=== PATIENT | male | born 1950 | race Caucasian/White ===

== ENCOUNTER 2018-06-15 02:56 | Outpatient (CLI) | payer OTHER, SELFPAY ==
[2018-06-15 09:11] LABS: Abs Immature Grans 0.03 k/cumm (0.0-0.09); Absolute Basophil Count 0.18 k/cumm (0.0-0.2); Absolute Eosinophil Count 0.06 k/cumm (0.0-0.7); Absolute Lymphocyte Count 1.69 k/cumm (1.2-3.4); Absolute Monocyte Count 0.32 k/cumm (0.11-0.7); Absolute Neutrophil Count 1.44 k/cumm (1.2-6.7); Basophils % 4.8; Eosinophils % 1.6; HCT 32.2 % (40.0-50.0); HGB 10.5 g/dL (13.5-17.5); Immature Grans % 0.8; Lymphocytes % 45.4; Mean Corp. HGB Concentration 32.6 g/dL (32.0-36.0); Mean Corpuscular Hemoglobin 33.3 pg (27.0-33.0); Mean Corpuscular Volume 102.2 fL (80-95); Mean Platelet Volume 10.6 fL (8.0-11.0); Monocytes % 8.6; Neutrophils % 38.8; RBC 3.15 m/cumm (4.50-6.00); RBC Distribution Width 23.1 % (11.8-14.1); White Blood Cell Count 3.72 k/cumm (4.4-10.8)
[2018-06-15 09:34] LABS: Platelet Count 242 x1000/uL (130-400)
[2018-06-15 09:35] LABS: Anisocytosis 3+; Macrocytosis 2+
[2018-06-15 09:36] LABS: Microcytosis 2+; Ovalocytes 2+; Poikilocytes 2+; Polychromasia Present
== END 2018-06-15 02:57 ==
PROVIDERS: PCP Family Medicine; Visit Provider Internal Medicine Hematology & Oncology
DX: D46.9 Myelodysplastic syndrome, unspecified (principal)
CPT/HCPCS: 36415; 85025

== ENCOUNTER 2018-07-13 01:48 | Outpatient (CLI) | payer OTHER, SELFPAY ==
[2018-07-13 10:22] LABS: HCT 30.7 % (40.0-50.0); HGB 10.1 g/dL (13.5-17.5); Mean Corp. HGB Concentration 32.9 g/dL (32.0-36.0); Mean Corpuscular Hemoglobin 33.8 pg (27.0-33.0); Mean Corpuscular Volume 102.7 fL (80-95); Mean Platelet Volume 11.4 fL (8.0-11.0); Platelet Count 233 x1000/uL (130-400); RBC 2.99 m/cumm (4.50-6.00); RBC Distribution Width 22.8 % (11.8-14.1); White Blood Cell Count 3.41 k/cumm (4.4-10.8)
[2018-07-13 10:46] LABS: Absolute Basophil Count 0.14 k/cumm (0.0-0.2); Absolute Monocyte Count 0.24 k/cumm (0.11-0.7); Absolute Neutrophil Count 1.36 k/cumm (1.2-6.7)
[2018-07-13 10:47] LABS: Anisocytosis 2+; Diff Comment Manual Differential
[2018-07-13 10:48] LABS: Basophilic Stippling Present; Macrocytosis 1+; Polychromasia Present
[2018-07-13 10:49] LABS: Poikilocytes 2+
[2018-07-13 10:59] LABS: ALT 39 U/L (12-78); AST 36 U/L (15-37); Albumin 3.6 g/dL (3.4-5.0); Alkaline Phosphatase 82 U/L (46-116); Anion Gap 3.7 mmol/L (3-11); BUN 28 mg/dL (7-18); Bilirubin, Total 0.9 mg/dL (0.2-1.0); CO2 29.3 mmol/L (21.0-32.0); CREATININE 1.79 mg/dL (0.70-1.30); Calcium 8.7 mg/dL (8.5-10.1); Chloride 105 mmol/L (98-107); Estimated GFR 38.18 (mL/min/1.73m2); Ferritin 272 ng/mL (8-388); Glucose 111 mg/dL (70-100); Potassium 4.9 mmol/L (3.5-5.1); Sodium 138 mmol/L (136-145); Total Protein 7.1 g/dL (6.4-8.2)
== END 2018-07-13 02:08 ==
PROVIDERS: PCP Family Medicine; Visit Provider Internal Medicine Hematology & Oncology
DX: D46.9 Myelodysplastic syndrome, unspecified (principal)
CPT/HCPCS: 80053; 82728; 85025

== ENCOUNTER 2018-07-27 09:20 | Outpatient (CLI) | payer OTHER, SELFPAY ==
[2018-07-27 10:31] LABS: Abs Immature Grans 0.04 k/cumm (0.0-0.09); Absolute Basophil Count 0.17 k/cumm (0.0-0.2); Absolute Eosinophil Count 0.06 k/cumm (0.0-0.7); Absolute Lymphocyte Count 1.56 k/cumm (1.2-3.4); Absolute Monocyte Count 0.34 k/cumm (0.11-0.7); Basophils % 4.5; Eosinophils % 1.6; HCT 30.8 % (40.0-50.0); HGB 9.9 g/dL (13.5-17.5); Immature Grans % 1.1; Lymphocytes % 41.2; Mean Corp. HGB Concentration 32.1 g/dL (32.0-36.0); Mean Corpuscular Volume 102.7 fL (80-95); Neutrophils % 42.6; RBC Distribution Width 22.8 % (11.8-14.1); White Blood Cell Count 3.79 k/cumm (4.4-10.8)
[2018-07-27 10:32] LABS: Absolute Neutrophil Count 1.61 k/cumm (1.2-6.7)
[2018-07-27 10:35] LABS: ALT 36 U/L (12-78); AST 30 U/L (15-37); Albumin 3.5 g/dL (3.4-5.0); Alkaline Phosphatase 79 U/L (46-116); Anion Gap 7.4 mmol/L (3-11); BUN 29 mg/dL (7-18); Bilirubin, Total 0.9 mg/dL (0.2-1.0); CO2 25.6 mmol/L (21.0-32.0); CREATININE 1.65 mg/dL (0.70-1.30); Calcium 9.1 mg/dL (8.5-10.1); Chloride 105 mmol/L (98-107); Estimated GFR 41.95 (mL/min/1.73m2); Glucose 107 mg/dL (70-100); Potassium 4.5 mmol/L (3.5-5.1); Sodium 138 mmol/L (136-145); Total Protein 6.9 g/dL (6.4-8.2)
[2018-07-27 10:46] LABS: Platelet Count 273 x1000/uL (130-400)
[2018-07-27 10:47] LABS: Anisocytosis 3+; Diff Comment RBC Morph Reviewed; Microcytosis 2+
[2018-07-27 10:48] LABS: Ovalocytes 2+; Poikilocytes 2+; Polychromasia Present
[2018-07-27 11:45] LABS: Ferritin 276 ng/mL (8-388)
== END 2018-07-27 09:40 ==
PROVIDERS: Internal Medicine Hematology & Oncology; PCP Family Medicine; Visit Provider Family Medicine
DX: D46.9 Myelodysplastic syndrome, unspecified (principal)
CPT/HCPCS: 36415; 80053; 82728; 85025

== ENCOUNTER 2018-08-24 02:06 | Outpatient (CLI) | payer OTHER, SELFPAY ==
[2018-08-24 09:20] LABS: Abs Immature Grans 0.04 k/cumm (0.0-0.09); Absolute Basophil Count 0.17 k/cumm (0.0-0.2); Absolute Eosinophil Count 0.06 k/cumm (0.0-0.7); Absolute Lymphocyte Count 1.41 k/cumm (1.2-3.4); Absolute Monocyte Count 0.31 k/cumm (0.11-0.7); Absolute Neutrophil Count 2.05 k/cumm (1.2-6.7); Basophils % 4.2; Eosinophils % 1.5; HCT 33.2 % (40.0-50.0); HGB 10.8 g/dL (13.5-17.5); Lymphocytes % 34.9; Mean Corp. HGB Concentration 32.5 g/dL (32.0-36.0); Mean Corpuscular Hemoglobin 32.8 pg (27.0-33.0); Mean Corpuscular Volume 100.9 fL (80-95); Monocytes % 7.7; Neutrophils % 50.7; RBC 3.29 m/cumm (4.50-6.00); RBC Distribution Width 22.3 % (11.8-14.1); White Blood Cell Count 4.04 k/cumm (4.4-10.8)
[2018-08-24 09:41] LABS: Anisocytosis 3+; Basophilic Stippling Present; Diff Comment Diff Reviewed; Platelet Count 230 x1000/uL (130-400)
[2018-08-24 09:42] LABS: Polychromasia Present
[2018-08-24 09:43] LABS: Poikilocytes 2+
[2018-08-24 09:44] LABS: ALT 38 U/L (12-78); AST 30 U/L (15-37); Albumin 3.8 g/dL (3.4-5.0); Alkaline Phosphatase 80 U/L (46-116); Anion Gap 6.9 mmol/L (3-11); BUN 35 mg/dL (7-18); Bilirubin, Total 1.2 mg/dL (0.2-1.0); CO2 28.1 mmol/L (21.0-32.0); Calcium 9.1 mg/dL (8.5-10.1); Chloride 102 mmol/L (98-107); Estimated GFR 46.82 (mL/min/1.73m2); Ferritin 263 ng/mL (8-388); Glucose 108 mg/dL (70-100); Potassium 4.7 mmol/L (3.5-5.1); Sodium 137 mmol/L (136-145); Total Protein 7.3 g/dL (6.4-8.2)
== END 2018-08-24 02:26 ==
PROVIDERS: PCP Family Medicine; Visit Provider Internal Medicine Hematology & Oncology
DX: D46.9 Myelodysplastic syndrome, unspecified (principal)
CPT/HCPCS: 80053; 82728; 85025

== ENCOUNTER 2018-09-21 01:39 | Outpatient (CLI) | payer OTHER, SELFPAY ==
[2018-09-21 10:21] LABS: Abs Immature Grans 0.04 k/cumm (0.0-0.09); Absolute Basophil Count 0.13 k/cumm (0.0-0.2); Absolute Eosinophil Count 0.04 k/cumm (0.0-0.7); Absolute Lymphocyte Count 1.57 k/cumm (1.2-3.4); Absolute Neutrophil Count 1.64 k/cumm (1.2-6.7); Basophils % 3.5; Eosinophils % 1.1; HCT 32.5 % (40.0-50.0); HGB 10.3 g/dL (13.5-17.5); Immature Grans % 1.1; Lymphocytes % 42.2; Mean Corp. HGB Concentration 31.7 g/dL (32.0-36.0); Mean Corpuscular Hemoglobin 32.4 pg (27.0-33.0); Mean Corpuscular Volume 102.2 fL (80-95); Mean Platelet Volume 11.8 fL (8.0-11.0); Monocytes % 8.1; Platelet Count 293 x1000/uL (130-400); RBC 3.18 m/cumm (4.50-6.00); RBC Distribution Width 22.2 % (11.8-14.1); White Blood Cell Count 3.72 k/cumm (4.4-10.8)
[2018-09-21 10:48] LABS: ALT 41 U/L (12-78); AST 32 U/L (15-37); Albumin 3.8 g/dL (3.4-5.0); Alkaline Phosphatase 77 U/L (46-116); Anion Gap 5.5 mmol/L (3-11); BUN 29 mg/dL (7-18); Bilirubin, Total 1.2 mg/dL (0.2-1.0); CO2 28.5 mmol/L (21.0-32.0); CREATININE 1.44 mg/dL (0.70-1.30); Calcium 9.2 mg/dL (8.5-10.1); Chloride 102 mmol/L (98-107); Estimated GFR 49.08 (mL/min/1.73m2); Ferritin 288 ng/mL (8-388); Glucose 109 mg/dL (70-100); Potassium 4.3 mmol/L (3.5-5.1); Sodium 136 mmol/L (136-145); Total Protein 7.1 g/dL (6.4-8.2)
== END 2018-09-21 01:59 ==
PROVIDERS: PCP Family Medicine; Visit Provider Internal Medicine Hematology & Oncology
DX: D46.9 Myelodysplastic syndrome, unspecified (principal)
CPT/HCPCS: 36415; 80053; 82728; 85025

== ENCOUNTER 2018-10-19 01:47 | Outpatient (CLI) | payer OTHER, SELFPAY ==
[2018-10-19 10:32] LABS: Abs Immature Grans 0.04 k/cumm (0.0-0.09); Absolute Eosinophil Count 0.07 k/cumm (0.0-0.7); HCT 34.1 % (40.0-50.0); HGB 10.9 g/dL (13.5-17.5); Mean Corpuscular Hemoglobin 32.5 pg (27.0-33.0); Mean Corpuscular Volume 101.8 fL (80-95); RBC 3.35 m/cumm (4.50-6.00); RBC Distribution Width 22.8 % (11.8-14.1); White Blood Cell Count 3.65 k/cumm (4.4-10.8)
[2018-10-19 11:03] LABS: ALT 35 U/L (12-78); AST 27 U/L (15-37); Albumin 3.6 g/dL (3.4-5.0); Alkaline Phosphatase 81 U/L (46-116); Anion Gap 6.1 mmol/L (3-11); BUN 32 mg/dL (7-18); CO2 27.9 mmol/L (21.0-32.0); CREATININE 1.53 mg/dL (0.70-1.30); Calcium 9.3 mg/dL (8.5-10.1); Chloride 103 mmol/L (98-107); Estimated GFR 45.77 (mL/min/1.73m2); Ferritin 243 ng/mL (8-388); Glucose 107 mg/dL (70-100); Potassium 4.8 mmol/L (3.5-5.1); Sodium 137 mmol/L (136-145); Total Protein 7.1 g/dL (6.4-8.2)
[2018-10-19 11:04] LABS: Absolute Basophil Count 0.15 k/cumm (0.0-0.2); Absolute Monocyte Count 0.33 k/cumm (0.11-0.7); Absolute Neutrophil Count 1.61 k/cumm (1.2-6.7); Atypical Lymphocytes % 4; Diff Comment Manual Differential; Platelet Count 244 x1000/uL (130-400)
[2018-10-19 11:05] LABS: Anisocytosis 3+; Poikilocytes 2+; Polychromasia Present
== END 2018-10-19 02:07 ==
PROVIDERS: PCP Family Medicine; Visit Provider Internal Medicine Hematology & Oncology
DX: D46.9 Myelodysplastic syndrome, unspecified (principal)
CPT/HCPCS: 36415; 80053; 82728; 85025

== ENCOUNTER 2018-11-23 02:22 | Outpatient (CLI) | payer OTHER, SELFPAY ==
[2018-11-23 10:06] LABS: Abs Immature Grans 0.05 k/cumm (0.0-0.09); Absolute Basophil Count 0.14 k/cumm (0.0-0.2); Absolute Eosinophil Count 0.04 k/cumm (0.0-0.7); Absolute Monocyte Count 0.38 k/cumm (0.11-0.7); Absolute Neutrophil Count 1.52 k/cumm (1.2-6.7); Basophils % 3.8; Eosinophils % 1.1; HCT 27.3 % (40.0-50.0); HGB 9.5 g/dL (13.5-17.5); Immature Grans % 1.3; Lymphocytes % 42.9; Mean Corp. HGB Concentration 34.8 g/dL (32.0-36.0); Mean Corpuscular Hemoglobin 33.5 pg (27.0-33.0); Mean Corpuscular Volume 96.1 fL (80-95); Mean Platelet Volume 10.1 fL (8.0-11.0); Monocytes % 10.2; Neutrophils % 40.7; Platelet Count 303 x1000/uL (130-400); RBC 2.84 m/cumm (4.50-6.00); RBC Distribution Width 19.6 % (11.8-14.1); White Blood Cell Count 3.73 k/cumm (4.4-10.8)
[2018-11-23 10:48] LABS: ALT 40 U/L (12-78); AST 31 U/L (15-37); Albumin 3.7 g/dL (3.4-5.0); Alkaline Phosphatase 105 U/L (46-116); Anion Gap 5.9 mmol/L (3-11); BUN 32 mg/dL (7-18); Bilirubin, Total 0.9 mg/dL (0.2-1.0); CO2 28.1 mmol/L (21.0-32.0); CREATININE 1.51 mg/dL (0.70-1.30); Calcium 9.5 mg/dL (8.5-10.1); Chloride 97 mmol/L (98-107); Estimated GFR 46.47 (mL/min/1.73m2); Ferritin 764 ng/mL (8-388); Glucose 97 mg/dL (70-100); Potassium 4.7 mmol/L (3.5-5.1); Sodium 131 mmol/L (136-145); Total Protein 7.5 g/dL (6.4-8.2)
== END 2018-11-23 02:42 ==
PROVIDERS: PCP Family Medicine; Visit Provider Internal Medicine Hematology & Oncology
DX: D46.9 Myelodysplastic syndrome, unspecified (principal)
CPT/HCPCS: 36415; 80053; 82728; 85025

== ENCOUNTER 2018-12-07 01:55 | Outpatient (CLI) | payer OTHER, SELFPAY ==
[2018-12-07 08:48] LABS: Abs Immature Grans 0.05 k/cumm (0.0-0.09); HCT 30.4 % (40.0-50.0); HGB 9.6 g/dL (13.5-17.5); Mean Corp. HGB Concentration 31.6 g/dL (32.0-36.0); Mean Corpuscular Hemoglobin 32.2 pg (27.0-33.0); Mean Platelet Volume 11.9 fL (8.0-11.0); Platelet Count 342 x1000/uL (130-400); RBC 2.98 m/cumm (4.50-6.00); RBC Distribution Width 22.7 % (11.8-14.1); White Blood Cell Count 3.47 k/cumm (4.4-10.8)
[2018-12-07 09:05] LABS: ALT 34 U/L (12-78); AST 28 U/L (15-37); Albumin 3.6 g/dL (3.4-5.0); Alkaline Phosphatase 79 U/L (46-116); Anion Gap 8.4 mmol/L (3-11); BUN 33 mg/dL (7-18); Bilirubin, Total 1.1 mg/dL (0.2-1.0); CO2 27.6 mmol/L (21.0-32.0); CREATININE 1.73 mg/dL (0.70-1.30); Calcium 9.2 mg/dL (8.5-10.1); Chloride 104 mmol/L (98-107); Estimated GFR 39.72 (mL/min/1.73m2); Ferritin 427 ng/mL (8-388); Glucose 83 mg/dL (70-100); Potassium 4.4 mmol/L (3.5-5.1); Sodium 140 mmol/L (136-145); Total Protein 7.5 g/dL (6.4-8.2)
[2018-12-07 09:34] LABS: Absolute Basophil Count 0.03 k/cumm (0.0-0.2); Absolute Eosinophil Count 0.03 k/cumm (0.0-0.7); Absolute Lymphocyte Count 1.39 k/cumm (1.2-3.4); Absolute Monocyte Count 0.28 k/cumm (0.11-0.7); Absolute Neutrophil Count 1.67 k/cumm (1.2-6.7); Diff Comment Manual Differential
[2018-12-07 09:35] LABS: Anisocytosis 2+; Hypochromasia 2+
== END 2018-12-07 02:15 ==
PROVIDERS: PCP Family Medicine; Visit Provider Internal Medicine Hematology & Oncology
DX: D46.9 Myelodysplastic syndrome, unspecified (principal)
CPT/HCPCS: 36415; 80053; 82728; 85025

== ENCOUNTER 2019-01-11 02:45 | Outpatient (CLI) | payer OTHER, SELFPAY ==
[2019-01-11 11:16] LABS: Abs Immature Grans 0.14 k/cumm (0.0-0.09); HCT 21.7 % (40.0-50.0); HGB 7.3 g/dL (13.5-17.5); Mean Corp. HGB Concentration 33.6 g/dL (32.0-36.0); Mean Corpuscular Hemoglobin 33.3 pg (27.0-33.0); Mean Corpuscular Volume 99.1 fL (80-95); Mean Platelet Volume 9.5 fL (8.0-11.0); Platelet Count 475 x1000/uL (130-400); RBC 2.19 m/cumm (4.50-6.00); RBC Distribution Width 23.4 % (11.8-14.1); White Blood Cell Count 4.74 k/cumm (4.4-10.8)
[2019-01-11 11:34] LABS: ALT 37 U/L (12-78); AST 31 U/L (15-37); Albumin 3.8 g/dL (3.4-5.0); Alkaline Phosphatase 88 U/L (46-116); Anion Gap 9.6 mmol/L (3-11); BUN 47 mg/dL (7-18); Bilirubin, Total 0.7 mg/dL (0.2-1.0); CO2 22.4 mmol/L (21.0-32.0); CREATININE 1.95 mg/dL (0.70-1.30); Calcium 8.8 mg/dL (8.5-10.1); Chloride 101 mmol/L (98-107); Estimated GFR 34.49 (mL/min/1.73m2); Ferritin 851 ng/mL (8-388); Glucose 92 mg/dL (70-100); Potassium 5.8 mmol/L (3.5-5.1); Sodium 133 mmol/L (136-145); Total Protein 7.6 g/dL (6.4-8.2)
[2019-01-11 11:51] LABS: Absolute Eosinophil Count 0.05 k/cumm (0.0-0.7); Absolute Lymphocyte Count 2.04 k/cumm (1.2-3.4); Absolute Monocyte Count 0.19 k/cumm (0.11-0.7); Absolute Neutrophil Count 2.37 k/cumm (1.2-6.7)
[2019-01-11 11:52] LABS: Diff Comment Manual Differential; Hypochromasia 3+; Macrocytosis 3+; Microcytosis 2+; Nucleated RBC 1 /100WBC
[2019-01-11 11:53] LABS: Ovalocytes 2+; Poikilocytes 2+; Polychromasia Present; Schistocytes 2+
[2019-01-12 13:33] LABS: Albumin 57.2 % (55.8-66.1)
== END 2019-01-11 03:05 ==
PROVIDERS: PCP Family Medicine; Visit Provider Internal Medicine Hematology & Oncology
DX: D46.9 Myelodysplastic syndrome, unspecified (principal); N28.9 Disorder of kidney and ureter, unspecified
CPT/HCPCS: 36415; 80053; 82728; 84165; 85025

== ENCOUNTER 2019-02-08 01:02 | Outpatient (CLI) | payer OTHER, MEDICARE, SELFPAY ==
[2019-02-08 10:26] LABS: Abs Immature Grans 0.04 k/cumm (0.0-0.09); HCT 28.6 % (40.0-50.0); HGB 9.3 g/dL (13.5-17.5); Mean Corp. HGB Concentration 32.5 g/dL (32.0-36.0); Mean Corpuscular Hemoglobin 31.7 pg (27.0-33.0); Mean Corpuscular Volume 97.6 fL (80-95); Mean Platelet Volume 11.3 fL (8.0-11.0); RBC 2.93 m/cumm (4.50-6.00); RBC Distribution Width 29.2 % (11.8-14.1); White Blood Cell Count 3.11 k/cumm (4.4-10.8)
[2019-02-08 10:33] LABS: ALT 30 U/L (12-78); AST 30 U/L (15-37); Albumin 3.6 g/dL (3.4-5.0); Alkaline Phosphatase 86 U/L (46-116); Anion Gap 8.3 mmol/L (3-11); BUN 32 mg/dL (7-18); Bilirubin, Total 1.2 mg/dL (0.2-1.0); CO2 26.7 mmol/L (21.0-32.0); CREATININE 1.84 mg/dL (0.70-1.30); Calcium 8.7 mg/dL (8.5-10.1); Chloride 99 mmol/L (98-107); Estimated GFR 36.88 (mL/min/1.73m2); Ferritin 303 ng/mL (8-388); Glucose 98 mg/dL (70-100); Potassium 4.7 mmol/L (3.5-5.1); Sodium 134 mmol/L (136-145); Total Protein 7.2 g/dL (6.4-8.2)
[2019-02-08 10:48] LABS: Absolute Basophil Count 0.12 k/cumm (0.0-0.2); Absolute Eosinophil Count 0.03 k/cumm (0.0-0.7); Absolute Lymphocyte Count 1.83 k/cumm (1.2-3.4); Absolute Monocyte Count 0.28 k/cumm (0.11-0.7); Absolute Neutrophil Count 0.81 k/cumm (1.2-6.7); Atypical Lymphocytes % 4; Platelet Count 419 x1000/uL (130-400)
[2019-02-08 10:49] LABS: Anisocytosis 3+; Diff Comment Manual Differential; Hypochromasia 2+; Macrocytosis 2+; Microcytosis 3+; Poikilocytes 3+; Polychromasia Present
== END 2019-02-08 01:22 ==
PROVIDERS: PCP Family Medicine; Visit Provider Internal Medicine Hematology & Oncology
DX: D46.9 Myelodysplastic syndrome, unspecified (principal)
CPT/HCPCS: 36415; 80053; 82728; 85025

== ENCOUNTER 2019-03-08 01:37 | Outpatient (CLI) | payer OTHER, SELFPAY ==
[2019-03-08 09:23] LABS: Abs Immature Grans 0.02 k/cumm (0.0-0.09); Absolute Basophil Count 0.09 k/cumm (0.0-0.2); Absolute Eosinophil Count 0.03 k/cumm (0.0-0.7); Absolute Monocyte Count 0.28 k/cumm (0.11-0.7); Absolute Neutrophil Count 1.22 k/cumm (1.2-6.7); Basophils % 3.1; HCT 30.4 % (40.0-50.0); HGB 10.1 g/dL (13.5-17.5); Immature Grans % 0.7; Lymphocytes % 44.2; Mean Corp. HGB Concentration 33.2 g/dL (32.0-36.0); Mean Corpuscular Hemoglobin 31.8 pg (27.0-33.0); Mean Corpuscular Volume 95.6 fL (80-95); Monocytes % 9.5; Neutrophils % 41.5; RBC 3.18 m/cumm (4.50-6.00); RBC Distribution Width 24.1 % (11.8-14.1); White Blood Cell Count 2.94 k/cumm (4.4-10.8)
[2019-03-08 09:46] LABS: Anisocytosis 3+; Basophilic Stippling Present; Macrocytosis 2+; Microcytosis 2+; Platelet Count 265 x1000/uL (130-400)
[2019-03-08 09:47] LABS: ALT 34 U/L (12-78); AST 31 U/L (15-37); Albumin 3.7 g/dL (3.4-5.0); Alkaline Phosphatase 85 U/L (46-116); BUN 28 mg/dL (7-18); Bilirubin, Total 1.3 mg/dL (0.2-1.0); CREATININE 1.53 mg/dL (0.70-1.30); Chloride 95 mmol/L (98-107); Estimated GFR 45.63 (mL/min/1.73m2); Ferritin 402 ng/mL (8-388); Glucose 109 mg/dL (70-100); Poikilocytes 2+; Potassium 4.3 mmol/L (3.5-5.1); Sodium 130 mmol/L (136-145); Total Protein 7.4 g/dL (6.4-8.2)
[2019-03-08 10:45] LABS: Iron 120 ug/dL (50-175); Total Iron Binding Capacity 357 ug/dL (250-450); Transferrin Sat 34 % (20-55)
== END 2019-03-08 01:57 ==
PROVIDERS: PCP Family Medicine; Visit Provider Internal Medicine Hematology & Oncology
DX: D46.9 Myelodysplastic syndrome, unspecified (principal)
CPT/HCPCS: 36415; 80053; 82728; 83540; 83550; 85025

== ENCOUNTER 2019-04-05 09:33 | Outpatient (CLI) | payer OTHER, SELFPAY ==
[2019-04-05 09:59] LABS: Abs Immature Grans 0.04 k/cumm (0.0-0.09); HCT 29.9 % (40.0-50.0); HGB 9.4 g/dL (13.5-17.5); Mean Corp. HGB Concentration 31.4 g/dL (32.0-36.0); Mean Corpuscular Hemoglobin 32.1 pg (27.0-33.0); Mean Platelet Volume 10.7 fL (8.0-11.0); RBC 2.93 m/cumm (4.50-6.00); RBC Distribution Width 24.5 % (11.8-14.1); White Blood Cell Count 2.74 k/cumm (4.4-10.8)
[2019-04-05 10:33] LABS: ALT 41 U/L (12-78); AST 35 U/L (15-37); Albumin 3.5 g/dL (3.4-5.0); Alkaline Phosphatase 85 U/L (46-116); Anion Gap 6.2 mmol/L (3-11); BUN 30 mg/dL (7-18); Bilirubin, Total 1.3 mg/dL (0.2-1.0); CO2 27.8 mmol/L (21.0-32.0); CREATININE 1.66 mg/dL (0.70-1.30); Calcium 8.8 mg/dL (8.5-10.1); Chloride 105 mmol/L (98-107); Estimated GFR 41.53 (mL/min/1.73m2); Ferritin 369 ng/mL (8-388); Glucose 111 mg/dL (70-100); Potassium 5.2 mmol/L (3.5-5.1); Sodium 139 mmol/L (136-145); Total Protein 7.1 g/dL (6.4-8.2)
[2019-04-05 10:34] LABS: Platelet Count 295 x1000/uL (130-400)
[2019-04-05 10:35] LABS: Absolute Eosinophil Count 0.11 k/cumm (0.0-0.7); Absolute Lymphocyte Count 1.64 k/cumm (1.2-3.4); Absolute Monocyte Count 0.25 k/cumm (0.11-0.7); Absolute Neutrophil Count 0.71 k/cumm (1.2-6.7)
[2019-04-05 10:36] LABS: Atypical Lymphocytes % 3; Diff Comment Manual Differential
[2019-04-05 10:37] LABS: Anisocytosis 3+; Macrocytosis 1+; Microcytosis 1+; Poikilocytes 1+; Polychromasia Present
== END 2019-04-05 09:53 ==
PROVIDERS: PCP Family Medicine; Visit Provider Internal Medicine Hematology & Oncology
DX: D46.9 Myelodysplastic syndrome, unspecified (principal)
CPT/HCPCS: 36415; 80053; 82728; 85025

== ENCOUNTER 2019-05-03 09:30 | Outpatient (CLI) | payer OTHER, SELFPAY ==
[2019-05-03 09:51] LABS: Abs Immature Grans 0.02 k/cumm (0.0-0.09); Absolute Basophil Count 0.15 k/cumm (0.0-0.2); Absolute Eosinophil Count 0.08 k/cumm (0.0-0.7); Absolute Lymphocyte Count 1.43 k/cumm (1.2-3.4); Absolute Monocyte Count 0.35 k/cumm (0.11-0.7); Absolute Neutrophil Count 1.23 k/cumm (1.2-6.7); Basophils % 4.6; Eosinophils % 2.5; HCT 29.9 % (40.0-50.0); HGB 9.7 g/dL (13.5-17.5); Immature Grans % 0.6; Lymphocytes % 43.9; Mean Corp. HGB Concentration 32.4 g/dL (32.0-36.0); Mean Corpuscular Hemoglobin 32.9 pg (27.0-33.0); Mean Corpuscular Volume 101.4 fL (80-95); Mean Platelet Volume 11.8 fL (8.0-11.0); Monocytes % 10.7; Neutrophils % 37.7; Platelet Count 334 x1000/uL (130-400); RBC 2.95 m/cumm (4.50-6.00); White Blood Cell Count 3.26 k/cumm (4.4-10.8)
[2019-05-03 10:09] LABS: Anisocytosis 3+; Basophilic Stippling Present; Diff Comment Diff Reviewed
[2019-05-03 10:10] LABS: Macrocytosis 2+; Microcytosis 3+; Polychromasia Present
[2019-05-03 10:11] LABS: Poikilocytes 3+
[2019-05-03 10:28] LABS: ALT 53 U/L (12-78); AST 36 U/L (15-37); Albumin 3.6 g/dL (3.4-5.0); Alkaline Phosphatase 107 U/L (46-116); Anion Gap 11.2 mmol/L (3-11); BUN 36 mg/dL (7-18); CO2 23.8 mmol/L (21.0-32.0); CREATININE 1.65 mg/dL (0.70-1.30); Calcium 8.6 mg/dL (8.5-10.1); Chloride 105 mmol/L (98-107); Estimated GFR 41.82 (mL/min/1.73m2); Ferritin 455 ng/mL (8-388); Glucose 110 mg/dL (70-100); Potassium 4.9 mmol/L (3.5-5.1); Sodium 140 mmol/L (136-145); Total Protein 7.5 g/dL (6.4-8.2)
== END 2019-05-03 09:50 ==
PROVIDERS: PCP Family Medicine; Visit Provider Internal Medicine Hematology & Oncology
DX: D46.9 Myelodysplastic syndrome, unspecified (principal)
CPT/HCPCS: 36415; 80053; 82728; 85025

== ENCOUNTER 2019-05-31 01:54 | Outpatient (CLI) | payer OTHER, SELFPAY ==
[2019-05-31 10:00] LABS: Abs Immature Grans 0.02 k/cumm (0.0-0.09); Absolute Basophil Count 0.13 k/cumm (0.0-0.2); Absolute Eosinophil Count 0.07 k/cumm (0.0-0.7); Absolute Lymphocyte Count 1.22 k/cumm (1.2-3.4); Absolute Neutrophil Count 0.92 k/cumm (1.2-6.7); Basophils % 4.9; Eosinophils % 2.6; HCT 29.7 % (40.0-50.0); HGB 9.7 g/dL (13.5-17.5); Immature Grans % 0.8; Lymphocytes % 45.9; Mean Corp. HGB Concentration 32.7 g/dL (32.0-36.0); Mean Corpuscular Hemoglobin 32.3 pg (27.0-33.0); Mean Platelet Volume 10.1 fL (8.0-11.0); Monocytes % 11.3; Neutrophils % 34.5; Platelet Count 315 x1000/uL (130-400); RBC Distribution Width 22.8 % (11.8-14.1); White Blood Cell Count 2.66 k/cumm (4.4-10.8)
[2019-05-31 10:26] LABS: Iron 195 ug/dL (50-175); Total Iron Binding Capacity 346 ug/dL (250-450); Transferrin Sat 56 % (20-55)
[2019-05-31 10:36] LABS: ALT 41 U/L (12-78); AST 35 U/L (15-37); Albumin 3.8 g/dL (3.4-5.0); Alkaline Phosphatase 89 U/L (46-116); Anion Gap 8.1 mmol/L (3-11); BUN 34 mg/dL (7-18); Bilirubin, Total 1.4 mg/dL (0.2-1.0); CO2 26.9 mmol/L (21.0-32.0); CREATININE 1.88 mg/dL (0.70-1.30); Calcium 9.8 mg/dL (8.5-10.1); Chloride 98 mmol/L (98-107); Estimated GFR 35.97 (mL/min/1.73m2); Ferritin 569 ng/mL (8-388); Glucose 115 mg/dL (70-100); Sodium 133 mmol/L (136-145); Total Protein 7.6 g/dL (6.4-8.2)
[2019-06-06 11:28] LABS: Specimen WB Whole Blood
== END 2019-05-31 02:14 ==
PROVIDERS: PCP Family Medicine; Visit Provider Internal Medicine Hematology & Oncology
DX: D63.0 Anemia in neoplastic disease (principal); D46.9 Myelodysplastic syndrome, unspecified
CPT/HCPCS: 36415; 80053; 81256; 82728; 83540; 83550; 85025

== ENCOUNTER 2019-06-21 01:42 | Outpatient (CLI) | payer OTHER, SELFPAY ==
[2019-06-21 10:07] LABS: Abs Immature Grans 0.04 k/cumm (0.0-0.09); HCT 28.2 % (40.0-50.0); HGB 9.1 g/dL (13.5-17.5); Mean Corp. HGB Concentration 32.3 g/dL (32.0-36.0); Mean Corpuscular Hemoglobin 33.1 pg (27.0-33.0); Mean Corpuscular Volume 102.5 fL (80-95); Mean Platelet Volume 9.7 fL (8.0-11.0); Platelet Count 324 x1000/uL (130-400); RBC 2.75 m/cumm (4.50-6.00); RBC Distribution Width 24.2 % (11.8-14.1); White Blood Cell Count 2.59 k/cumm (4.4-10.8)
[2019-06-21 10:32] LABS: ALT 46 U/L (12-78); AST 36 U/L (15-37); Albumin 3.7 g/dL (3.4-5.0); Alkaline Phosphatase 100 U/L (46-116); Anion Gap 9.5 mmol/L (3-11); BUN 31 mg/dL (7-18); CO2 24.5 mmol/L (21.0-32.0); Calcium 8.7 mg/dL (8.5-10.1); Chloride 100 mmol/L (98-107); Estimated GFR 43.33 (mL/min/1.73m2); Ferritin 479 ng/mL (8-388); Glucose 106 mg/dL (70-100); Potassium 5.1 mmol/L (3.5-5.1); Sodium 134 mmol/L (136-145); Total Protein 7.6 g/dL (6.4-8.2)
[2019-06-21 10:45] LABS: Iron 215 ug/dL (50-175); Total Iron Binding Capacity 323 ug/dL (250-450); Transferrin Sat 67 % (20-55)
[2019-06-21 11:12] LABS: Absolute Eosinophil Count 0.08 k/cumm (0.0-0.7); Absolute Monocyte Count 0.26 k/cumm (0.11-0.7); Anisocytosis 3+; Atypical Lymphocytes % 4; Diff Comment Manual Differential; Hypochromasia 2+; Polychromasia Present
[2019-06-21 11:13] LABS: Poikilocytes 3+
[2019-07-14 12:48] LABS: Absolute Basophil Count 0.05 k/cumm (0.0-0.2)
== END 2019-06-21 02:02 ==
PROVIDERS: PCP Family Medicine; Visit Provider Internal Medicine Hematology & Oncology
DX: D63.0 Anemia in neoplastic disease (principal); D46.9 Myelodysplastic syndrome, unspecified
CPT/HCPCS: 36415; 80053; 82728; 83540; 83550; 85025

== ENCOUNTER 2019-07-05 09:43 | Outpatient (CLI) | payer OTHER, SELFPAY ==
[2019-07-05 10:05] LABS: Abs Immature Grans 0.05 k/cumm (0.0-0.09); Absolute Basophil Count 0.09 k/cumm (0.0-0.2); Absolute Eosinophil Count 0.06 k/cumm (0.0-0.7); Absolute Lymphocyte Count 1.33 k/cumm (1.2-3.4); Absolute Monocyte Count 0.23 k/cumm (0.11-0.7); Basophils % 2.7; Eosinophils % 1.8; HCT 28.2 % (40.0-50.0); HGB 9.2 g/dL (13.5-17.5); Immature Grans % 1.5; Lymphocytes % 40.5; Mean Corp. HGB Concentration 32.6 g/dL (32.0-36.0); Mean Corpuscular Hemoglobin 32.7 pg (27.0-33.0); Mean Corpuscular Volume 100.4 fL (80-95); Mean Platelet Volume 9.1 fL (8.0-11.0); Neutrophils % 46.5; RBC 2.81 m/cumm (4.50-6.00); RBC Distribution Width 25.3 % (11.8-14.1); White Blood Cell Count 3.28 k/cumm (4.4-10.8)
[2019-07-05 10:07] LABS: Absolute Neutrophil Count 1.53 k/cumm (1.2-6.7)
[2019-07-05 10:22] LABS: Anisocytosis 3+; Basophilic Stippling Present; Diff Comment RBC Morph Reviewed; Howell-Jolly Bodies Present; Macrocytosis 2+; Microcytosis 2+; Polychromasia Present
[2019-07-05 10:24] LABS: Platelet Count 277 x1000/uL (130-400); Poikilocytes 3+
[2019-07-05 10:36] LABS: ALT 50 U/L (16-63); AST 41 U/L (15-37); Albumin 3.5 g/dL (3.4-5.0); Alkaline Phosphatase 98 U/L (46-116); Anion Gap 7.5 mmol/L (3-11); BUN 22 mg/dL (7-18); Bilirubin, Total 1.3 mg/dL (0.2-1.0); CO2 26.5 mmol/L (21.0-32.0); CREATININE 1.43 mg/dL (0.70-1.30); Calcium 8.5 mg/dL (8.5-10.1); Chloride 99 mmol/L (98-107); Estimated GFR 49.33 (mL/min/1.73m2); Ferritin 445 ng/mL (8-388); Glucose 110 mg/dL (70-100); Potassium 4.6 mmol/L (3.5-5.1); Sodium 133 mmol/L (136-145); Total Protein 7.3 g/dL (6.4-8.2)
[2019-07-05 11:05] LABS: Iron 143 ug/dL (50-175); Total Iron Binding Capacity 361 ug/dL (250-450); Transferrin Sat 40 % (20-55)
== END 2019-07-05 10:03 ==
PROVIDERS: PCP Family Medicine; Visit Provider Internal Medicine Hematology & Oncology
DX: D46.9 Myelodysplastic syndrome, unspecified (principal)
CPT/HCPCS: 36415; 80053; 82728; 83540; 83550; 85025

== ENCOUNTER 2019-08-23 14:11 | Outpatient (CLI) | payer OTHER, SELFPAY | END 2019-08-23 14:31 | PROVIDERS: PCP Family Medicine; Visit Provider Nurse Practitioner Family | DX: D46.9 Myelodysplastic syndrome, unspecified (principal) | CPT/HCPCS: 36415; 80053; 86850; 86900; 86901; 86920; 85025 ==

== ENCOUNTER 2019-08-31 01:53 | Outpatient (RCR) | payer OTHER, SELFPAY ==
[2019-08-23 14:56] LABS: Abs Immature Grans 0.02 k/cumm (0.0-0.09); HCT 23.7 % (40.0-50.0); HGB 7.3 g/dL (13.5-17.5); Mean Corp. HGB Concentration 30.8 g/dL (32.0-36.0); Mean Corpuscular Hemoglobin 31.1 pg (27.0-33.0); Mean Corpuscular Volume 100.9 fL (80-95); Mean Platelet Volume 10.2 fL (8.0-11.0); Platelet Count 358 x1000/uL (130-400); RBC 2.35 m/cumm (4.50-6.00); White Blood Cell Count 2.33 k/cumm (4.4-10.8)
[2019-08-23 16:13] LABS: ALT 47 U/L (16-63); AST 39 U/L (15-37); Absolute Lymphocyte Count 1.23 k/cumm (1.2-3.4); Absolute Monocyte Count 0.09 k/cumm (0.11-0.7); Absolute Neutrophil Count 0.98 k/cumm (1.2-6.7); Albumin 3.9 g/dL (3.4-5.0); Alkaline Phosphatase 107 U/L (46-116); Anion Gap 10.1 mmol/L (3-11); Atypical Lymphocytes % 0; BUN 33 mg/dL (7-18); Bilirubin, Total 1.1 mg/dL (0.2-1.0); CO2 25.9 mmol/L (21.0-32.0); CREATININE 2.02 mg/dL (0.70-1.30); Calcium 9.2 mg/dL (8.5-10.1); Chloride 104 mmol/L (98-107); Estimated GFR 33.11 (mL/min/1.73m2); Glucose 98 mg/dL (70-100); Potassium 4.9 mmol/L (3.5-5.1); Sodium 140 mmol/L (136-145); Total Protein 7.5 g/dL (6.4-8.2)
[2019-08-23 16:14] LABS: Anisocytosis 2+; Basophilic Stippling Present; Diff Comment Manual Differential; Hypochromasia 2+; Nucleated RBC 1 /100WBC
[2019-08-23 16:15] LABS: Macrocytosis 1+; Microcytosis 1+; Polychromasia Present; Schistocytes 1+
[2019-08-25] VITALS (8 sets, daily range): BP systolic 139–165; BP diastolic 61–72; PULSE 67–92; RESP 18; TEMP 36–36.7; O2SAT 18–100
[2019-08-25] MEDS: Normal Saline Flush 10 ML SYR IVP (10:00)
[2019-08-25] MEDS: Heparin 500 UNITS/5 ML SYRINGE IV (10:00)
[2019-08-25] MEDS: Acetaminophen 325 MG TAB 650 MG PO (10:11)
[2019-08-25] MEDS: diphenhydrAMINE 25 MG CAP PO (10:11)
[2019-08-30] MEDS: Normal Saline Flush 10 ML SYR IVP (10:30)
[2019-08-30 10:52] LABS: Abs Immature Grans 0.01 k/cumm (0.0-0.09); Absolute Basophil Count 0.09 k/cumm (0.0-0.2); Absolute Eosinophil Count 0.05 k/cumm (0.0-0.7); Absolute Lymphocyte Count 0.88 k/cumm (1.2-3.4); Absolute Monocyte Count 0.09 k/cumm (0.11-0.7); Absolute Neutrophil Count 0.59 k/cumm (1.2-6.7); Basophils % 5.3; Eosinophils % 2.9; HCT 23.4 % (40.0-50.0); HGB 7.5 g/dL (13.5-17.5); Immature Grans % 0.6; Lymphocytes % 51.5; Mean Corp. HGB Concentration 32.1 g/dL (32.0-36.0); Mean Corpuscular Hemoglobin 31.3 pg (27.0-33.0); Mean Corpuscular Volume 97.5 fL (80-95); Mean Platelet Volume 9.5 fL (8.0-11.0); Monocytes % 5.3; Neutrophils % 34.4; RBC Distribution Width 24.8 % (11.8-14.1)
[2019-08-30 11:01] LABS: ALT 55 U/L (16-63); AST 44 U/L (15-37); Albumin 3.6 g/dL (3.4-5.0); Alkaline Phosphatase 107 U/L (46-116); Anion Gap 7.9 mmol/L (3-11); BUN 33 mg/dL (7-18); Bilirubin, Total 1.3 mg/dL (0.2-1.0); CO2 26.1 mmol/L (21.0-32.0); CREATININE 1.69 mg/dL (0.70-1.30); Chloride 103 mmol/L (98-107); Estimated GFR 40.68 (mL/min/1.73m2); Glucose 114 mg/dL (70-100); Potassium 4.6 mmol/L (3.5-5.1); Sodium 137 mmol/L (136-145); Total Protein 7.5 g/dL (6.4-8.2)
[2019-08-30 11:09] LABS: Platelet Count 241 x1000/uL (130-400); White Blood Cell Count 1.71 k/cumm (4.4-10.8)
[2019-08-30 11:10] LABS: Anisocytosis 3+; Basophilic Stippling Present; Diff Comment Diff Reviewed
[2019-08-30 11:11] LABS: Macrocytosis 2+; Microcytosis 3+; Polychromasia Present
[2019-08-30 11:12] LABS: Poikilocytes 2+
[2019-08-31] VITALS (13 sets, daily range): BP systolic 128–160; BP diastolic 67–78; PULSE 67–101; RESP 18–19; TEMP 36.2–36.7; O2SAT 92–100
== END 2019-08-31 23:59 | disposition home or self-care (01) ==
LOC: INF 01:53
PROVIDERS: PCP Family Medicine; Visit Provider Nurse Practitioner Family
DX: D46.9 Myelodysplastic syndrome, unspecified (principal); D63.0 Anemia in neoplastic disease
CPT/HCPCS: 36430; 36591; 80053; 86850; 86900; 86901; 86920; 86945; 85025; 86644; P9016

== ENCOUNTER 2019-09-25 03:28 | Outpatient (CLI) | payer OTHER, SELFPAY ==
[2019-09-25] MEDS: Inhaler, Assist Device 1 EACH MC (10:54)
[2019-09-25] MEDS: Albuterol HFA 18 GM 200 PUFF INH IH (10:55)
--- NOTE | 2019-09-25 13:19 | PFT_ITS ---
PULMONARY FUNCTION TEST REPORT DATE OF SERVICE: September 25, 2019 REQUESTING PROVIDER: Dr. Yarbrough Spirometry shows no evidence of obstructive airways disease; no bronchodilator response. Lung volumes show mild restriction. Diffusion capacity moderately reduced, which is normal when corrected to alveolar volume. Airways resistance normal. IMPRESSION: Mild restrictive lung disease associated with moderate diffusion defect. Clinical correlation recommended. SLOANE/luis antonio D/
== END 2019-09-25 03:48 ==
PROVIDERS: PCP Family Medicine; Visit Provider Internal Medicine Hematology & Oncology
DX: D46.9 Myelodysplastic syndrome, unspecified (principal); Z94.84 Stem cells transplant status; Z87.891 Personal history of nicotine dependence
CPT/HCPCS: 94060; 94150; 94726; 94729

== ENCOUNTER 2019-09-29 09:00 | Outpatient (RCR) | payer OTHER, SELFPAY ==
[2019-09-13] MEDS: Normal Saline Flush 10 ML SYR IVP (09:57)
[2019-09-13 10:00] LABS: Abs Immature Grans 0.01 k/cumm (0.0-0.09); HCT 21.2 % (40.0-50.0); HGB 7.1 g/dL (13.5-17.5); Mean Corp. HGB Concentration 33.5 g/dL (32.0-36.0); Mean Corpuscular Hemoglobin 31.6 pg (27.0-33.0); Mean Corpuscular Volume 94.2 fL (80-95); Mean Platelet Volume 12.1 fL (8.0-11.0); Platelet Count 172 x1000/uL (130-400); RBC 2.25 m/cumm (4.50-6.00); RBC Distribution Width 19.3 % (11.8-14.1)
[2019-09-13 10:03] LABS: White Blood Cell Count 1.73 k/cumm (4.4-10.8)
[2019-09-13 10:05] LABS: ALT 53 U/L (16-63); AST 37 U/L (15-37); Albumin 3.6 g/dL (3.4-5.0); Alkaline Phosphatase 138 U/L (46-116); Anion Gap 8.7 mmol/L (3-11); BUN 40 mg/dL (7-18); Bilirubin, Total 0.9 mg/dL (0.2-1.0); CO2 23.3 mmol/L (21.0-32.0); CREATININE 1.66 mg/dL (0.70-1.30); Calcium 8.8 mg/dL (8.5-10.1); Chloride 100 mmol/L (98-107); Estimated GFR 41.53 (mL/min/1.73m2); Glucose 113 mg/dL (70-100); Potassium 4.6 mmol/L (3.5-5.1); Sodium 132 mmol/L (136-145); Total Protein 7.4 g/dL (6.4-8.2)
[2019-09-13 11:04] LABS: Absolute Lymphocyte Count 1.16 k/cumm (1.2-3.4)
[2019-09-13 11:05] LABS: Absolute Eosinophil Count 0.02 k/cumm (0.0-0.7); Absolute Monocyte Count 0.09 k/cumm (0.11-0.7)
[2019-09-13 11:06] LABS: Anisocytosis 3+; Diff Comment Manual Differential; Hypochromasia 2+; Polychromasia Present
[2019-09-13 11:07] LABS: Poikilocytes 2+
[2019-09-13 11:12] LABS: Absolute Neutrophil Count 0.47 k/cumm (1.2-6.7)
[2019-09-14] VITALS (16 sets, daily range): BP systolic 110–179; BP diastolic 49–78; PULSE 57–80; RESP 17–19; TEMP 36.4–37.4; O2SAT 93–100
[2019-09-14] MEDS: Heparin 500 UNITS/5 ML SYRINGE IV (09:36)
[2019-09-14] MEDS: Normal Saline Flush 10 ML SYR IVP (09:36)
[2019-09-19 08:25] LABS: HGB 9.3 g/dL (13.5-17.5); Mean Corp. HGB Concentration 33.2 g/dL (32.0-36.0); Mean Corpuscular Hemoglobin 30.7 pg (27.0-33.0); Mean Corpuscular Volume 92.4 fL (80-95); Mean Platelet Volume 9.6 fL (8.0-11.0); Platelet Count 237 x1000/uL (130-400); RBC 3.03 m/cumm (4.50-6.00)
[2019-09-19 09:02] LABS: Absolute Basophil Count 0.03 k/cumm (0.0-0.2); Absolute Eosinophil Count 0.03 k/cumm (0.0-0.7); Absolute Lymphocyte Count 0.97 k/cumm (1.2-3.4); Absolute Monocyte Count 0.05 k/cumm (0.11-0.7); White Blood Cell Count 1.62 k/cumm (4.4-10.8)
[2019-09-19 09:03] LABS: Absolute Neutrophil Count 0.51 k/cumm (1.2-6.7); Anisocytosis 2+; Diff Comment Manual Differential
[2019-09-19 09:04] LABS: Microcytosis 1+; Poikilocytes 1+
[2019-09-26 13:19] LABS: Absolute Basophil Count 0.15 k/cumm (0.0-0.2); Absolute Eosinophil Count 0.02 k/cumm (0.0-0.7); Absolute Lymphocyte Count 0.98 k/cumm (1.2-3.4); Absolute Monocyte Count 0.02 k/cumm (0.11-0.7); Basophils % 9.6; Eosinophils % 1.3; HCT 26.7 % (40.0-50.0); HGB 8.7 g/dL (13.5-17.5); Lymphocytes % 62.4; Mean Corp. HGB Concentration 32.6 g/dL (32.0-36.0); Mean Corpuscular Hemoglobin 30.5 pg (27.0-33.0); Mean Corpuscular Volume 93.7 fL (80-95); Mean Platelet Volume 10.3 fL (8.0-11.0); Monocytes % 1.3; Neutrophils % 25.4; RBC 2.85 m/cumm (4.50-6.00)
[2019-09-26 13:27] LABS: ALT 46 U/L (16-63); AST 32 U/L (15-37); Albumin 3.8 g/dL (3.4-5.0); Alkaline Phosphatase 113 U/L (46-116); BUN 32 mg/dL (7-18); Bilirubin, Total 0.9 mg/dL (0.2-1.0); CREATININE 1.71 mg/dL (0.70-1.30); Calcium 8.7 mg/dL (8.5-10.1); Chloride 100 mmol/L (98-107); Estimated GFR 40.13 (mL/min/1.73m2); Glucose 111 mg/dL (74-106); Potassium 4.9 mmol/L (3.5-5.1); Sodium 135 mmol/L (136-145); Total Protein 7.6 g/dL (6.4-8.2)
[2019-09-26 14:00] LABS: White Blood Cell Count 1.57 k/cumm (4.4-10.8)
[2019-09-26 14:01] LABS: Diff Comment RBC Morph Reviewed
[2019-09-26 14:03] LABS: Anisocytosis 2+; Hypochromasia 1+; Microcytosis 2+; Platelet Count 191 x1000/uL (130-400); Schistocytes 1+
[2019-09-26 14:04] LABS: Poikilocytes 2+
[2019-09-29 09:31] LABS: Abs Immature Grans 0.06 k/cumm (0.0-0.09); HGB 8.8 g/dL (13.5-17.5); Mean Corp. HGB Concentration 32.6 g/dL (32.0-36.0); Mean Corpuscular Hemoglobin 30.7 pg (27.0-33.0); Mean Corpuscular Volume 94.1 fL (80-95); Mean Platelet Volume 9.8 fL (8.0-11.0); RBC 2.87 m/cumm (4.50-6.00)
[2019-09-29 09:59] LABS: White Blood Cell Count 1.42 k/cumm (4.4-10.8)
[2019-09-29 10:03] LABS: Absolute Basophil Count 0.03 k/cumm (0.0-0.2); Absolute Eosinophil Count 0.06 k/cumm (0.0-0.7); Absolute Lymphocyte Count 0.95 k/cumm (1.2-3.4)
[2019-09-29 10:04] LABS: Absolute Neutrophil Count 0.36 k/cumm (1.2-6.7)
[2019-09-29 10:05] LABS: Anisocytosis 2+; Diff Comment Manual Differential; Microcytosis 2+
[2019-09-29 10:06] LABS: Poikilocytes 2+; Schistocytes 2+
[2019-09-29 10:07] LABS: Platelet Count 218 x1000/uL (130-400)
== END 2019-09-30 23:59 | disposition home or self-care (01) ==
LOC: INF 09:00
PROVIDERS: Internal Medicine Hematology & Oncology; PCP Family Medicine; Visit Provider Nurse Practitioner Family
DX: D46.9 Myelodysplastic syndrome, unspecified (principal); D63.0 Anemia in neoplastic disease
CPT/HCPCS: 36415; 36430; 36591; 80053; 85027; 86850; 86900; 86901; 86920; 86945; 85007; 85025; 86644; P9016

== ENCOUNTER 2019-10-31 11:00 | Outpatient (RCR) | payer OTHER, SELFPAY ==
[2019-10-05 09:52] LABS: Absolute Monocyte Count 0.11 k/cumm (0.11-0.7); HCT 25.1 % (40.0-50.0); HGB 8.3 g/dL (13.5-17.5); Mean Corp. HGB Concentration 33.1 g/dL (32.0-36.0); Mean Corpuscular Hemoglobin 31.1 pg (27.0-33.0); Mean Platelet Volume 9.8 fL (8.0-11.0); RBC 2.67 m/cumm (4.50-6.00); RBC Distribution Width 19.9 % (11.8-14.1)
[2019-10-05 10:05] LABS: ALT 48 U/L (16-63); AST 39 U/L (15-37); Albumin 3.5 g/dL (3.4-5.0); Alkaline Phosphatase 109 U/L (46-116); Anion Gap 7.1 mmol/L (3-11); BUN 26 mg/dL (7-18); CO2 25.9 mmol/L (21.0-32.0); CREATININE 1.51 mg/dL (0.70-1.30); Calcium 8.9 mg/dL (8.5-10.1); Chloride 99 mmol/L (98-107); Estimated GFR 46.32 (mL/min/1.73m2); Glucose 107 mg/dL (74-106); Potassium 4.6 mmol/L (3.5-5.1); Sodium 132 mmol/L (136-145); Total Protein 7.4 g/dL (6.4-8.2)
[2019-10-05 10:13] LABS: White Blood Cell Count 1.54 k/cumm (4.4-10.8)
[2019-10-05 10:14] LABS: Platelet Count 184 x1000/uL (130-400)
[2019-10-05 10:15] LABS: Absolute Basophil Count 0.12 k/cumm (0.0-0.2); Absolute Eosinophil Count 0.02 k/cumm (0.0-0.7); Absolute Lymphocyte Count 1.02 k/cumm (1.2-3.4); Atypical Lymphocytes % 5
[2019-10-05 10:16] LABS: Absolute Neutrophil Count 0.28 k/cumm (1.2-6.7)
[2019-10-05 10:17] LABS: Anisocytosis 2+; Diff Comment Manual Differential; Microcytosis 1+; Ovalocytes 2+; Polychromasia Present
[2019-10-05] MEDS: Normal Saline Flush 10 ML SYR IVP (11:30)
[2019-10-05] MEDS: Heparin 500 UNITS/5 ML SYRINGE IV (11:30)
[2019-10-05 11:49] VITALS: BP 112/71; PULSE 84; RESP 18; TEMP 36.3; O2SAT 95
[2019-10-05 12:15] VITALS: BP 118/72; PULSE 80; RESP 18; TEMP 36.6; O2SAT 100
[2019-10-05 12:30] VITALS: BP 135/65; PULSE 79; RESP 19; TEMP 36.6; O2SAT 96
[2019-10-05 13:00] VITALS: BP 147/79; PULSE 85; RESP 19; TEMP 36.5; O2SAT 97
[2019-10-05 14:00] VITALS: BP 155/73; PULSE 70; RESP 19; TEMP 36.6; O2SAT 94
[2019-10-10] MEDS: Normal Saline Flush 10 ML SYR IVP (10:45)
[2019-10-10 11:02] LABS: Abs Immature Grans 0.01 k/cumm (0.0-0.09); Absolute Eosinophil Count 0.02 k/cumm (0.0-0.7); Absolute Lymphocyte Count 0.78 k/cumm (1.2-3.4); Absolute Monocyte Count 0.12 k/cumm (0.11-0.7); Eosinophils % 1.6; HCT 25.4 % (40.0-50.0); HGB 8.4 g/dL (13.5-17.5); Immature Grans % 0.8; Lymphocytes % 62.4; Mean Corp. HGB Concentration 33.1 g/dL (32.0-36.0); Mean Corpuscular Hemoglobin 30.9 pg (27.0-33.0); Mean Corpuscular Volume 93.4 fL (80-95); Mean Platelet Volume 10.7 fL (8.0-11.0); Monocytes % 9.6; Neutrophils % 17.6; Platelet Count 234 x1000/uL (130-400); RBC 2.72 m/cumm (4.50-6.00); RBC Distribution Width 19.2 % (11.8-14.1)
[2019-10-10 11:13] LABS: ALT 40 U/L (16-63); AST 34 U/L (15-37); Albumin 3.5 g/dL (3.4-5.0); Alkaline Phosphatase 104 U/L (46-116); Anion Gap 8.2 mmol/L (3-11); BUN 29 mg/dL (7-18); CO2 26.8 mmol/L (21.0-32.0); CREATININE 1.82 mg/dL (0.70-1.30); Calcium 8.9 mg/dL (8.5-10.1); Chloride 100 mmol/L (98-107); Estimated GFR 37.34 (mL/min/1.73m2); Glucose 105 mg/dL (74-106); Potassium 4.9 mmol/L (3.5-5.1); Sodium 135 mmol/L (136-145); Total Protein 7.3 g/dL (6.4-8.2)
[2019-10-10 11:22] LABS: White Blood Cell Count 1.25 k/cumm (4.4-10.8)
[2019-10-10 11:23] LABS: Absolute Neutrophil Count 0.22 k/cumm (1.2-6.7); Anisocytosis 2+; Diff Comment Agrees w/ Instrument
[2019-10-12] VITALS (7 sets, daily range): BP systolic 127–182; BP diastolic 70–75; PULSE 65–86; RESP 18–19; TEMP 36.3–37; O2SAT 93–100
[2019-10-12] MEDS: Heparin 500 UNITS/5 ML SYRINGE IV (15:42)
[2019-10-12] MEDS: Normal Saline Flush 10 ML SYR IVP (15:42)
[2019-10-17 09:50] LABS: Absolute Basophil Count 0.08 k/cumm (0.0-0.2); Absolute Eosinophil Count 0.05 k/cumm (0.0-0.7); Absolute Lymphocyte Count 0.78 k/cumm (1.2-3.4); Absolute Monocyte Count 0.03 k/cumm (0.11-0.7); Basophils % 6.5; Eosinophils % 4.1; HGB 9.2 g/dL (13.5-17.5); Lymphocytes % 63.4; Mean Corp. HGB Concentration 32.9 g/dL (32.0-36.0); Mean Corpuscular Hemoglobin 30.4 pg (27.0-33.0); Mean Corpuscular Volume 92.4 fL (80-95); Mean Platelet Volume 10.6 fL (8.0-11.0); Monocytes % 2.4; Neutrophils % 23.6; Platelet Count 170 x1000/uL (130-400); RBC 3.03 m/cumm (4.50-6.00); RBC Distribution Width 17.2 % (11.8-14.1)
[2019-10-17 10:16] LABS: Absolute Neutrophil Count 0.29 k/cumm (1.2-6.7); White Blood Cell Count 1.23 k/cumm (4.4-10.8)
[2019-10-17 10:17] LABS: Anisocytosis 2+; Diff Comment Diff Reviewed
[2019-10-17 10:18] LABS: Poikilocytes 2+; Schistocytes 1+; Spherocytes 1+
[2019-10-24] VITALS (11 sets, daily range): BP systolic 98–148; BP diastolic 51–88; PULSE 61–74; RESP 12–16; TEMP 35.7–36.8; O2SAT 98–100
[2019-10-24] MEDS: Normal Saline Flush 10 ML SYR IVP ×2 (10:25→15:01)
[2019-10-24 10:42] LABS: Absolute Eosinophil Count 0.04 k/cumm (0.0-0.7); HCT 22.1 % (40.0-50.0); HGB 7.4 g/dL (13.5-17.5); Mean Corp. HGB Concentration 33.5 g/dL (32.0-36.0); Mean Corpuscular Hemoglobin 30.6 pg (27.0-33.0); Mean Corpuscular Volume 91.3 fL (80-95); Mean Platelet Volume 10.5 fL (8.0-11.0); RBC 2.42 m/cumm (4.50-6.00); RBC Distribution Width 16.6 % (11.8-14.1)
[2019-10-24 11:10] LABS: White Blood Cell Count 0.94 k/cumm (4.4-10.8)
[2019-10-24 11:11] LABS: Platelet Count 60 x1000/uL (130-400)
[2019-10-24 11:12] LABS: Absolute Lymphocyte Count 0.75 k/cumm (1.2-3.4); Absolute Neutrophil Count 0.15 k/cumm (1.2-6.7)
[2019-10-24 11:13] LABS: Diff Comment Manual Differential
[2019-10-24 11:18] LABS: Anisocytosis 1+
[2019-10-24 11:19] LABS: Poikilocytes 1+
[2019-10-24] MEDS: Heparin 500 UNITS/5 ML SYRINGE IV (15:02)
[2019-10-31] VITALS (7 sets, daily range): BP systolic 97–123; BP diastolic 47–64; PULSE 62–68; RESP 18–19; TEMP 36–36.8; O2SAT 94–100
[2019-10-31] MEDS: Heparin 500 UNITS/5 ML SYRINGE IV (09:42)
[2019-10-31] MEDS: Normal Saline Flush 10 ML SYR IVP (09:42)
[2019-10-31 09:45] LABS: Absolute Eosinophil Count 0.02 k/cumm (0.0-0.7); HCT 24.2 % (40.0-50.0); HGB 8.1 g/dL (13.5-17.5); Mean Corp. HGB Concentration 33.5 g/dL (32.0-36.0); Mean Corpuscular Hemoglobin 29.2 pg (27.0-33.0); Mean Corpuscular Volume 87.4 fL (80-95); Mean Platelet Volume 10.3 fL (8.0-11.0); RBC 2.77 m/cumm (4.50-6.00); RBC Distribution Width 16.7 % (11.8-14.1)
[2019-10-31 10:08] LABS: Absolute Basophil Count 0.03 k/cumm (0.0-0.2); Absolute Lymphocyte Count 0.78 k/cumm (1.2-3.4); Absolute Monocyte Count 0.05 k/cumm (0.11-0.7); Platelet Count 66 x1000/uL (130-400)
[2019-10-31 10:11] LABS: Absolute Neutrophil Count 0.08 k/cumm (1.2-6.7); Anisocytosis 1+; Diff Comment Manual Differential; Hypochromasia 1+; Microcytosis 2+; White Blood Cell Count 0.95 k/cumm (4.4-10.8)
== END 2019-10-31 23:59 | disposition home or self-care (01) ==
LOC: INF 11:00
PROVIDERS: PCP Family Medicine; Visit Provider Nurse Practitioner Family
DX: D46.9 Myelodysplastic syndrome, unspecified (principal); D63.0 Anemia in neoplastic disease
CPT/HCPCS: 36415; 36430; 36591; 80053; 86850; 86900; 86901; 86920; 86945; 96365; 96366; 85025; 86644; P9016

== ENCOUNTER 2019-11-29 02:03 | Outpatient (RCR) | payer OTHER, SELFPAY ==
[2019-11-07 10:15] LABS: Abs Immature Grans 0.01 k/cumm (0.0-0.09); Absolute Basophil Count 0.11 k/cumm (0.0-0.2); Absolute Eosinophil Count 0.02 k/cumm (0.0-0.7); Absolute Lymphocyte Count 0.73 k/cumm (1.2-3.4); Absolute Monocyte Count 0.06 k/cumm (0.11-0.7); Basophils % 10.5; Eosinophils % 1.9; HCT 26.4 % (40.0-50.0); HGB 8.8 g/dL (13.5-17.5); Lymphocytes % 69.5; Mean Corp. HGB Concentration 33.3 g/dL (32.0-36.0); Mean Corpuscular Volume 87.1 fL (80-95); Mean Platelet Volume 10.2 fL (8.0-11.0); Monocytes % 5.7; Neutrophils % 11.4; RBC 3.03 m/cumm (4.50-6.00); RBC Distribution Width 16.5 % (11.8-14.1)
[2019-11-07] MEDS: Normal Saline Flush 10 ML SYR IVP (10:30)
[2019-11-07] MEDS: Heparin 500 UNITS/5 ML SYRINGE IV (10:30)
[2019-11-07 10:39] LABS: White Blood Cell Count 1.05 k/cumm (4.4-10.8)
[2019-11-07 10:40] LABS: Absolute Neutrophil Count 0.12 k/cumm (1.2-6.7); Anisocytosis 2+; Diff Comment Agrees w/ Instrument; Hypochromasia 1+; Microcytosis 1+; Platelet Count 100 x1000/uL (130-400)
[2019-11-07 10:41] LABS: Nucleated RBC 1 /100WBC
[2019-11-10] VITALS (7 sets, daily range): BP systolic 110–135; BP diastolic 52–69; PULSE 66–75; RESP 18–19; TEMP 36–36.7; O2SAT 98–100
[2019-11-10 09:12] LABS: Abs Immature Grans 0.01 k/cumm (0.0-0.09); Absolute Monocyte Count 0.08 k/cumm (0.11-0.7); HCT 25.1 % (40.0-50.0); HGB 8.1 g/dL (13.5-17.5); Mean Corp. HGB Concentration 32.3 g/dL (32.0-36.0); Mean Corpuscular Hemoglobin 28.3 pg (27.0-33.0); Mean Corpuscular Volume 87.8 fL (80-95); Mean Platelet Volume 10.2 fL (8.0-11.0); RBC 2.86 m/cumm (4.50-6.00)
[2019-11-10 09:33] LABS: ALT 21 U/L (16-63); AST 20 U/L (15-37); Albumin 3.2 g/dL (3.4-5.0); Alkaline Phosphatase 101 U/L (46-116); Anion Gap 10.8 mmol/L (3-11); BUN 31 mg/dL (7-18); Bilirubin, Total 0.8 mg/dL (0.2-1.0); CO2 24.2 mmol/L (21.0-32.0); CREATININE 2.32 mg/dL (0.70-1.30); Calcium 8.9 mg/dL (8.5-10.1); Chloride 105 mmol/L (98-107); Estimated GFR 28.22 (mL/min/1.73m2); Glucose 153 mg/dL (74-106); Potassium 3.8 mmol/L (3.5-5.1); Sodium 140 mmol/L (136-145); Total Protein 6.9 g/dL (6.4-8.2)
[2019-11-10 10:05] LABS: White Blood Cell Count 1.59 k/cumm (4.4-10.8)
[2019-11-10 10:06] LABS: Platelet Count 84 x1000/uL (130-400)
[2019-11-10 10:08] LABS: Absolute Basophil Count 0.03 k/cumm (0.0-0.2); Absolute Eosinophil Count 0.05 k/cumm (0.0-0.7); Absolute Lymphocyte Count 0.94 k/cumm (1.2-3.4); Absolute Neutrophil Count 0.48 k/cumm (1.2-6.7); Atypical Lymphocytes % 1
[2019-11-10 10:09] LABS: Anisocytosis 2+; Microcytosis 1+; Polychromasia Present
[2019-11-10 10:10] LABS: Diff Comment Manual Differential; Poikilocytes 1+
[2019-11-10] MEDS: Heparin 500 UNITS/5 ML SYRINGE IV (13:56)
[2019-11-10] MEDS: Normal Saline Flush 10 ML SYR IVP (13:56)
[2019-11-14] MEDS: Heparin 500 UNITS/5 ML SYRINGE IV (09:40)
[2019-11-14] MEDS: Normal Saline Flush 10 ML SYR IVP (09:40)
[2019-11-14 09:58] LABS: Abs Immature Grans 0.01 k/cumm (0.0-0.09); HCT 26.5 % (40.0-50.0); HGB 8.7 g/dL (13.5-17.5); Mean Corp. HGB Concentration 32.8 g/dL (32.0-36.0); Mean Corpuscular Hemoglobin 28.7 pg (27.0-33.0); Mean Corpuscular Volume 87.5 fL (80-95); Mean Platelet Volume 9.6 fL (8.0-11.0); Platelet Count 112 x1000/uL (130-400); RBC 3.03 m/cumm (4.50-6.00); RBC Distribution Width 16.7 % (11.8-14.1)
[2019-11-14 10:12] LABS: ALT 19 U/L (16-63); AST 23 U/L (15-37); Albumin 3.1 g/dL (3.4-5.0); Alkaline Phosphatase 104 U/L (46-116); Anion Gap 8.8 mmol/L (3-11); BUN 26 mg/dL (7-18); Bilirubin, Total 0.6 mg/dL (0.2-1.0); CO2 26.2 mmol/L (21.0-32.0); Calcium 8.9 mg/dL (8.5-10.1); Chloride 107 mmol/L (98-107); Glucose 112 mg/dL (74-106); Potassium 4.1 mmol/L (3.5-5.1); Sodium 142 mmol/L (136-145); Total Protein 6.7 g/dL (6.4-8.2)
[2019-11-14 10:26] LABS: White Blood Cell Count 1.32 k/cumm (4.4-10.8)
[2019-11-14 10:35] LABS: Absolute Basophil Count 0.04 k/cumm (0.0-0.2); Absolute Eosinophil Count 0.01 k/cumm (0.0-0.7); Absolute Lymphocyte Count 0.71 k/cumm (1.2-3.4); Absolute Monocyte Count 0.34 k/cumm (0.11-0.7); Diff Comment Manual Differential
[2019-11-14 10:37] LABS: Anisocytosis 1+
[2019-11-14 10:38] LABS: Hypochromasia 2+
[2019-11-14 10:39] LABS: Poikilocytes 2+
[2019-11-14 14:13] VITALS: BP 119/63; PULSE 69; RESP 19; TEMP 36.5; O2SAT 98
[2019-11-22] VITALS (8 sets, daily range): BP systolic 104–173; BP diastolic 55–74; PULSE 56–87; RESP 18–19; TEMP 36.5–36.7; O2SAT 95–100
[2019-11-22 09:25] LABS: Abs Immature Grans 0.02 k/cumm (0.0-0.09); HCT 23.1 % (40.0-50.0); HGB 7.5 g/dL (13.5-17.5); Mean Corp. HGB Concentration 32.5 g/dL (32.0-36.0); Mean Corpuscular Hemoglobin 28.4 pg (27.0-33.0); Mean Corpuscular Volume 87.5 fL (80-95); Mean Platelet Volume 9.7 fL (8.0-11.0); Platelet Count 168 x1000/uL (130-400); RBC 2.64 m/cumm (4.50-6.00); RBC Distribution Width 16.9 % (11.8-14.1)
[2019-11-22 09:37] LABS: ALT 17 U/L (16-63); AST 23 U/L (15-37); Albumin 3.2 g/dL (3.4-5.0); Alkaline Phosphatase 99 U/L (46-116); Anion Gap 8.1 mmol/L (3-11); BUN 25 mg/dL (7-18); Bilirubin, Total 0.9 mg/dL (0.2-1.0); CO2 27.9 mmol/L (21.0-32.0); CREATININE 1.88 mg/dL (0.70-1.30); Calcium 8.6 mg/dL (8.5-10.1); Chloride 105 mmol/L (98-107); Estimated GFR 35.97 (mL/min/1.73m2); Glucose 114 mg/dL (74-106); Potassium 3.7 mmol/L (3.5-5.1); Sodium 141 mmol/L (136-145); Total Protein 6.7 g/dL (6.4-8.2)
[2019-11-22 10:01] LABS: White Blood Cell Count 1.55 k/cumm (4.4-10.8)
[2019-11-22 10:04] LABS: Absolute Basophil Count 0.06 k/cumm (0.0-0.2); Absolute Lymphocyte Count 0.87 k/cumm (1.2-3.4); Absolute Monocyte Count 0.19 k/cumm (0.11-0.7)
[2019-11-22 10:05] LABS: Anisocytosis 1+; Diff Comment Manual Differential; Hypochromasia 1+; Polychromasia Present
[2019-11-22 10:06] LABS: Poikilocytes 2+
[2019-11-22] MEDS: Normal Saline Flush 10 ML SYR IVP (13:05)
[2019-11-23] VITALS (7 sets, daily range): BP systolic 133–170; BP diastolic 67–84; PULSE 64–81; RESP 18–19; TEMP 36.4–37; O2SAT 97–100
[2019-11-23] MEDS: Normal Saline Flush 10 ML SYR IVP (10:02)
[2019-11-23] MEDS: Heparin 500 UNITS/5 ML SYRINGE IV (10:02)
[2019-11-29] MEDS: Heparin 500 UNITS/5 ML SYRINGE IV (09:00)
[2019-11-29] MEDS: Normal Saline Flush 10 ML SYR IVP (09:00)
[2019-11-29 09:18] LABS: Abs Immature Grans 0.01 k/cumm (0.0-0.09); Absolute Basophil Count 0.05 k/cumm (0.0-0.2); Absolute Eosinophil Count 0.01 k/cumm (0.0-0.7); Absolute Lymphocyte Count 0.74 k/cumm (1.2-3.4); Absolute Monocyte Count 0.25 k/cumm (0.11-0.7); Basophils % 3.8; Eosinophils % 0.8; HCT 28.6 % (40.0-50.0); HGB 9.4 g/dL (13.5-17.5); Immature Grans % 0.8 %; Lymphocytes % 55.6; Mean Corp. HGB Concentration 32.9 g/dL (32.0-36.0); Mean Corpuscular Hemoglobin 28.7 pg (27.0-33.0); Mean Corpuscular Volume 87.2 fL (80-95); Mean Platelet Volume 9.6 fL (8.0-11.0); Monocytes % 18.8; Neutrophils % 20.2; Platelet Count 145 x1000/uL (130-400); RBC 3.28 m/cumm (4.50-6.00); RBC Distribution Width 16.6 % (11.8-14.1)
[2019-11-29 09:24] LABS: ALT 19 U/L (16-63); AST 23 U/L (15-37); Albumin 3.3 g/dL (3.4-5.0); Alkaline Phosphatase 106 U/L (46-116); Anion Gap 8.8 mmol/L (3-11); BUN 24 mg/dL (7-18); Bilirubin, Total 0.9 mg/dL (0.2-1.0); CO2 27.2 mmol/L (21.0-32.0); CREATININE 1.68 mg/dL (0.70-1.30); Calcium 8.8 mg/dL (8.5-10.1); Chloride 104 mmol/L (98-107); Estimated GFR 40.96 (mL/min/1.73m2); Glucose 119 mg/dL (74-106); Potassium 3.6 mmol/L (3.5-5.1); Sodium 140 mmol/L (136-145); Total Protein 6.9 g/dL (6.4-8.2)
[2019-11-29 09:43] LABS: White Blood Cell Count 1.33 k/cumm (4.4-10.8)
[2019-11-29 09:44] LABS: Absolute Neutrophil Count 0.27 k/cumm (1.2-6.7)
[2019-11-29 09:46] LABS: Anisocytosis 2+; Diff Comment Diff Reviewed
[2019-11-29 09:47] LABS: Poikilocytes 1+; Spherocytes 1+
== END 2019-12-01 23:59 | disposition home or self-care (01) ==
LOC: INF 02:03
PROVIDERS: PCP Family Medicine; Visit Provider Nurse Practitioner Family
DX: D46.9 Myelodysplastic syndrome, unspecified (principal); D63.0 Anemia in neoplastic disease; Z45.2 Encounter for adjustment and management of vascular access device
CPT/HCPCS: 36430; 36591; 80053; 86850; 86900; 86901; 86920; 86945; 85025; 86644; P9016

== ENCOUNTER 2019-12-04 21:37 | Outpatient (REF) | payer OTHER, SELFPAY | END 2019-12-04 21:57 | LOC: LBN 21:37 | PROVIDERS: PCP Family Medicine; Visit Provider Internal Medicine | DX: J06.9 Acute upper respiratory infection, unspecified (principal) | CPT/HCPCS: 87449 ==

== ENCOUNTER 2019-12-27 01:54 | Outpatient (RCR) | payer OTHER, SELFPAY ==
[2019-12-04 09:53] LABS: Absolute Basophil Count 0.02 k/cumm (0.0-0.2); Absolute Eosinophil Count 0.01 k/cumm (0.0-0.7); Absolute Lymphocyte Count 0.77 k/cumm (1.2-3.4); Absolute Monocyte Count 0.16 k/cumm (0.11-0.7); Basophils % 1.5; Eosinophils % 0.8; HCT 25.3 % (40.0-50.0); HGB 8.4 g/dL (13.5-17.5); Lymphocytes % 59.2; Mean Corp. HGB Concentration 33.2 g/dL (32.0-36.0); Mean Corpuscular Volume 87.2 fL (80-95); Mean Platelet Volume 9.8 fL (8.0-11.0); Monocytes % 12.3; Neutrophils % 26.2; Platelet Count 134 x1000/uL (130-400); RBC Distribution Width 16.7 % (11.8-14.1)
[2019-12-04 10:01] LABS: ALT 16 U/L (16-63); AST 21 U/L (15-37); Albumin 3.3 g/dL (3.4-5.0); Alkaline Phosphatase 95 U/L (46-116); Anion Gap 9.9 mmol/L (3-11); BUN 27 mg/dL (7-18); Bilirubin, Total 0.8 mg/dL (0.2-1.0); CO2 26.1 mmol/L (21.0-32.0); Calcium 8.8 mg/dL (8.5-10.1); Chloride 104 mmol/L (98-107); Estimated GFR 35.54 (mL/min/1.73m2); Glucose 128 mg/dL (74-106); Potassium 3.7 mmol/L (3.5-5.1); Sodium 140 mmol/L (136-145); Total Protein 6.8 g/dL (6.4-8.2)
[2019-12-04 10:02] LABS: Absolute Neutrophil Count 0.34 k/cumm (1.2-6.7)
[2019-12-04 10:43] LABS: Anisocytosis 1+; Diff Comment Diff Reviewed; Microcytosis 1+; Polychromasia Present
[2019-12-04 10:44] LABS: Poikilocytes 1+
[2019-12-05] VITALS (8 sets, daily range): BP systolic 125–164; BP diastolic 59–79; PULSE 63–81; RESP 16–19; TEMP 36.2–36.7; O2SAT 98–100
[2019-12-05] MEDS: Heparin 500 UNITS/5 ML SYRINGE IV (11:54)
[2019-12-05] MEDS: Normal Saline Flush 10 ML SYR IVP (11:54)
[2019-12-13] VITALS (7 sets, daily range): BP systolic 110–161; BP diastolic 53–78; PULSE 56–89; RESP 18–19; TEMP 36.5–36.6; O2SAT 94–100
[2019-12-13 09:01] LABS: HGB 8.1 g/dL (13.5-17.5); Mean Corp. HGB Concentration 33.8 g/dL (32.0-36.0); Mean Corpuscular Hemoglobin 29.6 pg (27.0-33.0); Mean Corpuscular Volume 87.6 fL (80-95); Mean Platelet Volume 9.9 fL (8.0-11.0); Platelet Count 163 x1000/uL (130-400); RBC 2.74 m/cumm (4.50-6.00); RBC Distribution Width 16.4 % (11.8-14.1)
[2019-12-13 09:18] LABS: ALT 19 U/L (16-63); AST 27 U/L (15-37); Albumin 3.4 g/dL (3.4-5.0); Alkaline Phosphatase 77 U/L (46-116); Anion Gap 8.7 mmol/L (3-11); BUN 19 mg/dL (7-18); Bilirubin, Total 0.6 mg/dL (0.2-1.0); CO2 27.3 mmol/L (21.0-32.0); CREATININE 1.59 mg/dL (0.70-1.30); Calcium 8.4 mg/dL (8.5-10.1); Chloride 106 mmol/L (98-107); Estimated GFR 43.64 (mL/min/1.73m2); Glucose 120 mg/dL (74-106); Potassium 3.5 mmol/L (3.5-5.1); Sodium 142 mmol/L (136-145); Total Protein 6.6 g/dL (6.4-8.2)
[2019-12-13 09:34] LABS: Absolute Basophil Count 0.03 k/cumm (0.0-0.2); Absolute Lymphocyte Count 0.89 k/cumm (1.2-3.4); Absolute Monocyte Count 0.22 k/cumm (0.11-0.7); Atypical Lymphocytes % 2
[2019-12-13 09:36] LABS: Absolute Neutrophil Count 0.42 k/cumm (1.2-6.7); Anisocytosis 1+; Hypochromasia 1+; Microcytosis 1+; Polychromasia Present; White Blood Cell Count 1.57 k/cumm (4.4-10.8)
[2019-12-13 09:37] LABS: Diff Comment Manual Differential
[2019-12-13] MEDS: Heparin 500 UNITS/5 ML SYRINGE IV (10:58)
[2019-12-13] MEDS: Normal Saline Flush 10 ML SYR IVP (10:58)
[2019-12-20] VITALS (8 sets, daily range): BP systolic 156–189; BP diastolic 71–92; PULSE 59–84; RESP 18–19; TEMP 36–36.6; O2SAT 92–100
[2019-12-20] MEDS: Normal Saline Flush 10 ML SYR IVP (09:11)
[2019-12-20 09:25] LABS: Abs Immature Grans 0.03 k/cumm (0.0-0.09); HCT 24.1 % (40.0-50.0); HGB 8.2 g/dL (13.5-17.5); Mean Corpuscular Volume 88.3 fL (80-95); Mean Platelet Volume 10.2 fL (8.0-11.0); RBC 2.73 m/cumm (4.50-6.00); White Blood Cell Count 2.25 k/cumm (4.4-10.8)
[2019-12-20 09:37] LABS: ALT 17 U/L (16-63); AST 18 U/L (15-37); Albumin 3.4 g/dL (3.4-5.0); Alkaline Phosphatase 98 U/L (46-116); Anion Gap 9.3 mmol/L (3-11); BUN 19 mg/dL (7-18); Bilirubin, Total 0.4 mg/dL (0.2-1.0); CO2 25.7 mmol/L (21.0-32.0); CREATININE 1.59 mg/dL (0.70-1.30); Calcium 8.5 mg/dL (8.5-10.1); Chloride 106 mmol/L (98-107); Estimated GFR 43.64 (mL/min/1.73m2); Glucose 118 mg/dL (74-106); Potassium 3.8 mmol/L (3.5-5.1); Sodium 141 mmol/L (136-145); Total Protein 6.7 g/dL (6.4-8.2)
[2019-12-20 09:58] LABS: Absolute Basophil Count 0.02 k/cumm (0.0-0.2); Absolute Eosinophil Count 0.05 k/cumm (0.0-0.7); Absolute Lymphocyte Count 0.99 k/cumm (1.2-3.4); Absolute Monocyte Count 0.23 k/cumm (0.11-0.7); Absolute Neutrophil Count 0.97 k/cumm (1.2-6.7); Anisocytosis 1+; Atypical Lymphocytes % 1; Diff Comment Manual Differential; Platelet Count 80 x1000/uL (130-400)
[2019-12-20] MEDS: Heparin 500 UNITS/5 ML SYRINGE IV (13:30)
[2019-12-27] MEDS: Normal Saline Flush 10 ML SYR IVP (08:00)
[2019-12-27] MEDS: Heparin 500 UNITS/5 ML SYRINGE IV (08:00)
[2019-12-27 08:25] LABS: Abs Immature Grans 0.01 k/cumm (0.0-0.09); HCT 26.2 % (40.0-50.0); HGB 8.8 g/dL (13.5-17.5); Mean Corp. HGB Concentration 33.6 g/dL (32.0-36.0); Mean Corpuscular Volume 89.4 fL (80-95); Mean Platelet Volume 10.4 fL (8.0-11.0); RBC 2.93 m/cumm (4.50-6.00); RBC Distribution Width 15.4 % (11.8-14.1)
[2019-12-27 08:47] LABS: Absolute Basophil Count 0.07 k/cumm (0.0-0.2); Absolute Lymphocyte Count 0.94 k/cumm (1.2-3.4); Absolute Monocyte Count 0.24 k/cumm (0.11-0.7); Atypical Lymphocytes % 2; Platelet Count 184 x1000/uL (130-400); White Blood Cell Count 1.87 k/cumm (4.4-10.8)
[2019-12-27 08:48] LABS: Diff Comment Manual Differential; Polychromasia Present
== END 2019-12-30 23:59 | disposition home or self-care (01) ==
LOC: INF 01:54
PROVIDERS: PCP Family Medicine; Visit Provider Nurse Practitioner Family
DX: D46.9 Myelodysplastic syndrome, unspecified (principal); D63.0 Anemia in neoplastic disease; Z45.2 Encounter for adjustment and management of vascular access device
CPT/HCPCS: 36430; 36591; 80053; 86850; 86900; 86901; 86920; 86945; 85025; 86644; P9016

== ENCOUNTER 2020-01-22 03:05 | Outpatient (CLI) | payer OTHER, SELFPAY | END 2020-01-22 03:25 | PROVIDERS: PCP Family Medicine; Visit Provider Internal Medicine Hematology & Oncology | DX: D46.9 Myelodysplastic syndrome, unspecified (principal); C85.99 Non-Hodgkin lymphoma, unspecified, extranodal and solid organ sites; Z94.84 Stem cells transplant status | CPT/HCPCS: 93005; 93010 ==

== ENCOUNTER 2020-01-24 01:30 | Outpatient (CLI) | payer OTHER, SELFPAY ==
--- NOTE | 2020-01-24 | DI.CT_ITS ---
EXAM: CT CHEST WO CLINICAL HISTORY: HYPOXEMIA, R09.02. TECHNIQUE: Imaging protocol: Axial computed tomography images were obtained and coronal and sagittal reformatted images were created and reviewed. COMPARISON: No exams were available for comparison FINDINGS: Tracheobronchial tree: Patent where visualized. Mediastinum and Brandy: No dominant adenopathy or fluid collection. There are calcified lymph nodes in the mediastinum consistent with prior granulomatous disease. Pulmonary parenchyma: No consolidation is present. There is biapical scarring. There is a 0.6 cm no ncalcified pulmonary nodule in the superior segment of the right lower lobe. Pleura: No effusion or pneumothorax. Heart: The heart is not dilated. Moderate coronary artery calcification is present. No pericardial e ffusion. Aorta: Thoracic aorta non-dilated. Atherosclerosis. Upper abdomen: The spleen appears enlarged. Lymph nodes: Please see above. Bones:Degenerative changes are present. Tubes, Catheters, and Lines: There is an indwelling central venous catheter. The tip lies at the gasper ction of the superior vena cava and right atrium. IMPRESSION: 1. 0.6 cm noncalcified pulmonary nodule in the right lower lobe. Please correlate with patient's pas t medical history specifically the smoking history. A follow-up CT scan of the chest is recommended in 6-12 months. 2. Findings of prior granulomatous disease with calcified lymph nodes in the mediastinum. 3. Splenomegaly. DATA REPOSITORY: All CT scans at this facility are submitted to the National Radiology Data Registry (NRDR) Dose Index Registry (DIR) with the [employer] (ACR). RADIATION OPTIMIZATION: All CT scans at this facility use at least one of these dose optimization te chniques: automated exposure control; mA and/or kV adjustment per patient size (includes targeted exa ms where dose is matched to clinical indication); or iterative reconstruction.
== END 2020-01-24 01:50 ==
PROVIDERS: PCP Family Medicine; Visit Provider Internal Medicine
DX: R91.1 Solitary pulmonary nodule (principal); R09.02 Hypoxemia; J98.4 Other disorders of lung; R16.1 Splenomegaly, not elsewhere classified
CPT/HCPCS: 71250

== ENCOUNTER 2020-01-24 01:48 | Outpatient (RCR) | payer OTHER, SELFPAY ==
[2020-01-01] MEDS: Normal Saline Flush 10 ML SYR IVP (08:14)
[2020-01-01 08:40] LABS: ALT 29 U/L (16-63); AST 26 U/L (15-37); Albumin 3.8 g/dL (3.4-5.0); Alkaline Phosphatase 88 U/L (46-116); Anion Gap 9.9 mmol/L (3-11); BUN 29 mg/dL (7-18); Bilirubin, Total 0.7 mg/dL (0.2-1.0); CO2 24.1 mmol/L (21.0-32.0); CREATININE 1.98 mg/dL (0.70-1.30); Calcium 8.9 mg/dL (8.5-10.1); Chloride 103 mmol/L (98-107); Estimated GFR 33.88 (mL/min/1.73m2); Glucose 109 mg/dL (74-106); Potassium 4.6 mmol/L (3.5-5.1); Sodium 137 mmol/L (136-145); Total Protein 7.2 g/dL (6.4-8.2)
[2020-01-01 09:08] LABS: Abs Immature Grans 0.03 k/cumm (0.0-0.09); Absolute Basophil Count 0.07 k/cumm (0.0-0.2); Absolute Eosinophil Count 0.02 k/cumm (0.0-0.7); Absolute Lymphocyte Count 1.06 k/cumm (1.2-3.4); Absolute Monocyte Count 0.29 k/cumm (0.11-0.7); Absolute Neutrophil Count 0.64 k/cumm (1.2-6.7); Basophils % 3.3; Eosinophils % 0.9; HCT 24.7 % (40.0-50.0); HGB 8.4 g/dL (13.5-17.5); Immature Grans % 1.4 %; Lymphocytes % 50.2; Mean Corpuscular Hemoglobin 30.8 pg (27.0-33.0); Mean Corpuscular Volume 90.5 fL (80-95); Monocytes % 13.7; Neutrophils % 30.5; RBC 2.73 m/cumm (4.50-6.00); RBC Distribution Width 16.3 % (11.8-14.1); White Blood Cell Count 2.11 k/cumm (4.4-10.8)
[2020-01-01 09:52] LABS: Anisocytosis 2+; Diff Comment Diff Reviewed; Microcytosis 1+; Platelet Count 233 x1000/uL (130-400); Polychromasia Present
[2020-01-01 09:53] LABS: Poikilocytes 1+
[2020-01-02] VITALS (7 sets, daily range): BP systolic 131–172; BP diastolic 61–78; PULSE 70–82; RESP 16–19; TEMP 36–36.7; O2SAT 94–100
[2020-01-02] MEDS: Heparin 500 UNITS/5 ML SYRINGE IV (15:45)
[2020-01-02] MEDS: Normal Saline Flush 10 ML SYR IVP (15:45)
[2020-01-10] MEDS: Normal Saline Flush 10 ML SYR IVP (09:30)
[2020-01-10 09:37] LABS: Abs Immature Grans 0.02 k/cumm (0.0-0.09); Absolute Eosinophil Count 0.01 k/cumm (0.0-0.7); Absolute Lymphocyte Count 1.01 k/cumm (1.2-3.4); Absolute Monocyte Count 0.09 k/cumm (0.11-0.7); Absolute Neutrophil Count 0.55 k/cumm (1.2-6.7); Basophils % 5.6; Eosinophils % 0.6; HCT 25.4 % (40.0-50.0); HGB 8.5 g/dL (13.5-17.5); Immature Grans % 1.1 %; Lymphocytes % 56.7; Mean Corp. HGB Concentration 33.5 g/dL (32.0-36.0); Mean Corpuscular Hemoglobin 30.2 pg (27.0-33.0); Mean Corpuscular Volume 90.4 fL (80-95); Mean Platelet Volume 10.7 fL (8.0-11.0); Monocytes % 5.1; Neutrophils % 30.9; RBC 2.81 m/cumm (4.50-6.00); RBC Distribution Width 16.5 % (11.8-14.1)
[2020-01-10 09:43] LABS: White Blood Cell Count 1.78 k/cumm (4.4-10.8)
[2020-01-10 09:53] LABS: ALT 72 U/L (16-63); AST 55 U/L (15-37); Albumin 3.8 g/dL (3.4-5.0); Alkaline Phosphatase 102 U/L (46-116); Anion Gap 7.9 mmol/L (3-11); BUN 27 mg/dL (7-18); Bilirubin, Total 1.1 mg/dL (0.2-1.0); CO2 26.1 mmol/L (21.0-32.0); CREATININE 1.91 mg/dL (0.70-1.30); Calcium 8.8 mg/dL (8.5-10.1); Chloride 103 mmol/L (98-107); Estimated GFR 35.21 (mL/min/1.73m2); Glucose 114 mg/dL (74-106); Potassium 4.6 mmol/L (3.5-5.1); Sodium 137 mmol/L (136-145); Total Protein 7.4 g/dL (6.4-8.2)
[2020-01-10 10:06] LABS: Diff Comment Agrees w/ Instrument; Hypochromasia 2+; Platelet Count 145 x1000/uL (130-400); Schistocytes 1+
[2020-01-10 10:07] LABS: Poikilocytes 3+
[2020-01-11 14:10] VITALS: BP 135/72; PULSE 86; RESP 20; TEMP 36.8; O2SAT 100
[2020-01-11 14:25] VITALS: BP 125/74; PULSE 86; RESP 20; TEMP 37; O2SAT 100
[2020-01-11 14:55] VITALS: BP 151/81; PULSE 74; RESP 20; TEMP 37; O2SAT 100
[2020-01-11 15:25] VITALS: BP 152/72; PULSE 71; RESP 20; TEMP 37; O2SAT 100
[2020-01-11 15:42] VITALS: BP 152/75; PULSE 70; RESP 20; TEMP 37.6; O2SAT 100
[2020-01-11] MEDS: Heparin 500 UNITS/5 ML SYRINGE IV (15:45)
[2020-01-11] MEDS: Normal Saline Flush 10 ML SYR IVP (15:45)
[2020-01-17] VITALS (7 sets, daily range): BP systolic 137–166; BP diastolic 67–76; PULSE 64–71; RESP 18–19; TEMP 36–36.6; O2SAT 100
[2020-01-17] MEDS: Normal Saline Flush 10 ML SYR IVP (08:58)
[2020-01-17] MEDS: Heparin 500 UNITS/5 ML SYRINGE IV (08:59)
[2020-01-17 09:03] LABS: Absolute Basophil Count 0.07 k/cumm (0.0-0.2); HCT 24.9 % (40.0-50.0); HGB 8.1 g/dL (13.5-17.5); Mean Corp. HGB Concentration 32.5 g/dL (32.0-36.0); Mean Corpuscular Hemoglobin 29.9 pg (27.0-33.0); Mean Corpuscular Volume 91.9 fL (80-95); Mean Platelet Volume 10.8 fL (8.0-11.0); RBC 2.71 m/cumm (4.50-6.00); RBC Distribution Width 16.2 % (11.8-14.1)
[2020-01-17 09:27] LABS: ALT 48 U/L (16-63); AST 31 U/L (15-37); Albumin 3.7 g/dL (3.4-5.0); Alkaline Phosphatase 92 U/L (46-116); Anion Gap 7.9 mmol/L (3-11); BUN 35 mg/dL (7-18); Bilirubin, Total 0.8 mg/dL (0.2-1.0); CO2 26.1 mmol/L (21.0-32.0); CREATININE 1.75 mg/dL (0.70-1.30); Calcium 8.8 mg/dL (8.5-10.1); Chloride 107 mmol/L (98-107); Estimated GFR 38.96 (mL/min/1.73m2); Glucose 96 mg/dL (74-106); Potassium 4.2 mmol/L (3.5-5.1); Sodium 141 mmol/L (136-145)
[2020-01-17 09:34] LABS: White Blood Cell Count 1.69 k/cumm (4.4-10.8)
[2020-01-17 09:36] LABS: Absolute Eosinophil Count 0.02 k/cumm (0.0-0.7); Absolute Lymphocyte Count 1.28 k/cumm (1.2-3.4); Absolute Monocyte Count 0.07 k/cumm (0.11-0.7); Platelet Count 112 x1000/uL (130-400)
[2020-01-17 09:37] LABS: Absolute Neutrophil Count 0.25 k/cumm (1.2-6.7)
[2020-01-17 09:38] LABS: Anisocytosis 2+; Diff Comment Manual Differential; Polychromasia Present
[2020-01-17 09:39] LABS: Poikilocytes 1+
[2020-01-24 09:39] LABS: HCT 27.7 % (40.0-50.0); HGB 9.4 g/dL (13.5-17.5); Mean Corp. HGB Concentration 33.9 g/dL (32.0-36.0); Mean Corpuscular Hemoglobin 31.3 pg (27.0-33.0); Mean Corpuscular Volume 92.3 fL (80-95); Mean Platelet Volume 10.3 fL (8.0-11.0); RBC Distribution Width 17.2 % (11.8-14.1); White Blood Cell Count 2.23 k/cumm (4.4-10.8)
[2020-01-24 10:08] LABS: Absolute Basophil Count 0.04 k/cumm (0.0-0.2); Absolute Lymphocyte Count 1.03 k/cumm (1.2-3.4); Absolute Monocyte Count 0.09 k/cumm (0.11-0.7); Absolute Neutrophil Count 1.05 k/cumm (1.2-6.7); Anisocytosis 2+; Diff Comment Manual Differential
[2020-01-24 10:09] LABS: Microcytosis 1+; Platelet Count 139 x1000/uL (130-400); Poikilocytes 1+; Polychromasia Present
[2020-01-24] MEDS: Heparin 500 UNITS/5 ML SYRINGE IV (10:22)
[2020-01-24] MEDS: Normal Saline Flush 10 ML SYR IVP (10:22)
== END 2020-01-30 23:59 | disposition home or self-care (01) ==
LOC: INF 01:48
PROVIDERS: PCP Family Medicine; Visit Provider Nurse Practitioner Family
DX: D46.9 Myelodysplastic syndrome, unspecified (principal); D63.0 Anemia in neoplastic disease
CPT/HCPCS: 36430; 36591; 80053; 86850; 86900; 86901; 86920; 86945; 85025; 86644; P9016

== ENCOUNTER 2020-01-31 12:19 | Emergency (ER) | payer OTHER, SELFPAY ==
[2020-01-31 12:22] VITALS: BP 136/63; PULSE 62; TEMP 36.2; O2SAT 99
--- NOTE | 2020-01-31 12:37 | W.ED.GENAD ---
Discharge Plan Disposition Patient Disposition: AGAINST MEDICAL ADVICE Condition: Stable Discharge Details Chief Complaint: Abd Prob Clinical Impression: Epigastric abdominal pain, Acute kidney injury, Hypercalcemia, Hyperkalemia Primary Care Provider: Kevin Jose ED Provider: Gloria Winslow Home Meds and New Rx's Prescriptions: Continued acyclovir 400 mg tablet 400 mg PO BID RF: 0 sulfamethoxazole-trimethoprim 800-160 mg tablet 1 tab PO BID RF: 0 ondansetron HCl [Zofran] 4 mg tablet 4 mg PO Q6H PRN RF: 0 hydroxyzine HCl 25 mg tablet 25 mg PO BID PRNRF: 0 (DME) Insulin Syringe MicroFine 1 EACH syringe 1 ea Miscellaneous twice/month Qty: 12 RF: 1 amoxicillin 500 mg tablet 2,000 mg PO ONCE PRN (Reason: endocarditis prophylaxis) Qty: 12 RF: 0 allopurinol 300 mg tablet 300 mg PO DAILY Qty: 90 RF: 3 testosterone cypionate 200 mg/mL oil 100 mg IM q 2 weeks Qty: 1 RF: 5 Aranesp (in polysorbate) 300 mcg/0.6 mL syringe 300 mcg IJ monthly Qty: 3 RF: 3 folic acid 1 mg tablet 1 mg PO HS Qty: 90 RF: 3 Discharge Instructions Instructions: Epigastric Pain (ED) Additional Instructions: Stop taking your fluconazole. Be sure to take your Prilosec daily. Call your doctor tomorrow to discuss whether okay to proceed with your blood transfusion in the setting of high potassium and high creatinine consistent with acute kidney injury. Follow-up with the [facility] for reevaluation. Return to the emergency department with any worsening or new concerning symptoms. Discharge Data Discharge Physician: Gloria Winslow Medical Decision Making 1230 -- 70-year-old male with a history of non-Hodgkin's lymphoma treated in 1998 and myelodysplastic syndrome diagnosed in 2015 who is currently undergoing chemotherapy presents for sharp upper abdominal pain worse after taking fluconazole for the past 2 weeks as well as acute kidney injury with Cr of 3 and hypercalcemia with Ca of 10.5 noted on labs drawn routinely today for scheduled blood transfusion at the infusion center. Patient's abdominal pain appears consistent likely with gastritis as this is worse when he is taking a pill, specifically fluconazole. Review of fluconazole notes that it can cause dyspepsia. His acute kidney injury could be due to dehydration in addition to medications. His vitals are within normal limits and he appears nontoxic and in no acute distress. Lungs are clear. He has epigastric tenderness. Review of labs from today noted a white blood cell count of 2 which appears at his baseline. Hemoglobin 8.2 which is at baseline as well although slightly decreased compared to previous. Will add lipase and troponin. EKG done which noted a rate of 61, sinus, no acute ST ischemic changes. We will give IV fluids and recheck CMP to evaluate creatinine and calcium. 1500 --repeat CMP notes improvement of creatinine to 2.81, now with potassium of 5.6. Calcium has normalized. Patient reassessed -his pain is completely resolved. Patient is requesting to go home. Case discussed with Dr. Merritt, patient's oncologist. She is agreeable with plan for stopping fluconazole. Recommended to also discuss with Ermelinda Lopez at [facility] with whom I also discussed pt case. Plan is for blood transfusion tomorrow. Another CMP was obtained which notes improvement of creatinine to 2.79 but slight increase in potassium to 5.7. Discussed with patient that I would recommend admission overnight for telemetry monitoring and recheck of electrolytes but he is refusing at this time. The risks of and disability due to inaccurate or missed diagnoses explained and patient understands and would still like to leave. AMA form signed. Patient was advised to call his oncology office tomorrow to see if okay to proceed with blood transfusion due to his DEBRA and hyperkalemia. A repeat call was placed to Ermelinda Lopez at [facility] but no response. Pt advised to return here immediately with any concerns. Medical Records Medical records reviewed: Yes I reviewed the patient's medical records. Lab Data Lab results reviewed: Yes I reviewed the patient's lab results. Labs: Laboratory Tests Range/Units 01/31/20 01/31/20 01/31/20 10:05 10:05 14:45 Sodium (136-145) mmol/L 139 Potassium (3.5-5.1) mmol/L 5.6 H Chloride (98-107) mmol/L 108 H Carbon Dioxide (21.0-32.0) mmol/L 21.0 Anion Gap (3-11) mmol/L 10.0 BUN (7-18) mg/dL 59 H Creatinine (0.70-1.30) mg/dL 2.81 H Estimated GFR/1.73 m2 (mL/min/1.73m2) 22.55 Glucose (74-106) mg/dL 102 Calcium (8.5-10.1) mg/dL 8.9 Total Bilirubin (0.2-1.0) mg/dL 0.3 AST (15-37) U/L 18 ALT (16-63) U/L 23 Alkaline Phosphatase (46-116) U/L 83 Troponin I (<0.06) ng/Ml < 0.05 Total Protein (6.4-8.2) g/dL 6.7 Albumin (3.4-5.0) g/dL 3.6 Lipase (73-393) U/L 157 Range/Units 01/31/20 16:20 Sodium (136-145) mmol/L 139 Potassium (3.5-5.1) mmol/L 5.7 H Chloride (98-107) mmol/L 107 Carbon Dioxide (21.0-32.0) mmol/L 22.1 Anion Gap (3-11) mmol/L 9.9 BUN (7-18) mg/dL 57 H Creatinine (0.70-1.30) mg/dL 2.79 H Estimated GFR/1.73 m2 (mL/min/1.73m2) 22.74 Glucose (74-106) mg/dL 107 H Calcium (8.5-10.1) mg/dL 9.0 Total Bilirubin (0.2-1.0) mg/dL 0.3 AST (15-37) U/L 20 ALT (16-63) U/L 7 L Alkaline Phosphatase (46-116) U/L 83 Troponin I (<0.06) ng/Ml Total Protein (6.4-8.2) g/dL 6.9 Albumin (3.4-5.0) g/dL 3.7 Lipase (73-393) U/L ECG Data Attestation: I personally reviewed and interpreted this ECG (s) as follows: Interpretation: Rate of 61, sinus, no acute ST elevation or depression. DC 182. QTc 407. QRS 92. HPI General Mode of arrival: ambulatory. Date/Time Provider Initiated Documentation: 01/31/20 12:22. Limitations to Documentation: no limitations. Information obtained by: patient. HPI Narrative: Patient is a 70-year-old male with a previous history of non-Hodgkin's lymphoma treated in 1998 and myelodysplastic syndrome in 2014 who presents after sent by [facility] for upper abdominal pain and multiple lab abnormalities on labs drawn today prior to scheduled blood transfusion here at the infusion center. Pt was noted to have acute kidney injury with Cr of 3 compared to 1.75 on 01/16 and a calcium of 10.3. Pt states he has had constant sharp epigastric pain for the past 2 weeks since restarting fluconazole. Patient states he had been on fluconazole in the fall and had similar symptoms which stopped 4 days after stopping fluconazole. Patient is also taking Bactrim and Levaquin, he was unsure why he was taking this, but an oncology note from [facility] notes that he is taking these for a perirectal abscess. Patient admits to some nausea but denies any vomiting or diarrhea. He denies any fever, cough, chest pain, shortness of breath or urinary symptoms. Related Data Home Medications Medication Instructions Recorded Confirmed Insulin Syringe MicroFine #12 ndl 07/09/17 12/19/19 amoxicillin 500 mg tablet 2,000 mg PO ONCE PRN #12 tab 11/08/18 12/19/19 allopurinol 300 mg tablet 300 mg PO DAILY #90 tab 02/01/19 12/19/19 testosterone cypionate 200 mg/mL 100 mg IM q 2 weeks #1 ml 06/30/19 12/19/19 intramuscular oil darbepoetin carmen in polysorbat 300 300 mcg IJ monthly #3 ml 07/12/19 12/19/19 mcg/0.6 mL in polysorbate injection syringe folic acid 1 mg tablet 1 mg PO HS #90 tab-cap 11/13/19 12/19/19 acyclovir 400 mg tablet 400 mg PO BID 12/19/19 12/19/19 hydroxyzine HCl 25 mg tablet 25 mg PO BID PRN 12/19/19 12/19/19 ondansetron HCl 4 mg tablet 4 mg PO Q6H PRN tab 12/19/19 12/19/19 sulfamethoxazole 800 1 tab PO BID 12/19/19 12/19/19 mg-trimethoprim 160 mg tablet Previous Rx's Medication Instructions Recorded amoxicillin 500 mg tablet 2,000 mg PO ONCE PRN #12 tab 11/08/18 allopurinol 300 mg tablet 300 mg PO DAILY #90 tab 02/01/19 testosterone cypionate 200 mg/mL 100 mg IM q 2 weeks #1 ml 06/30/19 intramuscular oil folic acid 1 mg tablet 1 mg PO HS #90 tab-cap 11/13/19 Allergies Allergy/AdvReac Type Severity Reaction Status Date / Time aspirin AdvReac gi upset Unverified 01/31/20 12:27 gluten AdvReac Diarrhea, Unverified 01/31/20 12:27 bloat lactose AdvReac Diarrhea Unverified 01/31/20 12:27 oxycodone HCl AdvReac per pt may Unverified 01/31/20 12:27 [From OxyContin] have caused hallucinations shellfish/seafood AdvReac Unknown vomit all Uncoded 01/31/20 12:27 night long sugar AdvReac Unknown causes Uncoded 01/31/20 12:27 itching if eaten after 5pm General Stated Complaint: Abd Prob ALEXA: 3 Review of Systems All systems reviewed & are unremarkable except as noted in HPI and below Constitutional Constitutional: Reports as per HPI, Denies chills and Denies fever(s) Eyes Eyes: Denies blurry vision ENT Ears, Nose, Mouth, and Throat: Denies dizziness, Denies sore throat and Denies throat swelling Cardiovascular Cardiovascular: Denies chest pain and Denies dyspnea Respiratory Respiratory: Denies cough and Denies dyspnea Gastrointestinal Gastrointestinal: Reports abdominal pain, Denies diarrhea and Denies vomiting Genitourinary Genitourinary: Denies hematuria and Denies dysuria Musculoskeletal Musculoskeletal: Denies back pain and Denies numbness Integumentary/Breasts Skin/Breast: Denies lesions and Denies rash Neurologic Neurologic: Denies dizziness, Denies localized weakness and Denies numbness Allergic/Immunologic Allergic/Immunologic: Denies throat swelling [facility] Medical History (Updated 01/31/20 @ 17:25 by Gloria Wisnlow DO) Anemia (Chronic) 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 (Acute 11/20/16) haem to follow Disorder of lung (Inactive) MILD/MOD,DLCO LOW BUT CORRECTED TO NORMAL Essential hypertension (Acute) Hypertension (Chronic) 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 Peripheral venous insufficiency (Acute) Prostatitis (Inactive) Renal insufficiency (Chronic) Rheumatoid arthritis (Acute) Testicular hypofunction following chemotherapy (Inactive) Surgical History (Updated 05/26/19 @ 07:55 by Saturnino York MD) Appendectomy Arthroplasty (02/23/17) [facility]-RIGHT HIP REVISION HAND SURGERIES History of appendectomy (Inactive) History of hand surgery (Inactive) History of total replacement of both hip joints (Inactive 06/15/18) S/P total hip arthroplasty (Chronic) Family History (Updated 12/20/19 @ 09:57 by Neil Cloud) Father , age 83 Diabetes Lung cancer Mother Stroke Sister , age 32 Cancer Sister No problems noted. Brother No problems noted. Maternal Grandfather , age 83 Testicular cancer Paternal Grandfather , in his 50s - Mustard gas Diabetes Maternal Grandmother , OLD AGE at age 99. No problems noted. Paternal Grandmother , age 50 MVA No problems noted. Daughter No problems noted. Daughter No problems noted. Daughter No problems noted. Brother No problems noted. Social History (Updated 12/20/19 @ 09:50 by Neil Cloud) Smoking/Tobacco Use Status: Former Tobacco Use Quit Date: 11/01/84 Second Hand Exposure: Yes Alcohol Intake: current Alcohol Intake frequency: 0-2 drinks per day Alcohol type: beer Drug use: Occasionally Substance use type: marijuana Caregiver/Support person: Yes Household members: spouse Housing: house Communication Needs: None Do you need help understanding health information?: Never Pets and animals: Yes Pets and animals: cat(s) and farm animals Sexually active: No Do you think of yourself as: straight/heterosexual Current gender identity: decline to answer What is your relationship status?: How often do you talk on the phone with friends or family?: never How often do you get together with friends or relatives?: never How often do you attend zoroastrian or denominational services?: decline to answer Do you belong to any clubs or organized social groups?: no Panel score (0-1 are the most socially isolated patients): 1 Duration: < 15 minutes/day Frequency: 1-2 times per week Amanda/Anabaptist: None Special amanda needs: No Seatbelt use: always Helmet use: No Drive intox or ride w/intox 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 Do you feel safe at home: Yes Do you feel safe in your relationship?: Yes Exam Const General: healthy appearing, no acute distress and ill appearing chronically Orientation: alert, awake and oriented x3 HENMT Head: normal to inspection Face and sinus: normal facial exam Eyes General: appearance normal, both eyes and all related structures EOM: EOM intact bilaterally Neck Neck: normal visual inspection and No submandibular swelling Lymphatic: no lymphadenopathy noted Chest Chest: normal inspection of the chest and no tenderness Resp Effort & Inspection: normal respiratory effort and able to speak in complete sentences Auscultation: clear to auscultation bilaterally Cardio Rate: regular rate Rhythm: regular rhythm GI Inspection: normal to inspection Palpation: soft, not firm, not rigid and tender in the epigastrum Auscultation: hypoactive bowel sounds Skin General skin exam: no rashes or lesions noted Neuro General: patient alert, patient awake and patient oriented x3 Cognition: normal cognition Speech: speech normal Motor: muscle tone normal throughout Sensory Exam: no sensory deficits noted Extrem General: normal to inspection, full ROM, capillary refill normal, no calf tenderness bilaterally and no edema Psych Appearance: grossly normal Mental Status: mental status grossly normal Speech and Movement: speech and movement normal Affect: normal affect Course Vital Signs Vital signs: Vital Signs Temperature 97.2 F L 01/31/20 12:22 Pulse 62 01/31/20 12:22 Blood Pressure 136/63 01/31/20 12:22 Pulse Oximetry 99 01/31/20 12:22 Temperature 97.2 F L 01/31/20 12:22 Temperature Source Skin 01/31/20 12:22 Pulse 62 01/31/20 12:22 Blood Pressure 136/63 01/31/20 12:22 Blood Pressure Position Sitting 01/31/20 12:22 Pulse Oximetry 99 01/31/20 12:22 Oxygen Delivery Method Room Air 01/31/20 12:22 Oxygen Flow Rate 0 01/31/20 12:22
[2020-01-31] MEDS: FAMOTIDINE 20 MG/50 ML BAG 200 MG IVPB (12:48)
[2020-01-31] MEDS: Normal Saline Flush 10 ML SYR IVP ×2 (12:48→17:21)
[2020-01-31] MEDS: Normal Saline 1,000 ML 1000 ML IV ×2 (12:48→14:00)
[2020-01-31 13:11] LABS: Lipase 157 U/L (73-393)
[2020-01-31 13:20] LABS: Troponin I < 0.05 ng/Ml (<0.06)
[2020-01-31 15:07] LABS: ALT 23 U/L (16-63); AST 18 U/L (15-37); Albumin 3.6 g/dL (3.4-5.0); Alkaline Phosphatase 83 U/L (46-116); BUN 59 mg/dL (7-18); Bilirubin, Total 0.3 mg/dL (0.2-1.0); CREATININE 2.81 mg/dL (0.70-1.30); Calcium 8.9 mg/dL (8.5-10.1); Chloride 108 mmol/L (98-107); Estimated GFR 22.55 (mL/min/1.73m2); Glucose 102 mg/dL (74-106); Potassium 5.6 mmol/L (3.5-5.1); Sodium 139 mmol/L (136-145); Total Protein 6.7 g/dL (6.4-8.2)
[2020-01-31 16:46] LABS: ALT 7 U/L (16-63); AST 20 U/L (15-37); Albumin 3.7 g/dL (3.4-5.0); Alkaline Phosphatase 83 U/L (46-116); Anion Gap 9.9 mmol/L (3-11); BUN 57 mg/dL (7-18); Bilirubin, Total 0.3 mg/dL (0.2-1.0); CO2 22.1 mmol/L (21.0-32.0); CREATININE 2.79 mg/dL (0.70-1.30); Chloride 107 mmol/L (98-107); Estimated GFR 22.74 (mL/min/1.73m2); Glucose 107 mg/dL (74-106); Potassium 5.7 mmol/L (3.5-5.1); Sodium 139 mmol/L (136-145); Total Protein 6.9 g/dL (6.4-8.2)
[2020-01-31 17:18] VITALS: PULSE 62; RESP 16; TEMP 36.5; O2SAT 100
[2020-01-31] MEDS: Heparin 500 UNITS/5 ML SYRINGE (17:20)
== END 2020-01-31 17:30 | disposition left against medical advice (07) ==
PROVIDERS: Emergency Provider Physician Assistant; PCP Family Medicine
DX: R10.13 Epigastric pain (principal); Z53.29 Procedure and treatment not carried out because of patient's decision for other reasons; N17.9 Acute kidney failure, unspecified; E87.5 Hyperkalemia; E83.52 Hypercalcemia; D46.9 Myelodysplastic syndrome, unspecified; Z79.899 Other long term (current) drug therapy
CPT/HCPCS: 36415; 80053; 83690; 93005; 96361; 96374; 99284; 84484; 93010

== ENCOUNTER 2020-02-29 00:57 | Outpatient (RCR) | payer OTHER, SELFPAY ==
[2020-01-31] MEDS: Normal Saline Flush 10 ML SYR IVP (10:10)
[2020-01-31 10:23] LABS: Abs Immature Grans 0.02 k/cumm (0.0-0.09); HCT 24.3 % (40.0-50.0); HGB 8.2 g/dL (13.5-17.5); Mean Corp. HGB Concentration 33.7 g/dL (32.0-36.0); Mean Corpuscular Hemoglobin 31.2 pg (27.0-33.0); Mean Corpuscular Volume 92.4 fL (80-95); Mean Platelet Volume 10.4 fL (8.0-11.0); Platelet Count 157 x1000/uL (130-400); RBC 2.63 m/cumm (4.50-6.00); RBC Distribution Width 17.5 % (11.8-14.1); White Blood Cell Count 2.02 k/cumm (4.4-10.8)
[2020-01-31 10:45] LABS: ALT 27 U/L (16-63); AST 20 U/L (15-37); Albumin 3.9 g/dL (3.4-5.0); Alkaline Phosphatase 86 U/L (46-116); Anion Gap 10.8 mmol/L (3-11); BUN 61 mg/dL (7-18); Bilirubin, Total 0.5 mg/dL (0.2-1.0); CO2 23.2 mmol/L (21.0-32.0); CREATININE 3.01 mg/dL (0.70-1.30); Calcium 10.3 mg/dL (8.5-10.1); Chloride 105 mmol/L (98-107); Estimated GFR 20.83 (mL/min/1.73m2); Glucose 129 mg/dL (74-106); Sodium 139 mmol/L (136-145); Total Protein 7.3 g/dL (6.4-8.2)
[2020-01-31 10:49] LABS: Absolute Lymphocyte Count 1.01 k/cumm (1.2-3.4); Absolute Neutrophil Count 0.93 k/cumm (1.2-6.7)
[2020-01-31 10:50] LABS: Absolute Basophil Count 0.04 k/cumm (0.0-0.2); Absolute Monocyte Count 0.04 k/cumm (0.11-0.7); Anisocytosis 2+; Diff Comment Manual Differential
[2020-01-31 10:51] LABS: Schistocytes 1+
[2020-02-01] VITALS (7 sets, daily range): BP systolic 111–142; BP diastolic 53–71; PULSE 52–74; RESP 18–19; TEMP 36.4–36.5; O2SAT 100
[2020-02-01] MEDS: Heparin 500 UNITS/5 ML SYRINGE (12:03)
[2020-02-01] MEDS: Normal Saline Flush 10 ML SYR IVP (12:03)
[2020-02-07] MEDS: Heparin 500 UNITS/5 ML SYRINGE (09:15)
[2020-02-07] MEDS: Normal Saline Flush 10 ML SYR IVP (09:15)
[2020-02-07 09:32] LABS: Absolute Basophil Count 0.15 k/cumm (0.0-0.2); Absolute Eosinophil Count 0.01 k/cumm (0.0-0.7); Absolute Lymphocyte Count 0.94 k/cumm (1.2-3.4); Absolute Monocyte Count 0.15 k/cumm (0.11-0.7); Basophils % 8.7; Eosinophils % 0.6; HCT 23.5 % (40.0-50.0); Lymphocytes % 54.3; Mean Corpuscular Volume 91.1 fL (80-95); Mean Platelet Volume 11.6 fL (8.0-11.0); Monocytes % 8.7; Neutrophils % 27.7; RBC 2.58 m/cumm (4.50-6.00); RBC Distribution Width 15.6 % (11.8-14.1)
[2020-02-07 09:47] LABS: ALT 30 U/L (16-63); AST 21 U/L (15-37); Albumin 3.6 g/dL (3.4-5.0); Alkaline Phosphatase 91 U/L (46-116); Anion Gap 10.1 mmol/L (3-11); BUN 43 mg/dL (7-18); Bilirubin, Total 0.5 mg/dL (0.2-1.0); CO2 23.9 mmol/L (21.0-32.0); CREATININE 1.89 mg/dL (0.70-1.30); Calcium 8.7 mg/dL (8.5-10.1); Chloride 104 mmol/L (98-107); Estimated GFR 35.65 (mL/min/1.73m2); Glucose 100 mg/dL (74-106); Potassium 4.6 mmol/L (3.5-5.1); Sodium 138 mmol/L (136-145); Total Protein 6.8 g/dL (6.4-8.2)
[2020-02-07 10:20] LABS: Absolute Neutrophil Count 0.48 k/cumm (1.2-6.7)
[2020-02-07 10:21] LABS: Platelet Count 152 x1000/uL (130-400); White Blood Cell Count 1.73 k/cumm (4.4-10.8)
[2020-02-07 10:22] LABS: Anisocytosis 1+; Diff Comment Agrees w/ Instrument; Poikilocytes 1+
[2020-02-07 12:29] VITALS: BP 142/53; PULSE 74; RESP 18; TEMP 36.4; O2SAT 100
[2020-02-08] VITALS (7 sets, daily range): BP systolic 96–166; BP diastolic 54–78; PULSE 57–66; RESP 18–19; TEMP 36.2–36.5; O2SAT 97–100
[2020-02-08] MEDS: Heparin 500 UNITS/5 ML SYRINGE IV (11:25)
[2020-02-14] MEDS: Normal Saline Flush 10 ML SYR IVP (11:09)
[2020-02-14 11:17] LABS: Absolute Basophil Count 0.16 k/cumm (0.0-0.2); Absolute Eosinophil Count 0.02 k/cumm (0.0-0.7); Absolute Lymphocyte Count 0.96 k/cumm (1.2-3.4); Absolute Monocyte Count 0.17 k/cumm (0.11-0.7); Absolute Neutrophil Count 0.76 k/cumm (1.2-6.7); Basophils % 7.7; HCT 26.5 % (40.0-50.0); HGB 8.7 g/dL (13.5-17.5); Lymphocytes % 46.4; Mean Corp. HGB Concentration 32.8 g/dL (32.0-36.0); Mean Corpuscular Hemoglobin 30.3 pg (27.0-33.0); Mean Corpuscular Volume 92.3 fL (80-95); Mean Platelet Volume 11.1 fL (8.0-11.0); Monocytes % 8.2; Neutrophils % 36.7; RBC 2.87 m/cumm (4.50-6.00); RBC Distribution Width 15.6 % (11.8-14.1); White Blood Cell Count 2.07 k/cumm (4.4-10.8)
[2020-02-14 11:32] LABS: Anisocytosis 1+; Basophilic Stippling Present; Diff Comment Diff Reviewed; Microcytosis 1+; Platelet Count 146 x1000/uL (130-400); Poikilocytes 1+; Polychromasia Present
[2020-02-14 11:33] LABS: ALT 71 U/L (16-63); AST 45 U/L (15-37); Albumin 3.3 g/dL (3.4-5.0); Alkaline Phosphatase 96 U/L (46-116); Anion Gap 5.3 mmol/L (3-11); BUN 19 mg/dL (7-18); Bilirubin, Total 0.6 mg/dL (0.2-1.0); CO2 29.7 mmol/L (21.0-32.0); CREATININE 1.32 mg/dL (0.70-1.30); Calcium 8.8 mg/dL (8.5-10.1); Chloride 106 mmol/L (98-107); Estimated GFR 53.94 (mL/min/1.73m2); Glucose 98 mg/dL (74-106); Potassium 4.4 mmol/L (3.5-5.1); Sodium 141 mmol/L (136-145); Total Protein 6.6 g/dL (6.4-8.2)
[2020-02-21] VITALS (7 sets, daily range): BP systolic 148–177; BP diastolic 54–78; PULSE 58–79; RESP 18–19; TEMP 36.2–36.3; O2SAT 97–100
[2020-02-21 09:32] LABS: Abs Immature Grans 0.01 k/cumm (0.0-0.09); Absolute Eosinophil Count 0.03 k/cumm (0.0-0.7); HCT 21.6 % (40.0-50.0); HGB 7.2 g/dL (13.5-17.5); Mean Corp. HGB Concentration 33.3 g/dL (32.0-36.0); Mean Corpuscular Hemoglobin 30.5 pg (27.0-33.0); Mean Corpuscular Volume 91.5 fL (80-95); Mean Platelet Volume 9.7 fL (8.0-11.0); RBC 2.36 m/cumm (4.50-6.00); RBC Distribution Width 14.4 % (11.8-14.1)
[2020-02-21] MEDS: Normal Saline Flush 10 ML SYR IVP (09:40)
[2020-02-21 10:17] LABS: White Blood Cell Count 1.69 k/cumm (4.4-10.8)
[2020-02-21 10:18] LABS: Absolute Neutrophil Count 0.51 k/cumm (1.2-6.7)
[2020-02-21 10:27] LABS: Platelet Count 135 x1000/uL (130-400)
[2020-02-21 10:28] LABS: Absolute Lymphocyte Count 1.01 k/cumm (1.2-3.4); Absolute Monocyte Count 0.14 k/cumm (0.11-0.7)
[2020-02-21 10:33] LABS: Diff Comment Manual Differential; Hypochromasia 1+; Microcytosis 1+
[2020-02-22] VITALS (7 sets, daily range): BP systolic 148–182; BP diastolic 65–76; PULSE 69–84; RESP 18–19; TEMP 36.1–36.4; O2SAT 99–100
[2020-02-22] MEDS: Normal Saline Flush 10 ML SYR IVP (09:30)
[2020-02-22] MEDS: Heparin 500 UNITS/5 ML SYRINGE IV (09:30)
[2020-02-29 09:37] LABS: Abs Immature Grans 0.01 k/cumm (0.0-0.09); Absolute Basophil Count 0.05 k/cumm (0.0-0.2); Absolute Eosinophil Count 0.02 k/cumm (0.0-0.7); Absolute Lymphocyte Count 0.96 k/cumm (1.2-3.4); Absolute Monocyte Count 0.05 k/cumm (0.11-0.7); Absolute Neutrophil Count 0.59 k/cumm (1.2-6.7); Eosinophils % 1.2; HCT 23.3 % (40.0-50.0); HGB 7.8 g/dL (13.5-17.5); Immature Grans % 0.6 %; Lymphocytes % 57.1; Mean Corp. HGB Concentration 33.5 g/dL (32.0-36.0); Mean Corpuscular Hemoglobin 30.4 pg (27.0-33.0); Mean Corpuscular Volume 90.7 fL (80-95); Mean Platelet Volume 9.9 fL (8.0-11.0); Neutrophils % 35.1; Platelet Count 131 x1000/uL (130-400); RBC 2.57 m/cumm (4.50-6.00); RBC Distribution Width 14.1 % (11.8-14.1)
[2020-02-29 09:59] LABS: Diff Comment Agrees w/ Instrument; White Blood Cell Count 1.68 k/cumm (4.4-10.8)
[2020-02-29 10:00] LABS: Anisocytosis 1+; Poikilocytes 1+; Polychromasia Present
[2020-02-29 11:09] VITALS: BP 124/62; PULSE 73; RESP 18; TEMP 36.6; O2SAT 97
[2020-02-29 11:51] VITALS: BP 137/66; PULSE 71; RESP 18; TEMP 36.7; O2SAT 100
[2020-02-29 12:01] VITALS: BP 168/79; PULSE 75; RESP 18; TEMP 36.9; O2SAT 100
[2020-02-29 12:06] VITALS: BP 173/71; PULSE 74; RESP 19; TEMP 37; O2SAT 100
[2020-02-29 12:36] VITALS: BP 116/82; PULSE 77; RESP 18; TEMP 36.4; O2SAT 97
[2020-02-29 12:51] VITALS: BP 165/71; PULSE 75; RESP 18; TEMP 36.4; O2SAT 100
== END 2020-02-29 23:59 | disposition home or self-care (01) ==
LOC: INF 00:57
PROVIDERS: PCP Family Medicine; Visit Provider Nurse Practitioner Family
DX: D46.9 Myelodysplastic syndrome, unspecified (principal)
CPT/HCPCS: 36430; 36591; 80053; 86850; 86900; 86901; 86920; 86945; 85025; 86644; P9016

== ENCOUNTER 2020-03-28 03:04 | Outpatient (RCR) | payer OTHER, SELFPAY ==
[2020-03-06] VITALS (8 sets, daily range): BP systolic 126–174; BP diastolic 68–78; PULSE 60–102; RESP 18–19; TEMP 36–36.5; O2SAT 96–100
[2020-03-06] MEDS: Normal Saline Flush 10 ML SYR IVP ×2 (09:35→14:02)
[2020-03-06 10:14] LABS: Abs Immature Grans 0.01 k/cumm (0.0-0.09); Absolute Basophil Count 0.07 k/cumm (0.0-0.2); Absolute Eosinophil Count 0.02 k/cumm (0.0-0.7); Absolute Lymphocyte Count 1.08 k/cumm (1.2-3.4); Absolute Monocyte Count 0.04 k/cumm (0.11-0.7); Basophils % 4.2; Eosinophils % 1.2; HCT 25.6 % (40.0-50.0); HGB 8.6 g/dL (13.5-17.5); Immature Grans % 0.6 %; Lymphocytes % 64.7; Mean Corp. HGB Concentration 33.6 g/dL (32.0-36.0); Mean Corpuscular Hemoglobin 30.4 pg (27.0-33.0); Mean Corpuscular Volume 90.5 fL (80-95); Mean Platelet Volume 9.5 fL (8.0-11.0); Monocytes % 2.4; Neutrophils % 26.9; RBC 2.83 m/cumm (4.50-6.00); RBC Distribution Width 14.4 % (11.8-14.1)
[2020-03-06 10:43] LABS: Absolute Neutrophil Count 0.45 k/cumm (1.2-6.7); White Blood Cell Count 1.67 k/cumm (4.4-10.8)
[2020-03-06 10:44] LABS: Anisocytosis 1+; Diff Comment Diff Reviewed; Platelet Count 234 x1000/uL (130-400); Polychromasia Present
[2020-03-06] MEDS: Heparin 500 UNITS/5 ML SYRINGE IV (14:02)
[2020-03-13 10:17] LABS: Abs Immature Grans 0.02 k/cumm (0.0-0.09); HCT 27.4 % (40.0-50.0); HGB 9.1 g/dL (13.5-17.5); Mean Corp. HGB Concentration 33.2 g/dL (32.0-36.0); Mean Corpuscular Hemoglobin 29.8 pg (27.0-33.0); Mean Corpuscular Volume 89.8 fL (80-95); Mean Platelet Volume 9.9 fL (8.0-11.0); RBC 3.05 m/cumm (4.50-6.00); RBC Distribution Width 14.7 % (11.8-14.1)
[2020-03-13] MEDS: Normal Saline Flush 10 ML SYR IVP (10:21)
[2020-03-13] MEDS: Heparin 500 UNITS/5 ML SYRINGE IV (10:21)
[2020-03-13 10:35] LABS: Platelet Count 219 x1000/uL (130-400)
[2020-03-13 10:37] LABS: Absolute Eosinophil Count 0.02 k/cumm (0.0-0.7); Absolute Lymphocyte Count 1.15 k/cumm (1.2-3.4); Absolute Monocyte Count 0.27 k/cumm (0.11-0.7); Atypical Lymphocytes % 2; White Blood Cell Count 2.06 k/cumm (4.4-10.8)
[2020-03-13 10:38] LABS: Absolute Neutrophil Count 0.49 k/cumm (1.2-6.7); Anisocytosis 1+; Diff Comment Manual Differential; Microcytosis 1+; Nucleated RBC 1 /100WBC; Polychromasia Present
[2020-03-20] MEDS: Normal Saline Flush 10 ML SYR IVP (10:40)
[2020-03-20 10:57] LABS: HCT 25.2 % (40.0-50.0); HGB 8.4 g/dL (13.5-17.5); Mean Corp. HGB Concentration 33.3 g/dL (32.0-36.0); Mean Corpuscular Hemoglobin 30.5 pg (27.0-33.0); Mean Corpuscular Volume 91.6 fL (80-95); Mean Platelet Volume 10.1 fL (8.0-11.0); RBC 2.75 m/cumm (4.50-6.00); RBC Distribution Width 15.4 % (11.8-14.1); White Blood Cell Count 2.41 k/cumm (4.4-10.8)
[2020-03-20 11:17] LABS: Platelet Count 246 x1000/uL (130-400)
[2020-03-20 11:18] LABS: Absolute Lymphocyte Count 1.25 k/cumm (1.2-3.4); Absolute Monocyte Count 0.39 k/cumm (0.11-0.7)
[2020-03-20 11:22] LABS: Absolute Neutrophil Count 0.67 k/cumm (1.2-6.7); Anisocytosis 1+; Diff Comment Manual Differential; Polychromasia Present
[2020-03-21] VITALS (7 sets, daily range): BP systolic 122–160; BP diastolic 62–82; PULSE 60–77; RESP 18–19; TEMP 36–36.5; O2SAT 99–100
[2020-03-21] MEDS: Normal Saline Flush 10 ML SYR IVP (11:12)
[2020-03-27 09:14] LABS: Abs Immature Grans 0.01 k/cumm (0.0-0.09); Absolute Basophil Count 0.14 k/cumm (0.0-0.2); Absolute Eosinophil Count 0.01 k/cumm (0.0-0.7); Absolute Lymphocyte Count 1.14 k/cumm (1.2-3.4); Eosinophils % 0.6; HCT 23.2 % (40.0-50.0); HGB 7.7 g/dL (13.5-17.5); Immature Grans % 0.6 %; Lymphocytes % 65.1; Mean Corp. HGB Concentration 33.2 g/dL (32.0-36.0); Mean Corpuscular Hemoglobin 29.6 pg (27.0-33.0); Mean Corpuscular Volume 89.2 fL (80-95); Mean Platelet Volume 10.2 fL (8.0-11.0); Monocytes % 5.7; Platelet Count 180 x1000/uL (130-400); RBC Distribution Width 14.4 % (11.8-14.1)
[2020-03-27 09:31] LABS: White Blood Cell Count 1.75 k/cumm (4.4-10.8)
[2020-03-27 09:32] LABS: Absolute Neutrophil Count 0.35 k/cumm (1.2-6.7)
[2020-03-27 09:33] LABS: Anisocytosis 1+; Diff Comment Agrees w/ Instrument; Hypochromasia 2+; Microcytosis 2+; Polychromasia Present
[2020-03-27 09:34] LABS: Poikilocytes 1+
[2020-03-27 09:39] VITALS: BP 160/68; PULSE 64; RESP 19; TEMP 36.3; O2SAT 100
[2020-03-27] MEDS: Heparin 500 UNITS/5 ML SYRINGE IV (09:40)
[2020-03-27] MEDS: Normal Saline Flush 10 ML SYR IVP (09:40)
[2020-03-28] VITALS (7 sets, daily range): BP systolic 146–185; BP diastolic 53–74; PULSE 57–65; RESP 18–19; TEMP 35.9–36.2; O2SAT 99–100
[2020-03-28] MEDS: Normal Saline Flush 10 ML SYR IVP (07:23)
[2020-03-28] MEDS: Heparin 500 UNITS/5 ML SYRINGE IV (07:23)
== END 2020-03-31 23:59 | disposition home or self-care (01) ==
LOC: INF 03:04
PROVIDERS: PCP Family Medicine; Visit Provider Nurse Practitioner Family
DX: D46.9 Myelodysplastic syndrome, unspecified (principal); Z45.2 Encounter for adjustment and management of vascular access device
CPT/HCPCS: 36430; 36591; 86850; 86900; 86901; 86920; 86945; 85025; 86644; P9016

== ENCOUNTER 2020-04-24 01:53 | Outpatient (RCR) | payer OTHER, SELFPAY ==
[2020-04-02] MEDS: Heparin 500 UNITS/5 ML SYRINGE IV (11:03)
[2020-04-02] MEDS: Normal Saline Flush 10 ML SYR IVP (13:28)
[2020-04-02 13:29] LABS: Absolute Basophil Count 0.09 k/cumm (0.0-0.2); Absolute Eosinophil Count 0.02 k/cumm (0.0-0.7); Absolute Lymphocyte Count 1.25 k/cumm (1.2-3.4); Absolute Monocyte Count 0.07 k/cumm (0.11-0.7); Basophils % 5.3; Eosinophils % 1.2; HCT 24.1 % (40.0-50.0); HGB 8.2 g/dL (13.5-17.5); Lymphocytes % 73.5; Mean Corpuscular Hemoglobin 29.8 pg (27.0-33.0); Mean Corpuscular Volume 87.6 fL (80-95); Mean Platelet Volume 10.2 fL (8.0-11.0); Monocytes % 4.1; Neutrophils % 15.9; Platelet Count 149 x1000/uL (130-400); RBC 2.75 m/cumm (4.50-6.00)
[2020-04-02] MEDS: Heparin 500 UNITS/5 ML SYRINGE IVP (13:29)
[2020-04-02 14:13] LABS: Absolute Neutrophil Count 0.27 k/cumm (1.2-6.7)
[2020-04-02 14:14] LABS: Diff Comment Agrees w/ Instrument; Hypochromasia 1+; Poikilocytes 1+
[2020-04-03] VITALS (8 sets, daily range): BP systolic 158–168; BP diastolic 66–76; PULSE 65–74; RESP 18–19; TEMP 36–36.3; O2SAT 100
[2020-04-03] MEDS: Normal Saline Flush 10 ML SYR IVP (10:46)
[2020-04-03] MEDS: Heparin 500 UNITS/5 ML SYRINGE IV (10:46)
[2020-04-10 09:25] LABS: Abs Immature Grans 0.01 k/cumm (0.0-0.09); HCT 24.1 % (40.0-50.0); Mean Corp. HGB Concentration 33.2 g/dL (32.0-36.0); Mean Corpuscular Hemoglobin 29.7 pg (27.0-33.0); Mean Corpuscular Volume 89.6 fL (80-95); Mean Platelet Volume 10.6 fL (8.0-11.0); Platelet Count 116 x1000/uL (130-400); RBC 2.69 m/cumm (4.50-6.00); RBC Distribution Width 14.6 % (11.8-14.1); White Blood Cell Count 2.15 k/cumm (4.4-10.8)
[2020-04-10] MEDS: Normal Saline Flush 10 ML SYR IVP (09:43)
[2020-04-10] MEDS: Heparin 500 UNITS/5 ML SYRINGE IV (09:43)
[2020-04-10 09:50] LABS: Absolute Basophil Count 0.04 k/cumm (0.0-0.2); Absolute Lymphocyte Count 1.18 k/cumm (1.2-3.4); Absolute Monocyte Count 0.17 k/cumm (0.11-0.7)
[2020-04-10 09:51] LABS: Anisocytosis 1+; Diff Comment Manual Differential; Poikilocytes 1+; Polychromasia Present
[2020-04-10 09:56] LABS: Absolute Neutrophil Count 0.69 k/cumm (1.2-6.7)
[2020-04-11 10:30] VITALS: BP 164/70; PULSE 71; RESP 18; TEMP 36.2; O2SAT 100
[2020-04-11 11:04] VITALS: BP 157/73; PULSE 68; RESP 19; TEMP 36.1; O2SAT 100
[2020-04-11 11:19] VITALS: BP 151/69; PULSE 63; RESP 18; TEMP 36; O2SAT 100
[2020-04-11 11:34] VITALS: BP 151/65; PULSE 65; RESP 19; TEMP 36.2; O2SAT 95
[2020-04-11 11:49] VITALS: BP 172/63; PULSE 67; RESP 18; TEMP 36.2; O2SAT 100
[2020-04-11 12:19] VITALS: BP 162/59; PULSE 78; RESP 19; TEMP 35.9; O2SAT 100
[2020-04-11] MEDS: Normal Saline Flush 10 ML SYR IVP (12:49)
[2020-04-11] MEDS: Heparin 500 UNITS/5 ML SYRINGE IV (12:49)
[2020-04-17] MEDS: Heparin 500 UNITS/5 ML SYRINGE IV (09:00)
[2020-04-17] MEDS: Normal Saline Flush 10 ML SYR IVP (09:00)
[2020-04-17 09:16] LABS: Abs Immature Grans 0.03 k/cumm (0.0-0.09); HCT 25.5 % (40.0-50.0); HGB 8.2 g/dL (13.5-17.5); Mean Corp. HGB Concentration 32.2 g/dL (32.0-36.0); Mean Corpuscular Hemoglobin 28.8 pg (27.0-33.0); Mean Corpuscular Volume 89.5 fL (80-95); Mean Platelet Volume 10.2 fL (8.0-11.0); Platelet Count 216 x1000/uL (130-400); RBC 2.85 m/cumm (4.50-6.00); RBC Distribution Width 15.3 % (11.8-14.1); White Blood Cell Count 2.62 k/cumm (4.4-10.8)
[2020-04-17 09:31] LABS: ALT 51 U/L (16-63); AST 31 U/L (15-37); Albumin 3.6 g/dL (3.4-5.0); Alkaline Phosphatase 105 U/L (46-116); Anion Gap 6.5 mmol/L (3-11); BUN 32 mg/dL (7-18); Bilirubin, Total 0.8 mg/dL (0.2-1.0); CO2 27.5 mmol/L (21.0-32.0); CREATININE 1.66 mg/dL (0.70-1.30); Calcium 8.8 mg/dL (8.5-10.1); Chloride 103 mmol/L (98-107); Glucose 101 mg/dL (74-106); Potassium 4.4 mmol/L (3.5-5.1); Sodium 137 mmol/L (136-145)
[2020-04-17 09:44] LABS: Absolute Basophil Count 0.05 k/cumm (0.0-0.2); Absolute Eosinophil Count 0.03 k/cumm (0.0-0.7); Absolute Lymphocyte Count 1.31 k/cumm (1.2-3.4); Absolute Monocyte Count 0.26 k/cumm (0.11-0.7); Absolute Neutrophil Count 0.92 k/cumm (1.2-6.7); Anisocytosis 1+; Atypical Lymphocytes % 1; Diff Comment Manual Differential
[2020-04-17 09:45] LABS: Hypochromasia 1+; Poikilocytes 1+
[2020-04-18] VITALS (7 sets, daily range): BP systolic 147–183; BP diastolic 67–93; PULSE 62–74; RESP 18–19; TEMP 36.2–36.6; O2SAT 95–100
[2020-04-18] MEDS: Normal Saline Flush 10 ML SYR IVP (11:44)
[2020-04-18] MEDS: Heparin 500 UNITS/5 ML SYRINGE IV (11:44)
[2020-04-24] MEDS: Heparin 500 UNITS/5 ML SYRINGE IV (09:17)
[2020-04-24] MEDS: Normal Saline Flush 10 ML SYR IVP (09:17)
[2020-04-24 09:27] LABS: Abs Immature Grans 0.02 k/cumm (0.0-0.09); Absolute Eosinophil Count 0.02 k/cumm (0.0-0.7); Absolute Lymphocyte Count 1.07 k/cumm (1.2-3.4); Absolute Neutrophil Count 0.67 k/cumm (1.2-6.7); Basophils % 8.1; Eosinophils % 0.8; HCT 28.2 % (40.0-50.0); HGB 9.2 g/dL (13.5-17.5); Immature Grans % 0.8 %; Lymphocytes % 43.1; Mean Corp. HGB Concentration 32.6 g/dL (32.0-36.0); Mean Corpuscular Hemoglobin 29.3 pg (27.0-33.0); Mean Corpuscular Volume 89.8 fL (80-95); Mean Platelet Volume 10.5 fL (8.0-11.0); Monocytes % 20.2; RBC 3.14 m/cumm (4.50-6.00); RBC Distribution Width 15.6 % (11.8-14.1); White Blood Cell Count 2.48 k/cumm (4.4-10.8)
[2020-04-24 09:38] LABS: Diff Comment Agrees w/ Instrument; Hypochromasia 1+; Platelet Count 263 x1000/uL (130-400)
[2020-04-24 09:39] LABS: Polychromasia Present
== END 2020-04-30 23:59 | disposition home or self-care (01) ==
LOC: INF 01:53
PROVIDERS: PCP Family Medicine; Visit Provider Nurse Practitioner Family
DX: D46.9 Myelodysplastic syndrome, unspecified (principal); Z45.2 Encounter for adjustment and management of vascular access device
CPT/HCPCS: 36430; 36591; 80053; 86850; 86900; 86901; 86920; 86945; 85025; 86644; P9016

== ENCOUNTER 2020-05-30 02:03 | Outpatient (RCR) | payer OTHER, SELFPAY ==
[2020-05-01] MEDS: Normal Saline Flush 10 ML SYR IVP (12:55)
[2020-05-01 13:15] LABS: Abs Immature Grans 0.01 k/cumm (0.0-0.09); HCT 23.7 % (40.0-50.0); HGB 7.7 g/dL (13.5-17.5); Mean Corp. HGB Concentration 32.5 g/dL (32.0-36.0); Mean Corpuscular Hemoglobin 29.7 pg (27.0-33.0); Mean Corpuscular Volume 91.5 fL (80-95); RBC 2.59 m/cumm (4.50-6.00); RBC Distribution Width 16.1 % (11.8-14.1)
[2020-05-01 13:42] LABS: Absolute Basophil Count 0.07 k/cumm (0.0-0.2); Absolute Eosinophil Count 0.02 k/cumm (0.0-0.7); Absolute Lymphocyte Count 0.63 k/cumm (1.2-3.4); Absolute Monocyte Count 0.25 k/cumm (0.11-0.7); Absolute Neutrophil Count 0.83 k/cumm (1.2-6.7); Anisocytosis 1+; Diff Comment Manual Differential; Hypochromasia 1+; Poikilocytes 1+
[2020-05-01 13:43] LABS: Platelet Count 204 x1000/uL (130-400)
[2020-05-02] VITALS (7 sets, daily range): BP systolic 100–131; BP diastolic 59–67; PULSE 68–79; RESP 16–20; TEMP 35.9–36.5; O2SAT 94–100
[2020-05-02] MEDS: Normal Saline Flush 10 ML SYR IVP (11:15)
[2020-05-08] VITALS (9 sets, daily range): BP systolic 108–137; BP diastolic 60–92; PULSE 65–75; RESP 18–19; TEMP 36–36.3; O2SAT 94–100
[2020-05-08 09:36] LABS: Absolute Basophil Count 0.04 k/cumm (0.0-0.2); Absolute Eosinophil Count 0.01 k/cumm (0.0-0.7); Absolute Lymphocyte Count 0.81 k/cumm (1.2-3.4); Basophils % 2.6; Eosinophils % 0.6; HCT 24.3 % (40.0-50.0); Lymphocytes % 51.9; Mean Corp. HGB Concentration 32.9 g/dL (32.0-36.0); Mean Corpuscular Hemoglobin 29.1 pg (27.0-33.0); Mean Corpuscular Volume 88.4 fL (80-95); Mean Platelet Volume 10.4 fL (8.0-11.0); Monocytes % 6.4; Neutrophils % 38.5; RBC 2.75 m/cumm (4.50-6.00)
[2020-05-08 09:49] LABS: White Blood Cell Count 1.56 k/cumm (4.4-10.8)
[2020-05-08 10:06] LABS: Diff Comment Agrees w/ Instrument; Hypochromasia 2+; Platelet Count 180 x1000/uL (130-400)
[2020-05-08 10:07] LABS: Poikilocytes 2+
[2020-05-08] MEDS: Heparin 500 UNITS/5 ML SYRINGE IV (10:23)
[2020-05-08] MEDS: Normal Saline Flush 10 ML SYR IVP (10:23)
[2020-05-15 09:46] LABS: Abs Immature Grans 0.01 k/cumm (0.0-0.09); Absolute Basophil Count 0.04 k/cumm (0.0-0.2); Absolute Eosinophil Count 0.01 k/cumm (0.0-0.7); Absolute Lymphocyte Count 0.49 k/cumm (1.2-3.4); Absolute Monocyte Count 0.13 k/cumm (0.11-0.7); Absolute Neutrophil Count 0.52 k/cumm (1.2-6.7); Basophils % 3.3; Eosinophils % 0.8; HCT 23.7 % (40.0-50.0); HGB 7.7 g/dL (13.5-17.5); Immature Grans % 0.8 %; Lymphocytes % 40.8; Mean Corp. HGB Concentration 32.5 g/dL (32.0-36.0); Mean Corpuscular Hemoglobin 29.3 pg (27.0-33.0); Mean Corpuscular Volume 90.1 fL (80-95); Mean Platelet Volume 9.5 fL (8.0-11.0); Monocytes % 10.8; Neutrophils % 43.5; RBC 2.63 m/cumm (4.50-6.00); RBC Distribution Width 15.4 % (11.8-14.1)
[2020-05-15 10:12] LABS: Platelet Count 232 x1000/uL (130-400)
[2020-05-15 10:14] LABS: Anisocytosis 1+; Basophilic Stippling Present; Diff Comment Diff Reviewed
[2020-05-15 10:15] LABS: Poikilocytes 1+; Polychromasia Present
[2020-05-15 10:34] VITALS: BP 129/63; PULSE 68; RESP 18; TEMP 36.3; O2SAT 100
[2020-05-15 11:27] VITALS: BP 140/61; PULSE 67; RESP 18; TEMP 36.2; O2SAT 100
[2020-05-15 11:37] VITALS: BP 141/73; PULSE 65; RESP 19; TEMP 36.1; O2SAT 99
[2020-05-15 11:52] VITALS: BP 181/74; PULSE 64; RESP 18; TEMP 36; O2SAT 98
[2020-05-15 12:22] VITALS: BP 163/71; PULSE 75; RESP 18; TEMP 36.2; O2SAT 98
[2020-05-15] MEDS: Normal Saline Flush 10 ML SYR IVP (12:30)
[2020-05-15] MEDS: Heparin 500 UNITS/5 ML SYRINGE IV (12:30)
[2020-05-22 13:22] LABS: Absolute Basophil Count 0.03 k/cumm (0.0-0.2); Absolute Eosinophil Count 0.01 k/cumm (0.0-0.7); Absolute Lymphocyte Count 0.61 k/cumm (1.2-3.4); Absolute Monocyte Count 0.07 k/cumm (0.11-0.7); Basophils % 2.7; Eosinophils % 0.9; HCT 23.9 % (40.0-50.0); Mean Corp. HGB Concentration 33.5 g/dL (32.0-36.0); Mean Corpuscular Hemoglobin 29.5 pg (27.0-33.0); Mean Corpuscular Volume 88.2 fL (80-95); Mean Platelet Volume 9.6 fL (8.0-11.0); Monocytes % 6.2; Neutrophils % 36.2; RBC 2.71 m/cumm (4.50-6.00)
[2020-05-22 13:39] LABS: ALT 51 U/L (16-63); AST 37 U/L (15-37); Albumin 3.2 g/dL (3.4-5.0); Alkaline Phosphatase 149 U/L (46-116); Anion Gap 8.2 mmol/L (3-11); BUN 25 mg/dL (7-18); Bilirubin, Total 1.2 mg/dL (0.2-1.0); CO2 27.8 mmol/L (21.0-32.0); CREATININE 1.63 mg/dL (0.70-1.30); Calcium 8.7 mg/dL (8.5-10.1); Chloride 98 mmol/L (98-107); Estimated GFR 42.28 (mL/min/1.73m2); Glucose 113 mg/dL (74-106); Potassium 3.8 mmol/L (3.5-5.1); Sodium 134 mmol/L (136-145); Total Protein 7.3 g/dL (6.4-8.2)
[2020-05-22 13:43] LABS: Anisocytosis 1+; Diff Comment Agrees w/ Instrument; Poikilocytes 1+; Polychromasia Present
[2020-05-22 13:45] LABS: Platelet Count 239 x1000/uL (130-400)
[2020-05-22 13:49] LABS: Absolute Neutrophil Count 0.41 k/cumm (1.2-6.7); White Blood Cell Count 1.13 k/cumm (4.4-10.8)
[2020-05-22] MEDS: Normal Saline Flush 10 ML SYR IVP (14:51)
[2020-05-22] MEDS: Heparin 500 UNITS/5 ML SYRINGE IV (14:52)
[2020-05-23] VITALS (7 sets, daily range): BP systolic 108–145; BP diastolic 54–73; PULSE 69–85; RESP 18–19; TEMP 36.2–36.4; O2SAT 94–99
[2020-05-23] MEDS: Heparin 500 UNITS/5 ML SYRINGE IV (13:34)
[2020-05-23] MEDS: Normal Saline Flush 10 ML SYR IVP (13:35)
[2020-05-29] MEDS: Normal Saline Flush 10 ML SYR IVP (09:10)
[2020-05-29] MEDS: Heparin 500 UNITS/5 ML SYRINGE IV (09:15)
[2020-05-29 09:40] LABS: Abs Immature Grans 0.05 10^3/uL (0.0-0.06); HCT 23.6 % (40.0-50.0); HGB 8.1 g/dL (13.5-17.5); MCH 30.1 pg (27.0-33.0); MCHC 34.3 % (32.0-36.0); MCV 87.7 fL (80-95); MPV 10.3 fL (8.0-11.0); Platelet Count 229 10^3/uL (130-400); RBC 2.69 10^6/uL (4.36-5.78); RDW 14.4 % (11.8-14.1); RDW-SD 45.1 fL
[2020-05-29 10:23] LABS: Absolute Basophil Count 0.07 10^3/uL (0.0-0.2); Absolute Lymphocyte Count 0.67 10^3/uL (1.2-3.4); Absolute Monocyte Count 0.07 10^3/uL (0.1-0.8); Anisocytosis 1+; Bands % 4; Diff Comment Manual Differential; Poikilocytes 1+; Polychromasia Present
[2020-05-29 10:24] LABS: Metamyelocytes % 1
[2020-05-29 10:28] LABS: WBC 1.32 10^3/uL (4.4-10.8)
[2020-05-30] VITALS (7 sets, daily range): BP systolic 119–165; BP diastolic 59–83; PULSE 58–77; RESP 18–19; TEMP 36–36.8; O2SAT 98–99
[2020-05-30] MEDS: Heparin 500 UNITS/5 ML SYRINGE IV (09:00)
[2020-05-30] MEDS: Normal Saline Flush 10 ML SYR IVP (09:00)
== END 2020-05-31 23:59 | disposition home or self-care (01) ==
LOC: INF 02:03
PROVIDERS: Internal Medicine Hematology & Oncology; PCP Family Medicine; Visit Provider Nurse Practitioner Family
DX: D46.9 Myelodysplastic syndrome, unspecified (principal); Z45.2 Encounter for adjustment and management of vascular access device
CPT/HCPCS: 36430; 36591; 80053; 86850; 86900; 86901; 86920; 86945; 85025; 86644; P9016

== ENCOUNTER 2020-06-05 13:19 | Outpatient (REF) | payer OTHER, SELFPAY | END 2020-06-05 13:39 | LOC: LBN 13:19 | PROVIDERS: PCP Family Medicine; Visit Provider Internal Medicine Hematology & Oncology | DX: R19.7 Diarrhea, unspecified (principal); D46.9 Myelodysplastic syndrome, unspecified | CPT/HCPCS: 87324 ==

== ENCOUNTER 2020-06-26 01:28 | Outpatient (RCR) | payer OTHER, SELFPAY ==
[2020-06-04 12:53] LABS: Abs Immature Grans 0.01 10^3/uL (0.0-0.06); HCT 25.4 % (40.0-50.0); HGB 8.9 g/dL (13.5-17.5); MCH 30.1 pg (27.0-33.0); MCV 85.8 fL (80-95); MPV 9.9 fL (8.0-11.0); Nucleated RBC 0 %; Platelet Count 240 10^3/uL (130-400); RBC 2.96 10^6/uL (4.36-5.78); RDW 14.6 % (11.8-14.1); RDW-SD 45.8 fL
[2020-06-04] MEDS: Normal Saline Flush 10 ML SYR IVP (13:01)
[2020-06-04 13:17] LABS: WBC 1.42 10^3/uL (4.4-10.8)
[2020-06-04 13:18] LABS: Absolute Basophil Count 0.07 10^3/uL (0.0-0.2); Absolute Monocyte Count 0.13 10^3/uL (0.1-0.8); Absolute Neutrophil Count 0.43 10^3/uL (1.2-6.7); Atypical Lymphocytes % 3; Bands % 4
[2020-06-04 13:19] LABS: Diff Comment Manual Differential
[2020-06-04 13:20] LABS: Anisocytosis 1+; Microcytosis 2+; Polychromasia Present
[2020-06-12] VITALS (7 sets, daily range): BP systolic 137–171; BP diastolic 56–73; PULSE 69–75; RESP 18–19; TEMP 36.2–36.6; O2SAT 96–100
[2020-06-12] MEDS: Normal Saline Flush 10 ML SYR IVP ×2 (09:15→12:40)
[2020-06-12 09:27] LABS: HGB 7.3 g/dL (13.5-17.5); MCH 29.3 pg (27.0-33.0); MCHC 33.2 % (32.0-36.0); MCV 88.4 fL (80-95); Nucleated RBC 0 %; Platelet Count 195 10^3/uL (130-400); RBC 2.49 10^6/uL (4.36-5.78); RDW 14.5 % (11.8-14.1)
[2020-06-12 09:58] LABS: Absolute Lymphocyte Count 0.94 10^3/uL (1.2-3.4); Absolute Neutrophil Count 0.65 10^3/uL (1.2-6.7)
[2020-06-12 09:59] LABS: Absolute Basophil Count 0.04 10^3/uL (0.0-0.2); Absolute Monocyte Count 0.18 10^3/uL (0.1-0.8); Metamyelocytes % 0; Myelocytes % 0; Promyelocytes % 0
[2020-06-12 10:00] LABS: Anisocytosis 2+; Diff Comment Manual Differential; Hypochromasia 2+
[2020-06-12 10:01] LABS: Poikilocytes 1+; Polychromasia Present
[2020-06-12 10:02] LABS: Microcytosis 1+
[2020-06-12] MEDS: Heparin 500 UNITS/5 ML SYRINGE IV (12:40)
[2020-06-13] VITALS (7 sets, daily range): BP systolic 119–154; BP diastolic 64–83; PULSE 72–87; RESP 18–19; TEMP 36.7; O2SAT 97–100
[2020-06-13] MEDS: Normal Saline Flush 10 ML SYR IVP (09:36)
[2020-06-13] MEDS: Heparin 500 UNITS/5 ML SYRINGE IV (09:36)
[2020-06-19 09:52] LABS: Abs Immature Grans 0.02 10^3/uL (0.0-0.06); Absolute Basophil Count 0.06 10^3/uL (0.0-0.2); Absolute Eosinophil Count 0.01 10^3/uL (0.0-0.7); Absolute Lymphocyte Count 0.96 10^3/uL (1.2-3.4); Absolute Monocyte Count 0.17 10^3/uL (0.1-0.8); Absolute Neutrophil Count 0.65 10^3/uL (1.2-6.7); Basophils % 3.2; Eosinophils % 0.5; HCT 25.5 % (40.0-50.0); HGB 8.7 g/dL (13.5-17.5); Immature Grans % 1.1; Lymphocytes % 51.3; MCH 30.4 pg (27.0-33.0); MCHC 34.1 % (32.0-36.0); MCV 89.2 fL (80-95); MPV 9.8 fL (8.0-11.0); Monocytes % 9.1; Neutrophils % 34.8; Nucleated RBC 0 %; RBC 2.86 10^6/uL (4.36-5.78); RDW 14.7 % (11.8-14.1); RDW-SD 46.5 fL
[2020-06-19 10:19] LABS: ALT 31 U/L (16-63); AST 25 U/L (15-37); Albumin 3.3 g/dL (3.4-5.0); Alkaline Phosphatase 90 U/L (46-116); Anion Gap 6.3 mmol/L (3-11); BUN 34 mg/dL (7-18); Bilirubin, Total 0.6 mg/dL (0.2-1.0); CO2 28.7 mmol/L (21.0-32.0); CREATININE 1.56 mg/dL (0.70-1.30); Calcium 8.8 mg/dL (8.5-10.1); Chloride 102 mmol/L (98-107); Estimated GFR 44.48 (mL/min/1.73m2); Glucose 124 mg/dL (74-106); Potassium 4.7 mmol/L (3.5-5.1); Sodium 137 mmol/L (136-145)
[2020-06-19 10:22] VITALS: BP 148/83; PULSE 77; RESP 19; TEMP 36.7; O2SAT 100
[2020-06-19 10:29] LABS: Diff Comment Agrees w/ Instrument; Platelet Count 200 10^3/uL (130-400)
[2020-06-19 10:30] LABS: Basophilic Stippling Present; Hypochromasia 2+; Polychromasia Present
[2020-06-19 10:31] LABS: Poikilocytes 2+
[2020-06-19 10:36] LABS: WBC 1.87 10^3/uL (4.4-10.8)
[2020-06-19] MEDS: Normal Saline Flush 10 ML SYR IVP (10:38)
[2020-06-19] MEDS: Heparin 500 UNITS/5 ML SYRINGE IV (10:38)
[2020-06-26 09:55] LABS: Abs Immature Grans 0.01 10^3/uL (0.0-0.06); HCT 25.8 % (40.0-50.0); HGB 8.5 g/dL (13.5-17.5); MCH 29.9 pg (27.0-33.0); MCHC 32.9 % (32.0-36.0); MCV 90.8 fL (80-95); Nucleated RBC 0 %; Platelet Count 216 10^3/uL (130-400); RBC 2.84 10^6/uL (4.36-5.78); RDW 15.2 % (11.8-14.1); RDW-SD 47.9 fL
[2020-06-26 10:17] VITALS: BP 148/83; PULSE 77; RESP 19; TEMP 36.7; O2SAT 100
[2020-06-26] MEDS: Heparin 500 UNITS/5 ML SYRINGE IV (10:19)
[2020-06-26] MEDS: Normal Saline Flush 10 ML SYR IVP (10:19)
[2020-06-26 10:29] LABS: WBC 1.98 10^3/uL (4.4-10.8)
[2020-06-26 10:30] LABS: Absolute Basophil Count 0.04 10^3/uL (0.0-0.2); Absolute Lymphocyte Count 1.03 10^3/uL (1.2-3.4); Absolute Monocyte Count 0.16 10^3/uL (0.1-0.8); Absolute Neutrophil Count 0.75 10^3/uL (1.2-6.7)
[2020-06-26 10:31] LABS: Anisocytosis 1+; Diff Comment Manual Differential; Hypochromasia 2+
[2020-06-26 10:32] LABS: Poikilocytes 1+
== END 2020-07-01 23:59 | disposition home or self-care (01) ==
LOC: INF 01:28
PROVIDERS: PCP Family Medicine; Visit Provider Nurse Practitioner Family
DX: D46.9 Myelodysplastic syndrome, unspecified (principal); Z45.2 Encounter for adjustment and management of vascular access device
CPT/HCPCS: 36430; 36591; 80053; 86850; 86900; 86901; 86920; 86945; 96365; 96366; 85025; 86644; P9016

== ENCOUNTER 2020-07-31 03:42 | Outpatient (RCR) | payer OTHER, SELFPAY ==
[2020-07-03] VITALS (7 sets, daily range): BP systolic 138–173; BP diastolic 50–79; PULSE 58–69; RESP 18–19; TEMP 36–36.4; O2SAT 94–100
[2020-07-03 09:14] LABS: Abs Immature Grans 0.02 10^3/uL (0.0-0.06); Absolute Basophil Count 0.05 10^3/uL (0.0-0.2); Absolute Lymphocyte Count 1.12 10^3/uL (1.2-3.4); Absolute Monocyte Count 0.23 10^3/uL (0.1-0.8); Absolute Neutrophil Count 0.61 10^3/uL (1.2-6.7); Basophils % 2.5; HCT 22.4 % (40.0-50.0); HGB 7.7 g/dL (13.5-17.5); Lymphocytes % 55.2; MCH 30.8 pg (27.0-33.0); MCHC 34.4 % (32.0-36.0); MCV 89.6 fL (80-95); Monocytes % 11.3; Nucleated RBC 0 %; Platelet Count 220 10^3/uL (130-400); RDW 16.1 % (11.8-14.1); RDW-SD 50.1 fL; WBC 2.03 10^3/uL (4.4-10.8)
[2020-07-03] MEDS: Heparin 500 UNITS/5 ML SYRINGE IV (09:19)
[2020-07-03] MEDS: Normal Saline Flush 10 ML SYR IVP (09:19)
[2020-07-03 09:25] LABS: Diff Comment Diff Reviewed
[2020-07-03 09:26] LABS: Anisocytosis 1+; Microcytosis 1+; Polychromasia Present
[2020-07-10 09:31] LABS: Abs Immature Grans 0.01 10^3/uL (0.0-0.06); Absolute Basophil Count 0.05 10^3/uL (0.0-0.2); Absolute Eosinophil Count 0.01 10^3/uL (0.0-0.7); Absolute Monocyte Count 0.22 10^3/uL (0.1-0.8); Absolute Neutrophil Count 0.91 10^3/uL (1.2-6.7); Basophils % 2.5; Eosinophils % 0.5; HCT 25.4 % (40.0-50.0); HGB 8.5 g/dL (13.5-17.5); Immature Grans % 0.5; MCH 30.2 pg (27.0-33.0); MCHC 33.5 % (32.0-36.0); MCV 90.4 fL (80-95); MPV 10.5 fL (8.0-11.0); Neutrophils % 45.5; Nucleated RBC 0 %; Platelet Count 198 10^3/uL (130-400); RBC 2.81 10^6/uL (4.36-5.78); RDW 16.3 % (11.8-14.1); RDW-SD 51.4 fL
[2020-07-10] MEDS: Heparin 500 UNITS/5 ML SYRINGE IV (09:42)
[2020-07-10] MEDS: Normal Saline Flush 10 ML SYR IVP (09:42)
[2020-07-10 09:47] LABS: Anisocytosis 1+; Diff Comment Diff Reviewed; Microcytosis 1+; Poikilocytes 1+; Polychromasia Present
[2020-07-10 10:28] VITALS: BP 124/65; PULSE 61; RESP 18; TEMP 36.4; O2SAT 100
[2020-07-10 10:34] VITALS: BP 127/66; PULSE 67; RESP 19; TEMP 36.4; O2SAT 100
[2020-07-10 10:49] VITALS: BP 126/67; PULSE 63; RESP 18; TEMP 36.4; O2SAT 100
[2020-07-10 11:04] VITALS: BP 138/67; PULSE 58; RESP 18; TEMP 36.4; O2SAT 98
[2020-07-10 11:19] VITALS: BP 152/72; PULSE 61; RESP 19; TEMP 36; O2SAT 100
[2020-07-10 11:34] VITALS: BP 145/69; PULSE 62; RESP 18; TEMP 36; O2SAT 99
[2020-07-17] MEDS: Normal Saline Flush 10 ML SYR IVP (09:15)
[2020-07-17] MEDS: Heparin 500 UNITS/5 ML SYRINGE IV (09:15)
[2020-07-17 09:30] LABS: HGB 8.3 g/dL (13.5-17.5); MCH 30.3 pg (27.0-33.0); MCHC 34.6 % (32.0-36.0); MCV 87.6 fL (80-95); MPV 11.4 fL (8.0-11.0); Nucleated RBC 0 %; Platelet Count 180 10^3/uL (130-400); RBC 2.74 10^6/uL (4.36-5.78); RDW 15.4 % (11.8-14.1); RDW-SD 48.1 fL
[2020-07-17 09:58] LABS: Absolute Basophil Count 0.02 10^3/uL (0.0-0.2); Absolute Lymphocyte Count 0.96 10^3/uL (1.2-3.4); Absolute Neutrophil Count 0.67 10^3/uL (1.2-6.7); Bands % 3; WBC 1.68 10^3/uL (4.4-10.8)
[2020-07-17 09:59] LABS: Diff Comment Manual Differential; Polychromasia Present
[2020-07-18] VITALS (7 sets, daily range): BP systolic 118–161; BP diastolic 68–81; PULSE 64–75; RESP 18; TEMP 36.1–36.3; O2SAT 100
[2020-07-18] MEDS: Heparin 500 UNITS/5 ML SYRINGE IV (09:31)
[2020-07-18] MEDS: Normal Saline Flush 10 ML SYR IVP (09:31)
[2020-07-24] MEDS: Normal Saline Flush 10 ML SYR IVP (09:35)
[2020-07-24] MEDS: Heparin 500 UNITS/5 ML SYRINGE IV (09:35)
[2020-07-24 09:53] LABS: Abs Immature Grans 0.02 10^3/uL (0.0-0.06); Absolute Basophil Count 0.04 10^3/uL (0.0-0.2); Absolute Lymphocyte Count 0.95 10^3/uL (1.2-3.4); Basophils % 2.4; HCT 24.9 % (40.0-50.0); HGB 8.4 g/dL (13.5-17.5); Immature Grans % 1.2; Lymphocytes % 56.5; MCH 30.3 pg (27.0-33.0); MCHC 33.7 % (32.0-36.0); MCV 89.9 fL (80-95); MPV 10.9 fL (8.0-11.0); Monocytes % 11.9; Nucleated RBC 0 %; Platelet Count 165 10^3/uL (130-400); RBC 2.77 10^6/uL (4.36-5.78); RDW 15.7 % (11.8-14.1); RDW-SD 48.7 fL
[2020-07-24 10:08] LABS: WBC 1.68 10^3/uL (4.4-10.8)
[2020-07-24 10:09] LABS: Absolute Neutrophil Count 0.47 10^3/uL (1.2-6.7); Anisocytosis 1+; Diff Comment Diff Reviewed; Microcytosis 1+
[2020-07-24 10:45] VITALS: BP 139/69; PULSE 73; RESP 18; TEMP 36; O2SAT 98
[2020-07-24 10:52] VITALS: BP 151/69; PULSE 71; RESP 18; TEMP 36; O2SAT 99
[2020-07-24 11:07] VITALS: BP 174/73; PULSE 67; RESP 18; TEMP 36.2; O2SAT 98
[2020-07-24 11:22] VITALS: BP 157/74; PULSE 69; RESP 18; TEMP 36; O2SAT 100
[2020-07-24 11:52] VITALS: BP 171/80; PULSE 69; RESP 18; TEMP 36; O2SAT 96
[2020-07-24 12:22] VITALS: BP 169/64; PULSE 69; RESP 18; TEMP 36; O2SAT 99
[2020-07-31] MEDS: Normal Saline Flush 10 ML SYR IVP (11:18)
== END 2020-07-31 23:59 | disposition home or self-care (01) ==
LOC: INF 03:42
PROVIDERS: PCP Family Medicine; Visit Provider Nurse Practitioner Family
DX: D46.9 Myelodysplastic syndrome, unspecified (principal); Z45.2 Encounter for adjustment and management of vascular access device
CPT/HCPCS: 36430; 36591; 80053; 86850; 86900; 86901; 86920; 86945; 85025; 86644; P9016

== ENCOUNTER 2020-08-28 02:57 | Outpatient (RCR) | payer OTHER, SELFPAY ==
[2020-07-31 09:32] LABS: Abs Immature Grans 0.01 10^3/uL (0.0-0.06); Absolute Basophil Count 0.02 10^3/uL (0.0-0.2); Absolute Monocyte Count 0.06 10^3/uL (0.1-0.8); Basophils % 1.4; HCT 23.4 % (40.0-50.0); HGB 7.9 g/dL (13.5-17.5); Immature Grans % 0.7; MCH 30.7 pg (27.0-33.0); MCV 91.1 fL (80-95); MPV 10.7 fL (8.0-11.0); Monocytes % 4.3; Neutrophils % 35.6; Nucleated RBC 0 %; Platelet Count 163 10^3/uL (130-400); RBC 2.57 10^6/uL (4.36-5.78); RDW 15.8 % (11.8-14.1); RDW-SD 50.5 fL
[2020-07-31 09:57] LABS: Absolute Neutrophil Count 0.49 10^3/uL (1.2-6.7)
[2020-07-31 10:00] LABS: WBC 1.38 10^3/uL (4.4-10.8)
[2020-07-31 10:01] LABS: MCHC 33.8 % (32.0-36.0)
[2020-07-31 10:03] LABS: Diff Comment Diff Reviewed
[2020-07-31 10:04] LABS: Anisocytosis 2+
[2020-07-31 10:05] LABS: Poikilocytes 2+
[2020-07-31 10:07] LABS: ALT 31 U/L (16-63); AST 22 U/L (15-37); Albumin 3.4 g/dL (3.4-5.0); Alkaline Phosphatase 107 U/L (46-116); Anion Gap 7.6 mmol/L (3-11); BUN 31 mg/dL (7-18); Bilirubin, Total 0.5 mg/dL (0.2-1.0); CO2 26.4 mmol/L (21.0-32.0); CREATININE 1.87 mg/dL (0.70-1.30); Chloride 103 mmol/L (98-107); Estimated GFR 36.09 (mL/min/1.73m2); Glucose 105 mg/dL (74-106); Potassium 4.5 mmol/L (3.5-5.1); Sodium 137 mmol/L (136-145); Total Protein 6.8 g/dL (6.4-8.2)
[2020-08-01 09:20] VITALS: BP 139/90; PULSE 64; RESP 19; TEMP 36.2; O2SAT 100
[2020-08-01 09:23] VITALS: BP 127/61; PULSE 64; RESP 18; TEMP 36.2; O2SAT 96
[2020-08-01 09:38] VITALS: BP 151/63; PULSE 63; RESP 18; TEMP 36.2; O2SAT 98
[2020-08-01 09:53] VITALS: BP 165/76; PULSE 62; RESP 19; TEMP 36; O2SAT 98
[2020-08-01 10:23] VITALS: BP 159/63; PULSE 58; RESP 19; TEMP 36.2; O2SAT 99
[2020-08-01] MEDS: Heparin 500 UNITS/5 ML SYRINGE IV (11:23)
[2020-08-01] MEDS: Normal Saline Flush 10 ML SYR IVP (11:23)
[2020-08-07] MEDS: Normal Saline Flush 10 ML SYR IVP (09:28)
[2020-08-07 09:31] LABS: Absolute Basophil Count 0.04 10^3/uL (0.0-0.2); Basophils % 3.6; HCT 27.5 % (40.0-50.0); HGB 9.1 g/dL (13.5-17.5); Lymphocytes % 63.6; MCH 29.8 pg (27.0-33.0); MCHC 33.1 % (32.0-36.0); MCV 90.2 fL (80-95); MPV 11.3 fL (8.0-11.0); Monocytes % 9.1; Neutrophils % 23.7; Nucleated RBC 0 %; RBC 3.05 10^6/uL (4.36-5.78); RDW 15.9 % (11.8-14.1); RDW-SD 50.9 fL
[2020-08-07] MEDS: Heparin 500 UNITS/5 ML SYRINGE IV (09:40)
[2020-08-07 09:55] LABS: Absolute Neutrophil Count 0.26 10^3/uL (1.2-6.7)
[2020-08-07 09:56] LABS: Platelet Count 178 10^3/uL (130-400)
[2020-08-07 09:57] LABS: Diff Comment Agrees w/ Instrument; Microcytosis 1+; Poikilocytes 1+
[2020-08-14 13:37] LABS: Absolute Basophil Count 0.03 10^3/uL (0.0-0.2); MCH 29.4 pg (27.0-33.0); MCHC 33.8 % (32.0-36.0); MPV 10.5 fL (8.0-11.0); Nucleated RBC 0 %; RBC 2.69 10^6/uL (4.36-5.78); RDW 16.2 % (11.8-14.1); RDW-SD 49.7 fL
[2020-08-14] MEDS: Normal Saline Flush 10 ML SYR IVP (13:41)
[2020-08-14 14:02] LABS: WBC 1.16 10^3/uL (4.4-10.8)
[2020-08-14 14:03] LABS: Absolute Neutrophil Count 0.22 10^3/uL (1.2-6.7); Bands % 8; HCT 23.3 % (40.0-50.0)
[2020-08-14 14:04] LABS: Platelet Count 161 10^3/uL (130-400)
[2020-08-14 14:05] LABS: Abs Immature Grans 0.01 10^3/uL (0.0-0.06); Absolute Lymphocyte Count 0.68 10^3/uL (1.2-3.4); Absolute Monocyte Count 0.21 10^3/uL (0.1-0.8); Atypical Lymphocytes % 1; Metamyelocytes % 1
[2020-08-14 14:06] LABS: Anisocytosis 2+; Basophilic Stippling Present; Diff Comment Manual Differential; Hypochromasia 1+; Microcytosis 1+
[2020-08-15 10:40] VITALS: BP 132/70; PULSE 63; RESP 16; TEMP 36.6; O2SAT 100
[2020-08-15 10:55] VITALS: BP 121/64; PULSE 69; RESP 16; TEMP 36.4; O2SAT 98
[2020-08-15 11:10] VITALS: BP 138/71; PULSE 64; RESP 18; TEMP 36.1; O2SAT 100
[2020-08-15 11:35] VITALS: BP 144/63; PULSE 63; RESP 16; TEMP 36.4; O2SAT 95
[2020-08-15 12:26] VITALS: BP 157/73; PULSE 64; RESP 18; TEMP 36.1; O2SAT 100
[2020-08-15] MEDS: Ondansetron O.D.T. 4 MG TABEF PO (12:27)
[2020-08-21 09:27] LABS: Absolute Basophil Count 0.03 10^3/uL (0.0-0.2); Absolute Lymphocyte Count 0.97 10^3/uL (1.2-3.4); Absolute Monocyte Count 0.12 10^3/uL (0.1-0.8); Basophils % 2.1; HCT 24.6 % (40.0-50.0); HGB 8.3 g/dL (13.5-17.5); Lymphocytes % 68.8; MCH 28.8 pg (27.0-33.0); MCHC 33.7 % (32.0-36.0); MCV 85.4 fL (80-95); MPV 10.5 fL (8.0-11.0); Monocytes % 8.5; Neutrophils % 20.6; Nucleated RBC 0 %; RBC 2.88 10^6/uL (4.36-5.78); RDW 14.9 % (11.8-14.1); RDW-SD 45.9 fL
[2020-08-21 09:56] LABS: Absolute Neutrophil Count 0.29 10^3/uL (1.2-6.7); WBC 1.41 10^3/uL (4.4-10.8)
[2020-08-21 09:57] LABS: Diff Comment Agrees w/ Instrument; Hypochromasia 2+; Platelet Count 158 10^3/uL (130-400)
[2020-08-21 09:58] LABS: Poikilocytes 2+
[2020-08-21 10:40] VITALS: BP 159/60; PULSE 61; RESP 17; TEMP 36.9; O2SAT 100
[2020-08-21 10:49] VITALS: BP 153/48; PULSE 65; RESP 18; TEMP 36.5; O2SAT 99
[2020-08-21 11:09] VITALS: BP 143/61; PULSE 60; RESP 18; TEMP 36.5; O2SAT 100
[2020-08-21 11:19] VITALS: BP 144/65; PULSE 68; RESP 16; TEMP 36.7; O2SAT 100
[2020-08-21 11:49] VITALS: BP 160/67; PULSE 58; RESP 16; TEMP 36.6; O2SAT 100
[2020-08-21] MEDS: Heparin 500 UNITS/5 ML SYRINGE IV (12:00)
[2020-08-21] MEDS: Normal Saline Flush 10 ML SYR IVP (12:00)
[2020-08-21 12:29] VITALS: BP 169/89; PULSE 72; RESP 18; TEMP 36.5; O2SAT 99
[2020-08-28 09:49] LABS: Absolute Basophil Count 0.04 10^3/uL (0.0-0.2); Absolute Lymphocyte Count 0.94 10^3/uL (1.2-3.4); Absolute Monocyte Count 0.18 10^3/uL (0.1-0.8); Basophils % 2.6; HCT 25.9 % (40.0-50.0); HGB 8.8 g/dL (13.5-17.5); Lymphocytes % 60.3; MCH 29.4 pg (27.0-33.0); MCV 86.6 fL (80-95); MPV 10.8 fL (8.0-11.0); Monocytes % 11.5; Neutrophils % 25.6; Nucleated RBC 0 %; RBC 2.99 10^6/uL (4.36-5.78); RDW-SD 44.6 fL
[2020-08-28 10:19] LABS: Platelet Count 169 10^3/uL (130-400)
[2020-08-28 10:20] LABS: Diff Comment Agrees w/ Instrument; Hypochromasia 1+
[2020-08-28 10:21] LABS: Poikilocytes 2+
[2020-08-28 10:22] LABS: WBC 1.56 10^3/uL (4.4-10.8)
[2020-08-28] MEDS: Normal Saline Flush 10 ML SYR IVP (10:34)
[2020-08-28] MEDS: Heparin 500 UNITS/5 ML SYRINGE IV (10:34)
== END 2020-08-31 23:59 | disposition home or self-care (01) ==
LOC: INF 02:57
PROVIDERS: Internal Medicine Hematology & Oncology; PCP Family Medicine; Visit Provider Nurse Practitioner Family
DX: D46.9 Myelodysplastic syndrome, unspecified (principal); Z45.2 Encounter for adjustment and management of vascular access device
CPT/HCPCS: 36430; 36591; 80053; 86850; 86900; 86901; 86920; 86945; 96523; 85025; 86644; P9016

== ENCOUNTER 2020-09-25 01:22 | Outpatient (RCR) | payer OTHER, SELFPAY ==
[2020-09-04 08:46] LABS: Absolute Basophil Count 0.05 10^3/uL (0.0-0.2); HCT 22.9 % (40.0-50.0); HGB 7.6 g/dL (13.5-17.5); MCH 28.9 pg (27.0-33.0); MCHC 33.2 % (32.0-36.0); MCV 87.1 fL (80-95); MPV 11.2 fL (8.0-11.0); Nucleated RBC 0 %; RBC 2.63 10^6/uL (4.36-5.78); RDW 15.9 % (11.8-14.1); RDW-SD 47.1 fL
[2020-09-04 09:31] LABS: Platelet Count 192 10^3/uL (130-400); WBC 1.21 10^3/uL (4.4-10.8)
[2020-09-04 09:32] LABS: Absolute Lymphocyte Count 0.77 10^3/uL (1.2-3.4); Atypical Lymphocytes % 2; Bands % 8
[2020-09-04 09:33] LABS: Absolute Monocyte Count 0.05 10^3/uL (0.1-0.8)
[2020-09-04 09:34] LABS: Absolute Neutrophil Count 0.34 10^3/uL (1.2-6.7); Diff Comment Manual Differential
[2020-09-04 09:35] LABS: Anisocytosis 1+; Microcytosis 1+; Poikilocytes 1+; Polychromasia Present
[2020-09-04 09:42] VITALS: BP 149/64; PULSE 66; RESP 18; TEMP 36.5; O2SAT 95
[2020-09-04 09:54] VITALS: BP 168/77; PULSE 68; RESP 18; TEMP 36.5; O2SAT 100
[2020-09-04] MEDS: Heparin 500 UNITS/5 ML SYRINGE IV (09:56)
[2020-09-04] MEDS: Normal Saline Flush 10 ML SYR IVP (09:56)
[2020-09-04 10:07] VITALS: BP 172/67; PULSE 66; RESP 16; TEMP 36.8; O2SAT 100
[2020-09-04 10:24] VITALS: BP 159/69; PULSE 68; RESP 18; TEMP 36.5; O2SAT 99
[2020-09-04 10:54] VITALS: BP 158/69; PULSE 68; RESP 18; TEMP 36.5; O2SAT 100
[2020-09-04 11:24] VITALS: BP 150/70; PULSE 71; RESP 18; TEMP 36.7; O2SAT 100
[2020-09-11 09:33] VITALS: BP 150/70; PULSE 71; RESP 18; TEMP 36.7; O2SAT 100
[2020-09-11 09:33] LABS: HCT 26.7 % (40.0-50.0); HGB 9.2 g/dL (13.5-17.5); MCH 29.5 pg (27.0-33.0); MCHC 34.5 % (32.0-36.0); MCV 85.6 fL (80-95); MPV 11.9 fL (8.0-11.0); Nucleated RBC 0 %; Platelet Count 193 10^3/uL (130-400); RBC 3.12 10^6/uL (4.36-5.78); RDW 15.5 % (11.8-14.1); RDW-SD 46.7 fL
[2020-09-11] MEDS: Normal Saline Flush 10 ML SYR IVP (09:34)
[2020-09-11 09:45] LABS: ALT 46 U/L (16-63); AST 26 U/L (15-37); Albumin 3.9 g/dL (3.4-5.0); Alkaline Phosphatase 98 U/L (46-116); Anion Gap 8.4 mmol/L (3-11); BUN 31 mg/dL (7-18); CO2 25.6 mmol/L (21.0-32.0); CREATININE 1.84 mg/dL (0.70-1.30); Chloride 103 mmol/L (98-107); Estimated GFR 36.77 (mL/min/1.73m2); Glucose 101 mg/dL (74-106); Potassium 4.1 mmol/L (3.5-5.1); Sodium 137 mmol/L (136-145); Total Protein 7.6 g/dL (6.4-8.2)
[2020-09-11 10:04] LABS: Absolute Basophil Count 0.09 10^3/uL (0.0-0.2); Absolute Eosinophil Count 0.04 10^3/uL (0.0-0.7); Absolute Monocyte Count 0.12 10^3/uL (0.1-0.8); Bands % 2
[2020-09-11 10:05] LABS: Diff Comment Manual Differential; RBC Morphology Normal
[2020-09-11 10:10] LABS: Absolute Neutrophil Count 0.12 10^3/uL (1.2-6.7); WBC 1.47 10^3/uL (4.4-10.8)
[2020-09-19] MEDS: Normal Saline Flush 10 ML SYR IVP (13:15)
[2020-09-19 13:51] LABS: Abs Immature Grans 0.01 10^3/uL (0.0-0.06); HCT 22.7 % (40.0-50.0); MCH 29.6 pg (27.0-33.0); MCHC 33.9 % (32.0-36.0); MCV 87.3 fL (80-95); MPV 11.3 fL (8.0-11.0); Nucleated RBC 0 %; Platelet Count 215 10^3/uL (130-400); RDW 16.1 % (11.8-14.1); RDW-SD 49.6 fL
[2020-09-19 14:33] LABS: WBC 1.97 10^3/uL (4.4-10.8)
[2020-09-19 14:35] LABS: Absolute Monocyte Count 0.45 10^3/uL (0.1-0.8); Absolute Neutrophil Count 0.39 10^3/uL (1.2-6.7); Atypical Lymphocytes % 2; Bands % 5; HGB 7.7 g/dL (13.5-17.5)
[2020-09-19 14:37] LABS: Anisocytosis 1+; Diff Comment Manual Differential; Microcytosis 1+; Other Cells % 1; Polychromasia Present
[2020-09-20 10:52] VITALS: BP 144/62; PULSE 62; RESP 18; TEMP 36.3; O2SAT 100
[2020-09-20] MEDS: Normal Saline Flush 10 ML SYR IVP (10:53)
[2020-09-20 11:07] VITALS: BP 166/73; PULSE 68; RESP 18; TEMP 36.6; O2SAT 100
[2020-09-20 11:22] VITALS: BP 148/71; PULSE 69; RESP 18; TEMP 36; O2SAT 100
[2020-09-20 11:53] VITALS: BP 165/70; PULSE 68; RESP 18; TEMP 36; O2SAT 100
[2020-09-20 12:22] VITALS: BP 156/78; PULSE 60; RESP 18; TEMP 36.3; O2SAT 100
[2020-09-20] MEDS: Heparin 500 UNITS/5 ML SYRINGE IV (13:01)
[2020-09-25] MEDS: Normal Saline Flush 10 ML SYR IVP (09:10)
[2020-09-25 09:23] LABS: Abs Immature Grans 0.02 10^3/uL (0.0-0.06); Absolute Basophil Count 0.06 10^3/uL (0.0-0.2); Absolute Lymphocyte Count 1.07 10^3/uL (1.2-3.4); Absolute Monocyte Count 0.26 10^3/uL (0.1-0.8); Basophils % 3.2; HCT 26.5 % (40.0-50.0); HGB 8.8 g/dL (13.5-17.5); Immature Grans % 1.1; Lymphocytes % 56.3; MCH 28.6 pg (27.0-33.0); MCHC 33.2 % (32.0-36.0); MPV 9.8 fL (8.0-11.0); Monocytes % 13.7; Neutrophils % 25.7; Nucleated RBC 0 %; RBC 3.08 10^6/uL (4.36-5.78); RDW 15.3 % (11.8-14.1); RDW-SD 47.3 fL
[2020-09-25 10:05] LABS: Absolute Neutrophil Count 0.49 10^3/uL (1.2-6.7)
[2020-09-25 10:07] LABS: Basophilic Stippling Present; Diff Comment Agrees w/ Instrument; Microcytosis 1+; Platelet Count 175 10^3/uL (130-400)
[2020-09-25 10:08] LABS: Polychromasia Present
[2020-09-25 10:09] LABS: Poikilocytes 1+
== END 2020-09-30 23:59 | disposition home or self-care (01) ==
LOC: INF 01:22
PROVIDERS: Internal Medicine Hematology & Oncology; PCP Family Medicine; Visit Provider Nurse Practitioner Family
DX: D46.9 Myelodysplastic syndrome, unspecified (principal); Z45.2 Encounter for adjustment and management of vascular access device
CPT/HCPCS: 36430; 36591; 80053; 86850; 86900; 86901; 86920; 86945; 85025; 86644; P9016

== ENCOUNTER 2020-10-30 11:00 | Outpatient (RCR) | payer OTHER, SELFPAY ==
[2020-10-02] MEDS: Normal Saline Flush 10 ML SYR IVP (08:27)
[2020-10-02 08:39] LABS: Abs Immature Grans 0.01 10^3/uL (0.0-0.06); Absolute Basophil Count 0.04 10^3/uL (0.0-0.2); Absolute Monocyte Count 0.43 10^3/uL (0.1-0.8); Basophils % 1.8; HCT 24.1 % (40.0-50.0); HGB 8.1 g/dL (13.5-17.5); Immature Grans % 0.4; Lymphocytes % 48.2; MCH 28.8 pg (27.0-33.0); MCHC 33.6 % (32.0-36.0); MCV 85.8 fL (80-95); MPV 10.9 fL (8.0-11.0); Monocytes % 18.9; Neutrophils % 30.7; Nucleated RBC 0 %; RBC 2.81 10^6/uL (4.36-5.78); WBC 2.28 10^3/uL (4.4-10.8)
[2020-10-02 09:14] LABS: Basophilic Stippling Present; Diff Comment Agrees w/ Instrument; Hypochromasia 2+; Platelet Count 181 10^3/uL (130-400); Polychromasia Present
[2020-10-02 09:15] LABS: Poikilocytes 2+
[2020-10-04 08:24] VITALS: BP 144/56; PULSE 77; RESP 100; TEMP 36.2
[2020-10-04 08:32] VITALS: BP 154/64; PULSE 75; RESP 20; TEMP 36.6; O2SAT 98
[2020-10-04 08:47] VITALS: BP 157/56; PULSE 65; RESP 20; TEMP 36.4; O2SAT 100
[2020-10-04 09:17] VITALS: BP 163/69; PULSE 62; RESP 18; TEMP 36.4; O2SAT 100
[2020-10-04 10:30] VITALS: BP 164/62; PULSE 63; RESP 18; TEMP 36.4; O2SAT 100
[2020-10-09 08:58] LABS: Absolute Basophil Count 0.09 10^3/uL (0.0-0.2); Absolute Lymphocyte Count 1.11 10^3/uL (1.2-3.4); Absolute Monocyte Count 0.27 10^3/uL (0.1-0.8); Absolute Neutrophil Count 0.71 10^3/uL (1.2-6.7); Basophils % 4.1; HCT 27.1 % (40.0-50.0); HGB 9.3 g/dL (13.5-17.5); Lymphocytes % 50.9; MCH 29.3 pg (27.0-33.0); MCHC 34.3 % (32.0-36.0); MCV 85.5 fL (80-95); MPV 11.6 fL (8.0-11.0); Monocytes % 12.4; Neutrophils % 32.6; Nucleated RBC 0 %; Platelet Count 199 10^3/uL (130-400); RBC 3.17 10^6/uL (4.36-5.78); RDW 15.5 % (11.8-14.1); RDW-SD 47.1 fL; WBC 2.18 10^3/uL (4.4-10.8)
[2020-10-09] MEDS: Heparin 500 UNITS/5 ML SYRINGE IV (09:16)
[2020-10-09] MEDS: Normal Saline Flush 10 ML SYR IVP (09:16)
[2020-10-09 10:13] LABS: Anisocytosis 1+; Diff Comment Diff Reviewed
[2020-10-09 10:14] LABS: Poikilocytes 1+
[2020-10-16 10:31] LABS: Abs Immature Grans 0.01 10^3/uL (0.0-0.06); HCT 24.6 % (40.0-50.0); MCH 28.6 pg (27.0-33.0); MCHC 32.5 % (32.0-36.0); MCV 87.9 fL (80-95); MPV 11.8 fL (8.0-11.0); Nucleated RBC 0 %; RDW 16.4 % (11.8-14.1); RDW-SD 49.5 fL
[2020-10-16 10:43] LABS: ALT 30 U/L (16-63); AST 27 U/L (15-37); Albumin 3.7 g/dL (3.4-5.0); Alkaline Phosphatase 86 U/L (46-116); Anion Gap 6.4 mmol/L (3-11); BUN 19 mg/dL (7-18); Bilirubin, Total 1.1 mg/dL (0.2-1.0); CO2 26.6 mmol/L (21.0-32.0); CREATININE 1.57 mg/dL (0.70-1.30); Calcium 8.7 mg/dL (8.5-10.1); Chloride 103 mmol/L (98-107); Estimated GFR 44.15 (mL/min/1.73m2); Glucose 105 mg/dL (74-106); Sodium 136 mmol/L (136-145); Total Protein 7.1 g/dL (6.4-8.2)
[2020-10-16 11:01] LABS: Platelet Count 215 10^3/uL (130-400)
[2020-10-16 11:02] LABS: Absolute Basophil Count 0.04 10^3/uL (0.0-0.2); Absolute Lymphocyte Count 1.24 10^3/uL (1.2-3.4); Atypical Lymphocytes % 2
[2020-10-16 11:07] LABS: Absolute Neutrophil Count 0.42 10^3/uL (1.2-6.7)
[2020-10-16 11:08] LABS: Diff Comment Manual Differential; Hypochromasia 2+; Polychromasia Present
[2020-10-16 11:09] LABS: Poikilocytes 2+
[2020-10-16 12:02] VITALS: BP 146/58; PULSE 84; RESP 18; TEMP 35.6; O2SAT 97
[2020-10-16 12:15] VITALS: BP 157/74; PULSE 65; RESP 18; TEMP 36.3; O2SAT 1
[2020-10-16 12:30] VITALS: BP 152/78; PULSE 60; RESP 16; TEMP 36.6; O2SAT 100
[2020-10-16] MEDS: Normal Saline Flush 10 ML SYR IVP (12:35)
[2020-10-16 13:00] VITALS: BP 151/83; PULSE 64; RESP 17; TEMP 36.3; O2SAT 90
[2020-10-16 14:00] VITALS: BP 138/79; PULSE 78; RESP 18; TEMP 36.2; O2SAT 99
[2020-10-23] MEDS: Normal Saline Flush 10 ML SYR IVP (10:45)
[2020-10-23 10:55] VITALS: BP 138/79; PULSE 78; RESP 18; TEMP 36.2; O2SAT 99
[2020-10-23 10:56] LABS: Absolute Basophil Count 0.07 10^3/uL (0.0-0.2); Absolute Lymphocyte Count 0.88 10^3/uL (1.2-3.4); Absolute Neutrophil Count 0.56 10^3/uL (1.2-6.7); Basophils % 3.5; HCT 25.8 % (40.0-50.0); HGB 8.6 g/dL (13.5-17.5); Lymphocytes % 43.8; MCH 29.7 pg (27.0-33.0); MCHC 33.3 % (32.0-36.0); MPV 11.1 fL (8.0-11.0); Monocytes % 24.9; Neutrophils % 27.8; Nucleated RBC 0 %; Platelet Count 203 10^3/uL (130-400); RDW 16.6 % (11.8-14.1); RDW-SD 52.8 fL; WBC 2.01 10^3/uL (4.4-10.8)
[2020-10-30] VITALS (7 sets, daily range): BP systolic 126–170; BP diastolic 58–92; PULSE 60–79; RESP 18–19; TEMP 36.4–36.8; O2SAT 100
[2020-10-30] MEDS: Heparin 500 UNITS/5 ML SYRINGE IV (09:29)
[2020-10-30] MEDS: Normal Saline Flush 10 ML SYR IVP (09:29)
[2020-10-30 09:38] LABS: Abs Immature Grans 0.01 10^3/uL (0.0-0.06); Absolute Basophil Count 0.05 10^3/uL (0.0-0.2); Absolute Lymphocyte Count 1.19 10^3/uL (1.2-3.4); Absolute Neutrophil Count 0.79 10^3/uL (1.2-6.7); Basophils % 2.1; HCT 22.1 % (40.0-50.0); HGB 7.6 g/dL (13.5-17.5); Immature Grans % 0.4; Lymphocytes % 50.9; MCH 29.5 pg (27.0-33.0); MCHC 34.4 % (32.0-36.0); MCV 85.7 fL (80-95); MPV 10.5 fL (8.0-11.0); Monocytes % 12.8; Neutrophils % 33.8; Nucleated RBC 0 %; Platelet Count 194 10^3/uL (130-400); RBC 2.58 10^6/uL (4.36-5.78); RDW 15.8 % (11.8-14.1); RDW-SD 48.9 fL; WBC 2.34 10^3/uL (4.4-10.8)
[2020-10-30 09:53] LABS: ALT 29 U/L (16-63); AST 24 U/L (15-37); Albumin 3.9 g/dL (3.4-5.0); Alkaline Phosphatase 91 U/L (46-116); Anion Gap 8.4 mmol/L (3-11); BUN 24 mg/dL (7-18); Bilirubin, Total 1.3 mg/dL (0.2-1.0); CO2 25.6 mmol/L (21.0-32.0); CREATININE 1.78 mg/dL (0.70-1.30); Calcium 9.2 mg/dL (8.5-10.1); Chloride 103 mmol/L (98-107); Glucose 121 mg/dL (74-106); Potassium 3.8 mmol/L (3.5-5.1); Sodium 137 mmol/L (136-145); Total Protein 7.4 g/dL (6.4-8.2)
== END 2020-10-31 23:59 | disposition home or self-care (01) ==
LOC: INF 11:00
PROVIDERS: Internal Medicine Hematology & Oncology; PCP Family Medicine; Visit Provider Nurse Practitioner Family
DX: D46.9 Myelodysplastic syndrome, unspecified (principal); Z45.2 Encounter for adjustment and management of vascular access device
CPT/HCPCS: 36430; 36591; 80053; 86850; 86900; 86901; 86920; 86945; 85025; 86644; P9016

== ENCOUNTER 2020-11-27 02:03 | Outpatient (RCR) | payer OTHER, SELFPAY ==
[2020-11-01 00:02] VITALS: BP 126/87; PULSE 60; RESP 18; TEMP 36.8
[2020-11-06 09:25] LABS: Abs Immature Grans 0.01 10^3/uL (0.0-0.06); Absolute Basophil Count 0.05 10^3/uL (0.0-0.2); Absolute Lymphocyte Count 1.13 10^3/uL (1.2-3.4); Absolute Monocyte Count 0.26 10^3/uL (0.1-0.8); Basophils % 2.8; HCT 23.9 % (40.0-50.0); HGB 8.1 g/dL (13.5-17.5); Immature Grans % 0.6; Lymphocytes % 62.8; MCH 29.6 pg (27.0-33.0); MCHC 33.9 % (32.0-36.0); MCV 87.2 fL (80-95); MPV 11.8 fL (8.0-11.0); Monocytes % 14.4; Neutrophils % 19.4; Nucleated RBC 0 %; RBC 2.74 10^6/uL (4.36-5.78); RDW 16.1 % (11.8-14.1); RDW-SD 48.9 fL
[2020-11-06 09:55] LABS: Platelet Count 189 10^3/uL (130-400)
[2020-11-06 09:56] LABS: Anisocytosis 2+; Diff Comment Agrees w/ Instrument; Poikilocytes 1+; Polychromasia Present
[2020-11-06 10:02] LABS: Absolute Neutrophil Count 0.35 10^3/uL (1.2-6.7)
[2020-11-06] MEDS: Normal Saline Flush 10 ML SYR IVP (10:07)
[2020-11-06] MEDS: Heparin 500 UNITS/5 ML SYRINGE IV (10:08)
[2020-11-06 10:30] VITALS: BP 179/79; PULSE 72; RESP 18; TEMP 36.5; O2SAT 100
[2020-11-06 10:35] VITALS: BP 179/79; PULSE 71; RESP 18; TEMP 36.5; O2SAT 100
[2020-11-06 10:50] VITALS: BP 163/74; PULSE 70; RESP 18; TEMP 36.6; O2SAT 100
[2020-11-06 11:05] VITALS: BP 168/65; PULSE 67; RESP 18; TEMP 36.6; O2SAT 100
[2020-11-06 11:35] VITALS: BP 121/89; PULSE 69; RESP 19; TEMP 36.6; O2SAT 100
[2020-11-06 11:50] VITALS: BP 129/82; PULSE 60; RESP 19; TEMP 36.5; O2SAT 100
[2020-11-13 08:47] LABS: Abs Immature Grans 0.01 10^3/uL (0.0-0.06); Absolute Basophil Count 0.12 10^3/uL (0.0-0.2); Absolute Lymphocyte Count 1.25 10^3/uL (1.2-3.4); Absolute Monocyte Count 0.12 10^3/uL (0.1-0.8); Absolute Neutrophil Count 0.73 10^3/uL (1.2-6.7); Basophils % 5.4; HCT 28.6 % (40.0-50.0); HGB 9.7 g/dL (13.5-17.5); Immature Grans % 0.4; MCH 29.6 pg (27.0-33.0); MCHC 33.9 % (32.0-36.0); MCV 87.2 fL (80-95); MPV 11.6 fL (8.0-11.0); Monocytes % 5.4; Nucleated RBC 0 %; RBC 3.28 10^6/uL (4.36-5.78); RDW 15.7 % (11.8-14.1); RDW-SD 48.5 fL; WBC 2.23 10^3/uL (4.4-10.8)
[2020-11-13 08:51] VITALS: BP 129/82; PULSE 60; RESP 19; TEMP 36.5; O2SAT 100
[2020-11-13] MEDS: Normal Saline Flush 10 ML SYR IVP (08:53)
[2020-11-13 09:25] LABS: Diff Comment Manual Differential; Platelet Count 252 10^3/uL (130-400)
[2020-11-13 09:26] LABS: Anisocytosis 2+; Macrocytosis 1+; Microcytosis 1+; Polychromasia Present
[2020-11-13 09:27] LABS: Poikilocytes 1+
[2020-11-13 09:31] LABS: Neutrophils % 32.7
[2020-11-13 09:44] LABS: Lymphocytes % 56.1
[2020-11-13] MEDS: Heparin 500 UNITS/5 ML SYRINGE IV (10:03)
[2020-11-20] VITALS (7 sets, daily range): BP systolic 151–209; BP diastolic 64–80; PULSE 57–88; RESP 18–19; TEMP 36.5; O2SAT 98–100
[2020-11-20] MEDS: Normal Saline Flush 10 ML SYR IVP (09:44)
[2020-11-20 09:50] LABS: Absolute Basophil Count 0.08 10^3/uL (0.0-0.2); Absolute Lymphocyte Count 1.04 10^3/uL (1.2-3.4); Absolute Monocyte Count 0.27 10^3/uL (0.1-0.8); Basophils % 4.5; HCT 23.5 % (40.0-50.0); Lymphocytes % 58.4; MCH 29.7 pg (27.0-33.0); MCV 87.4 fL (80-95); MPV 11.2 fL (8.0-11.0); Monocytes % 15.2; Neutrophils % 21.9; Nucleated RBC 0 %; RBC 2.69 10^6/uL (4.36-5.78); RDW 16.4 % (11.8-14.1); RDW-SD 50.3 fL
[2020-11-20 10:05] LABS: ALT 28 U/L (16-63); AST 21 U/L (15-37); Albumin 3.6 g/dL (3.4-5.0); Alkaline Phosphatase 76 U/L (46-116); Anion Gap 6.7 mmol/L (3-11); BUN 24 mg/dL (7-18); Bilirubin, Total 1.1 mg/dL (0.2-1.0); CO2 26.3 mmol/L (21.0-32.0); CREATININE 1.62 mg/dL (0.70-1.30); Calcium 8.6 mg/dL (8.5-10.1); Chloride 103 mmol/L (98-107); Estimated GFR 42.59 (mL/min/1.73m2); Glucose 106 mg/dL (74-106); Potassium 4.6 mmol/L (3.5-5.1); Sodium 136 mmol/L (136-145); Total Protein 7.2 g/dL (6.4-8.2)
[2020-11-20 10:16] LABS: Basophilic Stippling Present; Diff Comment Agrees w/ Instrument; Hypochromasia 2+; Platelet Count 219 10^3/uL (130-400)
[2020-11-20 10:17] LABS: Macrocytosis 1+; Microcytosis 1+; Poikilocytes 2+; Polychromasia Present
[2020-11-20 10:20] LABS: Absolute Neutrophil Count 0.39 10^3/uL (1.2-6.7)
[2020-11-20 10:21] LABS: WBC 1.78 10^3/uL (4.4-10.8)
[2020-11-20] MEDS: Heparin 500 UNITS/5 ML SYRINGE IV (15:04)
[2020-11-27] MEDS: Normal Saline Flush 10 ML SYR IVP (08:45)
[2020-11-27 08:59] LABS: Abs Immature Grans 0.01 10^3/uL (0.0-0.06); Absolute Basophil Count 0.07 10^3/uL (0.0-0.2); Absolute Lymphocyte Count 0.93 10^3/uL (1.2-3.4); Absolute Monocyte Count 0.62 10^3/uL (0.1-0.8); Basophils % 3.6; HCT 26.4 % (40.0-50.0); HGB 8.8 g/dL (13.5-17.5); Immature Grans % 0.5; Lymphocytes % 47.2; MCHC 33.3 % (32.0-36.0); MCV 90.1 fL (80-95); MPV 10.6 fL (8.0-11.0); Monocytes % 31.5; Neutrophils % 17.2; Nucleated RBC 0 %; Platelet Count 225 10^3/uL (130-400); RBC 2.93 10^6/uL (4.36-5.78); RDW 16.5 % (11.8-14.1); RDW-SD 54.1 fL
[2020-11-27 09:16] LABS: ALT 28 U/L (16-63); AST 20 U/L (15-37); Albumin 3.5 g/dL (3.4-5.0); Alkaline Phosphatase 90 U/L (46-116); Anion Gap 5.2 mmol/L (3-11); BUN 23 mg/dL (7-18); CO2 28.8 mmol/L (21.0-32.0); CREATININE 1.64 mg/dL (0.70-1.30); Calcium 9.2 mg/dL (8.5-10.1); Chloride 102 mmol/L (98-107); Estimated GFR 41.99 (mL/min/1.73m2); Glucose 106 mg/dL (74-106); Sodium 136 mmol/L (136-145); Total Protein 7.2 g/dL (6.4-8.2)
[2020-11-27 09:19] LABS: Absolute Neutrophil Count 0.34 10^3/uL (1.2-6.7); WBC 1.97 10^3/uL (4.4-10.8)
[2020-11-27 09:20] LABS: Anisocytosis 2+; Diff Comment Diff Reviewed; Polychromasia Present
== END 2020-12-01 23:59 | disposition home or self-care (01) ==
LOC: INF 02:03
PROVIDERS: Nurse Practitioner Family; PCP Family Medicine; Visit Provider Internal Medicine Hematology & Oncology
DX: D46.9 Myelodysplastic syndrome, unspecified (principal)
CPT/HCPCS: 36430; 36591; 80053; 86850; 86900; 86901; 86920; 86945; 85025; 86644; P9016

== ENCOUNTER 2020-12-25 02:11 | Outpatient (RCR) | payer OTHER, SELFPAY ==
[2020-12-02 00:11] VITALS: BP 172/67; PULSE 88; RESP 19; TEMP 36.5
[2020-12-04 09:16] LABS: Abs Immature Grans 0.01 10^3/uL (0.0-0.06); Absolute Basophil Count 0.06 10^3/uL (0.0-0.2); Absolute Lymphocyte Count 1.08 10^3/uL (1.2-3.4); Absolute Monocyte Count 0.28 10^3/uL (0.1-0.8); Basophils % 2.8; HCT 22.6 % (40.0-50.0); HGB 7.8 g/dL (13.5-17.5); Immature Grans % 0.5; Lymphocytes % 50.7; MCH 29.9 pg (27.0-33.0); MCHC 34.5 % (32.0-36.0); MCV 86.6 fL (80-95); MPV 11.1 fL (8.0-11.0); Monocytes % 13.1; Neutrophils % 32.9; Nucleated RBC 0 %; Platelet Count 218 10^3/uL (130-400); RBC 2.61 10^6/uL (4.36-5.78); RDW 15.4 % (11.8-14.1); RDW-SD 48.4 fL; WBC 2.13 10^3/uL (4.4-10.8)
[2020-12-04] MEDS: Normal Saline Flush 10 ML SYR IVP (09:16)
[2020-12-04 09:45] LABS: Diff Comment Diff Reviewed
[2020-12-04 09:46] LABS: RBC Morphology Normal
[2020-12-04 10:31] VITALS: BP 125/67; PULSE 69; RESP 18; TEMP 36.6; O2SAT 100
[2020-12-04 10:33] VITALS: BP 155/73; PULSE 69; RESP 18; TEMP 36.6; O2SAT 100
[2020-12-04 10:46] VITALS: BP 144/66; PULSE 74; RESP 19; TEMP 36.6; O2SAT 100
[2020-12-04 11:02] VITALS: BP 143/63; PULSE 70; RESP 18; TEMP 36.6; O2SAT 100
[2020-12-04 11:30] VITALS: BP 160/84; PULSE 67; RESP 18; TEMP 36.6; O2SAT 100
[2020-12-04 12:08] VITALS: BP 179/77; PULSE 63; RESP 18; TEMP 36.5; O2SAT 100
[2020-12-11] MEDS: Normal Saline Flush 10 ML SYR IVP (09:14)
[2020-12-11] MEDS: Heparin 500 UNITS/5 ML SYRINGE IV (09:14)
[2020-12-11 09:24] LABS: Abs Immature Grans 0.01 10^3/uL (0.0-0.06); Absolute Basophil Count 0.06 10^3/uL (0.0-0.2); Absolute Eosinophil Count 0.01 10^3/uL (0.0-0.7); Absolute Lymphocyte Count 1.11 10^3/uL (1.2-3.4); Absolute Monocyte Count 0.37 10^3/uL (0.1-0.8); Absolute Neutrophil Count 0.66 10^3/uL (1.2-6.7); Basophils % 2.7; Eosinophils % 0.5; HCT 23.8 % (40.0-50.0); HGB 8.3 g/dL (13.5-17.5); Immature Grans % 0.5; MCH 30.9 pg (27.0-33.0); MCHC 34.9 % (32.0-36.0); MCV 88.5 fL (80-95); MPV 11.4 fL (8.0-11.0); Monocytes % 16.7; Neutrophils % 29.6; Nucleated RBC 0 %; RBC 2.69 10^6/uL (4.36-5.78); RDW 16.1 % (11.8-14.1); WBC 2.22 10^3/uL (4.4-10.8)
[2020-12-11 09:43] LABS: Diff Comment Agrees w/ Instrument; Platelet Count 217 10^3/uL (130-400)
[2020-12-11 09:44] LABS: Anisocytosis 2+; Microcytosis 1+; Poikilocytes 1+; Polychromasia Present
[2020-12-11 10:26] VITALS: BP 121/86; PULSE 71; RESP 19; TEMP 36.4; O2SAT 100
[2020-12-11 10:32] VITALS: BP 149/77; PULSE 75; RESP 18; TEMP 36.4; O2SAT 98
[2020-12-11 10:47] VITALS: BP 153/72; PULSE 69; RESP 19; TEMP 36.5; O2SAT 100
[2020-12-11 11:02] VITALS: BP 154/74; PULSE 71; RESP 18; TEMP 36.4; O2SAT 100
[2020-12-11 11:32] VITALS: BP 165/90; PULSE 62; RESP 18; TEMP 37.3; O2SAT 100
[2020-12-11 12:02] VITALS: BP 171/74; PULSE 62; RESP 18; TEMP 36.8; O2SAT 99
[2020-12-18] VITALS (7 sets, daily range): BP systolic 154–184; BP diastolic 74–79; PULSE 62–71; RESP 17–19; TEMP 36.6–36.8; O2SAT 94–100
[2020-12-18] MEDS: Normal Saline Flush 10 ML SYR IVP (09:20)
[2020-12-18 09:27] LABS: Abs Immature Grans 0.02 10^3/uL (0.0-0.06); Absolute Basophil Count 0.08 10^3/uL (0.0-0.2); Absolute Monocyte Count 0.05 10^3/uL (0.1-0.8); Basophils % 5.1; HCT 24.9 % (40.0-50.0); HGB 8.5 g/dL (13.5-17.5); Immature Grans % 1.3; MCH 30.6 pg (27.0-33.0); MCHC 34.1 % (32.0-36.0); MCV 89.6 fL (80-95); MPV 11.8 fL (8.0-11.0); Monocytes % 3.2; Neutrophils % 39.4; Nucleated RBC 0 %; Platelet Count 230 10^3/uL (130-400); RBC 2.78 10^6/uL (4.36-5.78); RDW 16.7 % (11.8-14.1); RDW-SD 52.6 fL
[2020-12-18 09:53] LABS: Absolute Neutrophil Count 0.62 10^3/uL (1.2-6.7); WBC 1.57 10^3/uL (4.4-10.8)
[2020-12-18 09:54] LABS: Anisocytosis 2+; Diff Comment Agrees w/ Instrument; Poikilocytes 2+; Polychromasia Present
[2020-12-18] MEDS: Heparin 500 UNITS/5 ML SYRINGE IV (12:30)
[2020-12-25] MEDS: Heparin 500 UNITS/5 ML SYRINGE IV (12:34)
[2020-12-25] MEDS: Normal Saline Flush 10 ML SYR IVP (12:34)
[2020-12-25 12:41] LABS: Absolute Basophil Count 0.12 10^3/uL (0.0-0.2); Absolute Lymphocyte Count 1.18 10^3/uL (1.2-3.4); Absolute Monocyte Count 0.18 10^3/uL (0.1-0.8); Basophils % 7.4; HCT 26.1 % (40.0-50.0); HGB 8.9 g/dL (13.5-17.5); Lymphocytes % 72.8; MCH 30.3 pg (27.0-33.0); MCHC 34.1 % (32.0-36.0); MCV 88.8 fL (80-95); Monocytes % 11.1; Neutrophils % 8.7; Nucleated RBC 0 %; Platelet Count 221 10^3/uL (130-400); RBC 2.94 10^6/uL (4.36-5.78)
[2020-12-25 12:57] LABS: ALT 44 U/L (16-63); AST 34 U/L (15-37); Albumin 3.6 g/dL (3.4-5.0); Alkaline Phosphatase 111 U/L (46-116); BUN 30 mg/dL (7-18); Bilirubin, Total 0.8 mg/dL (0.2-1.0); CREATININE 1.5 mg/dL (0.70-1.30); Calcium 8.7 mg/dL (8.5-10.1); Chloride 101 mmol/L (98-107); Estimated GFR 46.54 (mL/min/1.73m2); Glucose 116 mg/dL (74-106); Potassium 4.2 mmol/L (3.5-5.1); Sodium 134 mmol/L (136-145); Total Protein 7.3 g/dL (6.4-8.2)
[2020-12-25 13:12] LABS: WBC 1.62 10^3/uL (4.4-10.8)
[2020-12-25 13:13] LABS: Absolute Neutrophil Count 0.14 10^3/uL (1.2-6.7); Anisocytosis 2+; Diff Comment Agrees w/ Instrument; Microcytosis 2+
== END 2020-12-29 23:59 | disposition home or self-care (01) ==
LOC: INF 02:11
PROVIDERS: PCP Family Medicine; Visit Provider Internal Medicine Hematology & Oncology
DX: D46.9 Myelodysplastic syndrome, unspecified (principal); Z45.2 Encounter for adjustment and management of vascular access device
CPT/HCPCS: 36430; 36591; 80053; 86850; 86900; 86901; 86920; 86945; 85025; 86644; P9016

== ENCOUNTER 2021-01-29 02:28 | Outpatient (RCR) | payer OTHER, SELFPAY ==
[2020-12-30 00:15] VITALS: BP 183/74; PULSE 67; RESP 19; TEMP 36.6
[2020-12-30] MEDS: Normal Saline Flush 10 ML SYR IVP (12:41)
[2020-12-30 12:44] LABS: Abs Immature Grans 0.01 10^3/uL (0.0-0.06); HCT 25.3 % (40.0-50.0); HGB 8.7 g/dL (13.5-17.5); MCH 30.4 pg (27.0-33.0); MCHC 34.4 % (32.0-36.0); MCV 88.5 fL (80-95); Nucleated RBC 0 %; Platelet Count 306 10^3/uL (130-400); RBC 2.86 10^6/uL (4.36-5.78); RDW 16.4 % (11.8-14.1); RDW-SD 51.2 fL; WBC 2.95 10^3/uL (4.4-10.8)
[2020-12-30 13:12] LABS: Bands % 2
[2020-12-30 13:13] LABS: Absolute Basophil Count 0.18 10^3/uL (0.0-0.2); Absolute Lymphocyte Count 1.65 10^3/uL (1.2-3.4); Absolute Monocyte Count 0.71 10^3/uL (0.1-0.8); Diff Comment Manual Differential; RBC Morphology Normal
[2020-12-30 13:18] LABS: Absolute Neutrophil Count 0.41 10^3/uL (1.2-6.7)
[2020-12-30 13:21] LABS: Iron 235 ug/dL (65-175); Total Iron Binding Capacity 320 ug/dL (250-450); Transferrin Sat 73 % (20-55)
[2020-12-30 13:29] LABS: ALT 42 U/L (16-63); AST 30 U/L (15-37); Albumin 3.9 g/dL (3.4-5.0); Alkaline Phosphatase 117 U/L (46-116); BUN 33 mg/dL (7-18); Bilirubin, Total 0.9 mg/dL (0.2-1.0); CREATININE 1.8 mg/dL (0.70-1.30); Chloride 101 mmol/L (98-107); Estimated GFR 37.71 (mL/min/1.73m2); Glucose 102 mg/dL (74-106); Potassium 4.7 mmol/L (3.5-5.1); Sodium 132 mmol/L (136-145); Total Protein 7.7 g/dL (6.4-8.2)
[2020-12-30 13:30] LABS: Ferritin > 2000 ng/mL (26-388)
[2021-01-06] MEDS: Normal Saline Flush 10 ML SYR IVP (13:29)
[2021-01-06 13:33] LABS: Abs Immature Grans 0.06 10^3/uL (0.0-0.06); Absolute Basophil Count 0.18 10^3/uL (0.0-0.2); Absolute Eosinophil Count 0.01 10^3/uL (0.0-0.7); Absolute Monocyte Count 0.74 10^3/uL (0.1-0.8); Absolute Neutrophil Count 0.79 10^3/uL (1.2-6.7); Basophils % 5.5; Eosinophils % 0.3; HCT 22.9 % (40.0-50.0); HGB 7.9 g/dL (13.5-17.5); Immature Grans % 1.8; Lymphocytes % 45.7; MCH 30.9 pg (27.0-33.0); MCHC 34.5 % (32.0-36.0); MCV 89.5 fL (80-95); MPV 10.5 fL (8.0-11.0); Monocytes % 22.6; Neutrophils % 24.1; Nucleated RBC 0 %; Platelet Count 283 10^3/uL (130-400); RBC 2.56 10^6/uL (4.36-5.78); RDW 16.8 % (11.8-14.1); RDW-SD 53.1 fL; WBC 3.28 10^3/uL (4.4-10.8)
[2021-01-06 13:52] LABS: Anisocytosis 2+; Diff Comment Agrees w/ Instrument; Hypochromasia 2+; Poikilocytes 1+
[2021-01-07 12:59] VITALS: BP 126/68; PULSE 63; RESP 18; TEMP 36.9; O2SAT 98
[2021-01-07 14:09] VITALS: BP 119/73; PULSE 88; RESP 18; TEMP 36.3; O2SAT 98
[2021-01-07 14:24] VITALS: BP 96/57; PULSE 83; RESP 18; TEMP 36.3; O2SAT 98
[2021-01-07 14:39] VITALS: BP 120/64; PULSE 80; RESP 17; TEMP 36.6; O2SAT 100
[2021-01-07 15:09] VITALS: BP 132/70; PULSE 84; RESP 18; TEMP 36.6; O2SAT 100
[2021-01-07 15:49] VITALS: BP 153/62; PULSE 68; RESP 18; TEMP 36.3; O2SAT 100
[2021-01-15] MEDS: Normal Saline Flush 10 ML SYR IVP (09:17)
[2021-01-15 09:28] LABS: Abs Immature Grans 0.02 10^3/uL (0.0-0.06); Absolute Basophil Count 0.07 10^3/uL (0.0-0.2); Absolute Eosinophil Count 0.01 10^3/uL (0.0-0.7); Absolute Lymphocyte Count 1.23 10^3/uL (1.2-3.4); Basophils % 2.8; Eosinophils % 0.4; HCT 25.3 % (40.0-50.0); HGB 8.6 g/dL (13.5-17.5); Immature Grans % 0.8; Lymphocytes % 48.6; MCH 30.7 pg (27.0-33.0); MCV 90.4 fL (80-95); MPV 11.2 fL (8.0-11.0); Monocytes % 19.8; Neutrophils % 27.6; Nucleated RBC 0 %; Platelet Count 196 10^3/uL (130-400); RDW 15.7 % (11.8-14.1); WBC 2.53 10^3/uL (4.4-10.8)
[2021-01-15] MEDS: Heparin 500 UNITS/5 ML SYRINGE IV (09:50)
[2021-01-15 10:04] LABS: Anisocytosis 1+; Diff Comment Agrees w/ Instrument; Hypochromasia 2+; Poikilocytes 1+; Polychromasia Present
[2021-01-22] VITALS (9 sets, daily range): BP systolic 146–194; BP diastolic 61–82; PULSE 64–72; RESP 12; TEMP 36.5–36.9; O2SAT 99–100
[2021-01-22] MEDS: Normal Saline Flush 10 ML SYR IVP (09:05)
[2021-01-22 09:21] LABS: Abs Immature Grans 0.02 10^3/uL (0.0-0.06); HCT 21.8 % (40.0-50.0); HGB 7.5 g/dL (13.5-17.5); MCH 30.6 pg (27.0-33.0); MCHC 34.4 % (32.0-36.0); MPV 11.4 fL (8.0-11.0); Nucleated RBC 0 %; Platelet Count 205 10^3/uL (130-400); RBC 2.45 10^6/uL (4.36-5.78); RDW 16.5 % (11.8-14.1); RDW-SD 50.7 fL
[2021-01-22 09:46] LABS: Absolute Basophil Count 0.07 10^3/uL (0.0-0.2); Absolute Lymphocyte Count 1.44 10^3/uL (1.2-3.4); Absolute Monocyte Count 0.27 10^3/uL (0.1-0.8); Atypical Lymphocytes % 3
[2021-01-22 09:47] LABS: Myelocytes % 1; Other Cells % 1
[2021-01-22 09:49] LABS: Anisocytosis 1+; Diff Comment Manual Differential
[2021-01-22 09:50] LABS: Basophilic Stippling Present; Microcytosis 1+
[2021-01-22 09:51] LABS: Poikilocytes 1+
[2021-01-22 09:57] LABS: Absolute Neutrophil Count 0.46 10^3/uL (1.2-6.7)
[2021-01-22 09:58] LABS: WBC 2.28 10^3/uL (4.4-10.8)
--- NOTE | 2021-01-22 12:03 | NUR.NOTE ---
PT SITTING UPRIGHT AND EATING UPON FINISHING 1ST UNIT PRBC'S. NS FLUSHING COMPLETED. NO ADVERSE REACTION NOTED TO BLOOD ADMINISTRATIONNursing Note:
[2021-01-22] MEDS: Heparin 500 UNITS/5 ML SYRINGE IV (14:03)
[2021-01-29] MEDS: Normal Saline Flush 10 ML SYR IVP (08:45)
[2021-01-29 08:56] LABS: Abs Immature Grans 0.01 10^3/uL (0.0-0.06); Absolute Monocyte Count 0.19 10^3/uL (0.1-0.8); HCT 26.7 % (40.0-50.0); HGB 9.3 g/dL (13.5-17.5); MCHC 34.8 % (32.0-36.0); MPV 10.5 fL (8.0-11.0); Nucleated RBC 0 %; RDW-SD 46.6 fL; WBC 2.38 10^3/uL (4.4-10.8)
[2021-01-29 09:19] LABS: Absolute Lymphocyte Count 1.36 10^3/uL (1.2-3.4); Absolute Neutrophil Count 0.74 10^3/uL (1.2-6.7); Atypical Lymphocytes % 4; Bands % 1; Platelet Count 198 10^3/uL (130-400)
[2021-01-29 09:20] LABS: Anisocytosis 1+; Diff Comment Manual Differential; Microcytosis 1+
[2021-01-29] MEDS: Heparin 500 UNITS/5 ML SYRINGE IV (09:20)
== END 2021-01-29 23:59 | disposition home or self-care (01) ==
LOC: INF 02:28
PROVIDERS: PCP Family Medicine; Visit Provider Internal Medicine Hematology & Oncology
DX: D46.9 Myelodysplastic syndrome, unspecified (principal)
CPT/HCPCS: 36430; 36591; 80053; 86850; 86900; 86901; 86920; 86945; 82728; 83540; 83550; 85025; 86644; P9016

== ENCOUNTER 2021-01-31 09:18 | Outpatient (CLI) | payer OTHER, SELFPAY ==
--- NOTE | 2021-01-31 09:00 | DI.RAD_ITS ---
EXAM: XR FINGER RT INDEX CLINICAL HISTORY: right index finger PIP joint limited motion TECHNIQUE: COMPARISON: No exams were available for comparison FINDINGS: Three views were obtained. Cartilaginous joint spaces appear well maintained. No bony or soft tissu e abnormality seen. IMPRESSION: RADIATION DOSE DELIVERED: Total DLP
--- NOTE | 2021-01-31 09:10 | DI.RAD_ITS ---
EXAM: XR SHOULDER RT COMPLETE 2+V CLINICAL HISTORY: right shoulder pain TECHNIQUE: COMPARISON: CR LEFT SHOULDER COMPLETE from 04/04/2013 FINDINGS: Three views were obtained. There is in indwelling central venous catheter in position. The bones ap pear demineralized in a patchy fashion. Cartilaginous joint space of the glenohumeral joint appears fairly well maintained as visualized. There are mild hypertrophic degenerative changes of the acromi oclavicular joint. No other significant bony or soft tissue abnormality seen. IMPRESSION: RADIATION DOSE DELIVERED: Total DLP
== END 2021-01-31 09:19 | disposition home or self-care (01) ==
LOC: DIORS 09:18
PROVIDERS: PCP Family Medicine; Referring Provider Family Medicine; Visit Provider Physician Assistant
DX: M25.511 Pain in right shoulder (principal); M19.011 Primary osteoarthritis, right shoulder; M25.641 Stiffness of right hand, not elsewhere classified
CPT/HCPCS: 73030; 73140

== ENCOUNTER 2021-02-27 01:44 | Outpatient (RCR) | payer OTHER, SELFPAY ==
[2021-01-30 00:07] VITALS: BP 181/77; PULSE 64; RESP 12; TEMP 36.9
[2021-02-05 08:59] LABS: Abs Immature Grans 0.01 10^3/uL (0.0-0.06); HCT 23.3 % (40.0-50.0); HGB 8.2 g/dL (13.5-17.5); MCH 31.5 pg (27.0-33.0); MCHC 35.2 % (32.0-36.0); MCV 89.6 fL (80-95); MPV 11.2 fL (8.0-11.0); Nucleated RBC 0 %; Platelet Count 239 10^3/uL (130-400); RDW 15.1 % (11.8-14.1); RDW-SD 47.4 fL; WBC 2.26 10^3/uL (4.4-10.8)
[2021-02-05 09:28] LABS: Absolute Lymphocyte Count 1.18 10^3/uL (1.2-3.4); Absolute Monocyte Count 0.27 10^3/uL (0.1-0.8); Absolute Neutrophil Count 0.66 10^3/uL (1.2-6.7); Atypical Lymphocytes % 5
[2021-02-05 09:29] LABS: Absolute Basophil Count 0.14 10^3/uL (0.0-0.2); Anisocytosis 1+; Diff Comment Manual Differential; Metamyelocytes % 1; Microcytosis 1+; Polychromasia Present
[2021-02-05 11:23] VITALS: BP 126/58; PULSE 72; RESP 20; TEMP 36.1; O2SAT 98
[2021-02-05 11:28] VITALS: BP 131/70; PULSE 74; RESP 16; TEMP 35.9; O2SAT 98
[2021-02-05] MEDS: Normal Saline Flush 10 ML SYR IVP (11:34)
[2021-02-05] MEDS: Heparin 500 UNITS/5 ML SYRINGE IV (11:34)
[2021-02-05 11:43] VITALS: BP 126/58; PULSE 72; RESP 16; TEMP 36.1; O2SAT 98
[2021-02-05 12:13] VITALS: BP 159/68; PULSE 67; RESP 20; TEMP 36.2; O2SAT 100
[2021-02-05 12:47] VITALS: BP 132/64; PULSE 66; RESP 16; TEMP 36.1; O2SAT 100
[2021-02-05 13:10] VITALS: BP 160/71; PULSE 66; RESP 20; TEMP 36.1; O2SAT 100
[2021-02-12] MEDS: Normal Saline Flush 10 ML SYR IVP (12:35)
[2021-02-12 12:40] LABS: Abs Immature Grans 0.02 10^3/uL (0.0-0.06); Absolute Basophil Count 0.08 10^3/uL (0.0-0.2); Absolute Eosinophil Count 0.01 10^3/uL (0.0-0.7); Absolute Lymphocyte Count 0.87 10^3/uL (1.2-3.4); Absolute Monocyte Count 0.89 10^3/uL (0.1-0.8); Absolute Neutrophil Count 0.51 10^3/uL (1.2-6.7); Basophils % 3.4; Eosinophils % 0.4; HCT 23.8 % (40.0-50.0); HGB 8.1 g/dL (13.5-17.5); Immature Grans % 0.8; Lymphocytes % 36.6; MCH 30.8 pg (27.0-33.0); MCV 90.5 fL (80-95); MPV 11.3 fL (8.0-11.0); Monocytes % 37.4; Neutrophils % 21.4; Nucleated RBC 0 %; Platelet Count 213 10^3/uL (130-400); RBC 2.63 10^6/uL (4.36-5.78); RDW 15.5 % (11.8-14.1); RDW-SD 49.8 fL; WBC 2.38 10^3/uL (4.4-10.8)
[2021-02-12 12:52] LABS: ALT 49 U/L (16-63); AST 36 U/L (15-37); Albumin 3.8 g/dL (3.4-5.0); Alkaline Phosphatase 112 U/L (46-116); Anion Gap 9.9 mmol/L (3-11); BUN 42 mg/dL (7-18); Bilirubin, Total 0.8 mg/dL (0.2-1.0); CO2 24.1 mmol/L (21.0-32.0); CREATININE 2.2 mg/dL (0.70-1.30); Calcium 9.2 mg/dL (8.5-10.1); Chloride 103 mmol/L (98-107); Estimated GFR 29.83 (mL/min/1.73m2); Glucose 112 mg/dL (74-106); Potassium 4.9 mmol/L (3.5-5.1); Sodium 137 mmol/L (136-145); Total Protein 7.4 g/dL (6.4-8.2)
[2021-02-12 12:55] LABS: Anisocytosis 1+; Diff Comment Diff Reviewed
[2021-02-12 12:56] LABS: Basophilic Stippling Present; Microcytosis 1+; Poikilocytes 1+; Polychromasia Present
[2021-02-13 10:00] VITALS: BP 171/68; PULSE 70; RESP 16; TEMP 36.4; O2SAT 97
[2021-02-13 10:10] VITALS: BP 148/60; PULSE 72; RESP 17; TEMP 36.9; O2SAT 100
[2021-02-13 10:25] VITALS: BP 138/65; PULSE 70; RESP 16; TEMP 37; O2SAT 99
[2021-02-13 10:47] VITALS: BP 156/65; PULSE 71; RESP 16; TEMP 36.7; O2SAT 99
[2021-02-13 10:55] VITALS: BP 175/74; PULSE 66; RESP 16; TEMP 37; O2SAT 100
[2021-02-13 11:51] VITALS: BP 189/76; PULSE 74; RESP 16; TEMP 36.9; O2SAT 100
[2021-02-13] MEDS: Normal Saline Flush 10 ML SYR IVP (12:13)
[2021-02-19] MEDS: Normal Saline Flush 10 ML SYR IVP (08:26)
[2021-02-19] MEDS: Heparin 500 UNITS/5 ML SYRINGE IV (08:26)
[2021-02-19 08:41] LABS: Abs Immature Grans 0.04 10^3/uL (0.0-0.06); HCT 26.1 % (40.0-50.0); HGB 9.1 g/dL (13.5-17.5); Immature Grans % 1.4; MCHC 34.9 % (32.0-36.0); MCV 88.8 fL (80-95); MPV 10.7 fL (8.0-11.0); Platelet Count 191 10^3/uL (130-400); RBC 2.94 10^6/uL (4.36-5.78); RDW 14.6 % (11.8-14.1); RDW-SD 46.3 fL
[2021-02-19 09:10] LABS: Absolute Lymphocyte Count 1.34 10^3/uL (1.2-3.4); Absolute Monocyte Count 0.39 10^3/uL (0.1-0.8); Absolute Neutrophil Count 1.01 10^3/uL (1.2-6.7); Atypical Lymphocytes % 9
[2021-02-19 09:11] LABS: Anisocytosis 1+; Basophilic Stippling Present; Diff Comment Manual Differential; Metamyelocytes % 1; Microcytosis 1+; Myelocytes % 1; Nucleated RBC 1 %; Polychromasia Present
[2021-02-26] MEDS: Normal Saline Flush 10 ML SYR IVP (08:16)
[2021-02-26 08:30] LABS: Abs Immature Grans 0.03 10^3/uL (0.0-0.06); Absolute Basophil Count 0.07 10^3/uL (0.0-0.2); Absolute Lymphocyte Count 1.18 10^3/uL (1.2-3.4); Absolute Monocyte Count 0.67 10^3/uL (0.1-0.8); Absolute Neutrophil Count 1.08 10^3/uL (1.2-6.7); Basophils % 2.3; HCT 24.6 % (40.0-50.0); HGB 8.5 g/dL (13.5-17.5); Lymphocytes % 38.9; MCH 31.6 pg (27.0-33.0); MCHC 34.6 % (32.0-36.0); MCV 91.4 fL (80-95); MPV 11.6 fL (8.0-11.0); Monocytes % 22.1; Neutrophils % 35.7; Nucleated RBC 0 %; Platelet Count 222 10^3/uL (130-400); RBC 2.69 10^6/uL (4.36-5.78); RDW 15.8 % (11.8-14.1); RDW-SD 49.5 fL; WBC 3.03 10^3/uL (4.4-10.8)
[2021-02-26 08:45] VITALS: BP 154/64; PULSE 74; RESP 16; TEMP 36.8; O2SAT 99
[2021-02-27] VITALS (7 sets, daily range): BP systolic 152–190; BP diastolic 71–75; PULSE 59–74; RESP 12–14; TEMP 36.1–36.4; O2SAT 95–100
[2021-02-27] MEDS: Heparin 500 UNITS/5 ML SYRINGE IV (08:33)
[2021-02-27] MEDS: Normal Saline Flush 10 ML SYR IVP (08:33)
== END 2021-02-28 23:59 | disposition home or self-care (01) ==
LOC: INF 01:44
PROVIDERS: PCP Family Medicine; Visit Provider Internal Medicine Hematology & Oncology
DX: D46.9 Myelodysplastic syndrome, unspecified
CPT/HCPCS: 36430; 36591; 80053; 86850; 86900; 86901; 86920; 86945; 85025; 86644; P9016

== ENCOUNTER 2021-03-26 02:55 | Outpatient (RCR) | payer OTHER, SELFPAY ==
[2021-03-01 00:19] VITALS: BP 186/75; PULSE 63; RESP 12; TEMP 36.1
[2021-03-05] MEDS: Normal Saline Flush 10 ML SYR IVP (08:03)
[2021-03-05] MEDS: Heparin 500 UNITS/5 ML SYRINGE IV (08:04)
[2021-03-05 08:15] LABS: HCT 26.2 % (40.0-50.0); MCH 31.4 pg (27.0-33.0); MCHC 34.4 % (32.0-36.0); MCV 91.3 fL (80-95); MPV 11.4 fL (8.0-11.0); Nucleated RBC 0 %; Platelet Count 212 10^3/uL (130-400); RBC 2.87 10^6/uL (4.36-5.78); RDW 15.8 % (11.8-14.1); WBC 2.54 10^3/uL (4.4-10.8)
[2021-03-05 08:30] LABS: Absolute Basophil Count 0.13 10^3/uL (0.0-0.2); Absolute Lymphocyte Count 1.09 10^3/uL (1.2-3.4); Absolute Monocyte Count 0.15 10^3/uL (0.1-0.8); Absolute Neutrophil Count 1.17 10^3/uL (1.2-6.7); Atypical Lymphocytes % 6; Diff Comment Manual Differential
[2021-03-05 08:31] LABS: Anisocytosis 1+; Microcytosis 1+
[2021-03-12] MEDS: Normal Saline Flush 10 ML SYR IVP ×2 (08:57→11:15)
[2021-03-12 09:11] LABS: Abs Immature Grans 0.01 10^3/uL (0.0-0.06); HGB 8.1 g/dL (13.5-17.5); MCH 31.2 pg (27.0-33.0); MCHC 33.8 % (32.0-36.0); MCV 92.3 fL (80-95); MPV 10.5 fL (8.0-11.0); Nucleated RBC 0 %; RDW 16.2 % (11.8-14.1); RDW-SD 52.2 fL
[2021-03-12 09:53] LABS: Absolute Lymphocyte Count 1.08 10^3/uL (1.2-3.4); Absolute Neutrophil Count 0.82 10^3/uL (1.2-6.7); Atypical Lymphocytes % 6; Bands % 7; Platelet Count 218 10^3/uL (130-400)
[2021-03-12 09:54] LABS: Absolute Basophil Count 0.14 10^3/uL (0.0-0.2); Absolute Eosinophil Count 0.02 10^3/uL (0.0-0.7); Absolute Monocyte Count 0.26 10^3/uL (0.1-0.8); Anisocytosis 1+; Diff Comment Manual Differential; Hypochromasia 2+; Metamyelocytes % 3
[2021-03-12 09:56] LABS: Poikilocytes 1+
[2021-03-12 10:34] VITALS: BP 179/77; PULSE 71; RESP 20; TEMP 36.6; O2SAT 100
[2021-03-12 10:45] LABS: ALT 61 U/L (16-63); AST 40 U/L (15-37); Albumin 3.7 g/dL (3.4-5.0); Alkaline Phosphatase 96 U/L (46-116); Anion Gap 7.1 mmol/L (3-11); BUN 24 mg/dL (7-18); Bilirubin, Total 0.6 mg/dL (0.2-1.0); CO2 25.9 mmol/L (21.0-32.0); CREATININE 1.6 mg/dL (0.70-1.30); Calcium 8.6 mg/dL (8.5-10.1); Chloride 103 mmol/L (98-107); Estimated GFR 43.07 (mL/min/1.73m2); Glucose 109 mg/dL (74-106); Potassium 4.9 mmol/L (3.5-5.1); Sodium 136 mmol/L (136-145)
[2021-03-12 10:48] VITALS: BP 177/79; PULSE 65; RESP 20; TEMP 36.6; O2SAT 100
[2021-03-12 10:49] VITALS: BP 177/79; PULSE 65; RESP 20; TEMP 36.6; O2SAT 100
[2021-03-12] MEDS: Heparin 500 UNITS/5 ML SYRINGE IV (11:16)
[2021-03-12 11:19] VITALS: BP 165/74; PULSE 64; RESP 20; TEMP 36.6; O2SAT 100
[2021-03-12 12:19] VITALS: BP 193/80; PULSE 64; RESP 20; TEMP 36.5; O2SAT 100
[2021-03-12 12:44] VITALS: BP 177/80; PULSE 68; RESP 20; TEMP 36.6; O2SAT 99
[2021-03-19 13:06] VITALS: BP 177/80; PULSE 68; RESP 20; TEMP 36.6; O2SAT 99
[2021-03-19] MEDS: Normal Saline Flush 10 ML SYR IVP (13:07)
[2021-03-19 13:14] LABS: Abs Immature Grans 0.01 10^3/uL (0.0-0.06); Absolute Basophil Count 0.06 10^3/uL (0.0-0.2); HCT 24.5 % (40.0-50.0); HGB 8.3 g/dL (13.5-17.5); MCHC 33.9 % (32.0-36.0); MCV 91.4 fL (80-95); MPV 11.7 fL (8.0-11.0); Nucleated RBC 0 %; Platelet Count 194 10^3/uL (130-400); RBC 2.68 10^6/uL (4.36-5.78); RDW 15.7 % (11.8-14.1); RDW-SD 51.2 fL
[2021-03-19 13:36] LABS: Absolute Lymphocyte Count 0.69 10^3/uL (1.2-3.4); Absolute Monocyte Count 0.65 10^3/uL (0.1-0.8); Myelocytes % 1
[2021-03-19 13:37] LABS: Diff Comment Manual Differential; RBC Morphology Normal
[2021-03-19 13:41] LABS: WBC 1.96 10^3/uL (4.4-10.8)
[2021-03-19 13:42] LABS: Absolute Neutrophil Count 0.55 10^3/uL (1.2-6.7)
[2021-03-20 10:25] VITALS: BP 114/59; PULSE 77; RESP 16; TEMP 36.4; O2SAT 100
[2021-03-20 10:40] VITALS: BP 135/73; PULSE 74; RESP 16; TEMP 36.5; O2SAT 100
[2021-03-20 11:10] VITALS: BP 132/69; PULSE 78; RESP 16; TEMP 36.6; O2SAT 100
[2021-03-20 11:29] VITALS: BP 137/79; PULSE 77; RESP 16; TEMP 36.5; O2SAT 100
[2021-03-20 12:30] VITALS: BP 155/76; PULSE 69; RESP 16; TEMP 36.4; O2SAT 95
[2021-03-20] MEDS: Normal Saline Flush 10 ML SYR IVP (12:47)
[2021-03-26 08:26] LABS: Abs Immature Grans 0.03 10^3/uL (0.0-0.06); Absolute Basophil Count 0.06 10^3/uL (0.0-0.2); Absolute Eosinophil Count 0.01 10^3/uL (0.0-0.7); Absolute Lymphocyte Count 1.05 10^3/uL (1.2-3.4); Absolute Monocyte Count 0.56 10^3/uL (0.1-0.8); Absolute Neutrophil Count 1.02 10^3/uL (1.2-6.7); Basophils % 2.2; Eosinophils % 0.4; HCT 27.7 % (40.0-50.0); HGB 9.5 g/dL (13.5-17.5); Immature Grans % 1.1; Lymphocytes % 38.5; MCHC 34.3 % (32.0-36.0); MCV 90.5 fL (80-95); MPV 11.4 fL (8.0-11.0); Monocytes % 20.5; Neutrophils % 37.3; Nucleated RBC 0 %; Platelet Count 180 10^3/uL (130-400); RBC 3.06 10^6/uL (4.36-5.78); RDW 14.4 % (11.8-14.1); RDW-SD 46.7 fL; WBC 2.73 10^3/uL (4.4-10.8)
[2021-03-26] MEDS: Heparin 500 UNITS/5 ML SYRINGE IV (08:39)
[2021-03-26] MEDS: Normal Saline Flush 10 ML SYR IVP (08:39)
== END 2021-03-31 23:59 | disposition home or self-care (01) ==
LOC: INF 02:55
PROVIDERS: PCP Family Medicine; Visit Provider Internal Medicine Hematology & Oncology
DX: D46.9 Myelodysplastic syndrome, unspecified (principal)
CPT/HCPCS: 36430; 36591; 80053; 86850; 86900; 86901; 86920; 86945; 85025; 86644; P9016

== ENCOUNTER 2021-04-30 02:28 | Outpatient (RCR) | payer OTHER, SELFPAY ==
[2021-04-01 00:07] VITALS: BP 155/76; PULSE 69; RESP 16; TEMP 36.4
[2021-04-02 08:44] LABS: Abs Immature Grans 0.01 10^3/uL (0.0-0.06); Absolute Basophil Count 0.07 10^3/uL (0.0-0.2); Absolute Lymphocyte Count 0.89 10^3/uL (1.2-3.4); Absolute Neutrophil Count 0.83 10^3/uL (1.2-6.7); Basophils % 3.2; HCT 25.1 % (40.0-50.0); HGB 8.6 g/dL (13.5-17.5); Immature Grans % 0.5; Lymphocytes % 40.5; MCH 31.2 pg (27.0-33.0); MCHC 34.3 % (32.0-36.0); MCV 90.9 fL (80-95); MPV 11.5 fL (8.0-11.0); Monocytes % 18.2; Neutrophils % 37.6; Nucleated RBC 0 %; Platelet Count 197 10^3/uL (130-400); RBC 2.76 10^6/uL (4.36-5.78); RDW 14.8 % (11.8-14.1); RDW-SD 46.5 fL
[2021-04-02] MEDS: Heparin 500 UNITS/5 ML SYRINGE IV (08:59)
[2021-04-02] MEDS: Normal Saline Flush 10 ML SYR IVP (08:59)
[2021-04-02 09:11] LABS: Diff Comment Agrees w/ Instrument; Hypochromasia 2+
[2021-04-02 09:12] LABS: Poikilocytes 1+
[2021-04-09] VITALS (11 sets, daily range): BP systolic 158–195; BP diastolic 74–80; PULSE 60–68; RESP 16–17; TEMP 36.4–36.7; O2SAT 96–100
[2021-04-09] MEDS: Normal Saline Flush 10 ML SYR IVP (08:15)
[2021-04-09] MEDS: Heparin 500 UNITS/5 ML SYRINGE IV (08:16)
[2021-04-09 08:22] LABS: HCT 22.4 % (40.0-50.0); HGB 7.5 g/dL (13.5-17.5); MCH 31.1 pg (27.0-33.0); MCHC 33.5 % (32.0-36.0); MCV 92.9 fL (80-95); MPV 10.8 fL (8.0-11.0); Nucleated RBC 0 %; Platelet Count 190 10^3/uL (130-400); RBC 2.41 10^6/uL (4.36-5.78); RDW 15.9 % (11.8-14.1); RDW-SD 51.2 fL; WBC 2.44 10^3/uL (4.4-10.8)
[2021-04-09 08:45] LABS: Absolute Neutrophil Count 1.34 10^3/uL (1.2-6.7); Atypical Lymphocytes % 1; Bands % 4
[2021-04-09 08:46] LABS: Absolute Monocyte Count 0.12 10^3/uL (0.1-0.8); Diff Comment Manual Differential; RBC Morphology Normal
[2021-04-09 10:47] LABS: Metamyelocytes % 2
[2021-04-16] MEDS: Normal Saline Flush 10 ML SYR IVP (08:14)
[2021-04-16 08:24] LABS: Absolute Basophil Count 0.11 10^3/uL (0.0-0.2); Absolute Lymphocyte Count 0.87 10^3/uL (1.2-3.4); Absolute Monocyte Count 0.38 10^3/uL (0.1-0.8); Absolute Neutrophil Count 0.65 10^3/uL (1.2-6.7); Basophils % 5.5; HCT 29.2 % (40.0-50.0); HGB 9.7 g/dL (13.5-17.5); Lymphocytes % 43.3; MCH 29.9 pg (27.0-33.0); MCHC 33.2 % (32.0-36.0); MCV 90.1 fL (80-95); Monocytes % 18.9; Neutrophils % 32.3; Nucleated RBC 0 %; Platelet Count 190 10^3/uL (130-400); RBC 3.24 10^6/uL (4.36-5.78); RDW 14.9 % (11.8-14.1); RDW-SD 48.5 fL; WBC 2.01 10^3/uL (4.4-10.8)
[2021-04-16] MEDS: Heparin 500 UNITS/5 ML SYRINGE IV (08:35)
[2021-04-16 08:53] LABS: Diff Comment Diff Reviewed; Microcytosis 1+
[2021-04-23] MEDS: Normal Saline Flush 10 ML SYR IVP (08:58)
[2021-04-23 09:07] LABS: Abs Immature Grans 0.09 10^3/uL (0.0-0.06); Absolute Eosinophil Count 0.01 10^3/uL (0.0-0.7); Absolute Lymphocyte Count 1.24 10^3/uL (1.2-3.4); Absolute Monocyte Count 1.35 10^3/uL (0.1-0.8); Absolute Neutrophil Count 0.61 10^3/uL (1.2-6.7); Basophils % 2.9; Eosinophils % 0.3; HCT 28.7 % (40.0-50.0); HGB 9.6 g/dL (13.5-17.5); Immature Grans % 2.6; Lymphocytes % 36.5; MCH 30.2 pg (27.0-33.0); MCHC 33.4 % (32.0-36.0); MCV 90.3 fL (80-95); MPV 10.5 fL (8.0-11.0); Monocytes % 39.7; Nucleated RBC 0 %; RBC 3.18 10^6/uL (4.36-5.78); RDW 15.2 % (11.8-14.1); RDW-SD 49.2 fL
[2021-04-23 09:20] LABS: ALT 90 U/L (16-63); AST 53 U/L (15-37); Albumin 3.8 g/dL (3.4-5.0); Alkaline Phosphatase 100 U/L (46-116); Anion Gap 9.6 mmol/L (3-11); BUN 31 mg/dL (7-18); Bilirubin, Total 0.7 mg/dL (0.2-1.0); CO2 25.4 mmol/L (21.0-32.0); CREATININE 1.6 mg/dL (0.70-1.30); Calcium 9.2 mg/dL (8.5-10.1); Chloride 103 mmol/L (98-107); Estimated GFR 43.07 (mL/min/1.73m2); Glucose 111 mg/dL (74-106); Potassium 4.4 mmol/L (3.5-5.1); Sodium 138 mmol/L (136-145); Total Protein 7.5 g/dL (6.4-8.2)
[2021-04-23 09:26] LABS: Diff Comment Agrees w/ Instrument
[2021-04-23 09:27] LABS: Platelet Count 200 10^3/uL (130-400)
[2021-04-23 09:28] LABS: Microcytosis 1+
[2021-04-30] MEDS: Normal Saline Flush 10 ML SYR IVP (12:46)
== END 2021-04-30 23:59 | disposition home or self-care (01) ==
LOC: INF 02:28
PROVIDERS: PCP Family Medicine; Visit Provider Internal Medicine Hematology & Oncology
DX: D46.9 Myelodysplastic syndrome, unspecified (principal)
CPT/HCPCS: 36430; 36591; 80053; 86850; 86900; 86901; 86920; 86945; 85025; 86644; P9016

== ENCOUNTER 2021-05-28 02:57 | Outpatient (RCR) | payer OTHER, SELFPAY ==
[2021-04-30 12:54] LABS: Abs Immature Grans 0.06 10^3/uL (0.0-0.06); Absolute Basophil Count 0.06 10^3/uL (0.0-0.2); Absolute Lymphocyte Count 0.88 10^3/uL (1.2-3.4); Absolute Monocyte Count 1.43 10^3/uL (0.1-0.8); Absolute Neutrophil Count 1.42 10^3/uL (1.2-6.7); Basophils % 1.6; HCT 23.4 % (40.0-50.0); Immature Grans % 1.6; Lymphocytes % 22.9; MCH 31.4 pg (27.0-33.0); MCHC 34.2 % (32.0-36.0); MCV 91.8 fL (80-95); MPV 11.1 fL (8.0-11.0); Monocytes % 37.1; Neutrophils % 36.8; Nucleated RBC 0 %; Platelet Count 181 10^3/uL (130-400); RBC 2.55 10^6/uL (4.36-5.78); RDW 15.6 % (11.8-14.1); RDW-SD 50.4 fL; WBC 3.85 10^3/uL (4.4-10.8)
[2021-05-01] VITALS (7 sets, daily range): BP systolic 135–195; BP diastolic 58–80; PULSE 66–76; RESP 16; TEMP 36.5; O2SAT 100
[2021-05-01] MEDS: Normal Saline Flush 10 ML SYR IVP ×2 (10:25→12:28)
[2021-05-07] MEDS: Normal Saline Flush 10 ML SYR IVP (08:15)
[2021-05-07] MEDS: Heparin 500 UNITS/5 ML SYRINGE IV (08:15)
[2021-05-07 08:22] LABS: Abs Immature Grans 0.08 10^3/uL (0.0-0.06); Absolute Lymphocyte Count 1.03 10^3/uL (1.2-3.4); Absolute Monocyte Count 0.65 10^3/uL (0.1-0.8); Absolute Neutrophil Count 1.21 10^3/uL (1.2-6.7); Basophils % 3.3; HCT 27.5 % (40.0-50.0); HGB 9.1 g/dL (13.5-17.5); Immature Grans % 2.6; Lymphocytes % 33.6; MCH 29.6 pg (27.0-33.0); MCHC 33.1 % (32.0-36.0); MCV 89.6 fL (80-95); MPV 11.3 fL (8.0-11.0); Monocytes % 21.2; Neutrophils % 39.3; Nucleated RBC 0 %; Platelet Count 174 10^3/uL (130-400); RBC 3.07 10^6/uL (4.36-5.78); RDW 15.3 % (11.8-14.1); RDW-SD 48.7 fL; WBC 3.07 10^3/uL (4.4-10.8)
[2021-05-14 10:58] LABS: Abs Immature Grans 0.02 10^3/uL (0.0-0.06); Absolute Basophil Count 0.06 10^3/uL (0.0-0.2); Absolute Lymphocyte Count 1.22 10^3/uL (1.2-3.4); Absolute Monocyte Count 1.01 10^3/uL (0.1-0.8); Absolute Neutrophil Count 1.25 10^3/uL (1.2-6.7); Basophils % 1.7; HCT 25.4 % (40.0-50.0); HGB 8.7 g/dL (13.5-17.5); Immature Grans % 0.6; Lymphocytes % 34.3; MCH 30.3 pg (27.0-33.0); MCHC 34.3 % (32.0-36.0); MCV 88.5 fL (80-95); MPV 12.1 fL (8.0-11.0); Monocytes % 28.4; Nucleated RBC 0 %; Platelet Count 210 10^3/uL (130-400); RBC 2.87 10^6/uL (4.36-5.78); RDW 16.4 % (11.8-14.1); RDW-SD 48.9 fL; WBC 3.56 10^3/uL (4.4-10.8)
[2021-05-14] MEDS: Normal Saline Flush 10 ML SYR IVP (11:05)
[2021-05-14] MEDS: Heparin 500 UNITS/5 ML SYRINGE IV (11:05)
[2021-05-21 09:05] LABS: Abs Immature Grans 0.04 10^3/uL (0.0-0.06); Absolute Basophil Count 0.07 10^3/uL (0.0-0.2); Absolute Lymphocyte Count 1.17 10^3/uL (1.2-3.4); Absolute Monocyte Count 0.44 10^3/uL (0.1-0.8); Absolute Neutrophil Count 1.09 10^3/uL (1.2-6.7); Basophils % 2.5; HCT 22.9 % (40.0-50.0); HGB 7.6 g/dL (13.5-17.5); Immature Grans % 1.4; Lymphocytes % 41.6; MCHC 33.2 % (32.0-36.0); MCV 90.5 fL (80-95); MPV 10.8 fL (8.0-11.0); Monocytes % 15.7; Neutrophils % 38.8; Nucleated RBC 0 %; Platelet Count 177 10^3/uL (130-400); RBC 2.53 10^6/uL (4.36-5.78); RDW 17.5 % (11.8-14.1); RDW-SD 55.4 fL; WBC 2.81 10^3/uL (4.4-10.8)
[2021-05-21 09:23] LABS: Diff Comment Diff Reviewed; Microcytosis 1+
[2021-05-21] MEDS: Normal Saline Flush 10 ML SYR IVP (09:31)
[2021-05-22 08:24] VITALS: BP 138/78; PULSE 79; RESP 16; TEMP 36.5; O2SAT 100
[2021-05-22 08:39] VITALS: BP 139/65; PULSE 79; RESP 16; TEMP 36.5; O2SAT 99
[2021-05-22 08:57] VITALS: BP 150/79; PULSE 71; RESP 16; TEMP 36.5; O2SAT 100
[2021-05-22 09:25] VITALS: BP 154/64; PULSE 63; RESP 16; TEMP 36.5; O2SAT 100
[2021-05-22] MEDS: Normal Saline Flush 10 ML SYR IVP (10:14)
[2021-05-22 10:15] VITALS: BP 178/79; PULSE 60; RESP 16; TEMP 36.5; O2SAT 100
[2021-05-22] MEDS: Heparin 500 UNITS/5 ML SYRINGE IV (10:15)
[2021-05-28] MEDS: Normal Saline Flush 10 ML SYR IVP (08:40)
[2021-05-28 08:49] LABS: Abs Immature Grans 0.01 10^3/uL (0.0-0.06); Absolute Basophil Count 0.12 10^3/uL (0.0-0.2); Absolute Lymphocyte Count 0.94 10^3/uL (1.2-3.4); Absolute Monocyte Count 0.41 10^3/uL (0.1-0.8); Absolute Neutrophil Count 0.82 10^3/uL (1.2-6.7); Basophils % 5.2; HCT 25.6 % (40.0-50.0); HGB 8.7 g/dL (13.5-17.5); Immature Grans % 0.4; Lymphocytes % 40.9; MCH 29.8 pg (27.0-33.0); MCV 87.7 fL (80-95); MPV 11.8 fL (8.0-11.0); Monocytes % 17.8; Neutrophils % 35.7; Nucleated RBC 0 %; Platelet Count 203 10^3/uL (130-400); RBC 2.92 10^6/uL (4.36-5.78); RDW 18.8 % (11.8-14.1); RDW-SD 57.9 fL
[2021-05-28 08:59] LABS: Anisocytosis 1+; Diff Comment Diff Reviewed
== END 2021-05-31 23:59 | disposition home or self-care (01) ==
LOC: INF 02:57
PROVIDERS: PCP Family Medicine; Visit Provider Internal Medicine Hematology & Oncology
DX: D46.9 Myelodysplastic syndrome, unspecified (principal); Z45.2 Encounter for adjustment and management of vascular access device
CPT/HCPCS: 36430; 36591; 86850; 86900; 86901; 86920; 86945; 96523; 85025; 86644; P9016

== ENCOUNTER 2021-06-25 02:11 | Outpatient (RCR) | payer OTHER, SELFPAY ==
[2021-06-01 00:05] VITALS: BP 178/79; PULSE 60; RESP 16; TEMP 36.5
[2021-06-04] MEDS: Heparin 500 UNITS/5 ML SYRINGE IV (11:55)
[2021-06-04] MEDS: Normal Saline Flush 10 ML SYR IVP (11:55)
[2021-06-04 12:09] LABS: Absolute Basophil Count 0.06 10^3/uL (0.0-0.2); HCT 23.6 % (40.0-50.0); HGB 7.7 g/dL (13.5-17.5); MCH 29.1 pg (27.0-33.0); MCHC 32.6 % (32.0-36.0); MCV 89.1 fL (80-95); Platelet Count 211 10^3/uL (130-400); RBC 2.65 10^6/uL (4.36-5.78); RDW 19.9 % (11.8-14.1); RDW-SD 61.1 fL; WBC 3.09 10^3/uL (4.4-10.8)
[2021-06-04 12:29] LABS: ALT 82 U/L (16-63); AST 47 U/L (15-37); Albumin 3.8 g/dL (3.4-5.0); Alkaline Phosphatase 81 U/L (46-116); Anion Gap 5.7 mmol/L (3-11); BUN 31 mg/dL (7-18); Bilirubin, Total 0.7 mg/dL (0.2-1.0); CO2 27.3 mmol/L (21.0-32.0); CREATININE 1.9 mg/dL (0.70-1.30); Calcium 9.1 mg/dL (8.5-10.1); Chloride 105 mmol/L (98-107); Estimated GFR 35.32 (mL/min/1.73m2); Glucose 98 mg/dL (74-106); Potassium 5.3 mmol/L (3.5-5.1); Sodium 138 mmol/L (136-145); Total Protein 7.1 g/dL (6.4-8.2)
[2021-06-04 12:37] LABS: Absolute Lymphocyte Count 1.48 10^3/uL (1.2-3.4); Absolute Monocyte Count 0.74 10^3/uL (0.1-0.8); Absolute Neutrophil Count 0.77 10^3/uL (1.2-6.7); Atypical Lymphocytes % 2; Bands % 2; Metamyelocytes % 1; Nucleated RBC 0 %
[2021-06-04 12:39] LABS: Anisocytosis 1+; Diff Comment Manual Differential; Microcytosis 1+; Poikilocytes 1+; Polychromasia Present
[2021-06-04 13:28] VITALS: BP 154/69; PULSE 76; RESP 16; TEMP 36.6; O2SAT 100
[2021-06-04 13:43] VITALS: BP 135/66; PULSE 77; RESP 16; TEMP 36.6; O2SAT 99
[2021-06-04 14:13] VITALS: BP 135/88; PULSE 75; RESP 16; TEMP 36.6; O2SAT 100
[2021-06-04 15:10] VITALS: BP 161/73; PULSE 66; RESP 16; TEMP 36; O2SAT 100
[2021-06-11] MEDS: Normal Saline Flush 10 ML SYR IVP (14:13)
[2021-06-11 14:22] LABS: Abs Immature Grans 0.04 10^3/uL (0.0-0.06); Absolute Basophil Count 0.06 10^3/uL (0.0-0.2); Absolute Lymphocyte Count 0.73 10^3/uL (1.2-3.4); Absolute Monocyte Count 0.99 10^3/uL (0.1-0.8); Absolute Neutrophil Count 1.07 10^3/uL (1.2-6.7); Basophils % 2.1; HGB 8.8 g/dL (13.5-17.5); Immature Grans % 1.4; Lymphocytes % 25.3; MCH 29.7 pg (27.0-33.0); MCHC 33.8 % (32.0-36.0); MCV 87.8 fL (80-95); MPV 10.3 fL (8.0-11.0); Monocytes % 34.3; Neutrophils % 36.9; Nucleated RBC 0 %; Platelet Count 166 10^3/uL (130-400); RBC 2.96 10^6/uL (4.36-5.78); RDW 18.8 % (11.8-14.1); RDW-SD 58.4 fL; WBC 2.89 10^3/uL (4.4-10.8)
[2021-06-18] MEDS: Normal Saline Flush 10 ML SYR IVP (08:41)
[2021-06-18 09:04] LABS: Abs Immature Grans 0.05 10^3/uL (0.0-0.06); Absolute Lymphocyte Count 1.11 10^3/uL (1.2-3.4); HCT 23.6 % (40.0-50.0); HGB 7.8 g/dL (13.5-17.5); MCH 28.8 pg (27.0-33.0); MCHC 33.1 % (32.0-36.0); MCV 87.1 fL (80-95); MPV 11.3 fL (8.0-11.0); Platelet Count 175 10^3/uL (130-400); RBC 2.71 10^6/uL (4.36-5.78); RDW 17.8 % (11.8-14.1); RDW-SD 54.4 fL; WBC 3.07 10^3/uL (4.4-10.8)
[2021-06-18 09:29] LABS: Absolute Basophil Count 0.03 10^3/uL (0.0-0.2); Absolute Eosinophil Count 0.06 10^3/uL (0.0-0.7); Absolute Monocyte Count 0.49 10^3/uL (0.1-0.8); Absolute Neutrophil Count 1.38 10^3/uL (1.2-6.7); Bands % 3; Nucleated RBC 0 %
[2021-06-18 09:30] LABS: Anisocytosis 1+; Basophilic Stippling Present; Diff Comment Manual Differential; Hypochromasia 2+; Metamyelocytes % 1; Microcytosis 1+; Polychromasia Present
[2021-06-18 09:31] LABS: Poikilocytes 2+
[2021-06-18 10:09] VITALS: BP 125/64; PULSE 64; RESP 18; TEMP 36.5; O2SAT 100
[2021-06-18 10:24] VITALS: BP 132/68; PULSE 68; RESP 18; TEMP 36.5; O2SAT 100
[2021-06-18 10:55] VITALS: BP 139/61; PULSE 67; RESP 17; TEMP 36.3; O2SAT 100
[2021-06-18 11:25] VITALS: BP 146/78; PULSE 67; RESP 17; TEMP 36.4; O2SAT 99
[2021-06-18 11:54] VITALS: BP 154/78; PULSE 60; RESP 16; O2SAT 94
[2021-06-25 08:44] LABS: Abs Immature Grans 0.02 10^3/uL (0.0-0.06); Absolute Basophil Count 0.07 10^3/uL (0.0-0.2); Absolute Lymphocyte Count 1.03 10^3/uL (1.2-3.4); Absolute Monocyte Count 0.78 10^3/uL (0.1-0.8); Absolute Neutrophil Count 1.06 10^3/uL (1.2-6.7); Basophils % 2.4; HCT 27.1 % (40.0-50.0); Immature Grans % 0.7; Lymphocytes % 34.8; MCH 29.2 pg (27.0-33.0); MCHC 33.2 % (32.0-36.0); MPV 11.2 fL (8.0-11.0); Monocytes % 26.4; Neutrophils % 35.7; Nucleated RBC 0 %; Platelet Count 183 10^3/uL (130-400); RBC 3.08 10^6/uL (4.36-5.78); RDW 18.2 % (11.8-14.1); RDW-SD 53.7 fL; WBC 2.96 10^3/uL (4.4-10.8)
[2021-06-25] MEDS: Heparin 500 UNITS/5 ML SYRINGE IV (08:54)
[2021-06-25] MEDS: Normal Saline Flush 10 ML SYR IVP (08:55)
== END 2021-07-01 23:59 | disposition home or self-care (01) ==
LOC: INF 02:11
PROVIDERS: PCP Family Medicine; Visit Provider Internal Medicine Hematology & Oncology
DX: D46.9 Myelodysplastic syndrome, unspecified (principal)
CPT/HCPCS: 36430; 36591; 80053; 86850; 86900; 86901; 86920; 86945; 85025; 86644; P9016

== ENCOUNTER 2021-07-29 02:46 | Outpatient (RCR) | payer OTHER, SELFPAY ==
[2021-07-02 00:04] VITALS: BP 154/78; PULSE 60; RESP 16; TEMP 36.4
[2021-07-02 08:38] LABS: Abs Immature Grans 0.03 10^3/uL (0.0-0.06); Absolute Basophil Count 0.06 10^3/uL (0.0-0.2); Absolute Lymphocyte Count 0.94 10^3/uL (1.2-3.4); Absolute Monocyte Count 0.35 10^3/uL (0.1-0.8); Absolute Neutrophil Count 1.84 10^3/uL (1.2-6.7); Basophils % 1.9; HCT 24.4 % (40.0-50.0); Immature Grans % 0.9; Lymphocytes % 29.2; MCH 28.6 pg (27.0-33.0); MCHC 32.8 % (32.0-36.0); MCV 87.1 fL (80-95); MPV 11.5 fL (8.0-11.0); Monocytes % 10.9; Neutrophils % 57.1; Nucleated RBC 0 %; Platelet Count 202 10^3/uL (130-400); RDW 18.6 % (11.8-14.1); RDW-SD 56.6 fL; WBC 3.22 10^3/uL (4.4-10.8)
[2021-07-02 08:54] LABS: Anisocytosis 2+; Diff Comment Diff Reviewed; Microcytosis 1+
[2021-07-02 08:55] LABS: Poikilocytes 1+
[2021-07-02] MEDS: Normal Saline Flush 10 ML SYR IVP (12:43)
[2021-07-03] MEDS: Heparin 500 UNITS/5 ML SYRINGE IV (08:25)
[2021-07-03] MEDS: Normal Saline Flush 10 ML SYR IVP (08:25)
[2021-07-03 08:30] VITALS: BP 134/78; PULSE 91; RESP 16; TEMP 36.5; O2SAT 100
[2021-07-03 08:45] VITALS: BP 148/76; PULSE 77; RESP 16; TEMP 36.6; O2SAT 100
[2021-07-03 09:07] VITALS: BP 130/61; PULSE 71; RESP 16; TEMP 36.6; O2SAT 99
[2021-07-03 09:42] VITALS: BP 151/75; PULSE 68; RESP 16; TEMP 36.6; O2SAT 100
[2021-07-03 10:14] VITALS: BP 149/83; PULSE 67; RESP 16; TEMP 36.6; O2SAT 100
[2021-07-09] MEDS: Heparin 500 UNITS/5 ML SYRINGE IV (08:06)
[2021-07-09] MEDS: Normal Saline Flush 10 ML SYR IVP (08:06)
[2021-07-09 08:12] LABS: Abs Immature Grans 0.01 10^3/uL (0.0-0.06); Absolute Basophil Count 0.09 10^3/uL (0.0-0.2); Absolute Lymphocyte Count 0.85 10^3/uL (1.2-3.4); Absolute Monocyte Count 0.23 10^3/uL (0.1-0.8); Absolute Neutrophil Count 0.68 10^3/uL (1.2-6.7); Basophils % 4.8; HCT 26.8 % (40.0-50.0); HGB 8.8 g/dL (13.5-17.5); Immature Grans % 0.5; Lymphocytes % 45.7; MCH 28.8 pg (27.0-33.0); MCHC 32.8 % (32.0-36.0); MCV 87.6 fL (80-95); MPV 10.8 fL (8.0-11.0); Monocytes % 12.4; Neutrophils % 36.6; Nucleated RBC 0 %; Platelet Count 205 10^3/uL (130-400); RBC 3.06 10^6/uL (4.36-5.78); RDW 17.8 % (11.8-14.1)
[2021-07-09 08:25] LABS: WBC 1.86 10^3/uL (4.4-10.8)
[2021-07-09 08:45] LABS: Diff Comment Diff Reviewed; RBC Morphology Normal
[2021-07-16] MEDS: Normal Saline Flush 10 ML SYR IVP (08:39)
[2021-07-16 09:01] LABS: Abs Immature Grans 0.06 10^3/uL (0.0-0.06); Absolute Basophil Count 0.07 10^3/uL (0.0-0.2); Absolute Lymphocyte Count 1.12 10^3/uL (1.2-3.4); Absolute Monocyte Count 0.88 10^3/uL (0.1-0.8); Basophils % 2.7; HCT 25.7 % (40.0-50.0); HGB 8.6 g/dL (13.5-17.5); Immature Grans % 2.3; Lymphocytes % 42.7; MCH 29.6 pg (27.0-33.0); MCHC 33.5 % (32.0-36.0); MCV 88.3 fL (80-95); MPV 12.6 fL (8.0-11.0); Monocytes % 33.6; Neutrophils % 18.7; Nucleated RBC 0 %; Platelet Count 212 10^3/uL (130-400); RBC 2.91 10^6/uL (4.36-5.78); RDW 18.6 % (11.8-14.1); RDW-SD 59.5 fL; WBC 2.62 10^3/uL (4.4-10.8)
[2021-07-16 09:13] LABS: ALT 96 U/L (16-63); AST 49 U/L (15-37); Albumin 3.9 g/dL (3.4-5.0); Alkaline Phosphatase 99 U/L (46-116); Anion Gap 8.5 mmol/L (3-11); BUN 32 mg/dL (7-18); Bilirubin, Total 0.6 mg/dL (0.2-1.0); CO2 26.5 mmol/L (21.0-32.0); CREATININE 1.9 mg/dL (0.70-1.30); Chloride 106 mmol/L (98-107); Estimated GFR 35.32 (mL/min/1.73m2); Glucose 102 mg/dL (74-106); Potassium 4.8 mmol/L (3.5-5.1); Sodium 141 mmol/L (136-145); Total Protein 7.4 g/dL (6.4-8.2)
[2021-07-16 09:28] LABS: Absolute Neutrophil Count 0.49 10^3/uL (1.2-6.7); Anisocytosis 2+; Diff Comment Diff Reviewed; Microcytosis 1+
[2021-07-16 09:29] LABS: Poikilocytes 1+
[2021-07-23] MEDS: Normal Saline Flush 10 ML SYR IVP (08:35)
[2021-07-23 08:42] LABS: Abs Immature Grans 0.21 10^3/uL (0.0-0.06); Absolute Basophil Count 0.09 10^3/uL (0.0-0.2); Absolute Lymphocyte Count 1.24 10^3/uL (1.2-3.4); Absolute Neutrophil Count 1.31 10^3/uL (1.2-6.7); Basophils % 2.1; HCT 24.3 % (40.0-50.0); HGB 8.2 g/dL (13.5-17.5); Immature Grans % 4.9; Lymphocytes % 29.2; MCH 29.5 pg (27.0-33.0); MCHC 33.7 % (32.0-36.0); MCV 87.4 fL (80-95); MPV 11.1 fL (8.0-11.0); Monocytes % 32.9; Neutrophils % 30.9; Nucleated RBC 0 %; Platelet Count 192 10^3/uL (130-400); RBC 2.78 10^6/uL (4.36-5.78); RDW 19.1 % (11.8-14.1); RDW-SD 59.1 fL; WBC 4.25 10^3/uL (4.4-10.8)
[2021-07-23 10:46] VITALS: BP 165/72; PULSE 72; RESP 18; TEMP 36.3; O2SAT 96
[2021-07-23 11:00] VITALS: BP 145/61; PULSE 68; RESP 18; TEMP 36.4; O2SAT 100
[2021-07-23 11:31] VITALS: BP 152/70; PULSE 69; RESP 17; TEMP 36.4; O2SAT 100
[2021-07-23] MEDS: Heparin 500 UNITS/5 ML SYRINGE IV (12:34)
[2021-07-29] MEDS: Normal Saline Flush 10 ML SYR IVP (12:38)
[2021-07-29 13:18] LABS: Abs Immature Grans 0.37 10^3/uL (0.0-0.06); HCT 30.8 % (40.0-50.0); HGB 10.9 g/dL (13.5-17.5); MCH 30.6 pg (27.0-33.0); MCHC 35.4 % (32.0-36.0); MCV 86.5 fL (80-95); MPV 11.6 fL (8.0-11.0); RBC 3.56 10^6/uL (4.36-5.78); RDW 19.4 % (11.8-14.1); RDW-SD 59.2 fL; WBC 5.99 10^3/uL (4.4-10.8)
[2021-07-29 13:45] LABS: Absolute Basophil Count 0.18 10^3/uL (0.0-0.2); Absolute Monocyte Count 1.32 10^3/uL (0.1-0.8); Absolute Neutrophil Count 2.34 10^3/uL (1.2-6.7); Nucleated RBC 1 %; Platelet Count 246 10^3/uL (130-400)
[2021-07-29 13:46] LABS: Anisocytosis 2+; Diff Comment Manual Differential; Metamyelocytes % 3; Myelocytes % 3; Polychromasia Present
[2021-07-29 15:16] LABS: ALT 159 U/L (16-63); Albumin 3.9 g/dL (3.4-5.0); Alkaline Phosphatase 118 U/L (46-116); Anion Gap 7.1 mmol/L (3-11); BUN 25 mg/dL (7-18); Bilirubin, Total 0.7 mg/dL (0.2-1.0); CO2 27.9 mmol/L (21.0-32.0); CREATININE 1.4 mg/dL (0.70-1.30); Calcium 8.8 mg/dL (8.5-10.1); Chloride 100 mmol/L (98-107); Estimated GFR 50.25 (mL/min/1.73m2); Glucose 124 mg/dL (74-106); Potassium 4.4 mmol/L (3.5-5.1); Sodium 135 mmol/L (136-145); Total Protein 7.5 g/dL (6.4-8.2)
[2021-07-29 15:40] LABS: AST 104 U/L (15-37)
== END 2021-07-31 23:59 | disposition home or self-care (01) ==
LOC: INF 02:46
PROVIDERS: PCP Family Medicine; Visit Provider Internal Medicine Hematology & Oncology
DX: D46.9 Myelodysplastic syndrome, unspecified (principal)
CPT/HCPCS: 36430; 36591; 80053; 86850; 86900; 86901; 86920; 86945; 85025; 86644; P9016

== ENCOUNTER 2021-08-27 03:42 | Outpatient (RCR) | payer OTHER, SELFPAY ==
[2021-08-01 00:18] VITALS: BP 152/70; PULSE 69; RESP 17; TEMP 36.4
[2021-08-06 09:04] LABS: Abs Immature Grans 0.13 10^3/uL (0.0-0.06); Absolute Basophil Count 0.12 10^3/uL (0.0-0.2); Absolute Lymphocyte Count 1.25 10^3/uL (1.2-3.4); Absolute Monocyte Count 0.81 10^3/uL (0.1-0.8); Absolute Neutrophil Count 1.75 10^3/uL (1.2-6.7); HCT 26.1 % (40.0-50.0); Immature Grans % 3.2; Lymphocytes % 30.8; MCH 30.2 pg (27.0-33.0); MCHC 34.5 % (32.0-36.0); MCV 87.6 fL (80-95); MPV 13.1 fL (8.0-11.0); Nucleated RBC 1 %; Platelet Count 253 10^3/uL (130-400); RBC 2.98 10^6/uL (4.36-5.78); RDW 19.3 % (11.8-14.1); RDW-SD 59.8 fL; WBC 4.06 10^3/uL (4.4-10.8)
[2021-08-06] MEDS: Normal Saline Flush 10 ML SYR IVP (09:09)
[2021-08-06] MEDS: Heparin 500 UNITS/5 ML SYRINGE IV (09:09)
[2021-08-06 09:17] LABS: ALT 143 U/L (16-63); AST 88 U/L (15-37); Albumin 3.6 g/dL (3.4-5.0); Alkaline Phosphatase 112 U/L (46-116); Anion Gap 5.1 mmol/L (3-11); BUN 30 mg/dL (7-18); Bilirubin, Total 0.8 mg/dL (0.2-1.0); CO2 28.9 mmol/L (21.0-32.0); CREATININE 1.7 mg/dL (0.70-1.30); Calcium 9.1 mg/dL (8.5-10.1); Chloride 101 mmol/L (98-107); Estimated GFR 40.16 (mL/min/1.73m2); Glucose 113 mg/dL (74-106); Potassium 4.4 mmol/L (3.5-5.1); Sodium 135 mmol/L (136-145); Total Protein 7.4 g/dL (6.4-8.2)
[2021-08-13] MEDS: Normal Saline Flush 10 ML SYR IVP (08:49)
[2021-08-13 09:04] LABS: Abs Immature Grans 0.05 10^3/uL (0.0-0.06); Absolute Basophil Count 0.08 10^3/uL (0.0-0.2); Absolute Lymphocyte Count 1.28 10^3/uL (1.2-3.4); Absolute Monocyte Count 0.81 10^3/uL (0.1-0.8); Absolute Neutrophil Count 1.02 10^3/uL (1.2-6.7); Basophils % 2.5; HCT 24.6 % (40.0-50.0); HGB 8.2 g/dL (13.5-17.5); Immature Grans % 1.5; Lymphocytes % 39.5; MCHC 33.3 % (32.0-36.0); MCV 90.1 fL (80-95); MPV 12.7 fL (8.0-11.0); Neutrophils % 31.5; Nucleated RBC 0 %; Platelet Count 220 10^3/uL (130-400); RBC 2.73 10^6/uL (4.36-5.78); RDW 21.9 % (11.8-14.1); RDW-SD 66.5 fL; WBC 3.24 10^3/uL (4.4-10.8)
[2021-08-13 09:13] LABS: ALT 155 U/L (16-63); AST 77 U/L (15-37); Albumin 3.8 g/dL (3.4-5.0); Alkaline Phosphatase 87 U/L (46-116); Anion Gap 8.8 mmol/L (3-11); BUN 38 mg/dL (7-18); Bilirubin, Total 0.9 mg/dL (0.2-1.0); CO2 27.2 mmol/L (21.0-32.0); Calcium 8.8 mg/dL (8.5-10.1); Chloride 100 mmol/L (98-107); Estimated GFR 33.29 (mL/min/1.73m2); Glucose 104 mg/dL (74-106); Potassium 4.6 mmol/L (3.5-5.1); Sodium 136 mmol/L (136-145); Total Protein 7.3 g/dL (6.4-8.2)
[2021-08-13 09:40] LABS: Diff Comment RBC Morph Reviewed
[2021-08-13 09:41] LABS: Anisocytosis 2+; Hypochromasia 1+; Macrocytosis 1+; Microcytosis 1+; Poikilocytes 1+; Polychromasia Present
[2021-08-13 11:00] VITALS: BP 144/73; PULSE 69; RESP 18; TEMP 36.4; O2SAT 100
[2021-08-13] MEDS: Heparin 500 UNITS/5 ML SYRINGE IV (11:20)
[2021-08-13 11:30] VITALS: BP 146/58; PULSE 74; RESP 18; TEMP 36.3; O2SAT 100
[2021-08-13 11:33] VITALS: BP 138/83; PULSE 70; RESP 18; TEMP 36.5; O2SAT 100
[2021-08-13 11:53] VITALS: BP 142/61; PULSE 71; RESP 18; TEMP 36.5; O2SAT 98
[2021-08-13 12:10] VITALS: BP 138/83; BP 144/73; PULSE 69; PULSE 70; RESP 18; TEMP 36.3; TEMP 36.4; O2SAT 100
[2021-08-13 13:35] VITALS: BP 142/76; PULSE 62; RESP 18; TEMP 36.5; O2SAT 98
[2021-08-20] MEDS: Heparin 500 UNITS/5 ML SYRINGE IV (14:48)
[2021-08-20] MEDS: Normal Saline Flush 10 ML SYR IVP (14:48)
[2021-08-20 14:55] LABS: Abs Immature Grans 0.02 10^3/uL (0.0-0.06); Absolute Basophil Count 0.09 10^3/uL (0.0-0.2); Absolute Lymphocyte Count 1.28 10^3/uL (1.2-3.4); Absolute Monocyte Count 0.33 10^3/uL (0.1-0.8); Absolute Neutrophil Count 1.75 10^3/uL (1.2-6.7); Basophils % 2.6; HCT 25.8 % (40.0-50.0); Immature Grans % 0.6; Lymphocytes % 36.9; MCH 31.5 pg (27.0-33.0); MCHC 34.9 % (32.0-36.0); MCV 90.2 fL (80-95); MPV 11.5 fL (8.0-11.0); Monocytes % 9.5; Neutrophils % 50.4; Nucleated RBC 1 %; Platelet Count 224 10^3/uL (130-400); RBC 2.86 10^6/uL (4.36-5.78); RDW 19.9 % (11.8-14.1); RDW-SD 64.6 fL; WBC 3.47 10^3/uL (4.4-10.8)
[2021-08-20 15:08] LABS: Albumin 3.7 g/dL (3.4-5.0); Alkaline Phosphatase 118 U/L (46-116); Anion Gap 6.1 mmol/L (3-11); BUN 34 mg/dL (7-18); Bilirubin, Total 0.6 mg/dL (0.2-1.0); CO2 27.9 mmol/L (21.0-32.0); CREATININE 1.8 mg/dL (0.70-1.30); Calcium 8.6 mg/dL (8.5-10.1); Chloride 103 mmol/L (98-107); Glucose 154 mg/dL (74-106); Potassium 4.6 mmol/L (3.5-5.1); Sodium 137 mmol/L (136-145)
[2021-08-20 16:36] LABS: ALT 134 U/L (16-63)
[2021-08-20 16:37] LABS: AST 69 U/L (15-37)
[2021-08-27] MEDS: Heparin 500 UNITS/5 ML SYRINGE IV (08:45)
[2021-08-27] MEDS: Normal Saline Flush 10 ML SYR IVP (08:45)
[2021-08-27 09:00] LABS: Abs Immature Grans 0.01 10^3/uL (0.0-0.06); Absolute Basophil Count 0.13 10^3/uL (0.0-0.2); Absolute Lymphocyte Count 1.05 10^3/uL (1.2-3.4); Absolute Monocyte Count 0.19 10^3/uL (0.1-0.8); Basophils % 5.5; HCT 27.3 % (40.0-50.0); Immature Grans % 0.4; Lymphocytes % 44.1; MCH 29.9 pg (27.0-33.0); MCV 90.7 fL (80-95); Nucleated RBC 0 %; Platelet Count 287 10^3/uL (130-400); RBC 3.01 10^6/uL (4.36-5.78); RDW-SD 64.3 fL; WBC 2.38 10^3/uL (4.4-10.8)
[2021-08-27 09:13] LABS: ALT 105 U/L (16-63); AST 54 U/L (15-37); Albumin 3.8 g/dL (3.4-5.0); Alkaline Phosphatase 99 U/L (46-116); Anion Gap 8.1 mmol/L (3-11); BUN 26 mg/dL (7-18); Bilirubin, Total 0.7 mg/dL (0.2-1.0); CO2 28.9 mmol/L (21.0-32.0); CREATININE 1.8 mg/dL (0.70-1.30); Chloride 103 mmol/L (98-107); Glucose 141 mg/dL (74-106); Potassium 4.4 mmol/L (3.5-5.1); Sodium 140 mmol/L (136-145); Total Protein 7.4 g/dL (6.4-8.2)
== END 2021-08-31 23:59 | disposition home or self-care (01) ==
LOC: INF 03:42
PROVIDERS: PCP Family Medicine; Visit Provider Internal Medicine Hematology & Oncology
DX: D46.9 Myelodysplastic syndrome, unspecified (principal); Z45.2 Encounter for adjustment and management of vascular access device
CPT/HCPCS: 36430; 36591; 80053; 86850; 86900; 86901; 86920; 86945; 85025; 86644; P9016

== ENCOUNTER 2021-09-24 02:08 | Outpatient (RCR) | payer OTHER, SELFPAY ==
[2021-09-01 00:22] VITALS: BP 142/76; PULSE 62; RESP 18; TEMP 36.5
--- OUTSIDE RECORDS SUMMARY | 2021-09-03 01:29 | XMS_ITS ---
:1950 Author Care Team Providers Name Role Phone NATHAN HOU MD Primary Care Provider [phone] ROXANA MONTAGUE MD Bioinformatics Assistant [phone] [facility] Hematology/Oncology [phone] LORRIE FRY MD Retail Marketing Manager [phone] ARNULFO BOTELLO MD OTHER [phone] Allergies Code Code System Name Reaction Severity Status Onset 821202 RxNorm Advil Other ? Active ? 1191 RxNorm Aspirin Other ? Active ? 6898867 RxNorm Gluten Diarrhea ? Active ? 6211 RxNorm Lactose Diarrhea ? Active ? Shellfish Nausea ? Active ? Derived ? Vomiting ? Active ? Medications Name Status Start Date Stop Date ? ? acyclovir 400 mg tablet Completed ? 01/18/20 20 Take 1 tablet twice a day by oral route. acyclovir 400 mg tabs Active ? Not availa ble allopurinol 300 mg tablet Completed ? 2019 Take 1 tablet every day by oral route. allopurinol 300 mg tabs Active ? Not avai lable ammonium lactate 12 % crea Active ? Not a vailable ciprofloxacin hydrochloride 500 mgtabs Completed ? 10/03/2020 cyclobenzaprine hydrochloride 5 mgtabs Active ? Not available darbepoetin carmen in polysorbat Active ? N ot available inject 300 mg as directed fluconazole 200 mg tablet Completed ? 2019 Take 1 tablet every day by oral route. fluconazole 200 mg tabs Completed ? 10/03/20 20 folic acid 1 mg tablet Completed ? 0 Take 1 tablet every day by oral route. folic acid 1 mg tabs Active ? Not availab le hydroxyzine HCl 25 mg tablet Completed ? Take 1 tablet 3 times a day by oral route as needed. hydroxyzine hydrochloride 25 mg tabs Active ? Not available Levaquin 750 mg tablet Completed ? 0 Take 1 tablet every day by oral route. levofloxacin 750 mg tabs Completed ? 020 metronidazole 500 mg tabs Active ? Not av ailable omeprazole 20 mg capsule,delayed release Completed ? 01/18/2020 Take 1 capsule every day by oral route. omeprazole 20 mg cpdr Active ? Not availa ble ondansetron 4 mg disintegrating tablet Completed ? 01/18/2020 Take 1 tablet every 8 hours by oral route as needed. ondansetron HCl 4 mg tablet Active ? Not available TAKE ONE TABLET BY MOUTH EVERY 8 HOURS NEEDED FOR NAUSEA ondansetron hydrochloride 4 mg tabs Active ? Not available prochlorperazine maleate 5 mg tablet Active ? Not available TAKE ONE TO TWO TABLETS BY MOUTH EVERY 8 HOURS NEEDED FOR NA USEA sildenafil (antihypertensive) 20 mg tablet Active ? Not available Take 1 tablet as needed by oral route. sulfamethoxazole 400 mg-trimethoprim 80 mg tablet Active ? Not available TAKE ONE TABLET BY MOUTH DAILY ON Wednesdays AND WEDNESDAY S sulfamethoxazole/trimethoprim 400-80 mg Active ? Not available tabs testosterone cypionate 200 mg/ml soln Active ? Not available Tylenol 500 mg tablet Active ? Not availa ble Take 2 tablets every 4 hours by oral route as needed. Venclexta 100 mg tablet Active ? Not avai lable Problems Name Status Onset Date Source ? Myelodysplastic Syndrome (Clinical) Active 12/13/2019 ? Iron Overload Active 12/13/2019 ? Anemia Active 12/13/2019 ? Bilateral Cataracts Active 12/13/2019 ? Essential Hypertension Active 12/13/2019 ? Superficial Thrombophlebitis Active 12/13/2019 ? Chronic Respiratory Failure Active 12/13/2019 ? Chronic Kidney Disease Active 12/13/2019 ? Keratosis Active 12/13/2019 ? Rheumatoid Arthritis Active 12/13/2019 ? Hypoxia Active 12/13/2019 ? History of non-Hodgkins Lymphoma Active 12/13/2019 ? Autologous Peripheral Blood Stem Cell Active 12/13/2019 ? Transplant Lymphoma Finding Active 12/13/2019 ? History of Left Hip Replacement Active 12/13/2019 ? History of Right Hip Replacement Active 12/13/2019 ? Chronic Gout without Tophus Active 12/13/2019 ? Procedures Date Name Performed by ? 01/18/2020 CT, Chest, W/o Contrast [facility] Radiology (Internal) [address] [place] [address] (Work Place) 03/13/2020 CT, Chest, W/o Contrast [facility] (Internal) [address] [place] [address] (Work Place) 09/25/2020 US, Echocardiogram [facility]) [address] [place] [address] (Work Place) 10/03/2020 CT, Chest, W/o Contrast [facility] (Internal) [address] [place] [address] (Work Place) Results Lab Results None recorded. Past Encounters 10/03/2020 Hypoxia Lorrie Fry MD: [address] [place] [address], Ph. 03/13/2020 Hypoxia Lorrie Fry MD: [address] [place] [address], Ph. Social History Tobacco Smoking Status Former Smoker Notes: quit , smoked for 15 years 1ppd Vaccine List None recorded. Plan of Care Reminders Provider Appointments None ? ? recorded. Lab None ? ? recorded. Referral None ? ? recorded. Procedures None ? ? recorded. Surgeries None ? ? recorded. Imaging None ? ? recorded. Vitals 10/03/2020 01:30PM Follow Up 30 Height Weight BMI Blood Pressure 166.37 cm 65.6 kg 23.7 kg/m2 153/61 mm[Hg] 03/13/2020 03:00PM Follow Up 30 Height Weight BMI Blood Pressure 166.37 cm 69.5 kg 25.1 kg/m2 137/68 mm[Hg] 01/18/2020 09:00AM Consult 45 Height Weight BMI Blood Pressure 166.37 cm 69.9 kg 25.3 kg/m2 113/57 mm[Hg]
[2021-09-03] MEDS: Normal Saline Flush 10 ML SYR IVP (11:13)
[2021-09-03 11:22] LABS: Abs Immature Grans 0.04 10^3/uL (0.0-0.06); Absolute Lymphocyte Count 1.04 10^3/uL (1.2-3.4); Absolute Monocyte Count 1.12 10^3/uL (0.1-0.8); Absolute Neutrophil Count 0.76 10^3/uL (1.2-6.7); Basophils % 3.3; HCT 27.7 % (40.0-50.0); HGB 9.2 g/dL (13.5-17.5); Immature Grans % 1.3; MCHC 33.2 % (32.0-36.0); MCV 90.2 fL (80-95); MPV 12.2 fL (8.0-11.0); Monocytes % 36.6; Neutrophils % 24.8; Nucleated RBC 0 %; Platelet Count 340 10^3/uL (130-400); RBC 3.07 10^6/uL (4.36-5.78); RDW 21.9 % (11.8-14.1); RDW-SD 67.1 fL; WBC 3.06 10^3/uL (4.4-10.8)
[2021-09-03 11:36] LABS: ALT 130 U/L (16-63); AST 71 U/L (15-37); Albumin 3.9 g/dL (3.4-5.0); Alkaline Phosphatase 94 U/L (46-116); Anion Gap 6.6 mmol/L (3-11); BUN 24 mg/dL (7-18); Bilirubin, Total 0.9 mg/dL (0.2-1.0); CO2 28.4 mmol/L (21.0-32.0); CREATININE 1.8 mg/dL (0.70-1.30); Calcium 9.2 mg/dL (8.5-10.1); Chloride 104 mmol/L (98-107); Glucose 131 mg/dL (74-106); Potassium 4.2 mmol/L (3.5-5.1); Sodium 139 mmol/L (136-145); Total Protein 7.5 g/dL (6.4-8.2)
[2021-09-03 11:48] LABS: Anisocytosis 2+; Diff Comment Diff Reviewed; Polychromasia Present
[2021-09-03 11:49] LABS: Poikilocytes 1+
[2021-09-10 08:54] LABS: Abs Immature Grans 0.18 10^3/uL (0.0-0.06); Absolute Basophil Count 0.13 10^3/uL (0.0-0.2); Absolute Eosinophil Count 0.01 10^3/uL (0.0-0.7); Absolute Lymphocyte Count 1.44 10^3/uL (1.2-3.4); Absolute Monocyte Count 0.74 10^3/uL (0.1-0.8); Absolute Neutrophil Count 1.22 10^3/uL (1.2-6.7); Basophils % 3.5; Eosinophils % 0.3; HCT 22.6 % (40.0-50.0); HGB 7.7 g/dL (13.5-17.5); Immature Grans % 4.8; Lymphocytes % 38.7; MCH 30.6 pg (27.0-33.0); MCHC 34.1 % (32.0-36.0); MCV 89.7 fL (80-95); MPV 12.7 fL (8.0-11.0); Monocytes % 19.9; Neutrophils % 32.8; Nucleated RBC 1 %; Platelet Count 307 10^3/uL (130-400); RBC 2.52 10^6/uL (4.36-5.78); RDW 20.7 % (11.8-14.1); RDW-SD 64.5 fL; WBC 3.72 10^3/uL (4.4-10.8)
[2021-09-10 09:08] LABS: BUN 25 mg/dL (7-18); Calcium 9.1 mg/dL (8.5-10.1); Glucose 114 mg/dL (74-106)
[2021-09-10 09:09] LABS: ALT 128 U/L (16-63); AST 84 U/L (15-37); Albumin 3.7 g/dL (3.4-5.0); Alkaline Phosphatase 94 U/L (46-116); Anion Gap 7.3 mmol/L (3-11); Bilirubin, Total 0.9 mg/dL (0.2-1.0); CO2 28.7 mmol/L (21.0-32.0); Chloride 102 mmol/L (98-107); Estimated GFR 33.29 (mL/min/1.73m2); Potassium 4.7 mmol/L (3.5-5.1); Sodium 138 mmol/L (136-145); Total Protein 7.3 g/dL (6.4-8.2)
[2021-09-10 09:27] LABS: Anisocytosis 2+; Diff Comment RBC Morph Reviewed; Microcytosis 1+; Spherocytes 1+
[2021-09-10 09:28] LABS: Poikilocytes 2+
[2021-09-10 10:05] VITALS: BP 135/75; PULSE 70; RESP 18; TEMP 36.6; O2SAT 99
[2021-09-10 10:24] VITALS: BP 138/81; PULSE 72; RESP 17; TEMP 36.5; O2SAT 100
[2021-09-10 10:25] VITALS: BP 145/66; PULSE 71; RESP 17; TEMP 36.5; O2SAT 100
[2021-09-10 11:14] VITALS: BP 162/76; PULSE 70; RESP 16; TEMP 36.5; O2SAT 100
[2021-09-10 11:44] VITALS: BP 169/79; PULSE 69; RESP 17; TEMP 36.5; O2SAT 100
[2021-09-10] MEDS: Heparin 500 UNITS/5 ML SYRINGE IV (11:47)
[2021-09-10] MEDS: Normal Saline Flush 10 ML SYR IVP (11:47)
[2021-09-17] MEDS: Normal Saline Flush 10 ML SYR IVP (11:26)
[2021-09-17 11:38] LABS: Abs Immature Grans 0.03 10^3/uL (0.0-0.06); Absolute Monocyte Count 0.66 10^3/uL (0.1-0.8); Absolute Neutrophil Count 1.46 10^3/uL (1.2-6.7); Basophils % 2.8; HGB 8.1 g/dL (13.5-17.5); Immature Grans % 0.8; Lymphocytes % 36.6; MCH 30.1 pg (27.0-33.0); MCHC 33.8 % (32.0-36.0); MCV 89.2 fL (80-95); MPV 10.5 fL (8.0-11.0); Monocytes % 18.6; Neutrophils % 41.2; Nucleated RBC 0 %; Platelet Count 217 10^3/uL (130-400); RBC 2.69 10^6/uL (4.36-5.78); RDW 22.5 % (11.8-14.1); RDW-SD 66.3 fL; WBC 3.55 10^3/uL (4.4-10.8)
[2021-09-17 12:05] LABS: ALT 115 U/L (16-63); AST 69 U/L (15-37); Albumin 3.8 g/dL (3.4-5.0); Alkaline Phosphatase 95 U/L (46-116); Anion Gap 10.9 mmol/L (3-11); BUN 33 mg/dL (7-18); Bilirubin, Total 0.8 mg/dL (0.2-1.0); CO2 23.1 mmol/L (21.0-32.0); CREATININE 1.8 mg/dL (0.70-1.30); Calcium 9.3 mg/dL (8.5-10.1); Chloride 103 mmol/L (98-107); Glucose 104 mg/dL (74-106); Potassium 5.1 mmol/L (3.5-5.1); Sodium 137 mmol/L (136-145); Total Protein 7.3 g/dL (6.4-8.2)
[2021-09-17 12:08] LABS: Anisocytosis 3+; Basophilic Stippling Present; Diff Comment RBC Morph Reviewed; Hypochromasia 1+; Microcytosis 2+; Polychromasia Present
[2021-09-17 12:09] LABS: Poikilocytes 2+; Spherocytes 1+
[2021-09-18 08:45] VITALS: BP 146/63; PULSE 72; RESP 17; TEMP 36.5; O2SAT 99
[2021-09-18 08:54] VITALS: BP 121/64; PULSE 70; RESP 18; TEMP 36.5; O2SAT 100
[2021-09-18] MEDS: Normal Saline Flush 10 ML SYR IVP (09:02)
[2021-09-18] MEDS: Heparin 500 UNITS/5 ML SYRINGE IV (09:02)
[2021-09-18 09:09] VITALS: BP 149/70; PULSE 65; RESP 17; TEMP 36.5; O2SAT 100
[2021-09-18 09:39] VITALS: BP 140/64; PULSE 68; RESP 17; TEMP 36.5; O2SAT 100
[2021-09-18 10:30] VITALS: BP 157/62; PULSE 67; RESP 17; TEMP 36.5; O2SAT 100
[2021-09-24] MEDS: Heparin 500 UNITS/5 ML SYRINGE IV (08:58)
[2021-09-24] MEDS: Normal Saline Flush 10 ML SYR IVP (08:58)
[2021-09-24 09:12] LABS: Abs Immature Grans 0.01 10^3/uL (0.0-0.06); Absolute Basophil Count 0.08 10^3/uL (0.0-0.2); Absolute Lymphocyte Count 0.86 10^3/uL (1.2-3.4); Absolute Monocyte Count 0.31 10^3/uL (0.1-0.8); Absolute Neutrophil Count 1.57 10^3/uL (1.2-6.7); Basophils % 2.8; HCT 25.6 % (40.0-50.0); HGB 8.5 g/dL (13.5-17.5); Immature Grans % 0.4; Lymphocytes % 30.4; MCHC 33.2 % (32.0-36.0); MCV 90.5 fL (80-95); Neutrophils % 55.4; Nucleated RBC 0 %; Platelet Count 213 10^3/uL (130-400); RBC 2.83 10^6/uL (4.36-5.78); RDW 19.9 % (11.8-14.1); WBC 2.83 10^3/uL (4.4-10.8)
[2021-09-24 09:27] LABS: ALT 116 U/L (16-63); AST 59 U/L (15-37); Albumin 3.7 g/dL (3.4-5.0); Alkaline Phosphatase 90 U/L (46-116); Anion Gap 7.6 mmol/L (3-11); BUN 27 mg/dL (7-18); Bilirubin, Total 1.1 mg/dL (0.2-1.0); CO2 28.4 mmol/L (21.0-32.0); CREATININE 1.7 mg/dL (0.70-1.30); Chloride 102 mmol/L (98-107); Estimated GFR 40.16 (mL/min/1.73m2); Glucose 100 mg/dL (74-106); Potassium 4.7 mmol/L (3.5-5.1); Sodium 138 mmol/L (136-145); Total Protein 7.1 g/dL (6.4-8.2)
[2021-09-24 09:28] VITALS: BP 110/64; PULSE 78; RESP 17; TEMP 36.7; O2SAT 100
[2021-09-24 10:25] VITALS: BP 157/75; PULSE 74; RESP 18; TEMP 36.7; O2SAT 100
[2021-09-24 10:40] VITALS: BP 128/59; PULSE 78; RESP 17; TEMP 36.5; O2SAT 99
[2021-09-24 10:57] VITALS: BP 124/56; PULSE 75; RESP 18; TEMP 36.5; O2SAT 100
[2021-09-24 11:25] VITALS: BP 126/74; PULSE 74; RESP 17; TEMP 36.6; O2SAT 99
[2021-09-24 12:12] VITALS: BP 156/82; PULSE 75; RESP 16; TEMP 36.4; O2SAT 100
== END 2021-09-30 23:59 | disposition home or self-care (01) ==
LOC: INF 02:08
PROVIDERS: PCP Family Medicine; Visit Provider Internal Medicine Hematology & Oncology
DX: D46.9 Myelodysplastic syndrome, unspecified (principal)
CPT/HCPCS: 36430; 36591; 80053; 86850; 86900; 86901; 86920; 86945; 85025; 86644; P9016

== ENCOUNTER 2021-10-29 09:15 | Outpatient (RCR) | payer OTHER, SELFPAY ==
[2021-10-01 00:20] VITALS: BP 156/82; PULSE 75; RESP 16; TEMP 36.4
--- OUTSIDE RECORDS SUMMARY | 2021-10-01 01:14 | XMS_ITS ---
:1950 Author Care Team Providers Name Role Phone NATHAN HOU MD Primary Care Provider [phone] ROXANA MONTAGUE MD [employer] Radio Operator [phone] [facility] Hematology/Oncology [phone] LORRIE FRY MD Inspector Materials And Processes [phone] ARNULFO BOTELLO MD OTHER [phone] Allergies Code Code System Name Reaction Severity Status Onset 441270 RxNorm Advil Other ? Active ? 1191 RxNorm Aspirin Other ? Active ? 7114171 RxNorm Gluten Diarrhea ? Active ? 6211 [...] by ? 01/18/2020 CT, Chest, W/o Contrast [facility] Radiology (Internal) [address] [place] [address] (Work Place) 03/13/2020 CT, Chest, W/o Contrast [facility] (Internal) [address] [place] [address] (Work Place) 09/25/2020 US, [facility]ocardiogram [facility] ([facility]) [address] [place] [address] (Work Place) 10/03/2020 CT, Chest, W/o Contrast [facility] (Internal) [address] [place] [address] (Work Place) Results Lab Results None recorded. Past Encounters 10/03/2020 Hypoxia Lorrie Fry MD: [address] [place] [address], Ph. Social History Tobacco Smoking Status Former [...]
[2021-10-01] MEDS: Heparin 500 UNITS/5 ML SYRINGE IV (13:31)
[2021-10-01] MEDS: Normal Saline Flush 10 ML SYR IVP (13:31)
[2021-10-01 13:38] LABS: Abs Immature Grans 0.01 10^3/uL (0.0-0.06); Absolute Basophil Count 0.14 10^3/uL (0.0-0.2); Absolute Lymphocyte Count 1.13 10^3/uL (1.2-3.4); Absolute Monocyte Count 0.16 10^3/uL (0.1-0.8); Absolute Neutrophil Count 0.67 10^3/uL (1.2-6.7); Basophils % 6.6; HCT 27.6 % (40.0-50.0); HGB 9.2 g/dL (13.5-17.5); Immature Grans % 0.5; Lymphocytes % 53.6; MCHC 33.3 % (32.0-36.0); MCV 89.9 fL (80-95); MPV 11.2 fL (8.0-11.0); Monocytes % 7.6; Neutrophils % 31.7; Nucleated RBC 0 %; Platelet Count 216 10^3/uL (130-400); RBC 3.07 10^6/uL (4.36-5.78); RDW 18.2 % (11.8-14.1); RDW-SD 58.6 fL; WBC 2.11 10^3/uL (4.4-10.8)
[2021-10-01 13:48] LABS: Anisocytosis 2+; Diff Comment Diff Reviewed
[2021-10-01 13:49] LABS: Poikilocytes 2+
[2021-10-01 13:52] LABS: ALT 122 U/L (16-63); AST 66 U/L (15-37); Albumin 3.9 g/dL (3.4-5.0); Alkaline Phosphatase 85 U/L (46-116); Anion Gap 9.2 mmol/L (3-11); BUN 32 mg/dL (7-18); Bilirubin, Total 0.8 mg/dL (0.2-1.0); CO2 25.8 mmol/L (21.0-32.0); CREATININE 1.7 mg/dL (0.70-1.30); Calcium 8.9 mg/dL (8.5-10.1); Chloride 104 mmol/L (98-107); Estimated GFR 40.16 (mL/min/1.73m2); Glucose 140 mg/dL (74-106); Potassium 4.2 mmol/L (3.5-5.1); Sodium 139 mmol/L (136-145); Total Protein 7.4 g/dL (6.4-8.2)
[2021-10-06] MEDS: Normal Saline Flush 10 ML SYR IVP (08:59)
[2021-10-06] MEDS: Heparin 500 UNITS/5 ML SYRINGE IV (08:59)
[2021-10-06 09:01] LABS: HCT 26.6 % (40.0-50.0); HGB 8.9 g/dL (13.5-17.5); MCH 29.9 pg (27.0-33.0); MCHC 33.5 % (32.0-36.0); MCV 89.3 fL (80-95); MPV 11.7 fL (8.0-11.0); Nucleated RBC 0 %; Platelet Count 209 10^3/uL (130-400); RBC 2.98 10^6/uL (4.36-5.78); RDW 17.5 % (11.8-14.1); RDW-SD 56.1 fL
[2021-10-06 09:09] LABS: WBC 1.99 10^3/uL (4.4-10.8)
[2021-10-06 09:33] LABS: Absolute Basophil Count 0.06 10^3/uL (0.0-0.2); Absolute Lymphocyte Count 1.19 10^3/uL (1.2-3.4); Absolute Monocyte Count 0.42 10^3/uL (0.1-0.8); Absolute Neutrophil Count 0.32 10^3/uL (1.2-6.7); Atypical Lymphocytes % 12
[2021-10-06 09:34] LABS: Diff Comment Manual Differential; RBC Morphology Normal
[2021-10-13] MEDS: Normal Saline Flush 10 ML SYR IVP (08:38)
[2021-10-13 09:07] LABS: Abs Immature Grans 0.13 10^3/uL (0.0-0.06); Absolute Basophil Count 0.08 10^3/uL (0.0-0.2); Absolute Eosinophil Count 0.01 10^3/uL (0.0-0.7); Absolute Lymphocyte Count 1.35 10^3/uL (1.2-3.4); Absolute Monocyte Count 1.04 10^3/uL (0.1-0.8); Absolute Neutrophil Count 0.75 10^3/uL (1.2-6.7); Basophils % 2.4; Eosinophils % 0.3; HCT 25.6 % (40.0-50.0); HGB 8.4 g/dL (13.5-17.5); Immature Grans % 3.9; Lymphocytes % 40.2; MCH 29.9 pg (27.0-33.0); MCHC 32.8 % (32.0-36.0); MCV 91.1 fL (80-95); Neutrophils % 22.2; Nucleated RBC 1 %; Platelet Count 221 10^3/uL (130-400); RBC 2.81 10^6/uL (4.36-5.78); WBC 3.36 10^3/uL (4.4-10.8)
[2021-10-13 09:44] LABS: Anisocytosis 2+; Diff Comment Diff Reviewed; MPV 12.2 fL (8.0-11.0); Poikilocytes 2+
[2021-10-13 10:16] VITALS: BP 143/82; PULSE 70; RESP 16; TEMP 36.6; O2SAT 100
[2021-10-13 10:30] VITALS: BP 168/70; PULSE 65; RESP 17; TEMP 36.4; O2SAT 100
[2021-10-13 10:51] VITALS: BP 148/68; PULSE 64; RESP 16; TEMP 36.5; O2SAT 100
[2021-10-13 11:20] VITALS: BP 196/76; PULSE 68; RESP 17; TEMP 36.5; O2SAT 98
[2021-10-13 11:55] VITALS: BP 180/80; PULSE 67; RESP 16; TEMP 36.5; O2SAT 97
[2021-10-13 12:10] VITALS: BP 180/90; PULSE 67; RESP 16; TEMP 36.5; O2SAT 99
[2021-10-14] MEDS: Heparin 500 UNITS/5 ML SYRINGE IV (10:46)
[2021-10-14] MEDS: Normal Saline Flush 10 ML SYR IVP (10:46)
[2021-10-20] MEDS: Normal Saline Flush 10 ML SYR IVP (13:08)
[2021-10-20 13:17] LABS: Abs Immature Grans 0.08 10^3/uL (0.0-0.06); Absolute Basophil Count 0.15 10^3/uL (0.0-0.2); Absolute Lymphocyte Count 1.52 10^3/uL (1.2-3.4); Absolute Monocyte Count 1.21 10^3/uL (0.1-0.8); Basophils % 3.2; HCT 29.4 % (40.0-50.0); Immature Grans % 1.7; Lymphocytes % 31.9; MCH 30.2 pg (27.0-33.0); MCV 88.8 fL (80-95); Monocytes % 25.4; Neutrophils % 37.8; Nucleated RBC 0 %; RBC 3.31 10^6/uL (4.36-5.78); RDW 17.3 % (11.8-14.1); RDW-SD 54.3 fL; WBC 4.76 10^3/uL (4.4-10.8)
[2021-10-20 13:40] LABS: ALT 150 U/L (16-63); Albumin 3.9 g/dL (3.4-5.0); Alkaline Phosphatase 101 U/L (46-116); Anion Gap 8.3 mmol/L (3-11); BUN 29 mg/dL (7-18); Bilirubin, Total 0.7 mg/dL (0.2-1.0); CO2 25.7 mmol/L (21.0-32.0); CREATININE 1.6 mg/dL (0.70-1.30); Chloride 105 mmol/L (98-107); Estimated GFR 43.07 (mL/min/1.73m2); Glucose 123 mg/dL (74-106); Potassium 4.3 mmol/L (3.5-5.1); Sodium 139 mmol/L (136-145); Total Protein 7.3 g/dL (6.4-8.2)
[2021-10-20 13:56] LABS: Platelet Count 207 10^3/uL (130-400)
[2021-10-20 14:22] LABS: AST 152 U/L (15-37)
[2021-10-29] MEDS: Normal Saline Flush 10 ML SYR IVP (08:49)
[2021-10-29 09:07] LABS: Abs Immature Grans 0.11 10^3/uL (0.0-0.06); Absolute Basophil Count 0.07 10^3/uL (0.0-0.2); Absolute Lymphocyte Count 1.22 10^3/uL (1.2-3.4); Absolute Monocyte Count 0.59 10^3/uL (0.1-0.8); Absolute Neutrophil Count 1.41 10^3/uL (1.2-6.7); Basophils % 2.1; HCT 25.2 % (40.0-50.0); HGB 8.4 g/dL (13.5-17.5); Immature Grans % 3.2; Lymphocytes % 35.9; MCH 30.1 pg (27.0-33.0); MCHC 33.3 % (32.0-36.0); MCV 90.3 fL (80-95); Monocytes % 17.4; Neutrophils % 41.4; Nucleated RBC 1 %; RBC 2.79 10^6/uL (4.36-5.78); RDW 17.1 % (11.8-14.1)
[2021-10-29 09:16] LABS: Diff Comment Diff Reviewed
[2021-10-29 09:17] LABS: Anisocytosis 1+; Macrocytosis 1+; Platelet Count 195 10^3/uL (130-400); Poikilocytes 2+
[2021-10-29 09:20] LABS: ALT 169 U/L (16-63); AST 82 U/L (15-37); Albumin 3.6 g/dL (3.4-5.0); Alkaline Phosphatase 116 U/L (46-116); Anion Gap 8.3 mmol/L (3-11); BUN 30 mg/dL (7-18); Bilirubin, Total 0.6 mg/dL (0.2-1.0); CO2 27.7 mmol/L (21.0-32.0); CREATININE 1.7 mg/dL (0.70-1.30); Calcium 8.9 mg/dL (8.5-10.1); Chloride 106 mmol/L (98-107); Estimated GFR 40.16 (mL/min/1.73m2); Glucose 146 mg/dL (74-106); Sodium 142 mmol/L (136-145); Total Protein 7.2 g/dL (6.4-8.2)
[2021-10-29 10:14] VITALS: BP 128/76; PULSE 75; RESP 12; TEMP 36.5; O2SAT 100
[2021-10-29 10:29] VITALS: BP 154/85; PULSE 74; RESP 12; TEMP 36.5; O2SAT 96
[2021-10-29 11:05] VITALS: BP 162/63; PULSE 63; RESP 16; TEMP 36.4; O2SAT 95
[2021-10-29 11:40] VITALS: BP 160/74; PULSE 61; RESP 16; TEMP 36.4; O2SAT 97
[2021-10-29 12:20] VITALS: BP 180/82; PULSE 75; RESP 16; TEMP 36.5; O2SAT 98
[2021-10-29] MEDS: Heparin 500 UNITS/5 ML SYRINGE IV (12:30)
== END 2021-10-31 23:59 | disposition home or self-care (01) ==
LOC: INF 09:15
PROVIDERS: PCP Family Medicine; Visit Provider Internal Medicine Hematology & Oncology
DX: D46.9 Myelodysplastic syndrome, unspecified (principal); Z45.2 Encounter for adjustment and management of vascular access device
CPT/HCPCS: 36430; 36591; 80053; 86850; 86900; 86901; 86920; 86945; 96523; 85025; 86644; P9016

== ENCOUNTER 2021-12-01 10:35 | Outpatient (RCR) | payer OTHER, SELFPAY ==
[2021-11-01 00:17] VITALS: BP 180/82; PULSE 75; RESP 16; TEMP 36.5
[2021-11-05] MEDS: Normal Saline Flush 10 ML SYR IVP (08:30)
[2021-11-05] MEDS: Heparin 500 UNITS/5 ML SYRINGE IV (08:30)
[2021-11-05 08:51] LABS: Abs Immature Grans 0.02 10^3/uL (0.0-0.06); HCT 27.7 % (40.0-50.0); MCH 29.8 pg (27.0-33.0); MCHC 32.5 % (32.0-36.0); MCV 91.7 fL (80-95); MPV 11.2 fL (8.0-11.0); Nucleated RBC 0 %; RBC 3.02 10^6/uL (4.36-5.78); RDW 17.8 % (11.8-14.1); RDW-SD 57.8 fL; WBC 2.59 10^3/uL (4.4-10.8)
[2021-11-05 09:10] LABS: ALT 126 U/L (16-63); AST 66 U/L (15-37); Albumin 3.5 g/dL (3.4-5.0); Alkaline Phosphatase 95 U/L (46-116); Anion Gap 6.2 mmol/L (3-11); BUN 27 mg/dL (7-18); Bilirubin, Total 0.6 mg/dL (0.2-1.0); CO2 27.8 mmol/L (21.0-32.0); CREATININE 1.6 mg/dL (0.70-1.30); Calcium 8.7 mg/dL (8.5-10.1); Chloride 107 mmol/L (98-107); Estimated GFR 43.07 (mL/min/1.73m2); Glucose 123 mg/dL (74-106); Potassium 4.2 mmol/L (3.5-5.1); Sodium 141 mmol/L (136-145); Total Protein 6.8 g/dL (6.4-8.2)
[2021-11-05 09:31] LABS: Absolute Eosinophil Count 0.05 10^3/uL (0.0-0.7); Absolute Lymphocyte Count 1.04 10^3/uL (1.2-3.4); Absolute Monocyte Count 0.47 10^3/uL (0.1-0.8); Absolute Neutrophil Count 0.93 10^3/uL (1.2-6.7); Atypical Lymphocytes % 2
[2021-11-05 09:32] LABS: Diff Comment Manual Differential
[2021-11-05 09:33] LABS: Hypochromasia 1+; Platelet Count 146 10^3/uL (130-400); Polychromasia Present
[2021-11-12] MEDS: Heparin 500 UNITS/5 ML SYRINGE IV (08:39)
[2021-11-12] MEDS: Normal Saline Flush 10 ML SYR IVP (08:39)
[2021-11-12 08:47] LABS: Abs Immature Grans 0.02 10^3/uL (0.0-0.06); Absolute Basophil Count 0.12 10^3/uL (0.0-0.2); Absolute Eosinophil Count 0.01 10^3/uL (0.0-0.7); Absolute Lymphocyte Count 0.92 10^3/uL (1.2-3.4); Absolute Monocyte Count 0.33 10^3/uL (0.1-0.8); Absolute Neutrophil Count 1.63 10^3/uL (1.2-6.7); Eosinophils % 0.3; HCT 25.4 % (40.0-50.0); HGB 8.5 g/dL (13.5-17.5); Immature Grans % 0.7; Lymphocytes % 30.4; MCH 30.4 pg (27.0-33.0); MCHC 33.5 % (32.0-36.0); MCV 90.7 fL (80-95); MPV 11.2 fL (8.0-11.0); Monocytes % 10.9; Neutrophils % 53.7; Nucleated RBC 0 %; Platelet Count 158 10^3/uL (130-400); RDW 18.2 % (11.8-14.1); RDW-SD 59.3 fL; WBC 3.03 10^3/uL (4.4-10.8)
[2021-11-12 09:01] LABS: ALT 146 U/L (16-63); AST 68 U/L (15-37); Albumin 3.8 g/dL (3.4-5.0); Alkaline Phosphatase 99 U/L (46-116); Anion Gap 7.9 mmol/L (3-11); BUN 28 mg/dL (7-18); Bilirubin, Total 0.6 mg/dL (0.2-1.0); CO2 26.1 mmol/L (21.0-32.0); CREATININE 1.5 mg/dL (0.70-1.30); Chloride 107 mmol/L (98-107); Glucose 115 mg/dL (74-106); Sodium 141 mmol/L (136-145); Total Protein 7.3 g/dL (6.4-8.2)
[2021-11-19] MEDS: Heparin 500 UNITS/5 ML SYRINGE IV (08:28)
[2021-11-19] MEDS: Normal Saline Flush 10 ML SYR IVP (08:28)
[2021-11-19 08:33] LABS: Abs Immature Grans 0.02 10^3/uL (0.0-0.06); HCT 23.5 % (40.0-50.0); HGB 7.7 g/dL (13.5-17.5); MCH 30.4 pg (27.0-33.0); MCHC 32.8 % (32.0-36.0); MCV 92.9 fL (80-95); MPV 11.3 fL (8.0-11.0); Nucleated RBC 0 %; RBC 2.53 10^6/uL (4.36-5.78); RDW 18.8 % (11.8-14.1); RDW-SD 62.6 fL; WBC 2.53 10^3/uL (4.4-10.8)
[2021-11-19 08:47] LABS: ALT 110 U/L (16-63); AST 56 U/L (15-37); Albumin 3.8 g/dL (3.4-5.0); Alkaline Phosphatase 92 U/L (46-116); Anion Gap 8.5 mmol/L (3-11); BUN 39 mg/dL (7-18); Bilirubin, Total 0.8 mg/dL (0.2-1.0); CO2 24.5 mmol/L (21.0-32.0); CREATININE 1.7 mg/dL (0.70-1.30); Chloride 105 mmol/L (98-107); Estimated GFR 40.16 (mL/min/1.73m2); Glucose 108 mg/dL (74-106); Potassium 4.2 mmol/L (3.5-5.1); Sodium 138 mmol/L (136-145); Total Protein 7.4 g/dL (6.4-8.2)
[2021-11-19 08:51] LABS: Platelet Count 185 10^3/uL (130-400)
[2021-11-19 08:52] LABS: Absolute Basophil Count 0.03 10^3/uL (0.0-0.2); Absolute Eosinophil Count 0.05 10^3/uL (0.0-0.7); Absolute Lymphocyte Count 1.09 10^3/uL (1.2-3.4); Absolute Monocyte Count 0.35 10^3/uL (0.1-0.8); Absolute Neutrophil Count 1.01 10^3/uL (1.2-6.7); Atypical Lymphocytes % 1; Bands % 4; Diff Comment Manual Differential; Hypochromasia 2+; Polychromasia Present
[2021-11-26] MEDS: Heparin 500 UNITS/5 ML SYRINGE IV (09:28)
[2021-11-26] MEDS: Normal Saline Flush 10 ML SYR IVP (09:28)
[2021-11-26 09:42] LABS: Abs Immature Grans 0.09 10^3/uL (0.0-0.06); Absolute Basophil Count 0.08 10^3/uL (0.0-0.2); Absolute Lymphocyte Count 1.29 10^3/uL (1.2-3.4); Absolute Neutrophil Count 0.73 10^3/uL (1.2-6.7); Basophils % 2.7; HCT 25.3 % (40.0-50.0); HGB 8.4 g/dL (13.5-17.5); Lymphocytes % 43.1; MCHC 33.2 % (32.0-36.0); MCV 93.4 fL (80-95); MPV 13.1 fL (8.0-11.0); Monocytes % 26.8; Neutrophils % 24.4; Nucleated RBC 1 %; Platelet Count 250 10^3/uL (130-400); RBC 2.71 10^6/uL (4.36-5.78); RDW 21.3 % (11.8-14.1); RDW-SD 68.4 fL; WBC 2.99 10^3/uL (4.4-10.8)
[2021-11-26 09:54] LABS: ALT 106 U/L (16-63); AST 60 U/L (15-37); Albumin 3.9 g/dL (3.4-5.0); Alkaline Phosphatase 87 U/L (46-116); Anion Gap 9.6 mmol/L (3-11); BUN 36 mg/dL (7-18); Bilirubin, Total 0.6 mg/dL (0.2-1.0); CO2 25.4 mmol/L (21.0-32.0); CREATININE 1.7 mg/dL (0.70-1.30); Calcium 8.9 mg/dL (8.5-10.1); Chloride 106 mmol/L (98-107); Estimated GFR 40.16 (mL/min/1.73m2); Glucose 130 mg/dL (74-106); Sodium 141 mmol/L (136-145); Total Protein 7.6 g/dL (6.4-8.2)
[2021-11-26 10:27] LABS: Anisocytosis 2+; Diff Comment Diff Reviewed
[2021-12-01] MEDS: Normal Saline Flush 10 ML SYR IVP (10:59)
[2021-12-01 11:11] LABS: HCT 24.4 % (40.0-50.0); HGB 8.2 g/dL (13.5-17.5); MCH 31.4 pg (27.0-33.0); MCHC 33.6 % (32.0-36.0); MCV 93.5 fL (80-95); Platelet Count 180 10^3/uL (130-400); RBC 2.61 10^6/uL (4.36-5.78); RDW 21.9 % (11.8-14.1); RDW-SD 70.4 fL
[2021-12-01 11:23] LABS: ALT 102 U/L (16-63); AST 66 U/L (15-37); Albumin 3.9 g/dL (3.4-5.0); Alkaline Phosphatase 82 U/L (46-116); Anion Gap 9.4 mmol/L (3-11); BUN 32 mg/dL (7-18); Bilirubin, Total 0.7 mg/dL (0.2-1.0); CO2 26.6 mmol/L (21.0-32.0); CREATININE 1.6 mg/dL (0.70-1.30); Calcium 9.1 mg/dL (8.5-10.1); Chloride 104 mmol/L (98-107); Estimated GFR 43.07 (mL/min/1.73m2); Glucose 105 mg/dL (74-106); Potassium 4.4 mmol/L (3.5-5.1); Sodium 140 mmol/L (136-145); Total Protein 7.6 g/dL (6.4-8.2)
[2021-12-01 11:26] LABS: Absolute Lymphocyte Count 1.69 10^3/uL (1.2-3.4); Absolute Neutrophil Count 1.41 10^3/uL (1.2-6.7); Bands % 5
[2021-12-01 11:27] LABS: Absolute Basophil Count 0.09 10^3/uL (0.0-0.2); Absolute Monocyte Count 1.27 10^3/uL (0.1-0.8); Myelocytes % 5; Nucleated RBC 0 %
[2021-12-01 11:28] LABS: Anisocytosis 2+; Diff Comment Manual Differential; Polychromasia Present
== END 2021-12-01 23:59 | disposition home or self-care (01) ==
LOC: INF 10:35
PROVIDERS: PCP Family Medicine; Visit Provider Internal Medicine Hematology & Oncology
DX: D46.9 Myelodysplastic syndrome, unspecified (principal); Z45.2 Encounter for adjustment and management of vascular access device
CPT/HCPCS: 36591; 80053; 86850; 86900; 86901; 86920; 85025

== ENCOUNTER 2021-12-24 00:55 | Outpatient (RCR) | payer OTHER, SELFPAY ==
[2021-12-02 00:08] VITALS: BP 180/82; PULSE 75; RESP 16; TEMP 36.5
[2021-12-10] VITALS (9 sets, daily range): BP systolic 124–183; BP diastolic 59–80; PULSE 68–82; RESP 16–18; TEMP 36.3–36.7; O2SAT 99–100
[2021-12-10] MEDS: Heparin 500 UNITS/5 ML SYRINGE IV (08:38)
[2021-12-10] MEDS: Normal Saline Flush 10 ML SYR IVP (08:38)
[2021-12-10 08:53] LABS: HCT 21.2 % (40.0-50.0); MCH 30.1 pg (27.0-33.0); MCHC 32.1 % (32.0-36.0); MCV 93.8 fL (80-95); Platelet Count 253 10^3/uL (130-400); RBC 2.26 10^6/uL (4.36-5.78); RDW 22.1 % (11.8-14.1); RDW-SD 69.5 fL; WBC 4.41 10^3/uL (4.4-10.8)
[2021-12-10 09:04] LABS: HGB 6.8 g/dL (13.5-17.5)
[2021-12-10 09:10] LABS: Absolute Basophil Count 0.13 10^3/uL (0.0-0.2); Absolute Lymphocyte Count 1.59 10^3/uL (1.2-3.4); Absolute Monocyte Count 0.62 10^3/uL (0.1-0.8); Absolute Neutrophil Count 1.85 10^3/uL (1.2-6.7); Anisocytosis 3+; Atypical Lymphocytes % 1; Bands % 10; Diff Comment Manual Differential; Metamyelocytes % 4; Myelocytes % 1; Nucleated RBC 1 %
[2021-12-17] MEDS: Heparin 500 UNITS/5 ML SYRINGE IV (08:25)
[2021-12-17] MEDS: Normal Saline Flush 10 ML SYR IVP (08:25)
[2021-12-17 08:33] LABS: Abs Immature Grans 0.01 10^3/uL (0.0-0.06); Absolute Basophil Count 0.08 10^3/uL (0.0-0.2); Absolute Lymphocyte Count 1.01 10^3/uL (1.2-3.4); Absolute Monocyte Count 0.68 10^3/uL (0.1-0.8); Absolute Neutrophil Count 0.96 10^3/uL (1.2-6.7); Basophils % 2.9; HGB 9.4 g/dL (13.5-17.5); Immature Grans % 0.4; Lymphocytes % 36.9; MCH 30.5 pg (27.0-33.0); MCHC 32.4 % (32.0-36.0); MCV 94.2 fL (80-95); Monocytes % 24.8; Nucleated RBC 0 %; RBC 3.08 10^6/uL (4.36-5.78); RDW 19.6 % (11.8-14.1); RDW-SD 63.2 fL; WBC 2.74 10^3/uL (4.4-10.8)
[2021-12-17 08:46] LABS: Anisocytosis 1+; Diff Comment Diff Reviewed; Platelet Count 137 10^3/uL (130-400)
[2021-12-24] MEDS: Normal Saline Flush 10 ML SYR IVP (08:52)
[2021-12-24] MEDS: Heparin 500 UNITS/5 ML SYRINGE IV (08:53)
[2021-12-24 09:00] LABS: Abs Immature Grans 0.01 10^3/uL (0.0-0.06); Absolute Basophil Count 0.08 10^3/uL (0.0-0.2); Absolute Lymphocyte Count 1.03 10^3/uL (1.2-3.4); Absolute Monocyte Count 0.42 10^3/uL (0.1-0.8); Absolute Neutrophil Count 1.66 10^3/uL (1.2-6.7); Basophils % 2.5; HCT 26.3 % (40.0-50.0); HGB 8.6 g/dL (13.5-17.5); Immature Grans % 0.3; Lymphocytes % 32.2; MCH 30.7 pg (27.0-33.0); MCHC 32.7 % (32.0-36.0); MCV 93.9 fL (80-95); MPV 12.9 fL (8.0-11.0); Monocytes % 13.1; Neutrophils % 51.9; Nucleated RBC 1 %; Platelet Count 208 10^3/uL (130-400); RDW 18.6 % (11.8-14.1); RDW-SD 61.6 fL
== END 2021-12-29 23:59 | disposition home or self-care (01) ==
LOC: INF 00:55
PROVIDERS: PCP Family Medicine; Visit Provider Internal Medicine Hematology & Oncology
DX: Z45.2 Encounter for adjustment and management of vascular access device (principal); D46.9 Myelodysplastic syndrome, unspecified
CPT/HCPCS: 36430; 36591; 86850; 86900; 86901; 86920; 86945; 85025; 86644; P9016

== ENCOUNTER 2022-01-28 09:00 | Outpatient (RCR) | payer OTHER, SELFPAY ==
[2021-12-30 00:11] VITALS: BP 138/65; PULSE 79; RESP 18; TEMP 36.7
[2021-12-31] MEDS: Heparin 500 UNITS/5 ML SYRINGE IV (08:37)
[2021-12-31] MEDS: Normal Saline Flush 10 ML SYR IVP ×2 (08:37→08:57)
[2021-12-31 08:50] LABS: Abs Immature Grans 0.01 10^3/uL (0.0-0.06); Absolute Basophil Count 0.14 10^3/uL (0.0-0.2); Absolute Lymphocyte Count 1.17 10^3/uL (1.2-3.4); Absolute Monocyte Count 0.33 10^3/uL (0.1-0.8); Absolute Neutrophil Count 0.87 10^3/uL (1.2-6.7); Basophils % 5.6; HCT 26.2 % (40.0-50.0); HGB 8.6 g/dL (13.5-17.5); Immature Grans % 0.4; Lymphocytes % 46.4; MCH 30.9 pg (27.0-33.0); MCHC 32.8 % (32.0-36.0); MCV 94.2 fL (80-95); Monocytes % 13.1; Neutrophils % 34.5; Nucleated RBC 0 %; Platelet Count 260 10^3/uL (130-400); RBC 2.78 10^6/uL (4.36-5.78); RDW-SD 62.7 fL; WBC 2.52 10^3/uL (4.4-10.8)
[2021-12-31 09:11] LABS: Hemoglobin A1C 4.7 % (<5.7)
[2021-12-31 09:13] LABS: Diff Comment Agrees w/ Instrument; RBC Morphology Normal
[2022-01-07] MEDS: Normal Saline Flush 10 ML SYR IVP (08:44)
[2022-01-07 08:52] LABS: Abs Immature Grans 0.06 10^3/uL (0.0-0.06); HCT 26.5 % (40.0-50.0); HGB 8.8 g/dL (13.5-17.5); MCH 31.4 pg (27.0-33.0); MCHC 33.2 % (32.0-36.0); MCV 94.6 fL (80-95); MPV 12.4 fL (8.0-11.0); Platelet Count 236 10^3/uL (130-400); RDW 19.9 % (11.8-14.1); RDW-SD 65.5 fL; WBC 2.68 10^3/uL (4.4-10.8)
[2022-01-07 09:03] LABS: ALT 82 U/L (16-63); AST 54 U/L (15-37); Albumin 3.8 g/dL (3.4-5.0); Alkaline Phosphatase 94 U/L (46-116); Anion Gap 8.2 mmol/L (3-11); BUN 31 mg/dL (7-18); Bilirubin, Total 0.6 mg/dL (0.2-1.0); CO2 27.8 mmol/L (21.0-32.0); CREATININE 1.8 mg/dL (0.70-1.30); Calcium 9.2 mg/dL (8.5-10.1); Chloride 105 mmol/L (98-107); Estimated GFR 37.49 (mL/min/1.73m2); Glucose 121 mg/dL (74-106); Potassium 4.1 mmol/L (3.5-5.1); Sodium 141 mmol/L (136-145); Total Protein 7.6 g/dL (6.4-8.2)
[2022-01-07 09:21] LABS: Absolute Basophil Count 0.03 10^3/uL (0.0-0.2); Absolute Lymphocyte Count 1.37 10^3/uL (1.2-3.4); Absolute Monocyte Count 0.72 10^3/uL (0.1-0.8); Atypical Lymphocytes % 10; Bands % 0; Metamyelocytes % 2; Nucleated RBC 0 %
[2022-01-07 09:22] LABS: Diff Comment Manual Differential; Polychromasia Present
[2022-01-07 09:30] LABS: Absolute Neutrophil Count 0.51 10^3/uL (1.2-6.7)
[2022-01-14] MEDS: Heparin 500 UNITS/5 ML SYRINGE IV (08:28)
[2022-01-14] MEDS: Normal Saline Flush 10 ML SYR IVP (08:28)
[2022-01-14 08:49] LABS: Abs Immature Grans 0.26 10^3/uL (0.0-0.06); HCT 25.4 % (40.0-50.0); HGB 8.4 g/dL (13.5-17.5); MCH 31.1 pg (27.0-33.0); MCHC 33.1 % (32.0-36.0); MCV 94.1 fL (80-95); Nucleated RBC 1 %; RDW 21.1 % (11.8-14.1); RDW-SD 66.3 fL; WBC 4.81 10^3/uL (4.4-10.8)
[2022-01-14 09:13] LABS: Anisocytosis 3+; Diff Comment Manual Differential; Platelet Count 212 10^3/uL (130-400); Polychromasia Present
[2022-01-14 09:14] LABS: Absolute Basophil Count 0.29 10^3/uL (0.0-0.2); Absolute Lymphocyte Count 1.97 10^3/uL (1.2-3.4); Absolute Neutrophil Count 1.15 10^3/uL (1.2-6.7); Bands % 5; Metamyelocytes % 2
[2022-01-21 10:01] LABS: HCT 25.1 % (40.0-50.0); HGB 8.3 g/dL (13.5-17.5); MCH 30.6 pg (27.0-33.0); MCHC 33.1 % (32.0-36.0); MCV 92.6 fL (80-95); Nucleated RBC 0 %; RBC 2.71 10^6/uL (4.36-5.78); RDW 21.6 % (11.8-14.1); RDW-SD 66.4 fL; WBC 5.92 10^3/uL (4.4-10.8)
[2022-01-21 10:03] LABS: ALT 95 U/L (16-63); AST 52 U/L (15-37); Albumin 3.7 g/dL (3.4-5.0); Alkaline Phosphatase 109 U/L (46-116); BUN 29 mg/dL (7-18); Bilirubin, Total 0.9 mg/dL (0.2-1.0); CREATININE 1.6 mg/dL (0.70-1.30); Calcium 9.1 mg/dL (8.5-10.1); Chloride 104 mmol/L (98-107); Estimated GFR 42.95 (mL/min/1.73m2); Glucose 120 mg/dL (74-106); Potassium 4.4 mmol/L (3.5-5.1); Sodium 138 mmol/L (136-145); Total Protein 7.5 g/dL (6.4-8.2)
[2022-01-21 10:20] LABS: Absolute Basophil Count 0.18 10^3/uL (0.0-0.2); Absolute Eosinophil Count 0.12 10^3/uL (0.0-0.7); Absolute Lymphocyte Count 1.01 10^3/uL (1.2-3.4); Absolute Monocyte Count 1.36 10^3/uL (0.1-0.8); Absolute Neutrophil Count 3.26 10^3/uL (1.2-6.7); Anisocytosis 2+; Atypical Lymphocytes % 0; Bands % 4; Diff Comment Manual Differential; Hypochromasia 2+; Polychromasia Present
[2022-01-21 10:21] LABS: Poikilocytes 2+
[2022-01-21] MEDS: Normal Saline Flush 10 ML SYR IVP (10:23)
[2022-01-28] MEDS: Normal Saline Flush 10 ML SYR IVP (08:39)
[2022-01-28] MEDS: Heparin 500 UNITS/5 ML SYRINGE IV (08:39)
[2022-01-28 08:54] LABS: Abs Immature Grans 0.13 10^3/uL (0.0-0.06); Absolute Basophil Count 0.09 10^3/uL (0.0-0.2); Absolute Lymphocyte Count 1.39 10^3/uL (1.2-3.4); Absolute Neutrophil Count 1.74 10^3/uL (1.2-6.7); Basophils % 2.3; HCT 21.2 % (40.0-50.0); Immature Grans % 3.3; Lymphocytes % 35.2; MCH 31.1 pg (27.0-33.0); MCV 94.2 fL (80-95); MPV 12.5 fL (8.0-11.0); Monocytes % 15.2; Nucleated RBC 2 %; Platelet Count 286 10^3/uL (130-400); RBC 2.25 10^6/uL (4.36-5.78); RDW 21.1 % (11.8-14.1); RDW-SD 65.2 fL; WBC 3.95 10^3/uL (4.4-10.8)
[2022-01-28 09:14] LABS: Anisocytosis 1+; Polychromasia Present
[2022-01-28 09:20] LABS: ALT 107 U/L (16-63); AST 73 U/L (15-37); Albumin 3.7 g/dL (3.4-5.0); Alkaline Phosphatase 108 U/L (46-116); Anion Gap 7.2 mmol/L (3-11); BUN 30 mg/dL (7-18); CO2 26.8 mmol/L (21.0-32.0); CREATININE 1.7 mg/dL (0.70-1.30); Calcium 8.9 mg/dL (8.5-10.1); Chloride 105 mmol/L (98-107); Estimated GFR 40.04 (mL/min/1.73m2); Glucose 157 mg/dL (74-106); Sodium 139 mmol/L (136-145); Total Protein 7.3 g/dL (6.4-8.2)
[2022-01-28 09:50] VITALS: BP 149/66; PULSE 70; RESP 17; TEMP 36.4; O2SAT 99
[2022-01-28 10:15] VITALS: BP 145/69; PULSE 75; RESP 17; TEMP 36.4; O2SAT 100
[2022-01-28 10:18] VITALS: BP 135/67; PULSE 73; RESP 17; TEMP 36.4; O2SAT 100
[2022-01-28 10:40] VITALS: BP 149/70; PULSE 67; RESP 17; TEMP 36.3; O2SAT 100
[2022-01-28 11:00] VITALS: BP 149/70; PULSE 67; RESP 17; TEMP 36.3; O2SAT 100
== END 2022-01-29 23:59 | disposition home or self-care (01) ==
LOC: INF 09:00
PROVIDERS: PCP Family Medicine; Visit Provider Internal Medicine Hematology & Oncology
DX: Z45.2 Encounter for adjustment and management of vascular access device (principal); D46.9 Myelodysplastic syndrome, unspecified; D63.0 Anemia in neoplastic disease; R73.9 Hyperglycemia, unspecified
CPT/HCPCS: 36430; 36591; 80053; 86850; 86900; 86901; 86920; 86945; 83036; 85025; 86644; P9016

== ENCOUNTER 2022-02-25 11:00 | Outpatient (RCR) | payer OTHER, SELFPAY ==
[2022-01-30 00:14] VITALS: BP 149/70; PULSE 67; RESP 17; TEMP 36.3
[2022-02-04 08:09] LABS: HCT 25.6 % (40.0-50.0); HGB 8.3 g/dL (13.5-17.5); MCH 30.2 pg (27.0-33.0); MCHC 32.4 % (32.0-36.0); MCV 93.1 fL (80-95); MPV 10.8 fL (8.0-11.0); Platelet Count 198 10^3/uL (130-400); RBC 2.75 10^6/uL (4.36-5.78); RDW 22.2 % (11.8-14.1); RDW-SD 71.3 fL; WBC 2.72 10^3/uL (4.4-10.8)
[2022-02-04] MEDS: Heparin 500 UNITS/5 ML SYRINGE IV (08:19)
[2022-02-04] MEDS: Normal Saline Flush 10 ML SYR IVP (08:19)
[2022-02-04 08:23] LABS: ALT 98 U/L (16-63); AST 54 U/L (15-37); Albumin 3.6 g/dL (3.4-5.0); Alkaline Phosphatase 108 U/L (46-116); Anion Gap 9.3 mmol/L (3-11); BUN 33 mg/dL (7-18); Bilirubin, Total 0.9 mg/dL (0.2-1.0); CO2 26.7 mmol/L (21.0-32.0); CREATININE 1.7 mg/dL (0.70-1.30); Chloride 105 mmol/L (98-107); Estimated GFR 40.04 (mL/min/1.73m2); Glucose 144 mg/dL (74-106); Potassium 4.3 mmol/L (3.5-5.1); Sodium 141 mmol/L (136-145); Total Protein 7.1 g/dL (6.4-8.2)
[2022-02-04 08:42] LABS: Absolute Lymphocyte Count 1.47 10^3/uL (1.2-3.4); Absolute Monocyte Count 0.14 10^3/uL (0.1-0.8); Absolute Neutrophil Count 1.12 10^3/uL (1.2-6.7); Atypical Lymphocytes % 1; Bands % 2
[2022-02-04 08:43] LABS: Anisocytosis 2+; Diff Comment Manual Differential; Nucleated RBC 2 %
[2022-02-11 08:37] VITALS: BP 149/70; PULSE 67; RESP 17; TEMP 36.3
[2022-02-11] MEDS: Normal Saline Flush 10 ML SYR IVP ×3 (08:41→12:47)
[2022-02-11 08:42] LABS: Abs Immature Grans 0.01 10^3/uL (0.0-0.06); Absolute Basophil Count 0.07 10^3/uL (0.0-0.2); Absolute Lymphocyte Count 1.11 10^3/uL (1.2-3.4); Absolute Monocyte Count 0.38 10^3/uL (0.1-0.8); Basophils % 2.3; HCT 22.3 % (40.0-50.0); HGB 7.2 g/dL (13.5-17.5); Immature Grans % 0.3; Lymphocytes % 36.2; MCH 30.1 pg (27.0-33.0); MCHC 32.3 % (32.0-36.0); MCV 93.3 fL (80-95); MPV 12.2 fL (8.0-11.0); Monocytes % 12.4; Neutrophils % 48.8; Nucleated RBC 0 %; Platelet Count 243 10^3/uL (130-400); RBC 2.39 10^6/uL (4.36-5.78); RDW 22.5 % (11.8-14.1); RDW-SD 71.1 fL; WBC 3.07 10^3/uL (4.4-10.8)
[2022-02-11 08:55] LABS: ALT 64 U/L (16-63); AST 38 U/L (15-37); Albumin 3.4 g/dL (3.4-5.0); Alkaline Phosphatase 84 U/L (46-116); Anion Gap 8.6 mmol/L (3-11); BUN 28 mg/dL (7-18); Bilirubin, Total 0.6 mg/dL (0.2-1.0); CO2 24.4 mmol/L (21.0-32.0); CREATININE 1.6 mg/dL (0.70-1.30); Calcium 8.1 mg/dL (8.5-10.1); Chloride 107 mmol/L (98-107); Estimated GFR 42.95 (mL/min/1.73m2); Glucose 124 mg/dL (74-106); Potassium 3.9 mmol/L (3.5-5.1); Sodium 140 mmol/L (136-145); Total Protein 6.7 g/dL (6.4-8.2)
[2022-02-11 08:59] LABS: Anisocytosis 2+; Diff Comment RBC Morph Reviewed
[2022-02-11 10:29] VITALS: BP 146/56; PULSE 70; RESP 18; TEMP 35.8; O2SAT 100
[2022-02-11 10:44] VITALS: BP 149/56; PULSE 80; RESP 18; TEMP 36.2; O2SAT 100
[2022-02-11 10:56] VITALS: BP 147/53; PULSE 76; RESP 18; TEMP 36.2; O2SAT 100
[2022-02-11 11:14] VITALS: BP 142/72; PULSE 75; RESP 18; TEMP 36; O2SAT 100
[2022-02-11 12:30] VITALS: BP 177/77; PULSE 77; RESP 18; TEMP 36.7; O2SAT 99
[2022-02-11] MEDS: Heparin 500 UNITS/5 ML SYRINGE IV (12:48)
[2022-02-18] MEDS: Normal Saline Flush 10 ML SYR IVP (08:47)
[2022-02-18 08:57] LABS: Abs Immature Grans 0.05 10^3/uL (0.0-0.06); Absolute Lymphocyte Count 1.88 10^3/uL (1.2-3.4); Absolute Monocyte Count 0.53 10^3/uL (0.1-0.8); Absolute Neutrophil Count 1.88 10^3/uL (1.2-6.7); Basophils % 2.3; HGB 8.9 g/dL (13.5-17.5); Immature Grans % 1.1; Lymphocytes % 42.3; MCH 28.8 pg (27.0-33.0); MCHC 31.8 % (32.0-36.0); MCV 90.6 fL (80-95); Monocytes % 11.9; Neutrophils % 42.4; Nucleated RBC 0.7 % (0.0-0.3); RBC 3.09 10^6/uL (4.36-5.78); RDW 23.9 % (11.8-14.1); RDW-SD 72.4 fL; WBC 4.44 10^3/uL (4.4-10.8)
[2022-02-18 09:09] LABS: ALT 59 U/L (16-63); AST 32 U/L (15-37); Albumin 3.6 g/dL (3.4-5.0); Alkaline Phosphatase 92 U/L (46-116); Anion Gap 7.6 mmol/L (3-11); BUN 33 mg/dL (7-18); Bilirubin, Total 0.7 mg/dL (0.2-1.0); CO2 26.4 mmol/L (21.0-32.0); CREATININE 1.6 mg/dL (0.70-1.30); Calcium 8.8 mg/dL (8.5-10.1); Chloride 105 mmol/L (98-107); Estimated GFR 42.95 (mL/min/1.73m2); Glucose 112 mg/dL (74-106); Potassium 3.5 mmol/L (3.5-5.1); Sodium 139 mmol/L (136-145); Total Protein 6.8 g/dL (6.4-8.2)
[2022-02-18 09:27] LABS: Platelet Count 305 10^3/uL (130-400)
[2022-02-18 09:28] LABS: Anisocytosis 1+; Macrocytosis 1+; Microcytosis 1+; Polychromasia Present
[2022-02-18] MEDS: Heparin 500 UNITS/5 ML SYRINGE IV (10:33)
[2022-02-25] MEDS: Normal Saline Flush 10 ML SYR IVP (09:20)
[2022-02-25] MEDS: Heparin 500 UNITS/5 ML SYRINGE IV (09:21)
[2022-02-25 09:38] LABS: HCT 24.7 % (40.0-50.0); HGB 7.7 g/dL (13.5-17.5); MCH 28.8 pg (27.0-33.0); MCHC 31.2 % (32.0-36.0); MCV 92.5 fL (80-95); Platelet Count 230 10^3/uL (130-400); RBC 2.67 10^6/uL (4.36-5.78); RDW 24.5 % (11.8-14.1); RDW-SD 79.1 fL; WBC 3.64 10^3/uL (4.4-10.8)
[2022-02-25 09:49] LABS: ALT 64 U/L (16-63); AST 38 U/L (15-37); Albumin 3.5 g/dL (3.4-5.0); Alkaline Phosphatase 67 U/L (46-116); Anion Gap 4.1 mmol/L (3-11); BUN 33 mg/dL (7-18); Bilirubin, Total 0.5 mg/dL (0.2-1.0); CO2 28.9 mmol/L (21.0-32.0); CREATININE 1.6 mg/dL (0.70-1.30); Calcium 8.5 mg/dL (8.5-10.1); Chloride 106 mmol/L (98-107); Estimated GFR 42.95 (mL/min/1.73m2); Glucose 93 mg/dL (74-106); Potassium 4.3 mmol/L (3.5-5.1); Sodium 139 mmol/L (136-145); Total Protein 6.3 g/dL (6.4-8.2)
[2022-02-25 10:09] LABS: Absolute Basophil Count 0.11 10^3/uL (0.0-0.2); Absolute Lymphocyte Count 1.38 10^3/uL (1.2-3.4); Absolute Monocyte Count 0.51 10^3/uL (0.1-0.8); Absolute Neutrophil Count 1.16 10^3/uL (1.2-6.7); Anisocytosis 3+; Atypical Lymphocytes % 5; Bands % 4; Diff Comment Manual Differential; Metamyelocytes % 7; Myelocytes % 3; Other Cells % 3
[2022-02-25 10:10] LABS: Poikilocytes 2+
[2022-02-25 11:08] VITALS: BP 179/71; PULSE 68; RESP 18; TEMP 36.1; O2SAT 99
[2022-02-25 11:25] VITALS: BP 178/70; PULSE 69; RESP 17; TEMP 36.4; O2SAT 100
[2022-02-25 11:43] VITALS: BP 187/69; PULSE 68; RESP 17; TEMP 36.1; O2SAT 98
[2022-02-25 11:58] LABS: Iron 119 ug/dL (65-175); Total Iron Binding Capacity 310 ug/dL (250-450); Transferrin Sat 38 % (20-55)
[2022-02-25 12:15] VITALS: BP 188/74; PULSE 72; RESP 17; TEMP 36.2; O2SAT 98
[2022-02-25 12:32] LABS: Ferritin > 2000 ng/mL (26-388)
[2022-02-25 12:50] VITALS: BP 189/81; PULSE 83; RESP 18; TEMP 35.9; O2SAT 99
== END 2022-02-28 23:59 | disposition home or self-care (01) ==
LOC: INF 11:00
PROVIDERS: Family Medicine; PCP Family Medicine; Visit Provider Internal Medicine Hematology & Oncology
DX: D46.9 Myelodysplastic syndrome, unspecified (principal); D63.0 Anemia in neoplastic disease; Z45.2 Encounter for adjustment and management of vascular access device
CPT/HCPCS: 36430; 36591; 80053; 86850; 86900; 86901; 86920; 86945; 96523; 82728; 83540; 83550; 84550; 85025; 86644; P9016

== ENCOUNTER 2022-03-16 11:36 | Outpatient (REF) | payer OTHER, SELFPAY ==
--- NOTE | 2022-03-16 10:40 | SKI_PTH ---
PATIENT: Jovi Banks LOC: [facility] U#:[id number] AGE/SX: 72/M ROOM: RE03/16/[address]: Viktor Gallardo MD : [id number] BED: DIS: 03/16/2022 SPEC #: [id number] RECD: 03/16/22 15:41 STATUS: GEOVANNA REQ #: [id number] ANTOINE: 03/16/22 10:[address]: Viktor Gallardo DEPT: Surgical Specimen RECD BY: Dania Vazquez ENTERED: 03/16/22 15:42 SP TYPE: JAE CRAIN DR: Kevin Jose MD Tissues: 1 - SKIN BIOPSY(SHAVE/PUNCH) Procedures: SKIN LEVEL 4 Comments: [id number]
== END 2022-03-16 11:37 | disposition home or self-care (01) ==
LOC: LBN 11:36
PROVIDERS: PCP Family Medicine; Visit Provider Otolaryngology
DX: L98.8 Other specified disorders of the skin and subcutaneous tissue (principal)
CPT/HCPCS: 88305

== ENCOUNTER 2022-03-25 09:30 | Outpatient (RCR) | payer OTHER, SELFPAY ==
[2022-03-01 00:15] VITALS: BP 189/81; PULSE 83; RESP 18; TEMP 35.9
[2022-03-11] MEDS: Normal Saline Flush 10 ML SYR IVP ×2 (08:32→09:01)
[2022-03-11 08:39] LABS: Abs Immature Grans 0.11 10^3/uL (0.0-0.06); Absolute Basophil Count 0.05 10^3/uL (0.0-0.2); Absolute Lymphocyte Count 1.44 10^3/uL (1.2-3.4); Absolute Monocyte Count 0.49 10^3/uL (0.1-0.8); Absolute Neutrophil Count 2.88 10^3/uL (1.2-6.7); HCT 27.1 % (40.0-50.0); HGB 8.8 g/dL (13.5-17.5); Immature Grans % 2.2; MCH 29.4 pg (27.0-33.0); MCHC 32.5 % (32.0-36.0); MCV 91 fL (80-95); Monocytes % 9.9; Neutrophils % 57.9; Nucleated RBC 0.4 % (0.0-0.3); RBC 2.99 10^6/uL (4.36-5.78); RDW 22.3 % (11.8-14.1); RDW-SD 67.9 fL; WBC 4.97 10^3/uL (4.4-10.8)
[2022-03-11 08:45] LABS: ALT 91 U/L (16-63); AST 51 U/L (15-37); Albumin 3.7 g/dL (3.4-5.0); Alkaline Phosphatase 86 U/L (46-116); Anion Gap 8.1 mmol/L (3-11); BUN 41 mg/dL (7-18); Bilirubin, Total 0.6 mg/dL (0.2-1.0); CO2 26.9 mmol/L (21.0-32.0); CREATININE 1.9 mg/dL (0.70-1.30); Calcium 8.8 mg/dL (8.5-10.1); Chloride 103 mmol/L (98-107); Estimated GFR 35.22 (mL/min/1.73m2); Glucose 156 mg/dL (74-106); Potassium 4.1 mmol/L (3.5-5.1); Sodium 138 mmol/L (136-145); Total Protein 6.8 g/dL (6.4-8.2)
[2022-03-11] MEDS: Heparin 500 UNITS/5 ML SYRINGE IV (09:02)
[2022-03-11 09:11] LABS: Anisocytosis 3+; Diff Comment Diff Reviewed; Hypochromasia 2+
[2022-03-11 09:12] LABS: Poikilocytes 2+
[2022-03-25] MEDS: Heparin 500 UNITS/5 ML SYRINGE IV (08:35)
[2022-03-25] MEDS: Normal Saline Flush 10 ML SYR IVP (08:35)
[2022-03-25 08:45] LABS: Abs Immature Grans 0.08 10^3/uL (0.0-0.06); Absolute Basophil Count 0.11 10^3/uL (0.0-0.2); Absolute Lymphocyte Count 1.18 10^3/uL (1.2-3.4); Absolute Neutrophil Count 1.97 10^3/uL (1.2-6.7); Basophils % 2.9; HCT 22.8 % (40.0-50.0); HGB 7.5 g/dL (13.5-17.5); Immature Grans % 2.1; Lymphocytes % 31.6; MCHC 32.9 % (32.0-36.0); MCV 91 fL (80-95); Monocytes % 10.7; Neutrophils % 52.7; Nucleated RBC 0.5 % (0.0-0.3); Platelet Count 222 10^3/uL (130-400); RDW 24.1 % (11.8-14.1); RDW-SD 78.2 fL; WBC 3.74 10^3/uL (4.4-10.8)
[2022-03-25 08:58] LABS: ALT 59 U/L (16-63); AST 32 U/L (15-37); Albumin 3.5 g/dL (3.4-5.0); Alkaline Phosphatase 88 U/L (46-116); BUN 31 mg/dL (7-18); Bilirubin, Total 0.6 mg/dL (0.2-1.0); CREATININE 1.5 mg/dL (0.70-1.30); Calcium 8.8 mg/dL (8.5-10.1); Chloride 108 mmol/L (98-107); Estimated GFR 46.27 (mL/min/1.73m2); Glucose 114 mg/dL (74-106); Sodium 141 mmol/L (136-145); Total Protein 6.6 g/dL (6.4-8.2)
[2022-03-25 09:05] LABS: Anisocytosis 2+; Diff Comment Diff Reviewed
[2022-03-25 09:06] LABS: Hypochromasia 2+; Polychromasia Present
[2022-03-25 09:07] LABS: Poikilocytes 2+
[2022-03-25 09:37] VITALS: BP 137/68; PULSE 74; RESP 17; TEMP 36.2; O2SAT 100
[2022-03-25 09:55] VITALS: BP 132/67; PULSE 76; RESP 17; TEMP 36.4; O2SAT 100
[2022-03-25 10:10] VITALS: BP 143/67; PULSE 71; RESP 17; TEMP 35.7; O2SAT 99
[2022-03-25 10:40] VITALS: BP 169/65; PULSE 72; RESP 17; TEMP 36.3; O2SAT 99
[2022-03-25 11:45] VITALS: BP 187/84; PULSE 64; RESP 17; TEMP 36.3; O2SAT 100
== END 2022-03-31 23:59 | disposition home or self-care (01) ==
LOC: INF 09:30
PROVIDERS: PCP Family Medicine; Visit Provider Internal Medicine Hematology & Oncology
DX: Z45.2 Encounter for adjustment and management of vascular access device (principal); D46.9 Myelodysplastic syndrome, unspecified; D63.0 Anemia in neoplastic disease
CPT/HCPCS: 36430; 36591; 80053; 86850; 86900; 86901; 86920; 85025; P9016

== ENCOUNTER 2022-04-22 09:00 | Outpatient (RCR) | payer OTHER, SELFPAY ==
[2022-04-01 00:07] VITALS: BP 187/84; PULSE 64; RESP 17; TEMP 36.3
[2022-04-08] MEDS: Normal Saline Flush 10 ML SYR IVP (08:41)
[2022-04-08 08:50] LABS: Abs Immature Grans 0.25 10^3/uL (0.0-0.06); Absolute Basophil Count 0.12 10^3/uL (0.0-0.2); Absolute Monocyte Count 1.16 10^3/uL (0.1-0.8); Absolute Neutrophil Count 2.54 10^3/uL (1.2-6.7); Basophils % 2.5; HCT 27.5 % (40.0-50.0); HGB 9.2 g/dL (13.5-17.5); Immature Grans % 5.2; Lymphocytes % 14.7; MCH 30.4 pg (27.0-33.0); MCHC 33.5 % (32.0-36.0); MCV 91 fL (80-95); Monocytes % 24.3; Neutrophils % 53.3; Nucleated RBC 0.4 % (0.0-0.3); Platelet Count 231 10^3/uL (130-400); RBC 3.03 10^6/uL (4.36-5.78); RDW-SD 71.9 fL; WBC 4.77 10^3/uL (4.4-10.8)
[2022-04-08 09:10] LABS: Anisocytosis 3+; Diff Comment Diff Reviewed; Poikilocytes 1+; Polychromasia Present
[2022-04-08 09:33] LABS: Iron 136 ug/dL (65-175); Total Iron Binding Capacity 320 ug/dL (250-450); Transferrin Sat 43 % (20-55)
[2022-04-08 09:41] LABS: ALT 57 U/L (16-63); AST 39 U/L (15-37); Albumin 3.9 g/dL (3.4-5.0); Alkaline Phosphatase 75 U/L (46-116); Anion Gap 9.7 mmol/L (3-11); BUN 34 mg/dL (7-18); Bilirubin, Total 0.5 mg/dL (0.2-1.0); CO2 26.3 mmol/L (21.0-32.0); Calcium 8.8 mg/dL (8.5-10.1); Chloride 104 mmol/L (98-107); Ferritin > 2000 ng/mL (26-388); Glucose 122 mg/dL (74-106); Potassium 4.6 mmol/L (3.5-5.1); Sodium 140 mmol/L (136-145); Total Protein 6.8 g/dL (6.4-8.2)
[2022-04-22 08:38] LABS: Abs Immature Grans 0.14 10^3/uL (0.0-0.06); Absolute Basophil Count 0.07 10^3/uL (0.0-0.2); Absolute Monocyte Count 0.72 10^3/uL (0.1-0.8); Absolute Neutrophil Count 2.69 10^3/uL (1.2-6.7); Basophils % 1.3; HGB 7.6 g/dL (13.5-17.5); Immature Grans % 2.7; Lymphocytes % 30.7; MCV 91 fL (80-95); Monocytes % 13.8; Neutrophils % 51.5; Nucleated RBC 0.4 % (0.0-0.3); RBC 2.53 10^6/uL (4.36-5.78); RDW 23.4 % (11.8-14.1); RDW-SD 71.4 fL; WBC 5.22 10^3/uL (4.4-10.8)
[2022-04-22 08:54] LABS: ALT 49 U/L (16-63); AST 34 U/L (15-37); Albumin 3.8 g/dL (3.4-5.0); Alkaline Phosphatase 65 U/L (46-116); Anion Gap 8.5 mmol/L (3-11); BUN 33 mg/dL (7-18); Bilirubin, Total 0.7 mg/dL (0.2-1.0); CO2 26.5 mmol/L (21.0-32.0); Calcium 8.9 mg/dL (8.5-10.1); Chloride 103 mmol/L (98-107); Glucose 114 mg/dL (74-106); Potassium 3.9 mmol/L (3.5-5.1); Sodium 138 mmol/L (136-145); Total Protein 6.7 g/dL (6.4-8.2)
[2022-04-22 09:03] LABS: Anisocytosis 3+; Basophilic Stippling Present; Diff Comment RBC Morph Reviewed; Polychromasia Present
[2022-04-22 09:04] LABS: Poikilocytes 2+
[2022-04-22] MEDS: Normal Saline Flush 10 ML SYR IVP (09:05)
[2022-04-22 09:12] LABS: Platelet Count 200 10^3/uL (130-400)
[2022-04-22 09:40] VITALS: BP 160/80; PULSE 78; RESP 17; TEMP 36.1; O2SAT 99
[2022-04-22 10:13] VITALS: BP 165/80; PULSE 83; RESP 18; TEMP 36.8; O2SAT 99
[2022-04-22 10:30] VITALS: BP 142/78; PULSE 80; RESP 17; TEMP 36.8; O2SAT 99
[2022-04-22 10:43] VITALS: BP 170/78; PULSE 80; RESP 18; TEMP 36.3; O2SAT 99
[2022-04-22] MEDS: Heparin 500 UNITS/5 ML SYRINGE IV (10:43)
[2022-04-22 12:00] VITALS: BP 158/78; PULSE 90; RESP 17; TEMP 36.5; O2SAT 99
== END 2022-04-30 23:59 | disposition home or self-care (01) ==
LOC: INF 09:00
PROVIDERS: PCP Family Medicine; Visit Provider Internal Medicine Hematology & Oncology
DX: D46.9 Myelodysplastic syndrome, unspecified (principal); E83.111 Hemochromatosis due to repeated red blood cell transfusions; D53.9 Nutritional anemia, unspecified; D63.0 Anemia in neoplastic disease; Z45.2 Encounter for adjustment and management of vascular access device
CPT/HCPCS: 36430; 36591; 80053; 86850; 86900; 86901; 86920; 82728; 83540; 83550; 85025; P9016

== ENCOUNTER 2022-05-29 00:51 | Outpatient (RCR) | payer OTHER, SELFPAY ==
[2022-05-01 00:05] VITALS: BP 158/78; PULSE 90; RESP 17; TEMP 36.5
[2022-05-06] MEDS: Normal Saline Flush 10 ML SYR IVP ×2 (08:32→08:55)
[2022-05-06 08:45] LABS: Abs Immature Grans 0.04 10^3/uL (0.0-0.06); HCT 24.7 % (40.0-50.0); HGB 8.1 g/dL (13.5-17.5); MCH 30.3 pg (27.0-33.0); MCHC 32.8 % (32.0-36.0); MCV 93 fL (80-95); MPV 10.7 fL (8.0-11.0); RBC 2.67 10^6/uL (4.36-5.78); RDW 23.5 % (11.8-14.1); RDW-SD 74.4 fL; WBC 3.33 10^3/uL (4.4-10.8)
[2022-05-06] MEDS: Heparin 500 UNITS/5 ML SYRINGE IV (08:55)
[2022-05-06 09:02] LABS: ALT 48 U/L (16-63); AST 29 U/L (15-37); Albumin 3.8 g/dL (3.4-5.0); Alkaline Phosphatase 62 U/L (46-116); Anion Gap 7.5 mmol/L (3-11); BUN 30 mg/dL (7-18); Bilirubin, Total 0.6 mg/dL (0.2-1.0); CO2 29.5 mmol/L (21.0-32.0); CREATININE 1.7 mg/dL (0.70-1.30); Calcium 8.9 mg/dL (8.5-10.1); Chloride 103 mmol/L (98-107); Estimated GFR 40.04 (mL/min/1.73m2); Glucose 109 mg/dL (74-106); Potassium 3.9 mmol/L (3.5-5.1); Sodium 140 mmol/L (136-145); Total Protein 6.8 g/dL (6.4-8.2)
[2022-05-06 09:08] LABS: Absolute Neutrophil Count 1.63 10^3/uL (1.2-6.7); Atypical Lymphocytes % 2; Platelet Count 230 10^3/uL (130-400)
[2022-05-06 09:09] LABS: Anisocytosis 3+; Basophilic Stippling Present; Diff Comment Manual Differential; Hypochromasia 2+
[2022-05-06 09:10] LABS: Poikilocytes 2+
[2022-05-20 09:39] LABS: HCT 22.3 % (40.0-50.0); HGB 7.5 g/dL (13.5-17.5); MCH 31.1 pg (27.0-33.0); MCHC 33.6 % (32.0-36.0); MCV 93 fL (80-95); Platelet Count 276 10^3/uL (130-400); RBC 2.41 10^6/uL (4.36-5.78); RDW 23.5 % (11.8-14.1); RDW-SD 73.9 fL; WBC 3.39 10^3/uL (4.4-10.8)
[2022-05-20] MEDS: Normal Saline Flush 10 ML SYR IVP ×2 (09:44→12:56)
[2022-05-20 09:56] LABS: Absolute Basophil Count 0.03 10^3/uL (0.0-0.2); Absolute Lymphocyte Count 1.59 10^3/uL (1.2-3.4); Absolute Monocyte Count 0.75 10^3/uL (0.1-0.8); Absolute Neutrophil Count 0.92 10^3/uL (1.2-6.7); Bands % 2
[2022-05-20 09:57] LABS: Anisocytosis 3+; Diff Comment Manual Differential; Metamyelocytes % 1; Myelocytes % 1; Other Cells % 1
[2022-05-20 09:58] LABS: Poikilocytes 2+
[2022-05-20 09:59] LABS: ALT 43 U/L (16-63); AST 32 U/L (15-37); Albumin 3.8 g/dL (3.4-5.0); Alkaline Phosphatase 68 U/L (46-116); Anion Gap 6.6 mmol/L (3-11); BUN 26 mg/dL (7-18); Bilirubin, Total 0.4 mg/dL (0.2-1.0); CO2 26.4 mmol/L (21.0-32.0); CREATININE 1.6 mg/dL (0.70-1.30); Chloride 102 mmol/L (98-107); Estimated GFR 42.95 (mL/min/1.73m2); Glucose 106 mg/dL (74-106); Potassium 4.1 mmol/L (3.5-5.1); Sodium 135 mmol/L (136-145); Total Protein 6.7 g/dL (6.4-8.2)
[2022-05-20 11:05] VITALS: BP 163/83; PULSE 66; RESP 22; TEMP 37.5; O2SAT 100
[2022-05-20 11:25] VITALS: BP 158/72; PULSE 68; RESP 22; TEMP 36.4; O2SAT 97
[2022-05-20 11:40] VITALS: BP 158/71; PULSE 70; RESP 16; TEMP 36.4; O2SAT 100
[2022-05-20 12:10] VITALS: BP 167/80; PULSE 66; RESP 20; TEMP 36.4; O2SAT 97
[2022-05-20 12:45] VITALS: BP 153/128; PULSE 72; RESP 20; TEMP 36.4; O2SAT 94
[2022-05-20] MEDS: Heparin 500 UNITS/5 ML SYRINGE IV (12:56)
[2022-05-25 08:28] LABS: HCT 24.2 % (40.0-50.0); HGB 8.5 g/dL (13.5-17.5); Immature Grans % 2.4; MCH 31.5 pg (27.0-33.0); MCHC 35.1 % (32.0-36.0); MCV 90 fL (80-95); RDW 22.3 % (11.8-14.1); RDW-SD 69.3 fL; WBC 3.36 10^3/uL (4.4-10.8)
[2022-05-25] MEDS: Normal Saline Flush 10 ML SYR IVP (08:32)
[2022-05-25] MEDS: Heparin 500 UNITS/5 ML SYRINGE IV (08:33)
[2022-05-25 08:46] LABS: ALT 39 U/L (16-63); AST 33 U/L (15-37); Albumin 3.6 g/dL (3.4-5.0); Alkaline Phosphatase 82 U/L (46-116); Anion Gap 9.5 mmol/L (3-11); BUN 35 mg/dL (7-18); Bilirubin, Total 0.6 mg/dL (0.2-1.0); CO2 25.5 mmol/L (21.0-32.0); CREATININE 1.8 mg/dL (0.70-1.30); Chloride 97 mmol/L (98-107); Estimated GFR 37.49 (mL/min/1.73m2); Glucose 152 mg/dL (74-106); Sodium 132 mmol/L (136-145); Total Protein 6.6 g/dL (6.4-8.2)
[2022-05-25 08:47] LABS: Absolute Basophil Count 0.07 10^3/uL (0.0-0.2); Absolute Lymphocyte Count 1.58 10^3/uL (1.2-3.4); Absolute Neutrophil Count 1.18 10^3/uL (1.2-6.7); Bands % 4; Diff Comment Manual Differential; Metamyelocytes % 1; Platelet Count 227 10^3/uL (130-400)
[2022-05-25 08:48] LABS: Poikilocytes 2+
[2022-05-28] MEDS: Normal Saline Flush 10 ML SYR IVP (14:08)
[2022-05-28 14:34] LABS: Abs Immature Grans 0.08 10^3/uL (0.0-0.06); Absolute Basophil Count 0.08 10^3/uL (0.0-0.2); Absolute Lymphocyte Count 1.07 10^3/uL (1.2-3.4); Absolute Monocyte Count 1.49 10^3/uL (0.1-0.8); Basophils % 1.9; HGB 7.7 g/dL (13.5-17.5); Immature Grans % 1.9; Lymphocytes % 24.9; MCH 31.4 pg (27.0-33.0); MCV 90 fL (80-95); Monocytes % 34.7; Neutrophils % 36.6; Platelet Count 189 10^3/uL (130-400); RBC 2.45 10^6/uL (4.36-5.78); RDW 20.8 % (11.8-14.1); RDW-SD 64.9 fL
[2022-05-28 14:35] LABS: Absolute Neutrophil Count 1.57 10^3/uL (1.2-6.7)
[2022-05-28 14:50] LABS: Anisocytosis 2+; Diff Comment RBC Morph Reviewed
[2022-05-29] MEDS: Normal Saline Flush 10 ML SYR IVP (07:38)
[2022-05-29 08:30] VITALS: BP 136/73; PULSE 85; RESP 19; TEMP 36.4; O2SAT 100
[2022-05-29 08:45] VITALS: BP 153/68; PULSE 85; RESP 20; TEMP 36.4; O2SAT 100
[2022-05-29 09:05] VITALS: BP 158/71; PULSE 86; RESP 18; TEMP 36.4; O2SAT 99
[2022-05-29 09:30] VITALS: BP 156/69; PULSE 75; RESP 20; TEMP 36.5; O2SAT 100
== END 2022-05-31 23:59 | disposition home or self-care (01) ==
LOC: INF 00:51
PROVIDERS: PCP Family Medicine; Visit Provider Internal Medicine Hematology & Oncology
DX: D46.9 Myelodysplastic syndrome, unspecified (principal); Z45.2 Encounter for adjustment and management of vascular access device
CPT/HCPCS: 36430; 36591; 80053; 86850; 86900; 86901; 86920; 96365; 85025; P9016

== ENCOUNTER 2022-06-25 02:34 | Outpatient (RCR) | payer OTHER, SELFPAY ==
[2022-06-01 00:04] VITALS: BP 156/69; PULSE 75; RESP 20; TEMP 36.5
[2022-06-03] MEDS: Normal Saline Flush 10 ML SYR IVP (08:28)
[2022-06-03] MEDS: Heparin 500 UNITS/5 ML SYRINGE IV (08:28)
[2022-06-03 08:35] LABS: Abs Immature Grans 0.03 10^3/uL (0.0-0.06); HCT 22.8 % (40.0-50.0); MCH 30.3 pg (27.0-33.0); MCHC 35.1 % (32.0-36.0); MCV 86 fL (80-95); MPV 11.7 fL (8.0-11.0); RBC 2.64 10^6/uL (4.36-5.78); RDW 17.9 % (11.8-14.1); RDW-SD 53.8 fL; WBC 2.82 10^3/uL (4.4-10.8)
[2022-06-03 08:54] LABS: ALT 34 U/L (16-63); AST 30 U/L (15-37); Albumin 3.2 g/dL (3.4-5.0); Alkaline Phosphatase 70 U/L (46-116); Anion Gap 6.6 mmol/L (3-11); BUN 16 mg/dL (7-18); Bilirubin, Total 0.6 mg/dL (0.2-1.0); CO2 26.4 mmol/L (21.0-32.0); CREATININE 1.5 mg/dL (0.70-1.30); Chloride 96 mmol/L (98-107); Estimated GFR 46.27 (mL/min/1.73m2); Glucose 142 mg/dL (74-106); Potassium 3.6 mmol/L (3.5-5.1); Sodium 129 mmol/L (136-145); Total Protein 6.4 g/dL (6.4-8.2)
[2022-06-03 09:15] LABS: Absolute Neutrophil Count 1.47 10^3/uL (1.2-6.7); Bands % 2; Platelet Count 194 10^3/uL (130-400)
[2022-06-03 09:16] LABS: Absolute Basophil Count 0.06 10^3/uL (0.0-0.2); Absolute Eosinophil Count 0.08 10^3/uL (0.0-0.7); Absolute Lymphocyte Count 0.99 10^3/uL (1.2-3.4); Absolute Monocyte Count 0.23 10^3/uL (0.1-0.8); Atypical Lymphocytes % 4; Basophilic Stippling Present; Diff Comment Manual Differential; Hypochromasia 2+; Polychromasia Present
[2022-06-03 09:17] LABS: Poikilocytes 2+
[2022-06-03 10:13] VITALS: BP 178/79; PULSE 81; RESP 18; TEMP 36.4; O2SAT 98
[2022-06-03 10:25] VITALS: BP 166/80; PULSE 84; RESP 20; TEMP 36.4; O2SAT 100
[2022-06-03 10:28] VITALS: BP 166/80; PULSE 84; RESP 20; TEMP 36.4; O2SAT 100
[2022-06-03 10:44] VITALS: BP 181/94; PULSE 77; RESP 20; TEMP 36.4; O2SAT 98
[2022-06-03 11:15] VITALS: BP 187/86; PULSE 80; RESP 20; TEMP 36.4; O2SAT 100
[2022-06-03 12:07] VITALS: BP 177/85; PULSE 79; RESP 20; TEMP 36.4; O2SAT 99
[2022-06-10 08:22] LABS: Abs Immature Grans 0.02 10^3/uL (0.0-0.06); HCT 25.1 % (40.0-50.0); HGB 9.1 g/dL (13.5-17.5); MCH 30.8 pg (27.0-33.0); MCHC 36.3 % (32.0-36.0); MCV 85 fL (80-95); MPV 10.7 fL (8.0-11.0); Platelet Count 198 10^3/uL (130-400); RBC 2.95 10^6/uL (4.36-5.78); RDW-SD 49.8 fL; WBC 2.29 10^3/uL (4.4-10.8)
[2022-06-10] MEDS: Normal Saline Flush 10 ML SYR IVP (08:35)
[2022-06-10] MEDS: Heparin 500 UNITS/5 ML SYRINGE IV (08:35)
[2022-06-10 08:36] LABS: ALT 33 U/L (16-63); AST 29 U/L (15-37); Albumin 3.4 g/dL (3.4-5.0); Alkaline Phosphatase 88 U/L (46-116); Anion Gap 8.3 mmol/L (3-11); BUN 19 mg/dL (7-18); Bilirubin, Total 0.6 mg/dL (0.2-1.0); CO2 23.7 mmol/L (21.0-32.0); CREATININE 1.5 mg/dL (0.70-1.30); Calcium 8.6 mg/dL (8.5-10.1); Chloride 95 mmol/L (98-107); Estimated GFR 46.27 (mL/min/1.73m2); Glucose 140 mg/dL (74-106); Potassium 4.1 mmol/L (3.5-5.1); Sodium 127 mmol/L (136-145); Total Protein 6.6 g/dL (6.4-8.2)
[2022-06-10 08:58] LABS: Absolute Lymphocyte Count 1.03 10^3/uL (1.2-3.4); Absolute Neutrophil Count 1.01 10^3/uL (1.2-6.7); Atypical Lymphocytes % 0; Bands % 0
[2022-06-10 08:59] LABS: Absolute Monocyte Count 0.25 10^3/uL (0.1-0.8); Basophilic Stippling Present; Diff Comment Manual Differential; Microcytosis 1+
[2022-06-10 09:00] LABS: Poikilocytes 2+
[2022-06-17] VITALS (10 sets, daily range): BP systolic 133–178; BP diastolic 60–86; PULSE 75–85; RESP 17–18; TEMP 35.5–36.4; O2SAT 95–99
[2022-06-17] MEDS: Normal Saline Flush 10 ML SYR IVP ×2 (08:36→10:36)
[2022-06-17 08:56] LABS: Abs Immature Grans 0.02 10^3/uL (0.0-0.06); Absolute Basophil Count 0.04 10^3/uL (0.0-0.2); Absolute Lymphocyte Count 0.98 10^3/uL (1.2-3.4); Absolute Monocyte Count 0.18 10^3/uL (0.1-0.8); Absolute Neutrophil Count 1.03 10^3/uL (1.2-6.7); Basophils % 1.8; Immature Grans % 0.9; Lymphocytes % 43.6; MCH 31.5 pg (27.0-33.0); MCHC 35.7 % (32.0-36.0); MCV 88 fL (80-95); MPV 11.3 fL (8.0-11.0); Neutrophils % 45.7; Platelet Count 254 10^3/uL (130-400); RBC 2.22 10^6/uL (4.36-5.78); RDW 17.2 % (11.8-14.1); RDW-SD 52.9 fL; WBC 2.25 10^3/uL (4.4-10.8)
[2022-06-17 09:10] LABS: HCT 19.6 % (40.0-50.0)
[2022-06-17 09:11] LABS: Anisocytosis 1+; Diff Comment Agrees w/ Instrument
[2022-06-17 09:12] LABS: ALT 37 U/L (16-63); AST 29 U/L (15-37); Albumin 3.4 g/dL (3.4-5.0); Alkaline Phosphatase 80 U/L (46-116); Anion Gap 6.5 mmol/L (3-11); BUN 24 mg/dL (7-18); Bilirubin, Total 0.6 mg/dL (0.2-1.0); CO2 26.5 mmol/L (21.0-32.0); CREATININE 1.9 mg/dL (0.70-1.30); Calcium 8.9 mg/dL (8.5-10.1); Chloride 97 mmol/L (98-107); Estimated GFR 35.22 (mL/min/1.73m2); Glucose 123 mg/dL (74-106); Potassium 4.1 mmol/L (3.5-5.1); Sodium 130 mmol/L (136-145); Total Protein 6.7 g/dL (6.4-8.2)
[2022-06-17] MEDS: Heparin 500 UNITS/5 ML SYRINGE IV (10:36)
== END 2022-07-01 23:59 | disposition home or self-care (01) ==
LOC: INF 02:34
PROVIDERS: PCP Family Medicine; Visit Provider Internal Medicine Hematology & Oncology
DX: Z45.2 Encounter for adjustment and management of vascular access device (principal); D46.9 Myelodysplastic syndrome, unspecified; E83.111 Hemochromatosis due to repeated red blood cell transfusions; D53.9 Nutritional anemia, unspecified
CPT/HCPCS: 36430; 36591; 80053; 86850; 86900; 86901; 86920; 86945; 85025; P9016

== ENCOUNTER 2022-07-29 11:00 | Outpatient (RCR) | payer OTHER, SELFPAY ==
[2022-07-02 00:03] VITALS: BP 174/86; PULSE 85; RESP 17; TEMP 36.4
[2022-07-22 10:56] LABS: HCT 23.7 % (40.0-50.0); HGB 8.2 g/dL (13.5-17.5); MCH 30.4 pg (27.0-33.0); MCHC 34.6 % (32.0-36.0); MCV 88 fL (80-95); MPV 12.2 fL (8.0-11.0); Platelet Count 279 10^3/uL (130-400); RDW 16.3 % (11.8-14.1); RDW-SD 49.7 fL; WBC 6.06 10^3/uL (4.4-10.8)
[2022-07-22 11:10] LABS: Absolute Basophil Count 0.36 10^3/uL (0.0-0.2); Absolute Lymphocyte Count 2.06 10^3/uL (1.2-3.4); Absolute Monocyte Count 1.21 10^3/uL (0.1-0.8); Absolute Neutrophil Count 2.42 10^3/uL (1.2-6.7); Atypical Lymphocytes % 11; Bands % 1; Diff Comment Manual Differential; RBC Morphology Normal
[2022-07-22] MEDS: Normal Saline Flush 10 ML SYR IVP (11:17)
[2022-07-22] MEDS: Heparin 500 UNITS/5 ML SYRINGE IV ×2 (11:18→13:04)
[2022-07-22 11:35] LABS: Iron 43 ug/dL (65-175); Total Iron Binding Capacity 184 ug/dL (250-450); Transferrin Sat 23 % (20-55)
[2022-07-22 11:50] LABS: ALT 19 U/L (16-63); AST 22 U/L (15-37); Alkaline Phosphatase 111 U/L (46-116); Anion Gap 7.8 mmol/L (3-11); BUN 18 mg/dL (7-18); Bilirubin, Total 0.6 mg/dL (0.2-1.0); CO2 26.2 mmol/L (21.0-32.0); CREATININE 1.3 mg/dL (0.70-1.30); Calcium 9.2 mg/dL (8.5-10.1); Chloride 93 mmol/L (98-107); Glucose 110 mg/dL (74-106); Potassium 4.5 mmol/L (3.5-5.1); Sodium 127 mmol/L (136-145); Total Protein 7.2 g/dL (6.4-8.2)
[2022-07-22 11:52] LABS: Ferritin > 2000 ng/mL (26-388)
[2022-07-22 12:14] VITALS: BP 113/51; PULSE 83; RESP 18; TEMP 36.2; O2SAT 99
[2022-07-22 12:30] VITALS: BP 130/78; PULSE 81; RESP 18; TEMP 36.2; O2SAT 98
[2022-07-22 12:49] VITALS: BP 144/75; PULSE 76; RESP 17; TEMP 36.6; O2SAT 100
[2022-07-22 13:15] VITALS: BP 132/74; PULSE 80; RESP 17; TEMP 36; O2SAT 98
[2022-07-22 14:12] VITALS: BP 130/64; PULSE 82; RESP 17; TEMP 36.1; O2SAT 99
[2022-07-29] MEDS: Normal Saline Flush 10 ML SYR IVP (10:35)
[2022-07-29 10:54] LABS: Abs Immature Grans 0.11 10^3/uL (0.0-0.06); Absolute Basophil Count 0.18 10^3/uL (0.0-0.2); Absolute Eosinophil Count 0.01 10^3/uL (0.0-0.7); Absolute Lymphocyte Count 0.83 10^3/uL (1.2-3.4); Absolute Monocyte Count 1.26 10^3/uL (0.1-0.8); Absolute Neutrophil Count 3.56 10^3/uL (1.2-6.7); Eosinophils % 0.2; HCT 22.9 % (40.0-50.0); HGB 7.8 g/dL (13.5-17.5); Immature Grans % 1.8; Lymphocytes % 13.9; MCH 30.5 pg (27.0-33.0); MCHC 34.1 % (32.0-36.0); MCV 90 fL (80-95); MPV 11.6 fL (8.0-11.0); Monocytes % 21.2; Neutrophils % 59.9; Platelet Count 265 10^3/uL (130-400); RBC 2.56 10^6/uL (4.36-5.78); RDW 15.9 % (11.8-14.1); WBC 5.95 10^3/uL (4.4-10.8)
[2022-07-29 11:56] VITALS: BP 98/62; PULSE 74; RESP 18; TEMP 36.5; O2SAT 95
[2022-07-29 12:15] VITALS: BP 98/57; PULSE 76; RESP 18; TEMP 36.5; O2SAT 99
[2022-07-29 12:30] VITALS: BP 95/60; PULSE 77; RESP 17; TEMP 36.5; O2SAT 98
[2022-07-29 13:01] VITALS: BP 97/50; PULSE 75; RESP 18; TEMP 36.5; O2SAT 97
[2022-07-29 13:37] VITALS: BP 111/55; PULSE 65; RESP 18; TEMP 36.5; O2SAT 98
== END 2022-07-31 23:59 | disposition home or self-care (01) ==
LOC: INF 11:00
PROVIDERS: PCP Family Medicine; Visit Provider Internal Medicine Hematology & Oncology
DX: Z45.2 Encounter for adjustment and management of vascular access device (principal); D46.9 Myelodysplastic syndrome, unspecified
CPT/HCPCS: 36430; 36591; 80053; 86850; 86900; 86901; 86920; 82728; 83540; 83550; 85025; P9016

== ENCOUNTER 2022-08-26 10:00 | Outpatient (RCR) | payer OTHER, SELFPAY ==
[2022-08-01 00:16] VITALS: BP 111/55; PULSE 65; RESP 18; TEMP 36.5
[2022-08-05 09:53] LABS: Abs Immature Grans 0.31 10^3/uL (0.0-0.06); Absolute Basophil Count 0.29 10^3/uL (0.0-0.2); Absolute Eosinophil Count 0.05 10^3/uL (0.0-0.7); Absolute Lymphocyte Count 1.06 10^3/uL (1.2-3.4); Absolute Monocyte Count 1.21 10^3/uL (0.1-0.8); Absolute Neutrophil Count 4.65 10^3/uL (1.2-6.7); Basophils % 3.8; Eosinophils % 0.7; HCT 24.6 % (40.0-50.0); HGB 8.1 g/dL (13.5-17.5); Immature Grans % 4.1; MCH 30.1 pg (27.0-33.0); MCHC 32.9 % (32.0-36.0); MCV 91 fL (80-95); MPV 10.9 fL (8.0-11.0); Neutrophils % 61.4; Platelet Count 221 10^3/uL (130-400); RBC 2.69 10^6/uL (4.36-5.78); RDW 15.4 % (11.8-14.1); WBC 7.57 10^3/uL (4.4-10.8)
[2022-08-05 10:17] LABS: ALT 26 U/L (16-63); AST 23 U/L (15-37); Albumin 2.4 g/dL (3.4-5.0); Alkaline Phosphatase 204 U/L (46-116); Anion Gap 6.1 mmol/L (3-11); BUN 32 mg/dL (7-18); Bilirubin, Total 0.3 mg/dL (0.2-1.0); CO2 28.9 mmol/L (21.0-32.0); CREATININE 1.5 mg/dL (0.70-1.30); Calcium 9.3 mg/dL (8.5-10.1); Chloride 99 mmol/L (98-107); Estimated GFR 49.77 (mL/min/1.73m2); Glucose 129 mg/dL (74-106); Potassium 4.2 mmol/L (3.5-5.1); Sodium 134 mmol/L (136-145); Total Protein 6.9 g/dL (6.4-8.2)
[2022-08-05 10:18] VITALS: BP 127/70; PULSE 77; RESP 18; TEMP 36.1; O2SAT 99
[2022-08-05] MEDS: Heparin 500 UNITS/5 ML SYRINGE IV (10:33)
[2022-08-05] MEDS: Normal Saline Flush 10 ML SYR IVP (10:33)
[2022-08-05 10:56] VITALS: BP 127/70; PULSE 77; RESP 18; TEMP 36.1; O2SAT 99
[2022-08-05 11:11] VITALS: BP 124/61; PULSE 68; RESP 18; TEMP 36.2; O2SAT 97
[2022-08-05 11:25] VITALS: BP 129/60; PULSE 65; RESP 18; TEMP 36; O2SAT 99
[2022-08-05 11:55] VITALS: BP 145/77; PULSE 82; RESP 18; TEMP 36; O2SAT 100
[2022-08-05 12:40] VITALS: BP 134/73; PULSE 74; RESP 18; TEMP 36.2; O2SAT 99
[2022-08-12 10:00] LABS: Abs Immature Grans 0.26 10^3/uL (0.0-0.06); Absolute Basophil Count 0.29 10^3/uL (0.0-0.2); Absolute Eosinophil Count 0.04 10^3/uL (0.0-0.7); Absolute Lymphocyte Count 1.23 10^3/uL (1.2-3.4); Absolute Monocyte Count 0.98 10^3/uL (0.1-0.8); Absolute Neutrophil Count 3.66 10^3/uL (1.2-6.7); Basophils % 4.5; Eosinophils % 0.6; HCT 24.4 % (40.0-50.0); HGB 8.2 g/dL (13.5-17.5); MCH 30.3 pg (27.0-33.0); MCHC 33.6 % (32.0-36.0); MCV 90 fL (80-95); MPV 11.6 fL (8.0-11.0); Monocytes % 15.2; Neutrophils % 56.7; Platelet Count 243 10^3/uL (130-400); RBC 2.71 10^6/uL (4.36-5.78); RDW 15.3 % (11.8-14.1); WBC 6.46 10^3/uL (4.4-10.8)
[2022-08-12 11:19] VITALS: BP 137/61; PULSE 76; RESP 17; TEMP 36.8; O2SAT 98
[2022-08-12 11:35] VITALS: BP 129/72; PULSE 80; RESP 17; TEMP 36.2; O2SAT 99
[2022-08-12 11:51] VITALS: BP 133/71; PULSE 73; RESP 18; TEMP 36.2; O2SAT 100
[2022-08-12 12:20] VITALS: BP 144/71; PULSE 78; RESP 17; TEMP 36.1; O2SAT 100
[2022-08-12 13:13] VITALS: BP 147/72; PULSE 68; RESP 17; TEMP 36.2; O2SAT 97
[2022-08-12] MEDS: Normal Saline Flush 10 ML SYR IVP (13:32)
[2022-08-12] MEDS: Heparin 500 UNITS/5 ML SYRINGE IV (13:33)
[2022-08-19] MEDS: Normal Saline Flush 10 ML SYR IVP (08:44)
[2022-08-19 08:53] LABS: Abs Immature Grans 0.14 10^3/uL (0.0-0.06); Absolute Basophil Count 0.25 10^3/uL (0.0-0.2); Absolute Eosinophil Count 0.04 10^3/uL (0.0-0.7); Absolute Lymphocyte Count 1.19 10^3/uL (1.2-3.4); Absolute Neutrophil Count 2.69 10^3/uL (1.2-6.7); Basophils % 4.9; Eosinophils % 0.8; HCT 25.8 % (40.0-50.0); HGB 8.6 g/dL (13.5-17.5); Immature Grans % 2.7; Lymphocytes % 23.3; MCH 29.7 pg (27.0-33.0); MCHC 33.3 % (32.0-36.0); MCV 89 fL (80-95); MPV 12.1 fL (8.0-11.0); Monocytes % 15.7; Neutrophils % 52.6; Platelet Count 226 10^3/uL (130-400); RDW-SD 48.2 fL; WBC 5.11 10^3/uL (4.4-10.8)
[2022-08-19 09:49] LABS: ALT 20 U/L (16-63); AST 19 U/L (15-37); Albumin 2.4 g/dL (3.4-5.0); Alkaline Phosphatase 144 U/L (46-116); Anion Gap 4.6 mmol/L (3-11); BUN 22 mg/dL (7-18); Bilirubin, Total 0.4 mg/dL (0.2-1.0); CO2 30.4 mmol/L (21.0-32.0); CREATININE 1.1 mg/dL (0.70-1.30); Calcium 9.4 mg/dL (8.5-10.1); Chloride 101 mmol/L (98-107); Estimated GFR 72.22 (mL/min/1.73m2); Glucose 157 mg/dL (74-106); Sodium 136 mmol/L (136-145); Total Protein 6.8 g/dL (6.4-8.2)
[2022-08-19 09:51] LABS: Ferritin > 2000 ng/mL (26-388)
[2022-08-26 09:04] LABS: Abs Immature Grans 0.16 10^3/uL (0.0-0.06); Absolute Basophil Count 0.23 10^3/uL (0.0-0.2); Absolute Eosinophil Count 0.04 10^3/uL (0.0-0.7); Absolute Lymphocyte Count 1.06 10^3/uL (1.2-3.4); Absolute Monocyte Count 1.08 10^3/uL (0.1-0.8); Absolute Neutrophil Count 3.03 10^3/uL (1.2-6.7); Basophils % 4.1; Eosinophils % 0.7; HCT 21.9 % (40.0-50.0); HGB 7.1 g/dL (13.5-17.5); Immature Grans % 2.9; Lymphocytes % 18.9; MCH 29.7 pg (27.0-33.0); MCHC 32.4 % (32.0-36.0); MCV 92 fL (80-95); MPV 12.2 fL (8.0-11.0); Monocytes % 19.3; Neutrophils % 54.1; Platelet Count 254 10^3/uL (130-400); RBC 2.39 10^6/uL (4.36-5.78); RDW 15.4 % (11.8-14.1); RDW-SD 50.7 fL
[2022-08-26 09:19] LABS: ALT 17 U/L (16-63); AST 24 U/L (15-37); Albumin 2.3 g/dL (3.4-5.0); Alkaline Phosphatase 138 U/L (46-116); Anion Gap 2.6 mmol/L (3-11); BUN 21 mg/dL (7-18); Bilirubin, Total 0.4 mg/dL (0.2-1.0); CO2 31.4 mmol/L (21.0-32.0); CREATININE 1.4 mg/dL (0.70-1.30); Calcium 8.9 mg/dL (8.5-10.1); Chloride 103 mmol/L (98-107); Estimated GFR 54.07 (mL/min/1.73m2); Glucose 165 mg/dL (74-106); Potassium 4.3 mmol/L (3.5-5.1); Sodium 137 mmol/L (136-145); Total Protein 6.5 g/dL (6.4-8.2)
[2022-08-26 09:47] LABS: Iron 38 ug/dL (65-175); Total Iron Binding Capacity 146 ug/dL (250-450); Transferrin Sat 26 % (20-55)
[2022-08-26 10:02] VITALS: BP 109/47; PULSE 85; RESP 17; TEMP 36.8; O2SAT 98
[2022-08-26 10:17] VITALS: BP 98/56; PULSE 73; RESP 20; TEMP 37; O2SAT 98
[2022-08-26] MEDS: Normal Saline Flush 10 ML SYR IVP (10:24)
[2022-08-26 10:25] VITALS: BP 142/75; PULSE 82; RESP 19; TEMP 36.3; O2SAT 92
[2022-08-26 10:39] VITALS: BP 103/62; PULSE 75; RESP 20; TEMP 36.2; O2SAT 98
[2022-08-26 10:47] VITALS: BP 125/58; PULSE 71; RESP 19; TEMP 36.6; O2SAT 99
[2022-08-26 11:47] VITALS: BP 118/69; PULSE 71; RESP 20; TEMP 36.8; O2SAT 98
[2022-08-26] MEDS: Heparin 500 UNITS/5 ML SYRINGE IV (11:58)
== END 2022-08-31 23:59 | disposition home or self-care (01) ==
LOC: INF 10:00
PROVIDERS: PCP Family Medicine; Visit Provider Internal Medicine Hematology & Oncology
DX: Z45.2 Encounter for adjustment and management of vascular access device (principal); D46.9 Myelodysplastic syndrome, unspecified
CPT/HCPCS: 36430; 36591; 80053; 86850; 86900; 86901; 86920; 82728; 83540; 83550; 85025; P9016

== ENCOUNTER 2022-09-30 03:09 | Outpatient (RCR) | payer OTHER, SELFPAY ==
[2022-09-01 00:07] VITALS: BP 118/69; PULSE 71; RESP 20; TEMP 36.8
[2022-09-09] MEDS: Normal Saline Flush 10 ML SYR IVP (09:23)
[2022-09-09] MEDS: Heparin 500 UNITS/5 ML SYRINGE IV (09:24)
[2022-09-09 09:54] LABS: Abs Immature Grans 0.12 10^3/uL (0.0-0.06); Absolute Basophil Count 0.23 10^3/uL (0.0-0.2); Absolute Eosinophil Count 0.03 10^3/uL (0.0-0.7); Absolute Lymphocyte Count 0.89 10^3/uL (1.2-3.4); Absolute Monocyte Count 0.99 10^3/uL (0.1-0.8); Absolute Neutrophil Count 3.29 10^3/uL (1.2-6.7); Basophils % 4.1; Eosinophils % 0.5; HCT 28.4 % (40.0-50.0); HGB 9.1 g/dL (13.5-17.5); Immature Grans % 2.2; MCH 28.3 pg (27.0-33.0); MCV 88 fL (80-95); MPV 12.9 fL (8.0-11.0); Monocytes % 17.8; Neutrophils % 59.4; Platelet Count 203 10^3/uL (130-400); RBC 3.22 10^6/uL (4.36-5.78); RDW 16.6 % (11.8-14.1); RDW-SD 52.5 fL; WBC 5.55 10^3/uL (4.4-10.8)
[2022-09-23] MEDS: Normal Saline Flush 10 ML SYR IVP (09:44)
[2022-09-23] MEDS: Heparin 500 UNITS/5 ML SYRINGE IV (09:45)
[2022-09-23 09:48] LABS: Absolute Basophil Count 0.22 10^3/uL (0.0-0.2); Absolute Eosinophil Count 0.03 10^3/uL (0.0-0.7); Absolute Lymphocyte Count 0.98 10^3/uL (1.2-3.4); Absolute Monocyte Count 0.65 10^3/uL (0.1-0.8); Basophils % 6.3; Eosinophils % 0.9; HCT 25.3 % (40.0-50.0); HGB 8.3 g/dL (13.5-17.5); Immature Grans % 2.9; Lymphocytes % 28.2; MCH 28.2 pg (27.0-33.0); MCHC 32.8 % (32.0-36.0); MCV 86 fL (80-95); MPV 11.9 fL (8.0-11.0); Monocytes % 18.7; Platelet Count 187 10^3/uL (130-400); RBC 2.94 10^6/uL (4.36-5.78); RDW 15.6 % (11.8-14.1); RDW-SD 48.6 fL; WBC 3.48 10^3/uL (4.4-10.8)
[2022-09-23 11:18] VITALS: BP 169/71; PULSE 77; RESP 18; TEMP 36.5; O2SAT 96
[2022-09-23 11:33] VITALS: BP 145/64; PULSE 62; RESP 16; TEMP 36.5; O2SAT 99
[2022-09-23 11:50] VITALS: BP 149/77; PULSE 72; RESP 17; TEMP 36.6; O2SAT 99
[2022-09-23 12:20] VITALS: BP 156/75; PULSE 63; RESP 17; TEMP 36.5; O2SAT 100
[2022-09-23 13:15] VITALS: BP 164/72; PULSE 69; RESP 16; TEMP 36.5; O2SAT 98
[2022-09-30 09:16] LABS: Abs Immature Grans 0.07 10^3/uL (0.0-0.06); Absolute Basophil Count 0.35 10^3/uL (0.0-0.2); Absolute Eosinophil Count 0.04 10^3/uL (0.0-0.7); Absolute Lymphocyte Count 1.08 10^3/uL (1.2-3.4); Absolute Monocyte Count 0.63 10^3/uL (0.1-0.8); Absolute Neutrophil Count 1.75 10^3/uL (1.2-6.7); Basophils % 8.9; HCT 26.9 % (40.0-50.0); HGB 8.6 g/dL (13.5-17.5); Immature Grans % 1.8; Lymphocytes % 27.6; MCH 27.7 pg (27.0-33.0); MCV 87 fL (80-95); MPV 12.5 fL (8.0-11.0); Monocytes % 16.1; Neutrophils % 44.6; Platelet Count 187 10^3/uL (130-400); RBC 3.11 10^6/uL (4.36-5.78); RDW 15.6 % (11.8-14.1); RDW-SD 48.7 fL; WBC 3.92 10^3/uL (4.4-10.8)
[2022-09-30] MEDS: Heparin 500 UNITS/5 ML SYRINGE IV (09:33)
[2022-09-30] MEDS: Normal Saline Flush 10 ML SYR IVP (09:33)
== END 2022-09-30 23:59 | disposition home or self-care (01) ==
LOC: INF 03:09
PROVIDERS: PCP Family Medicine; Visit Provider Internal Medicine Hematology & Oncology
DX: D46.9 Myelodysplastic syndrome, unspecified (principal); E83.111 Hemochromatosis due to repeated red blood cell transfusions; D53.9 Nutritional anemia, unspecified; Z45.2 Encounter for adjustment and management of vascular access device
CPT/HCPCS: 36430; 36591; 86850; 86900; 86901; 86920; 85025; P9016

== ENCOUNTER 2022-10-28 10:00 | Outpatient (RCR) | payer OTHER, SELFPAY ==
[2022-10-01 00:05] VITALS: BP 164/72; PULSE 69; RESP 16; TEMP 36.5
[2022-10-07 09:37] LABS: Abs Immature Grans 0.08 10^3/uL (0.0-0.06); Absolute Eosinophil Count 0.03 10^3/uL (0.0-0.7); Absolute Lymphocyte Count 1.13 10^3/uL (1.2-3.4); Absolute Monocyte Count 0.72 10^3/uL (0.1-0.8); Basophils % 6.7; Eosinophils % 0.7; HCT 23.8 % (40.0-50.0); HGB 7.7 g/dL (13.5-17.5); Immature Grans % 1.8; Lymphocytes % 25.3; MCH 27.8 pg (27.0-33.0); MCHC 32.4 % (32.0-36.0); MCV 86 fL (80-95); MPV 12.4 fL (8.0-11.0); Monocytes % 16.1; Neutrophils % 49.4; Platelet Count 193 10^3/uL (130-400); RBC 2.77 10^6/uL (4.36-5.78); RDW 15.7 % (11.8-14.1); RDW-SD 47.8 fL; WBC 4.46 10^3/uL (4.4-10.8)
[2022-10-07] MEDS: Heparin 500 UNITS/5 ML SYRINGE IV (09:57)
[2022-10-07] MEDS: Normal Saline Flush 10 ML SYR IVP (09:58)
[2022-10-07 10:36] VITALS: BP 104/47; PULSE 73; RESP 18; TEMP 35.9; O2SAT 100
[2022-10-07 10:55] VITALS: BP 115/54; PULSE 83; RESP 18; TEMP 36.4; O2SAT 99
[2022-10-07 11:10] VITALS: BP 121/55; PULSE 55; RESP 18; TEMP 36.4; O2SAT 99
[2022-10-07 11:40] VITALS: BP 122/53; PULSE 63; RESP 18; TEMP 36.4; O2SAT 99
[2022-10-07 12:30] VITALS: BP 115/49; PULSE 61; RESP 18; TEMP 36.1; O2SAT 100
[2022-10-14 10:27] LABS: Absolute Basophil Count 0.29 10^3/uL (0.0-0.2); Absolute Eosinophil Count 0.03 10^3/uL (0.0-0.7); Absolute Lymphocyte Count 1.21 10^3/uL (1.2-3.4); Absolute Monocyte Count 0.85 10^3/uL (0.1-0.8); Absolute Neutrophil Count 2.27 10^3/uL (1.2-6.7); Basophils % 6.1; Eosinophils % 0.6; HCT 25.7 % (40.0-50.0); HGB 8.2 g/dL (13.5-17.5); Immature Grans % 2.1; Lymphocytes % 25.5; MCH 27.6 pg (27.0-33.0); MCHC 31.9 % (32.0-36.0); MCV 87 fL (80-95); MPV 11.3 fL (8.0-11.0); Monocytes % 17.9; Neutrophils % 47.8; Platelet Count 186 10^3/uL (130-400); RBC 2.97 10^6/uL (4.36-5.78); RDW 15.9 % (11.8-14.1); RDW-SD 49.4 fL; WBC 4.75 10^3/uL (4.4-10.8)
[2022-10-14] MEDS: Normal Saline Flush 10 ML SYR IVP (10:35)
[2022-10-14] MEDS: Heparin 500 UNITS/5 ML SYRINGE IV (10:36)
[2022-10-14 11:42] VITALS: BP 131/55; PULSE 76; RESP 17; TEMP 36.5; O2SAT 100
[2022-10-14 12:00] VITALS: BP 144/57; PULSE 69; RESP 18; TEMP 36.2; O2SAT 98
[2022-10-14 12:15] VITALS: BP 142/63; PULSE 69; RESP 18; TEMP 36.4; O2SAT 98
[2022-10-14 12:45] VITALS: BP 131/73; PULSE 69; RESP 18; TEMP 36.3; O2SAT 98
[2022-10-14 13:30] VITALS: BP 139/69; PULSE 72; RESP 18; TEMP 36.5; O2SAT 99
[2022-10-21] MEDS: Normal Saline Flush 10 ML SYR IVP (09:24)
[2022-10-21] MEDS: Heparin 500 UNITS/5 ML SYRINGE IV (09:24)
[2022-10-21 09:42] LABS: Abs Immature Grans 0.16 10^3/uL (0.0-0.06); Absolute Basophil Count 0.32 10^3/uL (0.0-0.2); Absolute Eosinophil Count 0.05 10^3/uL (0.0-0.7); Absolute Monocyte Count 0.85 10^3/uL (0.1-0.8); Absolute Neutrophil Count 2.54 10^3/uL (1.2-6.7); Eosinophils % 0.9; HGB 8.9 g/dL (13.5-17.5); Lymphocytes % 26.3; MCH 28.2 pg (27.0-33.0); MCHC 31.8 % (32.0-36.0); MCV 89 fL (80-95); MPV 12.5 fL (8.0-11.0); Neutrophils % 47.8; Platelet Count 198 10^3/uL (130-400); RBC 3.16 10^6/uL (4.36-5.78); RDW 16.2 % (11.8-14.1); WBC 5.32 10^3/uL (4.4-10.8)
[2022-10-28] MEDS: Heparin 500 UNITS/5 ML SYRINGE IV (10:20)
[2022-10-28] MEDS: Normal Saline Flush 10 ML SYR IVP (10:20)
[2022-10-28 10:27] LABS: Abs Immature Grans 0.11 10^3/uL (0.0-0.06); Absolute Basophil Count 0.25 10^3/uL (0.0-0.2); Absolute Eosinophil Count 0.03 10^3/uL (0.0-0.7); Absolute Lymphocyte Count 1.19 10^3/uL (1.2-3.4); Absolute Monocyte Count 0.68 10^3/uL (0.1-0.8); Basophils % 5.5; Eosinophils % 0.7; HCT 23.1 % (40.0-50.0); HGB 7.4 g/dL (13.5-17.5); Immature Grans % 2.4; Lymphocytes % 26.1; MCH 27.9 pg (27.0-33.0); MCV 87 fL (80-95); MPV 12.2 fL (8.0-11.0); Monocytes % 14.9; Neutrophils % 50.4; Platelet Count 167 10^3/uL (130-400); RBC 2.65 10^6/uL (4.36-5.78); RDW 16.1 % (11.8-14.1); RDW-SD 50.5 fL; WBC 4.56 10^3/uL (4.4-10.8)
[2022-10-28 11:28] VITALS: BP 123/51; PULSE 70; RESP 18; TEMP 36.5; O2SAT 99
[2022-10-28 11:43] VITALS: BP 138/69; PULSE 70; RESP 18; TEMP 36.4; O2SAT 98
[2022-10-28 11:58] VITALS: BP 147/75; PULSE 83; RESP 18; TEMP 36.4; O2SAT 100
[2022-10-28 12:30] VITALS: BP 145/72; PULSE 64; RESP 18; TEMP 36.4; O2SAT 100
[2022-10-28 13:30] VITALS: BP 152/76; PULSE 77; RESP 18; TEMP 36.4; O2SAT 99
== END 2022-10-31 23:59 | disposition home or self-care (01) ==
LOC: INF 10:00
PROVIDERS: PCP Family Medicine; Visit Provider Internal Medicine Hematology & Oncology
DX: Z45.2 Encounter for adjustment and management of vascular access device (principal); D46.9 Myelodysplastic syndrome, unspecified; D53.9 Nutritional anemia, unspecified
CPT/HCPCS: 36430; 36591; 86850; 86900; 86901; 86920; 86945; 85025; P9016

== ENCOUNTER 2022-11-25 01:44 | Outpatient (RCR) | payer OTHER, SELFPAY ==
[2022-11-04 09:55] LABS: Abs Immature Grans 0.09 10^3/uL (0.0-0.06); Absolute Basophil Count 0.27 10^3/uL (0.0-0.2); Absolute Eosinophil Count 0.03 10^3/uL (0.0-0.7); Absolute Lymphocyte Count 1.11 10^3/uL (1.2-3.4); Absolute Monocyte Count 0.82 10^3/uL (0.1-0.8); Absolute Neutrophil Count 2.73 10^3/uL (1.2-6.7); Basophils % 5.3; Eosinophils % 0.6; HCT 25.3 % (40.0-50.0); Immature Grans % 1.8; MCHC 31.6 % (32.0-36.0); MCV 89 fL (80-95); Monocytes % 16.2; Neutrophils % 54.1; Platelet Count 170 10^3/uL (130-400); RBC 2.86 10^6/uL (4.36-5.78); RDW 15.9 % (11.8-14.1); WBC 5.05 10^3/uL (4.4-10.8)
[2022-11-04] MEDS: Normal Saline Flush 10 ML SYR IVP (10:13)
[2022-11-04 10:47] VITALS: BP 108/65; PULSE 77; RESP 18; TEMP 36.3; O2SAT 99
[2022-11-04 11:04] VITALS: BP 122/60; PULSE 65; RESP 18; TEMP 36.4; O2SAT 97
[2022-11-04 11:23] VITALS: BP 124/59; PULSE 64; RESP 16; TEMP 36.3; O2SAT 100
[2022-11-04 11:30] VITALS: BP 123/67; PULSE 63; RESP 18; TEMP 36.2; O2SAT 98
[2022-11-04 11:50] VITALS: BP 123/67; PULSE 63; RESP 18; TEMP 36.2; O2SAT 98
[2022-11-04 12:15] VITALS: BP 142/62; PULSE 62; RESP 17; TEMP 36.3; O2SAT 100
[2022-11-04] MEDS: Heparin 500 UNITS/5 ML SYRINGE IV (12:31)
[2022-11-11 11:37] LABS: Abs Immature Grans 0.14 10^3/uL (0.0-0.06); Absolute Basophil Count 0.26 10^3/uL (0.0-0.2); Absolute Eosinophil Count 0.03 10^3/uL (0.0-0.7); Absolute Lymphocyte Count 1.29 10^3/uL (1.2-3.4); Absolute Monocyte Count 0.62 10^3/uL (0.1-0.8); Absolute Neutrophil Count 2.31 10^3/uL (1.2-6.7); Basophils % 5.6; Eosinophils % 0.6; HCT 23.6 % (40.0-50.0); HGB 7.8 g/dL (13.5-17.5); Lymphocytes % 27.7; MCH 28.8 pg (27.0-33.0); MCHC 33.1 % (32.0-36.0); MCV 87 fL (80-95); Monocytes % 13.3; Neutrophils % 49.8; Platelet Count 196 10^3/uL (130-400); RBC 2.71 10^6/uL (4.36-5.78); RDW 15.3 % (11.8-14.1); RDW-SD 48.2 fL; WBC 4.65 10^3/uL (4.4-10.8)
[2022-11-11] MEDS: Normal Saline Flush 10 ML SYR IVP ×2 (11:38→13:44)
[2022-11-11 12:24] LABS: ALT 22 U/L (16-63); AST 22 U/L (15-37); Albumin 2.8 g/dL (3.4-5.0); Alkaline Phosphatase 134 U/L (46-116); Anion Gap 5.8 mmol/L (3-11); BUN 28 mg/dL (7-18); Bilirubin, Total 0.4 mg/dL (0.2-1.0); CO2 30.2 mmol/L (21.0-32.0); CREATININE 1.2 mg/dL (0.70-1.30); Chloride 101 mmol/L (98-107); Estimated GFR 65.06 (mL/min/1.73m2); Glucose 100 mg/dL (74-106); Potassium 4.5 mmol/L (3.5-5.1); Sodium 137 mmol/L (136-145); Total Protein 6.6 g/dL (6.4-8.2)
[2022-11-11 12:27] LABS: Ferritin > 2000 ng/mL (26-388)
[2022-11-11 12:45] VITALS: BP 80/47; PULSE 73; RESP 18; TEMP 37.1
[2022-11-11 13:05] LABS: Iron 89 ug/dL (65-175); Total Iron Binding Capacity 150 ug/dL (250-450); Transferrin Sat 59 % (20-55)
[2022-11-11 13:10] VITALS: BP 95/56; PULSE 76; RESP 18; TEMP 36.6; O2SAT 99
[2022-11-11 13:25] VITALS: BP 92/55; PULSE 61; RESP 17; TEMP 36.6; O2SAT 96
[2022-11-11 13:55] VITALS: BP 95/58; PULSE 65; RESP 16; TEMP 36.8; O2SAT 99
[2022-11-11 14:45] VITALS: BP 110/62; PULSE 65; RESP 16; TEMP 36.8; O2SAT 99
[2022-11-18] MEDS: Normal Saline Flush 10 ML SYR IVP (10:28)
[2022-11-18] MEDS: Heparin 500 UNITS/5 ML SYRINGE IV (10:29)
[2022-11-18 10:32] LABS: Abs Immature Grans 0.12 10^3/uL (0.0-0.06); Absolute Basophil Count 0.28 10^3/uL (0.0-0.2); Absolute Eosinophil Count 0.02 10^3/uL (0.0-0.7); Absolute Lymphocyte Count 1.32 10^3/uL (1.2-3.4); Absolute Monocyte Count 0.65 10^3/uL (0.1-0.8); Absolute Neutrophil Count 2.91 10^3/uL (1.2-6.7); Basophils % 5.3; Eosinophils % 0.4; HCT 24.6 % (40.0-50.0); HGB 8.1 g/dL (13.5-17.5); Immature Grans % 2.3; Lymphocytes % 24.9; MCH 29.1 pg (27.0-33.0); MCHC 32.9 % (32.0-36.0); MCV 89 fL (80-95); MPV 11.8 fL (8.0-11.0); Monocytes % 12.3; Neutrophils % 54.8; Platelet Count 212 10^3/uL (130-400); RBC 2.78 10^6/uL (4.36-5.78); RDW 15.3 % (11.8-14.1); RDW-SD 48.8 fL
[2022-11-18 11:40] VITALS: BP 110/64; PULSE 91; RESP 16; TEMP 36.4; O2SAT 100
[2022-11-18 11:55] VITALS: BP 120/61; PULSE 76; RESP 17; TEMP 36.1; O2SAT 100
[2022-11-18 12:13] VITALS: BP 127/75; PULSE 78; RESP 17; TEMP 36.3; O2SAT 99
[2022-11-18 12:40] VITALS: BP 132/66; PULSE 72; RESP 17; TEMP 36.4; O2SAT 100
[2022-11-18 13:40] VITALS: BP 128/63; PULSE 73; RESP 18; TEMP 36.2; O2SAT 99
[2022-11-25 10:04] LABS: Abs Immature Grans 0.11 10^3/uL (0.0-0.06); Absolute Basophil Count 0.31 10^3/uL (0.0-0.2); Absolute Eosinophil Count 0.08 10^3/uL (0.0-0.7); Absolute Lymphocyte Count 1.35 10^3/uL (1.2-3.4); Absolute Monocyte Count 0.54 10^3/uL (0.1-0.8); Absolute Neutrophil Count 2.24 10^3/uL (1.2-6.7); Basophils % 6.7; Eosinophils % 1.7; HCT 28.3 % (40.0-50.0); HGB 9.2 g/dL (13.5-17.5); Immature Grans % 2.4; Lymphocytes % 29.2; MCHC 32.5 % (32.0-36.0); MCV 89 fL (80-95); MPV 11.9 fL (8.0-11.0); Monocytes % 11.7; Neutrophils % 48.3; Platelet Count 206 10^3/uL (130-400); RBC 3.17 10^6/uL (4.36-5.78); RDW 14.8 % (11.8-14.1); RDW-SD 48.4 fL; WBC 4.63 10^3/uL (4.4-10.8)
[2022-11-25] MEDS: Heparin 500 UNITS/5 ML SYRINGE IV (10:18)
[2022-11-25] MEDS: Normal Saline Flush 10 ML SYR IVP (10:18)
== END 2022-12-01 23:59 | disposition home or self-care (01) ==
LOC: INF 01:44
PROVIDERS: PCP Family Medicine; Visit Provider Internal Medicine Hematology & Oncology
DX: D46.9 Myelodysplastic syndrome, unspecified (principal); E83.111 Hemochromatosis due to repeated red blood cell transfusions; D53.9 Nutritional anemia, unspecified; Z45.2 Encounter for adjustment and management of vascular access device
CPT/HCPCS: 36430; 36591; 80053; 86850; 86900; 86901; 86920; 82728; 83540; 83550; 85025; P9016

== ENCOUNTER 2022-12-23 10:30 | Outpatient (RCR) | payer OTHER, SELFPAY ==
[2022-12-02 00:01] VITALS: BP 128/63; PULSE 73; RESP 18; TEMP 36.2
[2022-12-02] MEDS: Normal Saline Flush 10 ML SYR IVP (10:04)
[2022-12-02 10:14] LABS: Abs Immature Grans 0.21 10^3/uL (0.0-0.06); Absolute Eosinophil Count 0.03 10^3/uL (0.0-0.7); Absolute Lymphocyte Count 1.18 10^3/uL (1.2-3.4); Absolute Monocyte Count 0.61 10^3/uL (0.1-0.8); Absolute Neutrophil Count 2.99 10^3/uL (1.2-6.7); Basophils % 5.6; Eosinophils % 0.6; HGB 7.3 g/dL (13.5-17.5); Immature Grans % 3.9; Lymphocytes % 22.2; MCH 28.7 pg (27.0-33.0); MCHC 31.7 % (32.0-36.0); MCV 91 fL (80-95); MPV 11.7 fL (8.0-11.0); Monocytes % 11.5; Neutrophils % 56.2; RBC 2.54 10^6/uL (4.36-5.78); RDW 15.2 % (11.8-14.1); RDW-SD 49.6 fL; WBC 5.32 10^3/uL (4.4-10.8)
[2022-12-02 10:38] LABS: Diff Comment Diff Reviewed; Hypochromasia 2+; Platelet Count 205 10^3/uL (130-400)
[2022-12-02 10:39] LABS: Poikilocytes 2+
[2022-12-02 11:13] VITALS: BP 80/47; PULSE 83; RESP 18; TEMP 36.7; O2SAT 100
[2022-12-02 11:28] VITALS: BP 82/49; PULSE 70; RESP 18; TEMP 36.1; O2SAT 100
[2022-12-02 11:46] VITALS: BP 93/61; PULSE 72; RESP 20; TEMP 36.6; O2SAT 99
[2022-12-02 12:15] VITALS: BP 95/62; PULSE 67; RESP 18; TEMP 36.2; O2SAT 99
[2022-12-02 13:10] VITALS: BP 104/66; PULSE 70; RESP 18; TEMP 36.1; O2SAT 100
[2022-12-23] VITALS (10 sets, daily range): BP systolic 103–179; BP diastolic 52–73; PULSE 56–70; RESP 17–18; TEMP 35.7–36.8; O2SAT 87–100
[2022-12-23 10:04] LABS: Abs Immature Grans 0.31 10^3/uL (0.0-0.06); HCT 21.9 % (40.0-50.0); HGB 7.1 g/dL (13.5-17.5); MCH 29.1 pg (27.0-33.0); MCHC 32.4 % (32.0-36.0); MCV 90 fL (80-95); MPV 11.7 fL (8.0-11.0); Platelet Count 233 10^3/uL (130-400); RBC 2.44 10^6/uL (4.36-5.78); RDW 14.4 % (11.8-14.1); RDW-SD 46.7 fL; WBC 4.23 10^3/uL (4.4-10.8)
[2022-12-23 10:24] LABS: Absolute Lymphocyte Count 1.82 10^3/uL (1.2-3.4); Absolute Neutrophil Count 1.86 10^3/uL (1.2-6.7); Atypical Lymphocytes % 2; Bands % 6; Diff Comment Manual Differential; Metamyelocytes % 3; Myelocytes % 2; Other Cells % 1
[2022-12-23 10:25] LABS: Basophilic Stippling Present; Macrocytosis 1+
[2022-12-23 10:34] LABS: ALT 23 U/L (16-63); AST 18 U/L (15-37); Albumin 2.4 g/dL (3.4-5.0); Alkaline Phosphatase 182 U/L (46-116); Anion Gap 4.4 mmol/L (3-11); BUN 28 mg/dL (7-18); Bilirubin, Total 0.3 mg/dL (0.2-1.0); CO2 30.6 mmol/L (21.0-32.0); CREATININE 1.4 mg/dL (0.70-1.30); Chloride 100 mmol/L (98-107); Estimated GFR 54.07 (mL/min/1.73m2); Glucose 128 mg/dL (74-106); Potassium 4.8 mmol/L (3.5-5.1); Sodium 135 mmol/L (136-145); Total Protein 6.4 g/dL (6.4-8.2)
[2022-12-23] MEDS: Heparin 500 UNITS/5 ML SYRINGE IV (15:37)
[2022-12-23] MEDS: Normal Saline Flush 10 ML SYR IVP (15:38)
== END 2022-12-29 23:59 | disposition home or self-care (01) ==
LOC: INF 10:30
PROVIDERS: PCP Family Medicine; Visit Provider Internal Medicine Hematology & Oncology
DX: D46.9 Myelodysplastic syndrome, unspecified (principal); E83.111 Hemochromatosis due to repeated red blood cell transfusions; D53.9 Nutritional anemia, unspecified
CPT/HCPCS: 36415; 36430; 36591; 80053; 86850; 86900; 86901; 86920; 85025; P9016

== ENCOUNTER 2023-01-27 01:42 | Outpatient (RCR) | payer OTHER, SELFPAY ==
[2022-12-30 00:12] VITALS: BP 179/73; PULSE 70; RESP 18; TEMP 36
[2022-12-30] MEDS: Heparin 500 UNITS/5 ML SYRINGE IV (10:26)
[2022-12-30] MEDS: Normal Saline Flush 10 ML SYR IVP (10:26)
[2022-12-30 10:37] LABS: Absolute Basophil Count 0.26 10^3/uL (0.0-0.2); Absolute Eosinophil Count 0.02 10^3/uL (0.0-0.7); Absolute Lymphocyte Count 1.13 10^3/uL (1.2-3.4); Absolute Monocyte Count 0.37 10^3/uL (0.1-0.8); Absolute Neutrophil Count 2.27 10^3/uL (1.2-6.7); Basophils % 6.1; Eosinophils % 0.5; HCT 28.6 % (40.0-50.0); HGB 9.5 g/dL (13.5-17.5); Immature Grans % 4.7; Lymphocytes % 26.6; MCH 29.7 pg (27.0-33.0); MCHC 33.2 % (32.0-36.0); MCV 89 fL (80-95); MPV 11.7 fL (8.0-11.0); Monocytes % 8.7; Neutrophils % 53.4; Platelet Count 185 10^3/uL (130-400); RDW 14.5 % (11.8-14.1); RDW-SD 46.7 fL; WBC 4.25 10^3/uL (4.4-10.8)
[2023-01-06] MEDS: Normal Saline Flush 10 ML SYR IVP (09:56)
[2023-01-06 10:03] LABS: Abs Immature Grans 0.22 10^3/uL (0.0-0.06); Absolute Basophil Count 0.27 10^3/uL (0.0-0.2); Absolute Eosinophil Count 0.04 10^3/uL (0.0-0.7); Absolute Lymphocyte Count 1.11 10^3/uL (1.2-3.4); Absolute Monocyte Count 0.27 10^3/uL (0.1-0.8); Absolute Neutrophil Count 1.82 10^3/uL (1.2-6.7); Basophils % 7.2; Eosinophils % 1.1; HCT 26.4 % (40.0-50.0); HGB 8.5 g/dL (13.5-17.5); Immature Grans % 5.9; Lymphocytes % 29.8; MCH 29.6 pg (27.0-33.0); MCHC 32.2 % (32.0-36.0); MCV 92 fL (80-95); MPV 11.7 fL (8.0-11.0); Monocytes % 7.2; Neutrophils % 48.8; Platelet Count 200 10^3/uL (130-400); RBC 2.87 10^6/uL (4.36-5.78); RDW 14.6 % (11.8-14.1); WBC 3.73 10^3/uL (4.4-10.8)
[2023-01-06 10:23] LABS: Diff Comment Diff Reviewed; RBC Morphology Normal
[2023-01-06 11:08] VITALS: BP 93/49; PULSE 78; RESP 18; TEMP 36; O2SAT 99
[2023-01-06 11:25] VITALS: BP 104/57; PULSE 61; RESP 18; TEMP 35.6; O2SAT 100
[2023-01-06 11:40] VITALS: BP 101/58; PULSE 64; RESP 17; TEMP 36.4; O2SAT 100
[2023-01-06 12:10] VITALS: BP 122/70; PULSE 60; RESP 18; TEMP 36; O2SAT 100
[2023-01-06 13:09] VITALS: BP 115/65; PULSE 62; RESP 17; TEMP 36; O2SAT 99
[2023-01-14 11:31] LABS: Abs Immature Grans 0.23 10^3/uL (0.0-0.06); Absolute Basophil Count 0.24 10^3/uL (0.0-0.2); Absolute Eosinophil Count 0.02 10^3/uL (0.0-0.7); Absolute Lymphocyte Count 1.24 10^3/uL (1.2-3.4); Absolute Monocyte Count 0.28 10^3/uL (0.1-0.8); Absolute Neutrophil Count 1.66 10^3/uL (1.2-6.7); Basophils % 6.5; Eosinophils % 0.5; HCT 26.8 % (40.0-50.0); HGB 8.7 g/dL (13.5-17.5); Immature Grans % 6.3; Lymphocytes % 33.8; MCH 28.6 pg (27.0-33.0); MCHC 32.5 % (32.0-36.0); MCV 88 fL (80-95); MPV 11.9 fL (8.0-11.0); Monocytes % 7.6; Neutrophils % 45.3; Platelet Count 168 10^3/uL (130-400); RBC 3.04 10^6/uL (4.36-5.78); RDW 15.3 % (11.8-14.1); RDW-SD 49.1 fL; WBC 3.67 10^3/uL (4.4-10.8)
[2023-01-14 11:50] LABS: ALT 20 U/L (16-63); AST 19 U/L (15-37); Albumin 2.6 g/dL (3.4-5.0); Alkaline Phosphatase 144 U/L (46-116); Anion Gap 4.5 mmol/L (3-11); BUN 27 mg/dL (7-18); Bilirubin, Total 0.3 mg/dL (0.2-1.0); CO2 31.5 mmol/L (21.0-32.0); CREATININE 1.4 mg/dL (0.70-1.30); Calcium 9.1 mg/dL (8.5-10.1); Chloride 98 mmol/L (98-107); Estimated GFR 53.74 (mL/min/1.73m2); Glucose 120 mg/dL (74-106); Potassium 4.1 mmol/L (3.5-5.1); Sodium 134 mmol/L (136-145)
[2023-01-14 11:58] LABS: Diff Comment Agrees w/ Instrument; RBC Morphology Normal
[2023-01-14] MEDS: Normal Saline Flush 10 ML SYR IVP (12:00)
[2023-01-20] VITALS (10 sets, daily range): BP systolic 99–154; BP diastolic 53–78; PULSE 57–75; RESP 17–18; TEMP 35.7–36.6; O2SAT 96–100
[2023-01-20] MEDS: Normal Saline Flush 10 ML SYR IVP (09:40)
[2023-01-20 09:47] LABS: HCT 23.2 % (40.0-50.0); HGB 7.5 g/dL (13.5-17.5); MCH 28.8 pg (27.0-33.0); MCHC 32.3 % (32.0-36.0); MCV 89 fL (80-95); MPV 11.7 fL (8.0-11.0); Platelet Count 193 10^3/uL (130-400); RDW 15.6 % (11.8-14.1); RDW-SD 49.8 fL
[2023-01-20 10:05] LABS: Absolute Neutrophil Count 1.44 10^3/uL (1.2-6.7); Bands % 4
[2023-01-20 10:06] LABS: Absolute Basophil Count 0.22 10^3/uL (0.0-0.2); Absolute Eosinophil Count 0.04 10^3/uL (0.0-0.7); Absolute Lymphocyte Count 1.48 10^3/uL (1.2-3.4); Diff Comment Manual Differential; Metamyelocytes % 3; Myelocytes % 3; Poikilocytes 1+; Polychromasia Present
== END 2023-01-29 23:59 | disposition home or self-care (01) ==
LOC: INF 01:42
PROVIDERS: PCP Family Medicine; Visit Provider Internal Medicine Hematology & Oncology
DX: Z45.2 Encounter for adjustment and management of vascular access device (principal); D46.9 Myelodysplastic syndrome, unspecified
CPT/HCPCS: 36415; 36430; 36591; 80053; 86850; 86900; 86901; 86920; 85025; P9016

== ENCOUNTER 2023-02-17 13:45 | Outpatient (RCR) | payer OTHER, SELFPAY ==
[2023-01-30 00:19] VITALS: BP 154/78; PULSE 74; RESP 17; TEMP 35.7
[2023-02-03 10:26] LABS: HCT 24.5 % (40.0-50.0); HGB 8.2 g/dL (13.5-17.5); MCH 28.9 pg (27.0-33.0); MCHC 33.5 % (32.0-36.0); MCV 86 fL (80-95); MPV 11.5 fL (8.0-11.0); Platelet Count 171 10^3/uL (130-400); RBC 2.84 10^6/uL (4.36-5.78); RDW-SD 47.4 fL; WBC 3.83 10^3/uL (4.4-10.8)
[2023-02-03 10:43] LABS: Absolute Eosinophil Count 0.04 10^3/uL (0.0-0.7); Absolute Lymphocyte Count 1.23 10^3/uL (1.2-3.4); Absolute Monocyte Count 0.31 10^3/uL (0.1-0.8); Absolute Neutrophil Count 1.72 10^3/uL (1.2-6.7); Atypical Lymphocytes % 4; Bands % 3
[2023-02-03 10:44] LABS: Absolute Basophil Count 0.34 10^3/uL (0.0-0.2); Diff Comment Manual Differential; Metamyelocytes % 1; Myelocytes % 3; Promyelocytes % 1; RBC Morphology Normal
[2023-02-03 11:55] VITALS: BP 112/52; PULSE 68; RESP 18; TEMP 35.8; O2SAT 98
[2023-02-03 12:18] VITALS: BP 133/72; PULSE 76; RESP 17; TEMP 36.1
[2023-02-03 12:33] VITALS: BP 112/65; PULSE 62; RESP 18; TEMP 36.4; O2SAT 100
[2023-02-03 13:30] VITALS: BP 96/51; PULSE 65; RESP 18; TEMP 36.1; O2SAT 100
[2023-02-03 13:55] VITALS: BP 133/59; PULSE 74; RESP 18; TEMP 36.1; O2SAT 100
[2023-02-10] MEDS: Normal Saline Flush 10 ML SYR IVP (09:41)
[2023-02-10] MEDS: Heparin 500 UNITS/5 ML SYRINGE IV (09:42)
[2023-02-10 09:51] LABS: Abs Immature Grans 0.43 10^3/uL (0.0-0.06); Absolute Basophil Count 0.24 10^3/uL (0.0-0.2); Absolute Eosinophil Count 0.03 10^3/uL (0.0-0.7); Absolute Monocyte Count 0.29 10^3/uL (0.1-0.8); Absolute Neutrophil Count 1.89 10^3/uL (1.2-6.7); Basophils % 6.3; Eosinophils % 0.8; HCT 25.5 % (40.0-50.0); HGB 8.5 g/dL (13.5-17.5); Immature Grans % 11.4; Lymphocytes % 23.8; MCH 28.5 pg (27.0-33.0); MCHC 33.3 % (32.0-36.0); MCV 86 fL (80-95); MPV 11.8 fL (8.0-11.0); Monocytes % 7.7; Platelet Count 168 10^3/uL (130-400); RBC 2.98 10^6/uL (4.36-5.78); RDW 14.7 % (11.8-14.1); RDW-SD 46.1 fL; WBC 3.78 10^3/uL (4.4-10.8)
[2023-02-10 10:06] LABS: Diff Comment Diff Reviewed; RBC Morphology Normal
[2023-02-10 11:20] VITALS: BP 98/58; PULSE 69; RESP 18; TEMP 37.1; O2SAT 99
[2023-02-10 11:35] VITALS: BP 120/68; PULSE 67; RESP 18; TEMP 37.2; O2SAT 98
[2023-02-10 11:50] VITALS: BP 127/66; PULSE 71; RESP 17; TEMP 36.4; O2SAT 97
[2023-02-10 12:20] VITALS: BP 127/66; PULSE 69; RESP 17; TEMP 36.8; O2SAT 99
[2023-02-10 13:20] VITALS: BP 128/80; PULSE 85; RESP 17; TEMP 37; O2SAT 99
[2023-02-10 13:30] VITALS: BP 115/63; PULSE 77; RESP 18; TEMP 36.3; O2SAT 95
[2023-02-17 12:34] LABS: Abs Immature Grans 0.55 10^3/uL (0.0-0.06); HCT 23.2 % (40.0-50.0); HGB 7.9 g/dL (13.5-17.5); MCH 29.4 pg (27.0-33.0); MCHC 34.1 % (32.0-36.0); MCV 86 fL (80-95); MPV 11.8 fL (8.0-11.0); Platelet Count 169 10^3/uL (130-400); RBC 2.69 10^6/uL (4.36-5.78); RDW 15.2 % (11.8-14.1); WBC 3.79 10^3/uL (4.4-10.8)
[2023-02-17 12:55] LABS: Absolute Basophil Count 0.23 10^3/uL (0.0-0.2); Absolute Eosinophil Count 0.08 10^3/uL (0.0-0.7); Absolute Monocyte Count 0.15 10^3/uL (0.1-0.8); Absolute Neutrophil Count 1.74 10^3/uL (1.2-6.7); Bands % 10; Diff Comment Manual Differential; Metamyelocytes % 3; Myelocytes % 2; RBC Morphology Normal
[2023-02-17 14:00] VITALS: BP 152/77; PULSE 89; RESP 18; TEMP 36.4; O2SAT 96
[2023-02-17 14:20] VITALS: BP 150/68; PULSE 89; RESP 18; TEMP 36.5; O2SAT 96
[2023-02-17 14:50] VITALS: BP 141/62; PULSE 80; RESP 16; TEMP 36.4; O2SAT 95
[2023-02-17 15:25] VITALS: BP 148/70; PULSE 83; RESP 16; TEMP 36.4; O2SAT 95
[2023-02-17] MEDS: Heparin 500 UNITS/5 ML SYRINGE IV (15:26)
[2023-02-17] MEDS: Normal Saline Flush 10 ML SYR IVP (15:26)
== END 2023-02-28 23:59 | disposition home or self-care (01) ==
LOC: INF 13:45
PROVIDERS: PCP Family Medicine; Visit Provider Internal Medicine Hematology & Oncology
DX: G35 Multiple sclerosis (principal); D53.9 Nutritional anemia, unspecified; E83.119 Hemochromatosis, unspecified
CPT/HCPCS: 36430; 36591; 86850; 86900; 86901; 86920; 85025; P9016

== ENCOUNTER 2023-03-31 11:00 | Outpatient (RCR) | payer OTHER, SELFPAY ==
[2023-03-01 00:18] VITALS: BP 148/70; PULSE 83; RESP 16; TEMP 36.4
[2023-03-17 10:07] LABS: Abs Immature Grans 0.31 10^3/uL (0.0-0.06); Absolute Basophil Count 0.31 10^3/uL (0.0-0.2); Absolute Eosinophil Count 0.07 10^3/uL (0.0-0.7); Absolute Lymphocyte Count 0.99 10^3/uL (1.2-3.4); Absolute Neutrophil Count 0.81 10^3/uL (1.2-6.7); Basophils % 11.5; Eosinophils % 2.6; HCT 27.2 % (40.0-50.0); HGB 8.9 g/dL (13.5-17.5); Immature Grans % 11.5; Lymphocytes % 36.8; MCH 29.8 pg (27.0-33.0); MCHC 32.7 % (32.0-36.0); MCV 91 fL (80-95); MPV 12.4 fL (8.0-11.0); Monocytes % 7.4; Neutrophils % 30.2; Nucleated RBC 0.7 % (0.0-0.3); Platelet Count 129 10^3/uL (130-400); RBC 2.99 10^6/uL (4.36-5.78); RDW 15.9 % (11.8-14.1); RDW-SD 51.2 fL; WBC 2.69 10^3/uL (4.4-10.8)
[2023-03-17 10:26] LABS: ALT 41 U/L (16-63); AST 31 U/L (15-37); Albumin 2.5 g/dL (3.4-5.0); Alkaline Phosphatase 253 U/L (46-116); Anion Gap 6.5 mmol/L (3-11); BUN 73 mg/dL (7-18); Bilirubin, Total 0.4 mg/dL (0.2-1.0); CO2 32.5 mmol/L (21.0-32.0); CREATININE 1.4 mg/dL (0.70-1.30); Calcium 9.1 mg/dL (8.5-10.1); Chloride 100 mmol/L (98-107); Estimated GFR 53.74 (mL/min/1.73m2); Glucose 121 mg/dL (74-106); Potassium 4.7 mmol/L (3.5-5.1); Sodium 139 mmol/L (136-145); Total Protein 7.3 g/dL (6.4-8.2)
[2023-03-17 10:33] LABS: Diff Comment Diff Reviewed; RBC Morphology Normal
[2023-03-17] MEDS: Normal Saline Flush 10 ML SYR IVP (10:47)
[2023-03-17] MEDS: Heparin 500 UNITS/5 ML SYRINGE IV (10:48)
[2023-03-24 10:03] LABS: HCT 23.6 % (40.0-50.0); HGB 7.8 g/dL (13.5-17.5); MCH 30.2 pg (27.0-33.0); MCHC 33.1 % (32.0-36.0); MCV 92 fL (80-95); MPV 12.8 fL (8.0-11.0); Platelet Count 131 10^3/uL (130-400); RBC 2.58 10^6/uL (4.36-5.78); RDW 15.9 % (11.8-14.1); WBC 2.11 10^3/uL (4.4-10.8)
[2023-03-24 10:20] LABS: ALT 38 U/L (16-63); AST 33 U/L (15-37); Albumin 2.6 g/dL (3.4-5.0); Alkaline Phosphatase 190 U/L (46-116); Anion Gap 6.4 mmol/L (3-11); BUN 58 mg/dL (7-18); Bilirubin, Total 0.4 mg/dL (0.2-1.0); CO2 29.6 mmol/L (21.0-32.0); CREATININE 1.2 mg/dL (0.70-1.30); Calcium 8.9 mg/dL (8.5-10.1); Chloride 103 mmol/L (98-107); Estimated GFR 64.65 (mL/min/1.73m2); Glucose 116 mg/dL (74-106); Potassium 4.4 mmol/L (3.5-5.1); Sodium 139 mmol/L (136-145); Total Protein 7.1 g/dL (6.4-8.2)
[2023-03-24 10:32] LABS: Atypical Lymphocytes % 1
[2023-03-24 10:33] LABS: Metamyelocytes % 2; Myelocytes % 7; Promyelocytes % 1
[2023-03-24 10:34] LABS: Diff Comment Manual Differential; RBC Morphology Normal
[2023-03-24 10:37] LABS: Absolute Basophil Count 0.15 10^3/uL (0.0-0.2); Absolute Eosinophil Count 0.04 10^3/uL (0.0-0.7); Absolute Lymphocyte Count 1.01 10^3/uL (1.2-3.4); Absolute Monocyte Count 0.17 10^3/uL (0.1-0.8); Absolute Neutrophil Count 0.53 10^3/uL (1.2-6.7)
[2023-03-24 11:11] VITALS: BP 105/63; PULSE 69; RESP 18; TEMP 37.2; O2SAT 100
[2023-03-24 11:25] VITALS: BP 96/56; PULSE 69; RESP 16; TEMP 36.7; O2SAT 100
[2023-03-24 11:45] VITALS: BP 109/63; PULSE 63; RESP 16; TEMP 36.3; O2SAT 100
[2023-03-24 11:56] VITALS: BP 126/67; PULSE 62; RESP 16; TEMP 36.7; O2SAT 98
[2023-03-24] MEDS: Heparin 500 UNITS/5 ML SYRINGE IV (13:29)
[2023-03-24] MEDS: Normal Saline Flush 10 ML SYR IVP (13:30)
[2023-03-31] MEDS: Normal Saline Flush 10 ML SYR IVP (09:36)
[2023-03-31] MEDS: Heparin 500 UNITS/5 ML SYRINGE IV (09:37)
[2023-03-31 10:07] LABS: Abs Immature Grans 3.15 10^3/uL (0.0-0.06); HCT 25.7 % (40.0-50.0); HGB 8.4 g/dL (13.5-17.5); MCH 29.3 pg (27.0-33.0); MCHC 32.7 % (32.0-36.0); MCV 90 fL (80-95); Platelet Count 80 10^3/uL (130-400); RBC 2.87 10^6/uL (4.36-5.78); RDW 16.1 % (11.8-14.1); RDW-SD 51.9 fL; WBC 12.96 10^3/uL (4.4-10.8)
[2023-03-31 10:42] LABS: Absolute Neutrophil Count 8.42 10^3/uL (1.2-6.7); Bands % 10
[2023-03-31 10:43] LABS: Absolute Basophil Count 0.26 10^3/uL (0.0-0.2); Absolute Eosinophil Count 0.13 10^3/uL (0.0-0.7); Absolute Lymphocyte Count 1.94 10^3/uL (1.2-3.4); Absolute Monocyte Count 0.39 10^3/uL (0.1-0.8); Atypical Lymphocytes % 2; Diff Comment Manual Differential; Hypochromasia 2+; Metamyelocytes % 7; Myelocytes % 4; Polychromasia Present; Promyelocytes % 3
[2023-03-31 11:38] VITALS: BP 107/60; PULSE 62; RESP 17; TEMP 36.6; O2SAT 99
[2023-03-31 11:55] VITALS: BP 101/50; PULSE 60; RESP 18; TEMP 36.7; O2SAT 100
[2023-03-31 12:10] VITALS: BP 113/63; PULSE 59; RESP 16; TEMP 36.7; O2SAT 100
[2023-03-31 12:40] VITALS: BP 117/55; PULSE 66; RESP 16; TEMP 36.5; O2SAT 99
[2023-03-31 13:20] VITALS: BP 117/68; PULSE 68; RESP 17; TEMP 36.7; O2SAT 100
== END 2023-03-31 23:59 | disposition home or self-care (01) ==
LOC: INF 11:00
PROVIDERS: PCP Family Medicine; Visit Provider Internal Medicine Hematology & Oncology
DX: D46.9 Myelodysplastic syndrome, unspecified (principal); Z45.2 Encounter for adjustment and management of vascular access device
CPT/HCPCS: 36430; 36591; 80053; 86850; 86900; 86901; 86920; 85025; P9016

== ENCOUNTER 2023-04-28 09:00 | Outpatient (RCR) | payer OTHER, SELFPAY ==
[2023-04-01 00:17] VITALS: BP 117/68; PULSE 68; RESP 17; TEMP 36.7
[2023-04-07 09:24] LABS: HCT 25.4 % (40.0-50.0); HGB 8.6 g/dL (13.5-17.5); MCH 30.3 pg (27.0-33.0); MCHC 33.9 % (32.0-36.0); MCV 89 fL (80-95); MPV 13.5 fL (8.0-11.0); RBC 2.84 10^6/uL (4.36-5.78); RDW 15.1 % (11.8-14.1); RDW-SD 49.5 fL; WBC 4.54 10^3/uL (4.4-10.8)
[2023-04-07 09:43] LABS: Absolute Monocyte Count 0.14 10^3/uL (0.1-0.8); Absolute Neutrophil Count 2.41 10^3/uL (1.2-6.7)
[2023-04-07 09:44] LABS: Diff Comment Manual Differential; Metamyelocytes % 5; Myelocytes % 3
[2023-04-07 09:48] LABS: Absolute Eosinophil Count 0.05 10^3/uL (0.0-0.7); Absolute Lymphocyte Count 1.36 10^3/uL (1.2-3.4); Atypical Lymphocytes % 0
[2023-04-07 09:49] LABS: Platelet Count 71 10^3/uL (130-400)
[2023-04-07 09:50] LABS: Hypochromasia 1+
[2023-04-07 09:57] LABS: Absolute Basophil Count 0.23 10^3/uL (0.0-0.2)
[2023-04-07] MEDS: Heparin 500 UNITS/5 ML SYRINGE (10:03)
[2023-04-07] MEDS: Normal Saline Flush 10 ML SYR IVP (11:13)
[2023-04-14] VITALS (8 sets, daily range): BP systolic 94–125; BP diastolic 46–70; PULSE 59–82; RESP 17–18; TEMP 36.1–36.9; O2SAT 98–100
[2023-04-14] MEDS: Normal Saline Flush 10 ML SYR IVP (08:34)
[2023-04-14 09:06] LABS: Abs Immature Grans 0.42 10^3/uL (0.0-0.06); HGB 7.1 g/dL (13.5-17.5); Immature Grans % 13.3; MCH 30.9 pg (27.0-33.0); MCHC 34.5 % (32.0-36.0); MCV 90 fL (80-95); MPV 12.2 fL (8.0-11.0); RDW 15.1 % (11.8-14.1); RDW-SD 49.1 fL; WBC 3.15 10^3/uL (4.4-10.8)
[2023-04-14 09:38] LABS: HCT 20.6 % (40.0-50.0)
[2023-04-14] MEDS: Heparin 500 UNITS/5 ML SYRINGE IV (09:45)
[2023-04-14 10:08] LABS: Platelet Count 144 10^3/uL (130-400)
[2023-04-14 10:09] LABS: Absolute Basophil Count 0.06 10^3/uL (0.0-0.2); Absolute Lymphocyte Count 1.51 10^3/uL (1.2-3.4); Absolute Monocyte Count 0.28 10^3/uL (0.1-0.8); Absolute Neutrophil Count 1.23 10^3/uL (1.2-6.7); Atypical Lymphocytes % 6; Bands % 8
[2023-04-14 10:10] LABS: Diff Comment Manual Differential; Metamyelocytes % 1; Myelocytes % 1
[2023-04-14 10:11] LABS: Anisocytosis 1+; Polychromasia Present
[2023-04-21] MEDS: Normal Saline Flush 10 ML SYR IVP (08:47)
[2023-04-21 08:56] LABS: Abs Immature Grans 0.25 10^3/uL (0.0-0.06); HCT 27.1 % (40.0-50.0); HGB 9.3 g/dL (13.5-17.5); MCH 30.1 pg (27.0-33.0); MCHC 34.3 % (32.0-36.0); MCV 88 fL (80-95); MPV 12.1 fL (8.0-11.0); Platelet Count 147 10^3/uL (130-400); RBC 3.09 10^6/uL (4.36-5.78); RDW-SD 47.6 fL; WBC 2.77 10^3/uL (4.4-10.8)
[2023-04-21] MEDS: Heparin 500 UNITS/5 ML SYRINGE IV (09:02)
[2023-04-21 09:18] LABS: ALT 29 U/L (16-63); AST 25 U/L (15-37); Albumin 2.7 g/dL (3.4-5.0); Alkaline Phosphatase 154 U/L (46-116); Anion Gap 6.2 mmol/L (3-11); BUN 35 mg/dL (7-18); Bilirubin, Total 0.4 mg/dL (0.2-1.0); CO2 28.8 mmol/L (21.0-32.0); CREATININE 1.2 mg/dL (0.70-1.30); Calcium 8.9 mg/dL (8.5-10.1); Chloride 98 mmol/L (98-107); Estimated GFR 64.65 (mL/min/1.73m2); Glucose 124 mg/dL (74-106); Potassium 4.5 mmol/L (3.5-5.1); Sodium 133 mmol/L (136-145); Total Protein 6.8 g/dL (6.4-8.2)
[2023-04-21 09:51] LABS: Absolute Lymphocyte Count 0.91 10^3/uL (1.2-3.4); Absolute Monocyte Count 0.19 10^3/uL (0.1-0.8); Absolute Neutrophil Count 1.36 10^3/uL (1.2-6.7); Bands % 3
[2023-04-21 09:52] LABS: Absolute Basophil Count 0.17 10^3/uL (0.0-0.2); Absolute Eosinophil Count 0.06 10^3/uL (0.0-0.7); Diff Comment Manual Differential; Metamyelocytes % 3; RBC Morphology Normal
[2023-04-28 09:38] LABS: HCT 23.5 % (40.0-50.0); HGB 7.9 g/dL (13.5-17.5); MCH 29.5 pg (27.0-33.0); MCHC 33.6 % (32.0-36.0); MCV 88 fL (80-95); MPV 11.7 fL (8.0-11.0); Platelet Count 176 10^3/uL (130-400); RBC 2.68 10^6/uL (4.36-5.78); RDW 14.8 % (11.8-14.1); RDW-SD 47.1 fL; WBC 2.59 10^3/uL (4.4-10.8)
[2023-04-28 10:21] LABS: Absolute Basophil Count 0.26 10^3/uL (0.0-0.2); Absolute Eosinophil Count 0.08 10^3/uL (0.0-0.7); Absolute Lymphocyte Count 0.91 10^3/uL (1.2-3.4); Absolute Neutrophil Count 1.19 10^3/uL (1.2-6.7); Bands % 5; Metamyelocytes % 1; Myelocytes % 1
[2023-04-28 10:22] LABS: Diff Comment Manual Differential; RBC Morphology Normal
[2023-04-28 11:11] VITALS: BP 112/65; PULSE 58; RESP 18; TEMP 36.1; O2SAT 96
[2023-04-28] MEDS: Normal Saline Flush 10 ML SYR IVP (11:23)
[2023-04-28] MEDS: Heparin 500 UNITS/5 ML SYRINGE IV (11:24)
[2023-04-28 11:25] VITALS: BP 112/51; PULSE 63; RESP 18; TEMP 36.1; O2SAT 96
[2023-04-28 11:40] VITALS: BP 138/55; PULSE 63; RESP 17; TEMP 36.1; O2SAT 95
[2023-04-28 12:10] VITALS: BP 126/56; PULSE 61; RESP 18; TEMP 36; O2SAT 100
[2023-04-28 12:40] VITALS: BP 125/61; PULSE 73; RESP 17; TEMP 36.2; O2SAT 98
== END 2023-04-30 23:59 | disposition home or self-care (01) ==
LOC: INF 09:00
PROVIDERS: PCP Family Medicine; Visit Provider Internal Medicine Hematology & Oncology
DX: Z45.2 Encounter for adjustment and management of vascular access device (principal); D46.9 Myelodysplastic syndrome, unspecified
CPT/HCPCS: 36430; 36591; 80053; 86850; 86900; 86901; 86920; 85025; P9016

== ENCOUNTER 2023-05-12 02:24 | Outpatient (RCR) | payer OTHER, SELFPAY ==
[2023-05-01 00:07] VITALS: BP 125/61; PULSE 73; RESP 17; TEMP 36.2
[2023-05-05 09:52] LABS: Abs Immature Grans 0.19 10^3/uL (0.0-0.06); HCT 24.1 % (40.0-50.0); HGB 8.3 g/dL (13.5-17.5); MCH 29.9 pg (27.0-33.0); MCHC 34.4 % (32.0-36.0); MCV 87 fL (80-95); MPV 11.6 fL (8.0-11.0); Platelet Count 140 10^3/uL (130-400); RBC 2.78 10^6/uL (4.36-5.78); RDW 14.6 % (11.8-14.1); RDW-SD 45.2 fL; WBC 2.34 10^3/uL (4.4-10.8)
[2023-05-05] MEDS: Normal Saline Flush 10 ML SYR IVP (10:22)
[2023-05-05] MEDS: Heparin 500 UNITS/5 ML SYRINGE IV (10:23)
[2023-05-05 10:47] LABS: Absolute Basophil Count 0.07 10^3/uL (0.0-0.2); Absolute Eosinophil Count 0.09 10^3/uL (0.0-0.7); Absolute Lymphocyte Count 0.94 10^3/uL (1.2-3.4); Absolute Monocyte Count 0.07 10^3/uL (0.1-0.8); Absolute Neutrophil Count 1.01 10^3/uL (1.2-6.7); Bands % 7; Metamyelocytes % 2; Myelocytes % 5
[2023-05-05 10:48] LABS: Diff Comment Manual Differential; RBC Morphology Normal
[2023-05-05 11:19] VITALS: BP 97/45; PULSE 68; RESP 18; TEMP 37.1; O2SAT 100
[2023-05-05 11:40] VITALS: BP 118/51; PULSE 69; RESP 17; TEMP 36; O2SAT 96
[2023-05-05 11:55] VITALS: BP 120/53; PULSE 63; RESP 17; TEMP 36.6; O2SAT 97
[2023-05-05 12:25] VITALS: BP 136/63; PULSE 67; RESP 17; TEMP 36.7; O2SAT 99
[2023-05-05 13:00] VITALS: BP 146/77; PULSE 74; RESP 17; TEMP 36.7; O2SAT 97
[2023-05-12] MEDS: Normal Saline Flush 10 ML SYR IVP (09:49)
[2023-05-12 09:50] LABS: Abs Immature Grans 0.12 10^3/uL (0.0-0.06); Absolute Eosinophil Count 0.02 10^3/uL (0.0-0.7); HCT 25.7 % (40.0-50.0); HGB 8.8 g/dL (13.5-17.5); MCH 29.7 pg (27.0-33.0); MCHC 34.2 % (32.0-36.0); MCV 87 fL (80-95); MPV 11.2 fL (8.0-11.0); RBC 2.96 10^6/uL (4.36-5.78); RDW 14.6 % (11.8-14.1); RDW-SD 45.3 fL; WBC 2.42 10^3/uL (4.4-10.8)
[2023-05-12] MEDS: Heparin 500 UNITS/5 ML SYRINGE IV (09:50)
[2023-05-12 10:17] LABS: Absolute Neutrophil Count 1.04 10^3/uL (1.2-6.7); Bands % 7; Platelet Count 141 10^3/uL (130-400)
[2023-05-12 10:18] LABS: Absolute Basophil Count 0.34 10^3/uL (0.0-0.2); Absolute Lymphocyte Count 0.82 10^3/uL (1.2-3.4); Absolute Monocyte Count 0.07 10^3/uL (0.1-0.8); Diff Comment Manual Differential; Hypochromasia 2+; Metamyelocytes % 4; Myelocytes % 1
== END 2023-05-31 23:59 | disposition home or self-care (01) ==
LOC: INF 02:24
PROVIDERS: PCP Family Medicine; Visit Provider Internal Medicine Hematology & Oncology
DX: D46.9 Myelodysplastic syndrome, unspecified (principal)
CPT/HCPCS: 36430; 36591; 86850; 86900; 86901; 86920; 85025; 87070; 87205; P9016

== ENCOUNTER 2023-06-19 04:14 | Emergency (ER) | payer OTHER, SELFPAY ==
[2023-06-19] VITALS (52 sets, daily range): BP systolic 137–147; BP diastolic 57–67; PULSE 85–93; RESP 0–28; TEMP 36.4–37; O2SAT 95–100
--- NOTE | 2023-06-19 04:15 | RT.EKG_ITS ---
APPROVED REPORT Exam: Resting ECG Reason for Exam: n/v Patient Location: E HR:85 bpm ECG Measurements Heart Rate 85 AXIS TN 213 P 68 QRSd 154 QRS -88 QT 427 T 94 QTc 509 Conclusion Sinus rhythm...normal P axis, V-rate 60- 99 Left ventricular hypertrophy...multiple LVH criteria ST elevation secondary to LVH...Multiple VCG criteria
--- NOTE | 2023-06-19 04:30 | DI.CT_ITS ---
Exam(s) CT ABDOMEN PELVIS W EXAM: CT ABDOMEN PELVIS W CLINICAL HISTORY: abdominal pain n/v. TECHNIQUE: Imaging Protocol: Axial computed tomography images with coronal and sagittal reformatted images were created and reviewed CONTRAST MATERIAL: Intravenous: Omnipaque-350 100cc Oral: None COMPARISON: No exams were available for comparison FINDINGS: VISUALIZED LUNG BASES: There is significant infiltrate in both lower lobes, more so on the left side. No pleural effusions evident. Cardiomegaly. No pericardial effusion. Calcification in the mitral valve annulus noted. ABDOMEN: There is a small amount of ascites in the dependent aspect of the pelvis. LIVER: There are no focal hepatic lesions evident. No dilated intrahepatic ducts. GALLBLADDER/BILIARY: No obvious gallbladder pathology. CBD is not dilated. PANCREAS: No evidence of pancreatic mass nor dilatation of the pancreatic duct. There is a solitary tiny 2 millimeter calcification in the pancreatic tail. SPLEEN: Spleen is enlarged. No intrasplenic lesions. Cephalocaudal measurement of the enlarged sple en is 15 cm. No intrasplenic masses. Splenic and portal veins are patent. Splenic vein diameter is 10-11 mm. No intraluminal thrombus. Portal vein confluence patent. ADRENALS: There are no significant adrenal masses. KIDNEYS:No cysts evident. No solid renal masses. No calculi nor hydronephrosis.. ABDOMINAL AORTA: Calcified but not enlarged. Common iliac arteries are also calcified but not enlarg ed. LYMPH NODES:There is no retroperitoneal nor paraaortic adenopathy. ABDOMINAL WALL: No evidence of significant anterior abdominal wall nor inguinal hernia. GI: There are multiple mildly dilated small bowel loops in the abdomen. Distal small bowel loops are not dilated. Colon is partially collapsed. PELVIS: GI: No evidence of appendicitis.No evidence of sigmoid diverticulitis. LYMPH NODES: There is no intrapelvic nor inguinal adenopathy. REPRODUCTIVE: Prostate not enlarged. URINARY BLADDER: No calculi nor obvious masses evident OSSEOUS: Bilateral hip prostheses. Significant indentation of the superior endplate of L4 is noted. Probably Schmorl's node invagination right of center. Somewhat atypical appearance and cannot exclu de a lytic lesion at this level in the L4 vertebral body. No other similar osseous findings in the f ield of view of this study. IMPRESSION: 1. There are multiple dilated central small bowel loops and a small amount of ascites in the dependen t aspect of the pelvis. Consistent with small bowel obstruction. The colon is mostly collapsed.. 2. There is significant infiltrate in both lower lobes, more so on the left side. No pleural effusio ns. Possible aspiration pneumonia. Please note that only the lower aspect of the lung sevilla are in cluded in the field of view of this abdominal CT scan. 3. There is significant splenomegaly. No prominent lymphadenopathy evident in the abdomen and pelvis . 4. Other findings as above. Study 1st read by [facility]. Final report called by myself to ER physician 06/19/2023 RADIATION DOSE DELIVERED: 615.16mGy.cm Total DLP DATA REPOSITORY: All CT scans at this facility are submitted to the National Radiology Data Registry (NRDR) Dose Index Registry (DIR) with the [employer] ([employer]). RADIATION OPTIMIZATION: All CT scans at this facility use at least one of these dose optimization te chniques: automated exposure control; mA and/or kV adjustment per patient size (includes targeted exa ms where dose is matched to clinical indication); or iterative reconstruction.
--- NOTE | 2023-06-19 04:37 | W.ED.GENAD ---
Discharge Plan Disposition Patient Disposition: Home Condition: Stable Discharge Details Clinical Impression: N&V (nausea and vomiting), Abdominal pain Primary Care Provider: Kevin Jose ED Provider: Jovi Cummins [place] Meds and New Rx's Prescriptions: New ondansetron 4 mg tablet,disintegrating 4 mg PO Q8H PRN (Reason: nausea and vomiting) Qty: 30 0RF furosemide [Lasix] 20 mg tablet 20 mg PO DAILY Qty: 30 0RF No Action folic acid 1 mg tablet 1 mg PO HS Qty: 90 3RF ammonium lactate 12 % cream 1 applic topical DAILY PRN (Reason: dry skin) Qty: 140 5RF acetaminophen 500 mg tablet 500 mg PO Q6H PRN atorvastatin 80 mg tablet 80 mg PO DAILY gabapentin 300 mg capsule 600 mg PO TID Qty: 540 3RF oxycodone 5 mg tablet 5 mg PO Q4H MDD 4 PRN (Reason: pain) Qty: 60 0RF morphine 30 mg capsule, ER multiphase 24 hr 30 mg PO BID MDD 1 cap Qty: 56 0RF morphine 15 mg tablet extended release 15 mg PO Q12H MDD 2 tabs Qty: 56 0RF Rx Instructions: take w/ a 30 mg to equal 45 mg BID rivaroxaban 2.5 mg tablet 2.5 mg PO BID Rx Instructions: Per [facility] [place] Vascular Surgery 05/25/23. -hb Discharge Instructions Instructions: Acute Nausea and Vomiting (ED) Additional Instructions: Your cat scan did not show any emergent findings in your abdomen. You do have a small amount of fluid in your lungs which you were given a medicine called lasix (furosemide) for. You can take 4-8mg zofran (ondansetron) as needed for nausea/vomiting every 8 hours. Take your next dose of the lasix tomorrow morning follow up with your primary care provider this week and discuss if you should continue your lasix if you feel more ill, have severe worsening pain, chest pain/pressure or trouble breathing return to the emergency department Medical Decision Making 73 yo male with hx of htn, peripheral vascular disease, myelodysplastic syndrome, who comes in with cc of abdominal pain and n/v for 2 days along with diarrhea. Denies fevers, chills, chest pain, dyspnea. denies prior abdominal surgeries, denies urinary symptoms or testicle pain/swelling. HE arrives stable speaking clearly. He localizes the pain in the abdomen to the llq and rlq. His abdomen is not distended, he is tender in both the llq and rlq, no guarding or rebound. Suspect colitis vs diveriticulitis vs appendicitis, will proceed with cbc, cmp, lipase and obtain ct abd/pelvis to further evaluate. pt stable, feels somewhat better, minimally elevated troponin at 67 likely demand/type 2 mi from dehydration from vomiting. Denies chest pain/pressure or dyspnea now, will obtain delta troponin, CT abd/pelvis pending, still has some abdominal discomfort in the lower abdomen, no guarding or rebound, is on morphine daily so will order dilaudid pt stable, CT shows no acute findings in the abdomen, does have evidence of pulmonary edema/chf. Pt continues to deny chest pain/pressure or dyspnea. I did do a pocus showing bilateral b lines and does appear to have reduced EF with no pericardial effusion. Delta troponin pending, will give a dose of 20mg lasix. delta troponin down to 66 from 67, pt still without dyspnea, chest pain or pressure and feels much better. I discussed results with him and recommended obs admission. Pt has decision making capacity and declines to stay as he feels better and also has family coming in from out of town. He has normal oxygenation and no evidence of respiratory distress and flat minimally elevated troponin so do not feel he needs to sign out AMA, did discuss if he worsens he needs to immediately return to the emergency department which he understood. Differential Diagnosis Differential Diagnosis: diverticulitis, colitis, appendicitis Medical Records Medical records reviewed: Yes I reviewed the patient's medical records. Imaging Data Radiologic Study: Attestation: I personally reviewed and interpreted this imaging study as follows: Imaging: CT Scan Radiologist's impression: IMPRESSION: 1. Splenomegaly. 2. Trace ascites in the dependent pelvis. 3. Hydrostatic interstitial pulmonary edema/CHF. 4. Incompletely visualized airspace opacity in the lower lungs suspicious for aspiration pneumonia Lab Data Lab results reviewed: Yes I reviewed the patient's lab results. ECG Data Attestation: I personally reviewed and interpreted this ECG (s) as follows: Prior ECG tracings: not available for review Interpretation: sinus rhythm rate of 85 no stemi HPI General Date/Time Provider Initiated Documentation: 06/19/23 04:14. Limitations to Documentation: no limitations. Information obtained by: patient. History of Present Illness 73 year old M presents to the emergency department with the chief complaint of abdominal pain, described as moderate, Quality is described as aching, Patient reports no radiation. and it has been constant. No relieving factors improve symptom(s), No exacerbating factors reported . Patient notes nausea/vomiting; denies chest pain, fever/chills and shortness of breath. Patient did receive the following treatments prior to arrival, none Related Data Home Medications Medication Instructions Recorded Confirmed acetaminophen 500 mg tablet 500 mg PO Q6H PRN 02/06/20 06/19/23 ammonium lactate 12 % topical cream 1 applic topical DAILY PRN dry 12/24/20 06/19/23 skin #140 grams folic acid 1 mg tablet 1 mg PO HS #90 tab-caps 12/31/22 06/19/23 oxycodone 5 mg tablet 5 mg PO Q4H PRN pain #60 tabs 02/11/23 06/19/23 atorvastatin 80 mg tablet 80 mg PO DAILY 04/06/23 06/19/23 gabapentin 300 mg capsule 600 mg PO TID #540 caps 04/29/23 06/19/23 morphine 15 mg tablet,extended 15 mg PO Q12H #56 tabs 05/06/23 06/19/23 release morphine 30 mg capsule,extended 30 mg PO BID #56 caps 05/06/23 06/19/23 release 24 hr multiphase rivaroxaban 2.5 mg tablet 2.5 mg PO BID 06/02/23 06/19/23 furosemide 20 mg tablet (Lasix) 20 mg PO DAILY #30 tabs 06/19/23 ondansetron 4 mg disintegrating 4 mg PO Q8H PRN nausea and 06/19/23 tablet vomiting #30 tabs Previous Rx's Medication Instructions Recorded ammonium lactate 12 % topical cream 1 applic topical DAILY PRN dry 12/24/20 skin #140 grams folic acid 1 mg tablet 1 mg PO HS #90 tab-caps 12/31/22 oxycodone 5 mg tablet 5 mg PO Q4H PRN pain #60 tabs 02/11/23 gabapentin 300 mg capsule 600 mg PO TID #540 caps 04/29/23 morphine 15 mg tablet,extended 15 mg PO Q12H #56 tabs 05/06/23 release morphine 30 mg capsule,extended 30 mg PO BID #56 caps 05/06/23 release 24 hr multiphase furosemide 20 mg tablet (Lasix) 20 mg PO DAILY #30 tabs 06/19/23 ondansetron 4 mg disintegrating 4 mg PO Q8H PRN nausea and 06/19/23 tablet vomiting #30 tabs Allergies Allergy/AdvReac Type Severity Reaction Status Date / Time aspirin AdvReac gi upset Verified 05/12/23 08:54 gluten AdvReac Diarrhea, Verified 05/12/23 08:54 bloat lactose AdvReac Diarrhea Verified 05/12/23 08:54 oxycodone HCl AdvReac per pt may Verified 05/12/23 08:54 [From OxyContin] have caused hallucinations shellfish/seafood AdvReac Unknown vomit all Uncoded 05/12/23 08:54 night long General Stated Complaint: Abd Prob ALEXA: 3 PFSH All Active Problems (Updated 06/19/23 @ 07:14 by Jovi Cummins MD) N&V (nausea and vomiting) (Acute) Abdominal pain (Acute) PAD (peripheral artery disease) (Acute) Cellulitis (Acute) Phantom limb pain (Acute) Claudication (Acute) Ischemic pain of left foot (Acute) Skin lesion of left ear (Acute) Anxiety (Chronic) Contracture of right index finger (Acute) Right rotator cuff tendonitis (Acute) Biceps tendinitis of right shoulder (Acute) Hypoxemia (Acute) Myelodysplasia (myelodysplastic syndrome) (Acute) Chronic gout without tophus (Acute) H/O autologous stem cell transplant (Acute) Cyst (Acute) Right hamstring muscle strain (Acute) S/P total hip arthroplasty (Chronic) Rheumatoid arthritis (Acute) Peripheral venous insufficiency (Acute) Essential hypertension (Acute) 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 -hb Disorder of lung MILD/MOD,DLCO LOW BUT CORRECTED TO NORMAL Prostatitis Severe calcific aortic stenosis 05/25/23 [facility] [place] Vascular Surgery. 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 -hb History of hand surgery History of total replacement of both hip joints (06/15/18) Family History Father , age 83 Diabetes Lung cancer Mother Stroke Sister , age 32 Cancer Sister No problems noted. Brother No problems noted. Maternal Grandfather , age 83 Testicular cancer Paternal Grandfather , in his 50s - Mustard gas Diabetes Maternal Grandmother , OLD AGE at age 99. No problems noted. Paternal Grandmother , age 50 MVA No problems noted. Daughter No problems noted. Daughter No problems noted. Daughter No problems noted. Brother No problems noted. Social History (Updated 01/01/23 @ 12:44 by Isaura Diaz) Smoking/Tobacco Use Status: Former Tobacco Use tobacco type: cigarettes Quit Date: 11/01/84 Tobacco: How many years used: 15 Smokeless tobacco user: other Quit status: has quit before Second Hand Exposure: Yes Counseling given: other Smoking risk assessment performed?: Yes Alcohol Intake: current Alcohol Intake frequency: a few times a month Alcohol type: hard liquor Drug use: Never Substance use type: does not use Counseling given: No Counseling provided: none Caregiver/Support person: Yes Household members: spouse Housing: house Do you need help understanding health information?: Often Pets and animals: No Sexually active: No Do you think of yourself as: straight/heterosexual Current gender identity: male What is your relationship status?: How often do you talk on the phone with friends or family?: never How often do you get together with friends or relatives?: once per week How often do you attend orthodoxy or gnosticist services?: decline to answer Do you belong to any clubs or organized social groups?: no Panel score (0-1 are the most socially isolated patients): 1 What type of physical activity do you participate in: none Frequency: does not exercise Amanda/Quaker: None Special amanda needs: No Seatbelt use: always Drive intox or ride w/intox cdl b driver: No Do you feel safe at home: Yes Do you feel safe in your relationship?: Yes Exam Const General: no acute distress Orientation: alert HENMT Head: normal to inspection Ears: external ears normal General nose exam: external nose normal Mouth: moist mucous membranes Eyes General: appearance normal, both eyes and all related structures Neck Neck: normal visual inspection Resp Effort & Inspection: normal respiratory effort and able to speak in complete sentences Cardio Rate: regular rate GI Palpation: soft, not firm, no guarding and tender Skin General skin exam: no rashes or lesions noted Neuro General: patient alert and patient oriented x3 Extrem General: normal to inspection Psych Mental Status: mental status grossly normal Course Vital Signs Vital signs: Vital Signs Temperature 36.4 C 06/19/23 04:19 Pulse 85 06/19/23 04:19 Respiratory Rate 20 06/19/23 04:19 Blood Pressure 140/60 06/19/23 04:19 Pulse Oximetry 100 06/19/23 04:19 Temperature 36.4 C 06/19/23 04:19 Temperature Source Tympanic 06/19/23 04:19 Pulse 85 06/19/23 04:19 Respiratory Rate 20 06/19/23 04:19 Respiratory Effort Normal 06/19/23 04:23 Blood Pressure 140/60 06/19/23 04:19 Blood Pressure Position Left Lateral 06/19/23 04:19 Pulse Oximetry 100 06/19/23 04:19 Oxygen Delivery Method Room Air 06/19/23 04:19 Oxygen Flow Rate 0 06/19/23 04:19 Pain Level 8 06/19/23 04:23 POCUS Exam (ED) Limited Cardiac Exam DATE OF EXAM: 06/19/23 TIME OF EXAM: 06:49 PROVIDER THAT PERFORMED THE STUDY: Jovi Cummins IS THIS A REPEAT EXAM DURING THIS ENCOUNTER: no REASON FOR EXAM: Congestive heart failure VISUALIZED STRUCTURES: Left ventricle and Right ventricle VIEW OBTAINED: Parasternal long-axis and Parasternal short-axis PERTINENT FINDINGS/IMPRESSION: LV dysfunction; No pericardial effusion Exam complete Limited Thoracic Lung Exam DATE OF EXAM: 06/19/23 TIME OF EXAM: 06:49 PROVIDER THAT PERFORMED THE STUDY: Effie Jauregui REASON FOR EXAM: Cardiogenic Pulmonary Edema VISUALIZED STRUCTURES: right anterior and left anterior PERTINENT FINDINGS/IMPRESSION: B-lines/left side and B-lines/right side Exam complete
[2023-06-19] MEDS: Normal Saline 1,000 ML 1000 ML IV (05:07)
[2023-06-19 05:10] LABS: Abs Immature Grans 0.28 10^3/uL (0.0-0.06); HCT 25.6 % (40.0-50.0); MCH 28.5 pg (27.0-33.0); MCHC 35.2 % (32.0-36.0); MCV 81 fL (80-95); MPV 11.5 fL (8.0-11.0); Platelet Count 186 10^3/uL (130-400); RBC 3.16 10^6/uL (4.36-5.78); RDW 15.2 % (11.8-14.1); RDW-SD 44.1 fL; WBC 2.91 10^3/uL (4.4-10.8)
[2023-06-19] MEDS: Ondansetron 4 MG/2 ML VIAL IVP (05:15)
[2023-06-19] MEDS: Ketorolac 15 MG/ML VIAL IVP (05:15)
[2023-06-19 05:27] LABS: ALT 37 U/L (16-63); AST 31 U/L (15-37); Albumin 3.1 g/dL (3.4-5.0); Alkaline Phosphatase 156 U/L (46-116); Anion Gap 8.9 mmol/L (3-11); BUN 26 mg/dL (7-18); Bilirubin, Total 0.8 mg/dL (0.2-1.0); CO2 26.1 mmol/L (21.0-32.0); Calcium 9.1 mg/dL (8.5-10.1); Chloride 98 mmol/L (98-107); Estimated GFR 80.47 (mL/min/1.73m2); Glucose 117 mg/dL (74-106); Lipase 47 U/L (16-77); Magnesium 1.7 mg/dL (1.8-2.4); Sodium 133 mmol/L (136-145); Total Protein 7.5 g/dL (6.4-8.2)
[2023-06-19 05:38] LABS: Troponin I 67 ng/L (<or=60)
[2023-06-19 05:41] LABS: COVID-19 PCR Negative (Negative); Influenza A PCR Negative (Negative); Influenza B PCR Negative (Negative); RSV PCR Negative (Negative)
[2023-06-19 05:43] LABS: Absolute Lymphocyte Count 0.84 10^3/uL (1.2-3.4); Absolute Monocyte Count 0.23 10^3/uL (0.1-0.8); Absolute Neutrophil Count 1.69 10^3/uL (1.2-6.7); Atypical Lymphocytes % 1; Bands % 1; Metamyelocytes % 1; Myelocytes % 1; Other Cells % 3
[2023-06-19 05:51] LABS: Source Nasopharynx
[2023-06-19 05:52] LABS: Anisocytosis 1+; Diff Comment Manual Differential; Hypochromasia 2+; Microcytosis 2+
[2023-06-19 05:53] LABS: ETHANOL BLOOD < 3.0 mg/dL (<10)
[2023-06-19] MEDS: Normal Saline - Diluent 50 ML VIAL IJ (05:55)
[2023-06-19] MEDS: Omnipaque 350 MG/ML 100 ML BTL IJ (05:55)
--- NOTE | 2023-06-19 06:29 | DI.VRAD_ITS ---
PROCEDURE INFORMATION: Exam: CT Abdomen And Pelvis With Contrast Exam date and time: 06/19/2023 6:12 AM Age: 73 years old Clinical indication: Abdominal pain; Prior surgery; Surgery date: 6+ months; Surgery type: Appendectomy; Patient HX: Abd cramps, TECHNIQUE: Imaging protocol: Computed tomography of the abdomen and pelvis with contrast. Radiation optimization: All CT scans at this facility use at least one of these dose optimization techniques: automated exposure control; mA and/or kV adjustment per patient size (includes targeted exams where dose is matched to clinical indication); or iterative reconstruction. Contrast material: OMNIPAQUE 350; Contrast volume: 80 ml; Contrast route: INTRAVENOUS (IV); COMPARISON: CR RT HIP COMPLETE AP PELVIS 03/08/2017 10:18 AM FINDINGS: Lungs: Smooth interlobular septal thickening compatible with hydrostatic interstitial pulmonary edema/CHF. Incompletely visualized airspace opacity in the lower lungs suspicious for aspiration pneumonia. Pleural spaces: Trace left pleural effusion. Liver: Normal. No mass. Gallbladder and bile ducts: Normal. No calcified stones. No ductal dilation. Pancreas: Unremarkable. Spleen: Splenomegaly. Adrenal glands: Normal. No mass. Kidneys and ureters: Normal. No hydronephrosis. Stomach and bowel: No bowel wall thickening or intestinal obstruction. No pneumatosis or portal/mesenteric venous gas. Appendix: Appendix not visualized. No evidence of appendicitis. Intraperitoneal space: Trace ascites in the dependent pelvis. No pneumoperitoneum or abscess. Vasculature: Atherosclerotic aorta. No aneurysm or acute aortic syndrome. SMV and SMA are patent as far as can be traced. Lymph nodes: Unremarkable. Urinary bladder: Unremarkable as visualized. Reproductive: Unremarkable as visualized. Bones/joints: Bilateral hip prostheses. Soft tissues: Unremarkable. IMPRESSION: 1. Splenomegaly. 2. Trace ascites in the dependent pelvis. 3. Hydrostatic interstitial pulmonary edema/CHF. 4. Incompletely visualized airspace opacity in the lower lungs suspicious for aspiration pneumonia. Dictated and Authenticated by: Heriberto García MD. Ordering:NICOLETTE Espana MD
[2023-06-19] MEDS: Furosemide 20 MG/2 ML VIAL IVP (06:52)
[2023-06-19] MEDS: HYDROmorphone 2 MG/ML SYR IVP (06:52)
[2023-06-19 06:59] LABS: Troponin I 66 ng/L (<or=60)
[2023-06-19 07:27] LABS: NT-proBNP 23442 pg/mL (<300)
[2023-06-19] MEDS: Heparin 500 UNITS/5 ML SYRINGE (07:44)
--- NOTE | 2023-06-19 18:36 | W.ED.FU ---
Date of service: 06/19/23 Time of Service: 18:36 Follow Up Plan: CT scan from overnight over read by day radiologist concern for possible small bowel obstruction. I personally called the patient, patient is asymptomatic no nausea no vomiting no abdominal distention no abdominal pain patient has had a normal bowel movement today. He is feeling much better than last night. Patient given strict return precautions to the emergency department for any worsening symptoms.
== END 2023-06-19 07:45 | disposition home or self-care (01) ==
PROVIDERS: Emergency Provider Emergency Medicine; PCP Family Medicine
DX: R11.2 Nausea with vomiting, unspecified (principal); R19.7 Diarrhea, unspecified; R16.1 Splenomegaly, not elsewhere classified; I51.7 Cardiomegaly; I11.9 Hypertensive heart disease without heart failure; D46.9 Myelodysplastic syndrome, unspecified
CPT/HCPCS: 76604; 80053; 83690; 87637; 93005; 93308; 99285; 74177; 80320; 83735; 83880; 84484; 85025; 93010; 99284; J1170; J1885; J1941; J2405; J3490

== ENCOUNTER 2023-06-23 11:00 | Outpatient (RCR) | payer OTHER, SELFPAY ==
[2023-06-01 00:12] VITALS: BP 146/77; PULSE 74; RESP 17; TEMP 36.7
[2023-06-02] MEDS: Normal Saline Flush 10 ML SYR IVP (09:33)
[2023-06-02 09:50] LABS: HCT 23.4 % (40.0-50.0); HGB 7.9 g/dL (13.5-17.5); MCH 29.6 pg (27.0-33.0); MCHC 33.8 % (32.0-36.0); MCV 88 fL (80-95); MPV 12.2 fL (8.0-11.0); RBC 2.67 10^6/uL (4.36-5.78); RDW 15.1 % (11.8-14.1); RDW-SD 47.8 fL
[2023-06-02] MEDS: Heparin 500 UNITS/5 ML SYRINGE IV (10:05)
[2023-06-02 10:08] LABS: Absolute Basophil Count 0.46 10^3/uL (0.0-0.2); Absolute Eosinophil Count 0.05 10^3/uL (0.0-0.7); Absolute Lymphocyte Count 0.86 10^3/uL (1.2-3.4); Absolute Neutrophil Count 0.94 10^3/uL (1.2-6.7); Anisocytosis 1+; Atypical Lymphocytes % 1; Bands % 3; Diff Comment Manual Differential; Platelet Count 165 10^3/uL (130-400)
[2023-06-02 11:12] VITALS: BP 99/66; PULSE 80; RESP 18; TEMP 36.7; O2SAT 98
[2023-06-02 11:27] VITALS: BP 100/65; PULSE 85; RESP 16; TEMP 37.2; O2SAT 99
[2023-06-02 11:45] VITALS: BP 108/66; PULSE 80; RESP 18; TEMP 36; O2SAT 99
[2023-06-02 12:15] VITALS: BP 97/68; PULSE 87; RESP 17; TEMP 36.7; O2SAT 98
[2023-06-02 13:05] VITALS: BP 122/75; PULSE 87; RESP 17; TEMP 37.2; O2SAT 97
[2023-06-09 09:42] LABS: Absolute Eosinophil Count 0.02 10^3/uL (0.0-0.7); HCT 24.4 % (40.0-50.0); HGB 8.2 g/dL (13.5-17.5); MCH 28.2 pg (27.0-33.0); MCHC 33.6 % (32.0-36.0); MCV 84 fL (80-95); MPV 11.4 fL (8.0-11.0); Platelet Count 152 10^3/uL (130-400); RBC 2.91 10^6/uL (4.36-5.78); RDW 15.4 % (11.8-14.1); RDW-SD 46.8 fL; WBC 2.34 10^3/uL (4.4-10.8)
[2023-06-09 10:03] LABS: Absolute Lymphocyte Count 1.05 10^3/uL (1.2-3.4); Absolute Monocyte Count 0.12 10^3/uL (0.1-0.8); Atypical Lymphocytes % 3; Bands % 2; Diff Comment Manual Differential; Metamyelocytes % 1; Myelocytes % 1; RBC Morphology Normal
[2023-06-09 11:14] VITALS: BP 116/66; PULSE 82; RESP 17; TEMP 36.3; O2SAT 100
[2023-06-09 11:29] VITALS: BP 112/75; PULSE 79; RESP 17; TEMP 36.3; O2SAT 97
[2023-06-09 11:48] VITALS: BP 115/63; PULSE 77; RESP 17; TEMP 36.3; O2SAT 100
[2023-06-09 12:15] VITALS: BP 119/67; PULSE 84; RESP 17; TEMP 36; O2SAT 99
[2023-06-09 12:40] VITALS: BP 117/67; PULSE 80; RESP 17; TEMP 36; O2SAT 99
[2023-06-16 10:08] LABS: Abs Immature Grans 0.22 10^3/uL (0.0-0.06); HCT 26.1 % (40.0-50.0); HGB 8.9 g/dL (13.5-17.5); MCH 28.7 pg (27.0-33.0); MCHC 34.1 % (32.0-36.0); MCV 84 fL (80-95); Platelet Count 175 10^3/uL (130-400); RDW 15.7 % (11.8-14.1); RDW-SD 47.6 fL; WBC 2.58 10^3/uL (4.4-10.8)
[2023-06-16] MEDS: Normal Saline Flush 10 ML SYR IVP (10:19)
[2023-06-16] MEDS: Heparin 500 UNITS/5 ML SYRINGE IV (10:19)
[2023-06-16 10:30] LABS: Absolute Basophil Count 0.28 10^3/uL (0.0-0.2); Absolute Lymphocyte Count 1.21 10^3/uL (1.2-3.4); Absolute Monocyte Count 0.05 10^3/uL (0.1-0.8); Absolute Neutrophil Count 0.95 10^3/uL (1.2-6.7); Atypical Lymphocytes % 5; Bands % 3
[2023-06-16 10:31] LABS: Diff Comment Manual Differential; Metamyelocytes % 1; Other Cells % 2; Polychromasia Present
[2023-06-23] MEDS: Normal Saline Flush 10 ML SYR IVP (10:18)
[2023-06-23] MEDS: Heparin 500 UNITS/5 ML SYRINGE IV (10:18)
[2023-06-23 10:20] LABS: HCT 21.8 % (40.0-50.0); HGB 7.5 g/dL (13.5-17.5); MCH 28.4 pg (27.0-33.0); MCHC 34.4 % (32.0-36.0); MCV 83 fL (80-95); MPV 10.7 fL (8.0-11.0); Platelet Count 183 10^3/uL (130-400); RBC 2.64 10^6/uL (4.36-5.78); RDW 15.5 % (11.8-14.1); RDW-SD 46.3 fL; WBC 3.16 10^3/uL (4.4-10.8)
[2023-06-23 10:36] LABS: Absolute Neutrophil Count 1.67 10^3/uL (1.2-6.7); Bands % 1
[2023-06-23 10:37] LABS: Absolute Basophil Count 0.09 10^3/uL (0.0-0.2); Absolute Lymphocyte Count 1.17 10^3/uL (1.2-3.4); Absolute Monocyte Count 0.06 10^3/uL (0.1-0.8); Metamyelocytes % 2
[2023-06-23 10:38] LABS: Diff Comment Manual Differential; Myelocytes % 3; Promyelocytes % 0
[2023-06-23 10:39] LABS: Hypochromasia 1+; Polychromasia Present
[2023-06-23 11:37] VITALS: BP 100/65; PULSE 88; RESP 17; TEMP 36.2; O2SAT 99
[2023-06-23 11:52] VITALS: BP 105/61; PULSE 88; RESP 17; TEMP 36.2; O2SAT 97
[2023-06-23 12:07] VITALS: BP 114/69; PULSE 91; RESP 17; TEMP 36.2; O2SAT 95
[2023-06-23 12:37] VITALS: BP 99/54; PULSE 92; RESP 17; TEMP 36.2; O2SAT 97
[2023-06-23 13:32] VITALS: BP 100/52; PULSE 86; RESP 17; TEMP 36; O2SAT 98
== END 2023-06-28 23:59 | disposition home or self-care (01) ==
LOC: INF 11:00
PROVIDERS: PCP Family Medicine; Visit Provider Internal Medicine Hematology & Oncology
DX: D46.9 Myelodysplastic syndrome, unspecified (principal)
CPT/HCPCS: 36430; 36591; 86850; 86900; 86901; 86920; 85025; P9016